=== PATIENT | male | born 1950 | race Caucasian/White ===

== ENCOUNTER 2020-05-02 13:17 | Outpatient (CLI) | payer OTHER, MEDICARE, SELFPAY ==
--- NOTE | 2020-05-02 13:30 | USCV_ITS ---
Jacob Raymundo Age: 70 Gender: M : 1950 Exam Date: 05/02/2020 13:32 Ordering Phys: Dennis Dickson MD ([email or web address]) Technologist: Miesha Bolden [place] [facility] [place]: BRADYCARDIA BP: / HR: 71 Rhythm: Sinus Technical Quality: No Apical windowsl MEASUREMENTS (Male / Female) Normal Values 2D ECHO LV Diastolic Diameter PLAX 3.6 cm 4.2 - 5.9 / 3.9 - 5.3 cm LV Systolic Diameter PLAX 2.1 cm IVS Diastolic Thickness 1.2 cm 0.6 - 1.0 / 0.6 - 0.9 cm IVS Systolic Thickness 2.0 cm LVPW Diastolic Thickness 1.5 cm 0.6 - 1.0 / 0.6 - 0.9 cm LVPW Systolic Thickness 2.1 cm LVOT Diameter 2.0 cm LV Ejection Fraction 2D Teich 74.1 % LA Diameter 3.6 cm Aorta at Sinotubular Diameter 3.2 cm M-MODE LV Diastolic Diameter MM 2.6 cm 4.2 - 5.9 / 3.9 - 5.3 cm LV Systolic Diameter MM 1.5 cm LV Ejection Fraction MM Teich 77.5 % IVS Diastolic Thickness MM 1.3 cm 0.6 - 1.0 / 0.6 - 0.9 cm IVS Systolic Thickness MM 1.6 cm LVPW Diastolic Thickness MM 1.8 cm 0.6 - 1.0 / 0.6 - 0.9 cm LVPW Systolic Thickness MM 1.8 cm RV Diastolic Diameter MM 1.8 cm Aortic Annulus Diameter 3.9 cm LA Ao Ratio MM 1.0 MV E Point Septal Separation 0.8 cm DOPPLER PV Peak Velocity 73.0 cm/s RV Acceleration Time 0.1 s RV Ejection Time 0.3 s RV AcT/ET 0.5 FINDINGS Left Ventricle Normal left ventricular size and systolic function, EF 55%. Mild left ventricular hypertrophy. No regional wall motion abnormalities. Right Ventricle Stability normal size ejection fraction Right Atrium Could not be visualized Left Atrium Possibly of normal size Mitral Valve No gross abnormalities noted Aortic Valve No gross abnormalities noted Tricuspid Valve Tricuspid valve not well visualized. Pulmonic Valve Pulmonic valve not well visualized. Pericardium No pericardial effusion. Aorta Normal aortic annulus size. CONCLUSIONS Normal left ventricular size and systolic function, EF 55%. Mild left ventricular hypertrophy. Segmental wall motion analysis difficult Possibly normal left atrial size Possibly normal RV size and ejection fraction There is no pericardial effusion. Technically difficult study because of the poor ultrasonic window. Dr Dennis Dickson MD [facility] (Electronically Signed) Final Date: 03 May 2020 00:21 S
== END 2020-05-02 13:18 | disposition home or self-care (01) ==
LOC: RAD 13:19
PROVIDERS: PCP Nurse Practitioner Family; Visit Provider Internal Medicine Cardiovascular Disease
DX: R00.1 Bradycardia, unspecified (principal)
CPT/HCPCS: 93308

== ENCOUNTER 2020-07-17 09:07 | Outpatient (CLI) | payer OTHER, SELFPAY ==
--- NOTE | 2020-07-17 09:15 | ECG_ITS ---
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 Interpretive Statements NAME OF STUDY: LEXISCAN SESTAMIBI STRESS TEST INDICATION: Shortness of Breath, PROCEDURE: At the baseline, the EKG revealed sinus bradycardia with a poor R wave progression. Possible old anterior wall myocardial infarction. Nonspecific T wave changes. The baseline blood pressure was 148/73 mm Hg with a heart rate of 54 beats/min. Lexiscan was infused over a period of 20 seconds. A total of 0.4 milligrams of Lexiscan was infused. The stress phase was continued for a total of 5 minutes. Heart rate at the end of the stress phase was 66 with a blood pressure 141/74. The EKG at the peak infusion revealed no significant changes. Sestamibi was injected 20 seconds after the Lexiscan infusion. Blood pressure at the end of the recovery phase was 155/74 with a heart rate of 64 per minute. CONCLUSION: 1. No significant EKG changes with the LexiScan infusion 2. No LexiScan induced chest pain or cardiac arrhythmia 3. Normal blood pressure and heart rate response 4. Sestamibi/sestamibi perfusion scan pending; see separate report. Electronically Signed On 07-25-2020 12:00:23 RELATIONS MGR by Dennis Dickson M.D. [id number]
--- NOTE | 2020-07-17 09:16 | NMCV_ITS ---
NM dasha perf SPECT r/s* [id number] Raymundo James Age: 70 Gender: M : 1950 Exam Date: 07/17/2020 10:22 Ordering Phys: Dennis Dickson MD ([email or web address]) Technologist: RIZWAN Taylor Exam Location: [facility] Indications: SHORTNESS OF BREATH STRESS TEST Please see separate stress test report in [facility] for full findings IMAGE PROTOCOL Rest/Stress 1 Lexiscan Day Radiopharmaceutical Dose (mCi) Administration Site Administered by Rest: Tc-99m 10.8 IV RIZWAN Taylor Sestamibi Stress:Tc-99m 33.0 IV RIZWAN Flower Sestamibi Rest: 17-Jul-2020 60 Discovery 630 Stress: 17-Jul-2020 30 Discovery 630 0.4mg Lexiscan. Supine position only as patient was unable to lay prone. SPECT RESULTS Technical Quality: Excellent Raw Data Analysis: Normal Image Corrections: No attenuation or motion correction applied Summed Stress Score: 1 Summed Rest Score: 1 Summed Difference Score: 0 PERFUSION FINDINGS Patchy areas of decreased tracer uptake in the apical segments with no significant reversibility FUNCTIONAL RESULTS (calculated via Gated SPECT) Stress Image LV EF (%): 61 Stress EDV (mL):116 TID: 1.06 Stress ESV (mL):45 FUNCTIONAL FINDINGS: Segmental wall motion analysis revealing no gross wall motion abnormalities IMPRESSIONS 1. Myocardial perfusion imaging revealing patchy areas of persistent decreased tracer uptake in the apical segments, suggestive of myocardial scarring versus attenuation artifact. 2. Normal LV ejection fraction of 61%. 3. LV wall motion analysis revealing no gross wall motion normalities. 4. Normal LV volume. No significant coronary ischemia, based on the above findings. No similar previous studies for comparison Dr Dennis Dickson MD [facility] (Electronically Signed) Final Date: 17 July 2020 17:21 S
[2020-07-17 09:17] VITALS: BMI 48.2
[2020-07-17] MEDS: regadenoson 0.4 Mg/5 ml Syringe IVP (11:05)
[2020-07-17 11:22] VITALS: BP 158/75; PULSE 65
== END 2020-07-17 09:08 | disposition home or self-care (01) ==
LOC: CDL 09:10
PROVIDERS: PCP Nurse Practitioner Family; Visit Provider Internal Medicine Cardiovascular Disease
DX: R06.02 Shortness of breath (principal); R94.31 Abnormal electrocardiogram [ECG] [EKG]
CPT/HCPCS: 78452; 93017; A9500; J2785

== ENCOUNTER 2020-09-16 23:03 | Emergency (ER) | payer OTHER, SELFPAY ==
[2020-09-16 23:29] VITALS: BP 111/68; PULSE 62; RESP 18; TEMP 36.8; O2SAT 97; BMI 45.4
--- NOTE | 2020-09-16 23:48 | ED_ITS ---
HPI - Neck Pain/Injury General: Chief Complaint: Neck Pain/Injury Stated Complaint: Severe neck pain Time Seen by Provider: 09/16/20 23:46 Source: patient Mode of arrival: ambulatory Limitations: no limitations History of Present Illness: HPI Narrative: 70-year-old male complaining of neck pain, intermittent since 09/01/2020 when he fell from standing position. He is not on blood thinners. The pain has been waxing and waning, got worse after he took a long car ride, has tried taking extra gabapentin which did help some. No weakness or numbness radiating down his arms. The pain is mainly on the left side of his neck just beneath the base of his skull. He does not have any sharp stabbing pains with certain movements. He does have a history of cervical spine disease, had C6-C7 fusion 1 year ago. No chest pain, no shortness of breath, no nausea or vomiting. MD complaint: neck pain and neck injury Onset (ago): week(s) Place: home Radiation: left lateral and occiput Associated symptoms: Reports headache(s); Denies difficulty walking, dizziness or nausea Review of Systems General: Reports: 10 or more systems reviewed and unremarkable except in HPI and below Const: Denies: fever(s), chills, body aches, change in appetite or change in weight Eyes: Denies: change in vision, blurry vision or blind spots ENMT: Denies: throat pain, odynophagia or ear or mastoid pain Card: Denies: chest pain, palpitations or irregular heart rhythm Resp: Denies: dyspnea, non-productive cough, wheezing or pain on inspiration GI: Denies: nausea or vomiting : Denies: flank pain, difficulty urinating or dysuria Musc: Reports: neck pain; Denies: back pain, extremity pain, extremity swelling, joint pain or joint swelling Skin/Breast: Denies: rash, pruritus or erythema Neuro: Reports: headache(s); Denies: numbness in extremities, weakness in extremities, sensory changes, difficulty walking, frequent falls, dizziness or vertigo Freeman/Lymph: Denies: easy bruising or easy bleeding PFS ED PFSH: Medical History (Updated 09/17/20 @ 01:46 by Carmela Barnes MD) Abnormal EKG Benign essential hypertension with target blood pressure below 140/90 Bradycardia Diabetes Dyslipidemia Erectile dysfunction Hypertension Low back pain Obesity PTSD (post-traumatic stress disorder) Sleep apnea Spondylosis Vitamin D deficiency Surgical History H/O neck surgery History of back surgery History of carpal tunnel surgery Family History Other Bleeding disorder Cancer Diabetes Lung disease Denies family history of CAD (coronary artery disease) Dementia Hyperlipidemia Chronic kidney disease (CKD) Anesthesia complication Family history of premature coronary artery disease Hypertension Stroke Social History Smoking and tobacco status: never smoked Alcohol intake: current Alcohol intake frequency: holidays/special occasions only Physical Exam Const: COMMON NORMALS: no acute distress, patient oriented x3, no limitations and alert GENERAL APPEARANCE: cooperative; not in distress, not anxious, not ill appearing and not frail appearing NUTRITIONAL APPEARANCE: obese morbidly obese ORIENTATION/CONSCIOUSNESS: Yes awake HENMT: COMMON NORMALS: normocephalic and atraumatic HEAD & SCALP: normal to inspection, normocephalic, atraumatic and occipital foramen tenderness; no abrasion, no Arroyo's sign, no contusion, no hematoma, no laceration, no palpable skull fracture, no raccoon eyes, no scalp lesion and no scalp tenderness FACE & SINUS: normal facial exam and face symmetric Eye: COMMON NORMALS: Equal, round and reactive pupils present, EOMs intact bilaterally, conjunctivae normal and no scleral icterus CONJUNCTIVA: Yes conjunctivae normal PUPIL: Yes Equal, round and reactive pupils present Neck/C-Spine: COMMON NORMALS: full ROM GENERAL: Yes trachea midline and No anterior neck swelling CERVICAL SPINE: Yes pain with cervical ROM, Yes Cervical spine tenderness C3 and C4, Yes Paracervical muscle tenderness left and Yes Paracervical spasm left NECK IMAGES: 1. Muscle spasm, tenderness Resp: COMMON NORMALS: normal respiratory effort, No retractions and No use of accessory muscles EFFORT & INSPECTION: No labored Extremity: COMMON NORMALS: no clubbing, cyanosis or edema Neuro: COMMON NORMALS: patient oriented x3 SENSORIUM/ORIENTATION: Yes alert CRANIAL NERVES: Yes CN normal except as noted GAIT: Yes Normal gait present, No Antalgic gait present and No Ataxic gait present MOTOR EXAM: no tremor noted, Motor fasciculations not present and Normal motor muscle tone present throughout Skin: COMMON NORMALS: no rashes or lesions noted and turgor normal GENERAL SKIN EXAM: no rashes or lesions noted, turgor normal and no ecchymo Course Vital Signs: Vital signs: Vital Signs Temperature 98.2 F 09/16/20 23:29 Pulse Rate 62 09/16/20 23:29 Respiratory Rate 18 09/16/20 23:29 Blood Pressure 111/68 09/16/20 23:29 Pulse Oximetry 97 09/16/20 23:29 MDM - Neck Pain/Injury MDM Narrative: Medical decision making narrative: 70-year-old male with left- sided neck pain after fall [address] head and C-spine negative for any acute injuries. Bupivacaine 0.5% injected at 2 points of maximal tenderness: 5 cc at the insertion of the semispinalis and splenius capitis muscle at the left occiput, 5 cc injected in the body of the trapezius at C4-C5 level. On reexamination 50 minutes later, patient was sleeping, so the his neck pain had improved considerably, range of motion was less painful. Differential Diagnosis: Neck Differential Diagnosis: Likely disc disorder of cervical region, whiplash injury to neck, closed subluxation of cervical spine, fracture of cervical spine without lesion of spinal cord, cervical radiculopathy and strain of neck muscle Discharge Plan Discharge Patient Disposition: Home Clinical Impression: Neck pain on left side Strain of neck muscle Qualifiers: Encounter type: initial encounter Qualified Code(s): S16.1XXA - Strain of muscle, fascia and tendon at neck level, initial encounter Condition: Stable Prescriptions: No Action hydrocodone-acetaminophen 5-325 mg tablet 1 tab PO Q8H PRNRF: 0 tramadol 50 mg tablet 50 mg PO DAILY RF: 0 cetirizine 10 mg tablet 10 mg PO DAILY RF: 0 diclofenac sodium 100 mg tablet extended release 24 hr 100 mg PO DAILY RF: 0 buspirone 10 mg tablet 10 mg PO BID RF: 0 acetaminophen 650 mg tablet extended release 650 mg PO Q8H RF: 0 fluticasone propionate [Allergy Relief (fluticasone)] 50 mcg/actuation spray,suspension 1 spray INTRANASAL BID RF: 0 gemfibrozil 600 mg tablet 600 mg PO BID RF: 0 pioglitazone 15 mg tablet 15 mg PO DAILY RF: 0 gabapentin 300 mg capsule 300 mg PO TID RF: 0 mecobalamin (vitamin B12) 10,000 mcg recon soln IM .monthly RF: 0 fluoxetine 20 mg capsule 20 mg PO BID RF: 0 methocarbamol 750 mg tablet 750 mg PO QID RF: 0 cyclobenzaprine 10 mg tablet 10 mg PO TID RF: 0 Discharge Orders: Discharge ED (Routine); Ordered 09/17/20 Ordered By: Carmela Barnes Referrals: Boone Neil APRN [Primary Care Provider] - Discharge Diet: Advance as tolerated Discharge Activity: Resume usual activity Patient Instructions: Cervical Sprain (ED) Activity Restrictions/Additional Instructions: Call to schedule follow-up appoint with your primary care doctor in the next 2 to 3 days to recheck. Apply warm compress, gently massage the tender area, stretch her neck frequently by leaning your head forward, tucking your chin to your chest. Return immediately to the ER if you develop worsening pain, numbness or weakness in your arms, difficulty walking, severe headache nausea or vomiting. 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
--- NOTE | 2020-09-17 | CTR_ITS ---
PROCEDURE INFORMATION: Exam: CT Head Without Contrast Exam date and time: 09/17/2020 12:04 AM Age: 70 years old Clinical indication: Injury or trauma; Blunt trauma (contusions or hematomas); Patient HX: Fall about two weeks ago. C/O persistent head and neck pain. ; Additional info: Headache, neck pain, fell 2 weeks ago TECHNIQUE: Imaging protocol: Computed tomography of the head without contrast. Radiation optimization: All CT scans at this facility use at least one of these dose optimization techniques: automated exposure control; mA and/or kV adjustment per patient size (includes targeted exams where dose is matched to clinical indication); or iterative reconstruction. COMPARISON: No relevant prior studies available. RADIATION DOSE METRICS: Total DLP (mGy-cm): 869.98 FINDINGS: Brain: No acute infarct or hemorrhage. Cerebral ventricles: No ventriculomegaly. Bones/joints: Unremarkable. No acute fracture. Paranasal sinuses: Paranasal sinuses are clear. No air-fluid level. Mastoid air cells: Visualized mastoid air cells are clear. Soft tissues: Unremarkable. CT/CT head wo con* [id number] IMPRESSION: 1. No acute infarct or hemorrhage. 2. No fracture. Radiation Dose CTDIVOL = (mGy): DLP = 869.98 (mGy-cm)
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
--- NOTE | 2020-09-17 00:32 | PC.NURSE ---
EKG taken and given to Dr. Barnes
[2020-09-17 02:00] VITALS: BP 115/71; PULSE 60; RESP 19; O2SAT 98
== END 2020-09-17 02:00 | disposition home or self-care (01) ==
PROVIDERS: Emergency Provider Family Medicine; PCP Nurse Practitioner Family
DX: S16.1XXA Strain of muscle, fascia and tendon at neck level, initial encounter (principal); I10 Essential (primary) hypertension; E11.9 Type 2 diabetes mellitus without complications; E78.5 Hyperlipidemia, unspecified; W19.XXXA Unspecified fall, initial encounter
CPT/HCPCS: 70450; 72125; 99284; J3490

== ENCOUNTER 2020-10-16 22:57 | Emergency (ER) | payer OTHER, MEDICARE, SELFPAY ==
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
[2020-10-16 23:12] VITALS: BP 150/70; PULSE 54; RESP 16; TEMP 36.8; O2SAT 96; BMI 43.8
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
[2020-10-17] MEDS: HYDROcodone-acetaminophen 5-325 mg Tablet 1 TAB PO (00:29)
[2020-10-17 00:36] VITALS: BP 136/93; PULSE 59; RESP 17; TEMP 36.8; O2SAT 96
== END 2020-10-17 00:37 | disposition home or self-care (01) ==
PROVIDERS: Emergency Provider Emergency Medicine; PCP Nurse Practitioner Family
DX: S16.1XXA Strain of muscle, fascia and tendon at neck level, initial encounter (principal); V87.8XXA Person injured in other specified noncollision transport accidents involving motor vehicle (traffic), initial encounter; I10 Essential (primary) hypertension; E11.9 Type 2 diabetes mellitus without complications; E78.5 Hyperlipidemia, unspecified
CPT/HCPCS: 70450; 72125; 99283; L0172

== ENCOUNTER → 2021-11-04 13:50 | Outpatient (BNVA) | payer OTHER, SELFPAY | PROVIDERS: PCP Nurse Practitioner Family; Visit Provider Internal Medicine Cardiovascular Disease | DX: I10 Essential (primary) hypertension (principal); R42 Dizziness and giddiness; E78.5 Hyperlipidemia, unspecified; R20.0 Anesthesia of skin; R20.2 Paresthesia of skin | CPT/HCPCS: 99213; 99214 ==

== ENCOUNTER 2021-12-21 11:30 | Outpatient (CLI) | payer OTHER, SELFPAY ==
--- NOTE | 2021-12-21 12:45 | USCV_ITS ---
Raymundo James Age: 71 Gender: M : 1950 Exam Date: 12/21/2021 11:45 Ordering Phys: Dennis Dickson MD ([email or web address]) Technologist: CHACE Exam Location: [facility] [place] Indication: Bilateral carotid artery stenosis Risk Factors: Previous Vascular Surgery: Right Brachial BP: / Left Brachial BP: / Right Left Velocity (cm/s) Spectral Plaque Velocity (cm/s) Spectral Plaque Syst/Diast Broadening Syst/Diast Broadening 67.50/ 6.60 Prox CCA 99.10 / 13.20 70.30/ 10.30 Mid CCA 57.80 / 13.50 69.50/ 12.10 Distal CCA 61.30 / 9.30 42.50/ 7.80 Prox ICA 60.60 / 14.00 47.60/ 10.00 Mid ICA 52.80 / 14.60 44.50/ 14.10 Distal ICA 49.90 / 12.70 111.40 ECA 97.30 0.68 ICA/CCA 1.05 Antegrade Vertebral Antegrade 30.40/ 5.90 cm/s 22.90/ 4.45 cm/s Tri Subclavian Tri 72.80 156.4 0 FINDINGS Minimal intimal thickening in the common carotid and the internal carotid arteries bilaterally Antegrade flow in the vertebral arteries bilaterally Normal /near normal Doppler flow velocities in the external carotid, vertebral and subclavian arteries bilaterally CONCLUSIONS Minimal intimal thickening in the common carotid and the internal carotid arteries bilaterally. No significant stenosis in the above-mentioned arteries, based on the above findings Dr Dennis Dickson MD [facility] (Electronically Signed) Final Date: 22 December 2021 08:07 S
== END 2021-12-21 11:31 | disposition home or self-care (01) ==
LOC: RAD 11:31
PROVIDERS: PCP Nurse Practitioner Family; Visit Provider Internal Medicine Cardiovascular Disease
DX: I77.9 Disorder of arteries and arterioles, unspecified (principal); R20.0 Anesthesia of skin; R20.2 Paresthesia of skin
CPT/HCPCS: 93880

== ENCOUNTER → 2022-09-14 09:33 | Outpatient (BNVA) | payer MEDICARE, SELFPAY | PROVIDERS: PCP Nurse Practitioner Family; Visit Provider Nurse Practitioner Family | DX: M25.512 Pain in left shoulder (principal) | CPT/HCPCS: 73030 ==

== ENCOUNTER → 2023-05-03 14:27 | Outpatient (BNVA) | payer OTHER, SELFPAY | PROVIDERS: PCP Family Medicine; Referring Provider Nurse Practitioner Family; Visit Provider Internal Medicine Cardiovascular Disease | DX: I50.9 Heart failure, unspecified (principal); R06.02 Shortness of breath; R07.9 Chest pain, unspecified; I44.0 Atrioventricular block, first degree; M79.89 Other specified soft tissue disorders; E78.5 Hyperlipidemia, unspecified; I10 Essential (primary) hypertension; R00.1 Bradycardia, unspecified; G47.33 Obstructive sleep apnea (adult) (pediatric); I44.4 Left anterior fascicular block | CPT/HCPCS: 36415; 80048; 83880; 93005; 99214 ==

== ENCOUNTER → 2023-05-05 13:15 | Outpatient (BNVA) | payer OTHER, SELFPAY | PROVIDERS: PCP Family Medicine; Visit Provider Student in an Organized Health Care Education/Training Program | DX: R20.0 Anesthesia of skin; R20.2 Paresthesia of skin; M79.641 Pain in right hand; M79.642 Pain in left hand | CPT/HCPCS: 73130 ==

== ENCOUNTER 2023-05-05 14:24 | Outpatient (CLI) | payer OTHER, SELFPAY | END 2023-05-05 14:25 | disposition home or self-care (01) | LOC: SPT 14:44 | PROVIDERS: PCP Family Medicine; Visit Provider Student in an Organized Health Care Education/Training Program | DX: Z46.89 Encounter for fitting and adjustment of other specified devices (principal); G56.03 Carpal tunnel syndrome, bilateral upper limbs | CPT/HCPCS: 97760; 99204; L3908 ==

== ENCOUNTER → 2023-06-03 10:55 | Outpatient (BNVA) | payer OTHER, SELFPAY | PROVIDERS: PCP Family Medicine; Visit Provider Specialist | DX: G56.03 Carpal tunnel syndrome, bilateral upper limbs (principal); G56.22 Lesion of ulnar nerve, left upper limb | CPT/HCPCS: 95911 ==

== ENCOUNTER → 2023-12-01 13:48 | Outpatient (BNVA) | payer OTHER, SELFPAY | PROVIDERS: PCP Family Medicine; Visit Provider Internal Medicine Cardiovascular Disease | DX: R06.02 Shortness of breath (principal); I10 Essential (primary) hypertension; R00.1 Bradycardia, unspecified; E78.5 Hyperlipidemia, unspecified; G47.33 Obstructive sleep apnea (adult) (pediatric) | CPT/HCPCS: 99214 ==

== ENCOUNTER 2024-03-09 17:57 | Emergency (ER) | payer OTHER, MEDICARE, SELFPAY ==
[2024-03-09 18:02] VITALS: BP 168/79; PULSE 63; RESP 18; TEMP 36.5; O2SAT 99
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
[2024-03-09 20:05] VITALS: BP 155/76; PULSE 60; RESP 16; O2SAT 97
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
== END 2024-03-09 20:03 | disposition home or self-care (01) ==
PROVIDERS: Emergency Provider Physician Assistant; PCP Family Medicine
DX: S40.021A Contusion of right upper arm, initial encounter (principal); R42 Dizziness and giddiness; E78.5 Hyperlipidemia, unspecified; I10 Essential (primary) hypertension; E11.9 Type 2 diabetes mellitus without complications; V89.2XXA Person injured in unspecified motor-vehicle accident, traffic, initial encounter
CPT/HCPCS: 70450; 72125; 73060; 99284

== ENCOUNTER 2024-03-09 21:52 | Emergency (ER) | payer OTHER, MEDICARE, SELFPAY ==
[2024-03-09 22:14] VITALS: BP 151/77; PULSE 59; RESP 18; TEMP 36.7; O2SAT 96
--- NOTE | 2024-03-09 22:18 | ECG_ITS ---
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 Measurements Intervals Hobbs Rate: 59 P: 13 NV: 217 QRS: -51 QRSD: 90 T: 21 QT: 404 QTc: 401 Interpretive Statements SINUS BRADYCARDIA WITH FIRST DEGREE AV BLOCK LOW QRS VOLTAGE IN PRECORDIAL LEADS [QRS DEFLECTION < 1.0 mV IN CHEST LEADS] LEFT ANTERIOR FASCICULAR BLOCK [QRS AXIS <= -45, QR IN I, RS IN II] POSSIBLE ANTERIOR MYOCARDIAL INFARCTION , OF INDETERMINATE AGE [30 ms Q WAVE IN V3/V4, OR R < 0.2 mV IN V4] Compared to ECG 02/20/2024 11:13:32 First degree AV block now present Left anterior fascicular block now present Sinus rhythm no longer present Myocardial infarct finding still present Electronically Signed On 03-11-2024 9:16:33 CDT by Adrian Issa M.D. [email or web address]
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
[2024-03-09 23:30] VITALS: BP 142/66; PULSE 58; RESP 18; O2SAT 96
== END 2024-03-09 22:51 | disposition home or self-care (01) ==
PROVIDERS: Emergency Provider Physician Assistant; PCP Family Medicine
DX: Z01.89 Encounter for other specified special examinations (principal); I10 Essential (primary) hypertension; E11.9 Type 2 diabetes mellitus without complications
CPT/HCPCS: 93005; 99283

== ENCOUNTER 2024-03-16 12:43 | Emergency (ER) | payer OTHER, MEDICARE, SELFPAY ==
[2024-03-16 12:49] VITALS: BP 129/58; PULSE 64; RESP 18; TEMP 36.8; O2SAT 98; BMI 43.0
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
--- NOTE | 2024-03-16 14:13 | PC.PHAR ---
[facility] 03/16/24 2:14pm
[2024-03-16 14:16] VITALS: BP 135/67; PULSE 55; RESP 18; O2SAT 96
[2024-03-16 15:24] VITALS: BP 113/64; PULSE 52; O2SAT 97
[2024-03-16 15:48] VITALS: BP 125/91; PULSE 52; RESP 18; O2SAT 97
== END 2024-03-16 15:51 | disposition home or self-care (01) ==
PROVIDERS: Emergency Provider Emergency Medicine; PCP Family Medicine
DX: M48.061 Spinal stenosis, lumbar region without neurogenic claudication (principal); E78.5 Hyperlipidemia, unspecified; I10 Essential (primary) hypertension; E11.9 Type 2 diabetes mellitus without complications
CPT/HCPCS: 72128; 72131; 99284

== ENCOUNTER 2024-04-10 10:08 | Outpatient (CLI) | payer OTHER, SELFPAY ==
--- NOTE | 2024-04-10 10:27 | USCV_ITS ---
Raymundo James Age: 74 Gender: M : 1950 Exam Date: 04/10/2024 10:58 Ordering Phys: Marlene Michaud Technologist: Exam Location: [facility] [place] Indication: ef BP: / HR: Rhythm: Sinus Technical Quality: Adequate MEASUREMENTS (Male / Female) Normal Values 2D ECHO LV Diastolic Diameter PLAX 4.1 cm 4.2 - 5.9 / 3.9 - 5.3 cm IVS Diastolic Thickness 1.2 cm 0.6 - 1.0 / 0.6 - 0.9 cm IVS Systolic Thickness 2.0 cm LVPW Diastolic Thickness 1.3 cm 0.6 - 1.0 / 0.6 - 0.9 cm LVPW Systolic Thickness 1.6 cm LV Ejection Fraction 2D Teich 65.7 % LV Ejection Fraction MOD 4C 65.5 % LV Ejection Fraction MOD 2C 65.0 % LV Ejection Fraction 2C AL 65.4 % RA Systolic Volume 4C AL 61.4 ml RA Systolic Volume 4C MOD 57.4 ml M-MODE LA Ao Ratio MM 1.1 AV Cusp Separation MM 2.6 cm FINDINGS Left Ventricle Normal left ventricular size and systolic function, EF 66%. No regional wall motion abnormalities. Segmental wall motion analysis somewhat difficult because of the poor ultrasonic windows Right Ventricle Normal right ventricular size and systolic function. Right Atrium Possibly of normal size Left Atrium Appears to be of normal size. Mitral Valve No gross abnormalities noted Aortic Valve No gross morphology abnormalities noted Tricuspid Valve No gross abnormalities noted Pulmonic Valve Not visualized well Pericardium No pericardial effusion. Aorta Normal aortic annulus size. IVC Inferior vena cava not visualized. CONCLUSIONS Normal left ventricular size and systolic function, EF 66%. No regional wall motion abnormalities. Segmental wall motion analysis somewhat difficult because of the poor ultrasonic windows. Possibly normal chamber sizes. No gross valvular abnormalities are noted. No pericardial effusion. Technically somewhat difficult study Dr Dennis Dickson MD [facility] (Electronically Signed) Final Date: 17 April 2024 08:35 S
== END 2024-04-10 10:09 | disposition home or self-care (01) ==
LOC: RAD 10:10
PROVIDERS: PCP Family Medicine; Visit Provider Nurse Practitioner Family
DX: R00.1 Bradycardia, unspecified (principal); R94.31 Abnormal electrocardiogram [ECG] [EKG]; I10 Essential (primary) hypertension
CPT/HCPCS: 93308

== ENCOUNTER 2024-07-16 16:13 | Emergency (ER) | payer OTHER, MEDICARE, SELFPAY ==
[2024-07-16 16:36] VITALS: BP 126/60; PULSE 65; TEMP 36.7; O2SAT 98; BMI 42.4
--- NOTE | 2024-07-16 16:40 | ECG_ITS ---
[facility] Test Date: 2024-07-16 Pat Name: Raymundo James Department: Room: Gender: Male Photo Specialist: : 1950 Requested By: Bruce Velarde Order Number: [id number] Reading MD: JANI LEVY Measurements Intervals [place] Rate: 58 P: 0 NH: 0 QRS: -65 QRSD: 109 T: 30 QT: 446 QTc: 441 Interpretive Statements SUPRAVENTRICULAR BRADYCARDIA LEFT AXIS DEVIATION [QRS AXIS < -30] LOW QRS VOLTAGE IN PRECORDIAL LEADS [QRS DEFLECTION < 1.0 mV IN CHEST LEADS] POSSIBLE ANTERIOR MYOCARDIAL INFARCTION , OF INDETERMINATE AGE [30 ms Q WAVE IN V3/V4, OR R < 0.2 mV IN V4] Compared to ECG 03/09/2024 22:18:32 Left-axis deviation now present Sinus bradycardia no longer present First degree AV block no longer present Left anterior fascicular block no longer present Myocardial infarct finding still present Electronically Signed On 07-16-2024 23:10:16 [employer]EL [employer] FLOORPERSON by JANI LEVY [email or web address]
--- NOTE | 2024-07-16 17:26 | CTR_ITS ---
PROCEDURE INFORMATION: Exam: CT Head Without Contrast Exam date and time: 07/16/2024 5:48 PM Age: 74 years old Clinical indication: Dizziness; Additional info: Dizzy TECHNIQUE: Imaging protocol: Computed tomography of the head without contrast. Radiation optimization: All CT scans at this facility use at least one of these dose optimization techniques: automated exposure control; mA and/or kV adjustment per patient size (includes targeted exams where dose is matched to clinical indication); or iterative reconstruction. COMPARISON: CT head wo con* [id number] 03/09/2024 6:41 PM RADIATION DOSE METRICS: Total DLP (mGy-cm): 1213.48 FINDINGS: Brain: No intracranial hemorrhage. No edema or mass effect. No significant deep white matter abnormality. Cerebral ventricles: Normal ventricles. Paranasal sinuses: The paranasal sinuses are clear. Mastoid air cells: The mastoid air cells are clear. Bones: No acute osseous abnormalities are seen. Soft tissues: The soft tissues are within normal limits. CT/CT head wo con* [id number] IMPRESSION: No acute intracranial pathology.
--- NOTE | 2024-07-16 17:26 | XRR_ITS ---
PROCEDURE INFORMATION: Exam: XR Chest Exam date and time: 07/16/2024 5:29 PM Age: 74 years old Clinical indication: Other: Dizzy TECHNIQUE: Imaging protocol: Radiologic exam of the chest. Views: 1 view. COMPARISON: CT thoracic spin wo con* [id number] 03/16/2024 1:47 PM FINDINGS: Limitations: Patient rotation. Lungs: Mild interstitial prominence likely chronic lung changes. No pulmonary consolidation. Pleural spaces: No pleural effusion or pneumothorax. Heart/Mediastinum: Heart size is poorly evaluated. The cardiomediastinal silhouette is within normal limits. Bones/joints: No acute osseous abnormalities are seen. XR/XR chest 1V portable [id number] IMPRESSION: No acute cardiopulmonary disease.
--- NOTE | 2024-07-16 17:30 | ED_ITS ---
HPI - General Adult 2 General: Chief complaint: General Medical Stated complaint: dizzyness and lower back pain Time Seen by Provider: 07/16/24 17:12 Source: patient Mode of arrival: ambulatory Limitations: no limitations History of Present Illness: 74-year-old male states that he has been having lightheadedness he states since April. He states that he has periods where he feels like he may blackout while some dizziness. He states he has a history of A-fib he sees his environmental science technician next month but states he wants for a Krishnan always feeling lightheaded he denies any slurred speech denies any chest pain he states he also has low back pain is chronic in nature. Denies any change in his back pain. Associated symptoms: Deny chest pain, dyspnea, headache(s), nausea, rash or vomiting Related Data Home Medications Medication Instructions Recorded Confirmed acetaminophen 650 mg 650 mg PO Q8H 03/04/20 07/16/24 tablet,extended release buspirone 10 mg tablet 10 mg PO BID 03/04/20 07/16/24 cetirizine 10 mg tablet 10 mg PO DAILY 03/04/20 07/16/24 diclofenac sodium 100 mg 100 mg PO DAILY 03/04/20 07/16/24 tablet,extended release 24 hr fluoxetine 20 mg capsule 20 mg PO BID 03/04/20 07/16/24 gemfibrozil 600 mg tablet 600 mg PO BID 03/04/20 07/16/24 methocarbamol 750 mg tablet 750 mg PO QID 03/04/20 07/16/24 fluticasone propionate 50 1 spray intranasal BID PRN allergy 11/05/20 07/16/24 mcg/actuation nasal symptoms spray,suspension (Allergy Relief (fluticasone)) pioglitazone 15 mg tablet 7.5 mg PO DAILY 05/07/21 07/16/24 finasteride 5 mg tablet (Proscar) 5 mg PO DAILY 11/04/21 07/16/24 gabapentin 800 mg tablet 800 mg PO TID 09/14/22 07/16/24 Previous Rx's Medication Instructions Recorded tramadol 50 mg tablet 50 mg PO TID PRN pain #10 tabs 09/14/22 losartan 100 mg tablet 100 mg PO DAILY 30 days #90 tabs 05/03/23 bilateral wrist splint/brace #1 ea 05/05/23 prednisone 20 mg tablet 20 mg PO DAILY #15 tabs 05/05/23 potassium chloride 20 mEq 10 meq (1/2 x 20 mEq) PO DAILY #45 05/20/23 tablet,extended release tabs methocarbamol 750 mg tablet 750 mg PO TID muscle pain #14 tabs 03/16/24 aspirin 81 mg tablet,delayed 81 mg PO DAILY #90 tabs 03/21/24 release (Adult Aspirin Regimen) Allergies Allergy/AdvReac Type Severity Reaction Status Date / Time metformin Allergy Unknown unknown Verified 07/16/24 16:48 phenobarbital Allergy Unknown unknown Verified 07/16/24 16:48 Sulfa (Sulfonamide Allergy Unknown unknown Verified 07/16/24 16:48 Antibiotics) Review of Systems 2 Const: Denies: fever(s), chills, body aches or change in appetite ENMT: Denies: throat pain or dental pain Card: Denies: chest pain Resp: Denies: dyspnea GI: Denies: abdominal pain, nausea, vomiting or diarrhea Musc: Reports: back pain; Denies: neck pain Skin/Breast: Denies: rash Neuro: Denies: headache(s) PFSH ED 2 PFSH: Medical History (Updated 07/16/24 @ 20:24 by Bruce Velarde MD) Dyslipidemia Abnormal EKG Benign essential hypertension with target blood pressure below 140/90 Bradycardia Hypertension Low back pain Erectile dysfunction Obesity Spondylosis Sleep apnea PTSD (post-traumatic stress disorder) Vitamin D deficiency Diabetes Surgical History H/O neck surgery History of carpal tunnel surgery History of back surgery Family History Father Cancer Mother Cancer Lung disease CAD (coronary artery disease) Diabetes Denies family history of Clotting disorder Dementia Hyperlipidemia Chronic kidney disease (CKD) Suicide Anesthesia complication Bleeding disorder Family history of premature coronary artery disease Hypertension Stroke Social History Smoking and tobacco/nicotine status: never used tobacco/nicotine Alcohol intake: current Alcohol intake frequency: holidays/special occasions only Substance/Drug Use: never Physical Exam 2 Const: COMMON NORMALS: no acute distress, patient oriented x3 and healthy appearing HENMT: COMMON NORMALS: normocephalic and atraumatic HEAD & SCALP: n ormocephalic and atraumatic Eye: COMMON NORMALS: Equal, round and reactive pupils present and EOMs intact bilaterally PUPIL: Yes Equal, round and reactive pupils present Neck/C-Spine: COMMON NORMALS: full ROM and supple Chest: COMMONS NORMALS: normal inspection of the chest and normal palpation of entire chest wall Resp: COMMON NORMALS: normal respiratory effort, No retractions, No use of accessory muscles and clear to auscultation bilaterally AUSCULTATION: clear to auscultation bilaterally Cardio: COMMON NORMALS: regular rate, regular rhythm and No murmurs present (Cardio) RATE: regular rate RHYTHM: regular rhythm GI: COMMON NORMALS: Normal to inspection, nondistended, normoactive bowel sounds present, Soft to palpation, non-tender and no masses PALPATION: Yes Soft to palpation Extremity: COMMON NORMALS: normal to inspection and full ROM Neuro: COMMON NORMALS: patient oriented x3, moves all extremities and no focal motor deficits Psych: COMMON NORMALS: mental status grossly normal, Normal thought process present and cooperative THOUGHT PROCESS: Normal thought process present Skin: COMMON NORMALS: no rashes or lesions noted and no wounds GENERAL SKIN EXAM: no rashes or lesions noted Course 2 Vital Signs: Vital signs: Vital Signs Temperature 98.1 F 07/16/24 16:36 Pulse Rate 63 07/16/24 20:00 Respiratory Rate 15 07/16/24 20:00 Blood Pressure 126/70 07/16/24 20:00 Pulse Oximetry 99 07/16/24 19:35 Oxygen Delivery Me thod Room Air 07/16/24 18:30 [facility] - General Adult Medical Decision Making Patient presents here with back pain along with feeling lightheaded his troponins here are negative head CT is normal he has had no chest pain here no signs of ACS no signs of a stroke he is to follow-up with primary care doctor along with environmental science technician and return if worsening he understands agrees to plan. Medical Records I reviewed the patient's medical records. Lab Data I reviewed the patient's lab results. 07/16/24 18:10 07/16/24 18:10 Radiology Impressions Chest X-Ray 07/16/24 17:26 IMPRESSION: No acute cardiopulmonary disease. Head CT 07/16/24 17:26 IMPRESSION: No acute intracranial pathology. Laboratory Results WBC 7.89 10^3/uL (3.29-11.43) 07/16/24 18:10 RBC 4.72 10^6/uL (3.85-5.65) 07/16/24 18:10 Hgb 15.30 g/dL (11.27-16.99) 07/16/24 18:10 Hct 43.0 % (37-53) 07/16/24 18:10 MCV 91.1 fl (82-101) 07/16/24 18:10 MCH 32.4 pg (27-33) 07/16/24 18:10 MCHC 35.6 g/dL (30-55) 07/16/24 18:10 RDW 13.3 % (12.1-15.1) 07/16/24 18:10 Plt Count 240 10^3/cmm (157-399) 07/16/24 18:10 MPV 8.6 fL (7.4-10.4) 07/16/24 18:10 Neut % (Auto) 68.5 % 07/16/24 18:10 Lymph % (Auto) 19.1 % 07/16/24 18:10 [place] % (Auto) 8.1 % 07/16/24 18:10 Eos % (Auto) 3.4 % 07/16/24 18:10 Baso % (Auto) 0.5 % 07/16/24 18:10 Neut # (Auto) 5.40 10^3/uL (1.8-7.7) 07/16/24 18:10 Lymph # (Auto) 1.5 10^3/uL (0.8-4.8) 07/16/24 18:10 [place]icot # (Auto) 0.6 10^3/uL (0.2-0.9) 07/16/24 18:10 Eos # (Auto) 0.3 10^3/uL (0.0-0.8) 07/16/24 18:10 Baso # (Auto) 0.0 10^3/uL (0.0-0.1) 07/16/24 18:10 Nucleated RBC % (auto) 0 % 07/16/24 18:10 Nucleated RBCs # 0.0 /100WBC 07/16/24 18:10 PT 12.40 SECONDS (12.1-14.9) 07/16/24 18:10 INR 0.86 (0.8-1.2) 07/16/24 18:10 Sodium 139 mmol/L (136-145) 07/16/24 18:10 Potassium 4.0 mmol/L (3.5-5.1) 07/16/24 18:10 Chloride 102 mmol/L (98-107) 07/16/24 18:10 Carbon Dioxide 26 mmol/L (22-29) 07/16/24 18:10 Anion Gap 15.0 (5-19) 07/16/24 18:10 BUN 10 mg/dL (8-23) 07/16/24 18:10 Creatinine 0.7 mg/dL (0.7-1.2) 07/16/24 18:10 GFR Calculation Not Reportable 07/16/24 18:10 Glucose 142 mg/dL (65-115) H 07/16/24 18:10 Calculated Osmolality 289 mOsm/kg (285-295) 07/16/24 18:10 Calcium 9.3 mg/dL (8.5-10.5) 07/16/24 18:10 Total Bilirubin 0.4 mg/dL (0.15-1.2) 07/16/24 18:10 AST 25 U/L (0-40) 07/16/24 18:10 ALT 24 U/L (0-41) 07/16/24 18:10 Alkaline Phosphatase 67 U/L (40-130) 07/16/24 18:10 Troponin T Baseline 23 ng/L (0-15) H 07/16/24 18:10 Troponin T 120 Minute 19.98 ng/L (0-15) H 07/16/24 19:46 Delta Troponin T -3.02 ABS# (0-10) L 07/16/24 19:46 Total Protein 6.8 g/dL (6.6-8.7) 07/16/24 18:10 Albumin 4.1 g/dL (3.5-5.2) 07/16/24 18:10 Globulin 2.7 g/dL (1.3-4.6) 07/16/24 18:10 All radiology interpretation(s) finalized by discharge EKG Data EKG 1: I personally reviewed and interpreted this EKG as follows: EKG interpretation date: 07/16/24 EKG interpretation time: 19:59 Interpretation: nsr hr [address] elevation qrs 100 qtc 414 Computer generated interpretation: Chest X-Ray 07/16/24 17:26 IMPRESSION: No acute cardiopulmonary disease. Head CT 07/16/24 17:26 IMPRESSION: No acute intracranial pathology. Discharge Plan Discharge Patient Disposition: Home Clinical Impression: Light-headedness, Back pain Condition: Stable Prescriptions: No Action cetirizine 10 mg tablet 10 mg PO DAILY diclofenac sodium 100 mg tablet extended release 24 hr 100 mg PO DAILY buspirone 10 mg tablet 10 mg PO BID acetaminophen 650 mg tablet extended release 650 mg PO Q8H gemfibrozil 600 mg tablet 600 mg PO BID fluoxetine 20 mg capsule 20 mg PO BID Rx Instructions: administer in the morning and at noon/midday methocarbamol 750 mg tablet 750 mg PO QID fluticasone propionate [Allergy Relief (fluticasone)] 50 mcg/actuation spray,suspension 1 spray INTRANASAL BID PRN (Reason: allergy symptoms) Rx Instructions: administer into each nostril pioglitazone 15 mg tablet 7.5 mg PO DAILY finasteride [Proscar] 5 mg tablet 5 mg PO DAILY (DME) bilateral wrist splint/brace See Rx Instructions .Route .MEDSUPPLY Qty: 1 0RF Rx Instructions: As directed prednisone 20 mg tablet 20 mg PO DAILY Qty: 15 0RF Rx Instructions: 60 mg X 3 days 40 mg X 2 days 20 mg X 2 days losartan 100 mg tablet 100 mg PO DAILY 30 Days Qty: 90 3RF gabapentin 800 mg tablet 800 mg PO TID tramadol 50 mg tablet 50 mg PO TID PRN (Reason: pain) Qty: 10 0RF potassium chloride 20 mEq tablet extended release 10 meq PO DAILY Qty: 45 3RF aspirin [Adult Aspirin Regimen] 81 mg tablet,delayed release (DR/EC) 81 mg PO DAILY Qty: 90 3RF methocarbamol 750 mg tablet 750 mg PO TID Qty: 14 0RF Discharge Orders: Discharge ED (Routine); Ordered 07/16/24 Ordered By: Bruce Velarde Referrals: Maite Jasso MD [Primary Care Provider] - Discharge Diet: Advance as tolerated Discharge Activity: Resume usual activity Patient Instructions: Lightheadedness (ED), Back Pain (ED) Coding Level of Care Code ED [facility] Examiner for Chg Fwmakenzie
[2024-07-16 18:00] VITALS: BP 131/55; PULSE 58; O2SAT 95
[2024-07-16] MEDS: meclizine 25 mg tablet 50 MG PO (18:01)
[2024-07-16 18:19] LABS: Basophils % 0.5 %; Eosinophils # 0.3 10^3/uL (0.0-0.8); Eosinophils % 3.4 %; Lymphocytes # 1.5 10^3/uL (0.8-4.8); Lymphocytes % 19.1 %; Mean Corpuscular HGB Conc 35.6 g/dL (30-55); Mean Corpuscular Hemoglobin 32.4 pg (27-33); Mean Corpuscular Volume 91.1 fl (82-101); Mean Platelet Volume 8.6 fL (7.4-10.4); Monocytes # 0.6 10^3/uL (0.2-0.9); Monocytes % 8.1 %; Neutrophils % 68.5 %; Nucleated Red Blood Cells % 0 %; Platelet Count 240 10^3/cmm (157-399); Red Blood Count 4.72 10^6/uL (3.85-5.65); Red Cell Distribution Width 13.3 % (12.1-15.1); White Blood Count 7.89 10^3/uL (3.29-11.43)
[2024-07-16 18:30] VITALS: BP 133/66; PULSE 59; O2SAT 97
[2024-07-16 18:34] LABS: INR 0.86 (0.8-1.2)
[2024-07-16 18:40] LABS: Troponin(5th) Baseline 23 ng/L (0-15)
[2024-07-16 18:50] LABS: Alanine Aminotransferase 24 U/L (0-41); Albumin Level 4.1 g/dL (3.5-5.2); Alkaline Phosphatase 67 U/L (40-130); Aspartate Amino Transferase 25 U/L (0-40); Blood Urea Nitrogen 10 mg/dL (8-23); Calcium 9.3 mg/dL (8.5-10.5); Carbon Dioxide 26 mmol/L (22-29); Chloride 102 mmol/L (98-107); Creatinine Clr Calc Pharmacy 104.8683; Globulin 2.7 g/dL (1.3-4.6); Glucose 142 mg/dL (65-115); Osmolality Calculated 289 mOsm/kg (285-295); Sodium 139 mmol/L (136-145); Total Bilirubin 0.4 mg/dL (0.15-1.2); Total Protein 6.8 g/dL (6.6-8.7)
--- NOTE | 2024-07-16 19:26 | ECG_ITS ---
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: : 1950 Requested By: Bruce Velarde Order Number: [id number] Reading MD: JANI LEVY Measurements Intervals [place] Rate: 60 P: 12 AK: 236 QRS: -53 QRSD: 100 T: 21 QT: 413 QTc: 415 Interpretive Statements SINUS RHYTHM WITH FIRST DEGREE AV BLOCK LEFT AXIS DEVIATION [QRS AXIS < -30] LOW QRS VOLTAGE IN PRECORDIAL LEADS [QRS DEFLECTION < 1.0 mV IN CHEST LEADS] POSSIBLE ANTERIOR MYOCARDIAL INFARCTION , OF INDETERMINATE AGE [30 ms Q WAVE IN V3/V4, OR R < 0.2 mV IN V4] Compared to ECG 07/16/2024 16:40:31 First degree AV block now present Myocardial infarct finding still present Electronically Signed On 07-16-2024 23:19:03 MANAGER SHIPPING by JANI LEVY [email or web address]
[2024-07-16 19:35] VITALS: BP 122/65; PULSE 61; O2SAT 99
[2024-07-16 20:00] VITALS: BP 126/70; PULSE 63; RESP 15
[2024-07-16 20:13] LABS: Troponin 5 2HR 19.98 ng/L (0-15)
[2024-07-16 20:14] LABS: Troponin 5 2HR Delta -3.02 ABS# (0-10)
[2024-07-16 20:43] VITALS: BP 143/81; PULSE 93; O2SAT 92
== END 2024-07-16 20:45 | disposition home or self-care (01) ==
PROVIDERS: Emergency Provider Emergency Medicine; PCP Family Medicine
DX: R42 Dizziness and giddiness (principal); M54.9 Dorsalgia, unspecified; Z79.82 Long term (current) use of aspirin; E78.5 Hyperlipidemia, unspecified; I10 Essential (primary) hypertension; E11.9 Type 2 diabetes mellitus without complications
CPT/HCPCS: 36415; 70450; 71045; 80053; 84484; 85025; 85610; 93005; 99213; 99285; J8597

== ENCOUNTER → 2024-09-13 10:11 | Outpatient (BNVA) | payer OTHER, SELFPAY | PROVIDERS: PCP Family Medicine; Visit Provider Nurse Practitioner Family | DX: R00.1 Bradycardia, unspecified (principal); I48.0 Paroxysmal atrial fibrillation; R06.02 Shortness of breath; I10 Essential (primary) hypertension; E78.5 Hyperlipidemia, unspecified; G47.33 Obstructive sleep apnea (adult) (pediatric) | CPT/HCPCS: 36415; 80048; 80053; 99213 ==

== ENCOUNTER 2024-12-04 16:15 | Inpatient (IN) | payer OTHER, MEDICARE, SELFPAY ==
[2024-12-04 16:20] VITALS: BP 138/65; PULSE 72; RESP 16; TEMP 36.9; O2SAT 95; BMI 42.1
[2024-12-04 16:58] LABS: Glucose Point of Care 152 mg/dL (70-110)
--- NOTE | 2024-12-04 17:56 | PM.HP ---
Providers/Chief Complaint Admitting Physician: Ang Lynn DO Primary Care Provider: Maite Jasso, Chief Complaint: 275-1 History of Present Illness Raymundo James Jr is a 74 year old male with morbid obesity hyper tension hypercholesterolemia, diabetes, A-fib and poor performance status requiring home health care services and other services for light housework and helping him bathe presents with about a 1 week history of shortness of breath and cough. He states he was at a office where they prescribed him Zithromax. Over the course of the following 4 to 6 days patient's symptoms grew worse until he presented to an outlying facility today in the ER there they felt he likely had a pneumonia or pneumonitis in the left lower lobe. He was started on IV antibiotics and transferred to [facility] for further care. He was found to be hypoxic requiring 2 to 3 L and he does not usually wear oxygen at home Review of Systems Const: Denies: chills or change in weight Eyes: Denies: change in vision ENMT: Denies: throat pain or nasal congestion Card: Denies: chest pain or palpitations Resp: Reports: dyspnea and productive cough (Minimal amounts of unknown color patient states he does not look at it) GI: Denies: abdominal pain, vomiting or change in stool character : Denies: dysuria Musc: Denies: back pain or extremity pain Skin/Breast: Reports: dry skin (Very dry very scaly skin from feet up entire legs into low back and groin ); Denies: rash or lesions Neuro: Reports: dizziness (Chronic); Denies: headache(s) Psych: Denies: anxiety or depression Freeman/Lymph: Denies: easy bruising or easy bleeding Medications/Allergies Home Medications ?Medication ?Instructions ?Recorded ?Confirmed ?Last Taken ?Type acetaminophen 650 mg 650 mg PO Q8H 03/04/20 09/13/24 Unknown History tablet,extended release buspirone 10 mg tablet 10 mg PO BID 03/04/20 09/13/24 Unknown History cetirizine 10 mg tablet 10 mg PO DAILY 03/04/20 09/13/24 Unknown History diclofenac sodium 100 mg 100 mg PO DAILY 03/04/20 09/13/24 Unknown History tablet,extended release 24 hr fluoxetine 20 mg capsule 20 mg PO BID 03/04/20 09/13/24 Unknown History gemfibrozil 600 mg tablet 600 mg PO BID 03/04/20 09/13/24 Unknown History fluticasone propionate 50 1 spray intranasal BID PRN allergy 11/05/20 09/13/24 Unknown History mcg/actuation nasal symptoms spray,suspension (Allergy Relief (fluticasone)) pioglitazone 15 mg tablet 7.5 mg PO DAILY 05/07/21 09/13/24 Unknown History finasteride 5 mg tablet (Proscar) 5 mg PO DAILY 11/04/21 09/13/24 Unknown History gabapentin 800 mg tablet 800 mg PO TID 09/14/22 09/13/24 Unknown History tramadol 50 mg tablet 50 mg PO TID PRN pain #10 tabs 09/14/22 09/13/24 Unknown Rx bilateral wrist splint/brace #1 ea 05/05/23 07/16/24 Unknown Rx prednisone 20 mg tablet 20 mg PO DAILY #15 tabs 05/05/23 09/13/24 Unknown Rx potassium chloride 20 mEq 10 meq (1/2 x 20 mEq) PO DAILY #45 05/20/23 09/13/24 Unknown Rx tablet,extended release tabs aspirin 81 mg tablet,delayed 81 mg PO DAILY #90 tabs 03/21/24 09/13/24 Unknown Rx release (Adult Aspirin Regimen) apixaban 5 mg tablet (Eliquis) 5 mg PO BID #90 tabs 07/30/24 09/13/24 Unknown Rx Allergies Allergy/AdvReac Type Severity Reaction Status Date / Time metformin Allergy Unknown unknown Verified 09/13/24 10:43 phenobarbital Allergy Unknown unknown Verified 09/13/24 10:43 Sulfa (Sulfonamide Allergy Unknown unknown Verified 09/13/24 10:43 Antibiotics) PFSH Acute PFSH: Medical History (Updated 12/04/24 @ 18:07 by Ang Lynn DO) Dyslipidemia Abnormal EKG Benign essential hypertension with target blood pressure below 140/90 Bradycardia Hypertension Low back pain Erectile dysfunction Obesity Spondylosis Sleep apnea PTSD (post-traumatic stress disorder) Vitamin D deficiency Diabetes Surgical History H/O neck surgery History of carpal tunnel surgery History of back surgery Family History Father Cancer Mother Cancer Lung disease CAD (coronary artery disease) Diabetes Denies family history of Clotting disorder Dementia Hyperlipidemia Chronic kidney disease (CKD) Suicide Anesthesia complication Bleeding disorder Family history of premature coronary artery disease Hypertension Stroke Social History Smoking and tobacco/nicotine status: never used tobacco/nicotine Alcohol intake: current Alcohol intake frequency: holidays/special occasions only Substance/Drug Use: never Vitals/I&O/Wt Last Vital Signs Temp 98.5 F 12/04/24 16:20 Pulse 72 12/04/24 16:20 Resp 16 12/04/24 16:20 BP 138/65 12/04/24 16:20 Pulse Ox 95 12/04/24 16:20 O2 Del Method Nasal Cannula 12/04/24 16:20 O2 Flow Rate 2 12/04/24 16:20 Weight last 48 hrs Weight 122.045 kg Physical Exam Narrative: Morbidly obese obese white male with the apple shaped body. He was in no acute distress at time of exam HEENT head is normocephalic atraumatic pupils equal round and reactive to light and accommodation extraocular muscles are intact there is no scleral icterus neck is supple no JVD carotid bruits or lymphadenopathy mucous membranes are moist and pink without lesions or exudate Heart regular rate and rhythm distant heart sounds no loud murmur auscultated Lungs diminished throughout rhonchi heard in left lower base no wheezes Abdomen protuberant soft nontender nondistended positive bowel sounds no hepatosplenomegaly Extremities no clubbing cyanosis edema Skin extremely dry scaly skin from toes all the way up legs into groin and even the lower back. He states he suffered that with this condition for about 8 years now Back mild thoracic kyphosis no CVA tenderness Neuro alert and oriented to person place time and situation exam is nonfocal Psych mood and affect is appropriate for illness Data CXR: Radiologist's impression[facility] in the left lower lobe EKG 1: My Interpretation: [facility] First-degree AV block Poor R wave progression consistent with likely anterior infarct old. A&P Assessment and plan (1) Pneumonia: (2) Morbid obesity with BMI of 40.0-44.9, adult: (3) Atrial fibrillation: (4) Dizziness on standing: (5) SOB (shortness of breath): (6) Hypoxia: (7) Skin scales: (8) Diabetes: Plan Admit patient to [facility]. Rocephin and Zithromax ordered IV timed off of antibiotic dosage at outlying facility Oxygen to maintain O2 sat greater than 92% Nebs as needed IV methylprednisolone patient reports taking prednisone 20 mg for arthritis at home Continue anticoagulation for A-fib. Hold Actos as this is a very low dose and will provide sliding scale insulin. Patient also takes Voltaren for her hand pain which I think is due to arthritis as well Patient with peripheral neuropathy probably due to diabetes continue gabapentin Home dose tramadol for pain PDMP PDMP Reviewed: Not Reviewed Attestations Medical Necessity Statement*: Patient requires a greater than 2 midnight stay for the treatment of pneumonia. He has failed outpatient therapy requires more intensive care that only a hospital can give Coding Level of Care Code Acute Code for [facility] Fwd Diagnoses Pneumonia of left lower lobe due to infectious organism J18.9 Pneumonia type: due to unspecified organism Laterality: left Lung location: lower lobe of lung Morbid obesity with BMI of 40.0-44.9, adult E66.01; Z68.41 Paroxysmal atrial fibrillation I48.0 Atrial fibrillation type: paroxysmal Dizziness on standing R42 SOB (shortness of breath) R06.02 Hypoxia R09.02 Skin scales R23.4 Diabetes E11.9 Diabetes mellitus type: type 2 Diabetes mellitus senior living insulin use: without ad terminal makeup operator use Diabetes mellitus complication status: with skin complications
[2024-12-04] MEDS: AZITHROMYCIN ADD-Vantage 500 MG in 0.9% NaCl ADD-Vantage 250 ML 250 MG IV (17:58)
[2024-12-04] MEDS: sodium chloride 0.9% 1,000 ML 75 ML IV (17:58)
[2024-12-04] MEDS: cefTRIAXone 1,000 mg SDV 1000 MG IVP (17:59)
[2024-12-04] MEDS: methylPREDNISolone sod succ 40 mg/mL INJ IVP (17:59)
[2024-12-04] MEDS: BuSPIRONE 10 mg Tablet PO (18:00)
[2024-12-04] MEDS: gemfibrozil 600 mg Tablet PO (18:00)
[2024-12-04 19:13] VITALS: O2SAT 95
--- NOTE | 2024-12-04 19:24 | PC.NURSE ---
Verbal order from Dr. Ralph for A&D ointment due to patient being very dry.
[2024-12-04 20:00] VITALS: BP 124/64; PULSE 65; RESP 16; TEMP 36.7; O2SAT 97
[2024-12-04 20:12] LABS: Glucose Point of Care 221 mg/dL (70-110)
[2024-12-04] MEDS: gabapentin 400 mg Capsule 800 MG PO (20:36)
[2024-12-04] MEDS: finasteride 5 mg Tablet PO (20:36)
[2024-12-04] MEDS: zolpidem 5 mg Tablet PO (20:37)
[2024-12-04] MEDS: insulin lispro 100 unit/1 mL SUBCUT (20:37)
[2024-12-04] MEDS: diclofenac 75 mg DR Tablet PO (20:37)
[2024-12-04] MEDS: vitamin A & D oint 1 APPLIC TOPICAL (20:40)
[2024-12-04] MEDS: apixaban 5 mg Tablet PO (20:44)
[2024-12-05] VITALS (8 sets, daily range): BP systolic 100–159; BP diastolic 58–78; PULSE 54–72; RESP 16–18; TEMP 36.4–37; O2SAT 95–98
[2024-12-05] MEDS: methylPREDNISolone sod succ 40 mg/mL INJ IVP ×3 (00:20→17:13)
[2024-12-05 05:39] LABS: Basophils % 0.1 %; Hematocrit 44.8 % (37-53); Lymphocytes # 0.7 10^3/uL (0.8-4.8); Lymphocytes % 7.7 %; Mean Corpuscular HGB Conc 33.5 g/dL (30-55); Mean Corpuscular Hemoglobin 30.6 pg (27-33); Mean Corpuscular Volume 91.4 fl (82-101); Mean Platelet Volume 9.5 fL (7.4-10.4); Monocytes # 0.2 10^3/uL (0.2-0.9); Monocytes % 1.6 %; Neutrophils # 8.61 10^3/uL (1.8-7.7); Neutrophils % 90.2 %; Nucleated Red Blood Cells % 0 %; Platelet Count 170 10^3/cmm (157-399); Red Cell Distribution Width 14.1 % (12.1-15.1); White Blood Count 9.55 10^3/uL (3.29-11.43)
[2024-12-05] MEDS: sodium chloride 0.9% 1,000 ML 75 ML IV ×2 (05:44→17:39)
[2024-12-05 05:50] LABS: Estmated Average Glucose 160; Hemoglobin A1C 7.2 % (4.0-6.0)
[2024-12-05 06:06] LABS: Anion Gap 15.3 (5-19); Blood Urea Nitrogen 18 mg/dL (8-23); Calcium 8.3 mg/dL (8.5-10.5); Carbon Dioxide 22 mmol/L (22-29); Chloride 101 mmol/L (98-107); Creatinine Clr Calc Pharmacy 103.3685; Glucose 201 mg/dL (65-115); Osmolality Calculated 286 mOsm/kg (285-295); Potassium 4.3 mmol/L (3.5-5.1); Sodium 134 mmol/L (136-145); Thyroid Stimulating Hormone 0.61 uIU/mL (0.27-4.20)
[2024-12-05 06:20] LABS: Glucose Point of Care 199 mg/dL (70-110)
--- NOTE | 2024-12-05 08:00 | PC.PHAR ---
Addendum entered by Jazzmine Barney 12/05/24 10:38: Added several supplements and [facility] medical [facility] from [facility]. Added pharmacy notes. Original Note: [facility] 12/05/24 8am. Will stop by pts' room to see if he knows his medications.
[2024-12-05] MEDS: gabapentin 400 mg Capsule 800 MG PO ×3 (08:25→20:32)
[2024-12-05] MEDS: BuSPIRONE 10 mg Tablet PO ×2 (08:25→17:14)
[2024-12-05] MEDS: gemfibrozil 600 mg Tablet PO ×2 (08:25→17:14)
[2024-12-05] MEDS: diclofenac 75 mg DR Tablet PO ×2 (08:25→17:14)
[2024-12-05] MEDS: apixaban 5 mg Tablet PO ×2 (08:25→20:33)
[2024-12-05] MEDS: aspirin 81 mg EC Tablet PO (08:25)
[2024-12-05] MEDS: insulin lispro 100 unit/1 mL SUBCUT ×4 (08:26→20:33)
--- NOTE | 2024-12-05 09:50 | PC.CHAP ---
Pastoral Care Encounter/Spiritual Assessment Type of Contact [] Declined fish boning machine feeder visit [] Patient/Family/Request visit [] Outpatient visit [] Follow-up visit [] Physician referral [] Code/Alert [x] Routine visit [] Staff referral [] Actively dying [] Patient sleeping [] Family support [] [] Out of room [] Palliative care [] [] Receiving care in room [] Pre-surgical visit [] Trauma [] Long length of stay [] ICU visit [] Other: Relational/Emotional Strength [x] Patient feels connected with others/family/visitors/staff [] Distress [] Loneliness/isolation [] Abandonment Spirituality of Patient [x] Person of Leilani [] Attends Jewish of their Leilani [x] Believes in Prayer [] Reads Bible or Lutheran materials [] There are Spiritual issues to be addressed Fac Engineer Interventions [x] Prayer [] Active listening [x] Non-anxious presence [x] Spiritual/emotional support [] Crisis/trauma care [] Spiritual counseling [] Bereavement support [] Provided bereavement packet [] Provided Bible/devotional materials [] Provided toy/stuffed animal, coloring book to patient or family member [] Provided Communion [] Anointing/Marine [] Salvation [x] Completed spiritual assessment [] Other: Impact on Illness or Injury [] Angry [] Fearful [] Anxious [] Often cries [] Exhaustion [] Unable to work [] Unable to attend moravian [] Unable to walk/stand [] Unable to read [] Unable to drive [] Unable to eat/drink [] Unable to sleep [] Unable to be with family [] Patient intubated [] Other: Summary Time spent with patient 5 min
[2024-12-05 10:52] LABS: Glucose Point of Care 228 mg/dL (70-110)
--- NOTE | 2024-12-05 11:39 | P.PN_ITS ---
Subjective 2 Subjective: Feeling a bit better today. Breathing easier Vitals/I&O/Wt Last Vital Signs Temp 97.6 F 12/05/24 11:23 Pulse 55 L 12/05/24 11:23 Resp 16 12/05/24 11:23 BP 100/68 12/05/24 11:23 Pulse Ox 95 12/05/24 11:23 O2 Del Method Nasal Cannula 12/05/24 11:23 O2 Flow Rate 2 12/05/24 11:23 12/04/24 12/05/24 12/05/24 22:59 06:59 14:59 Intake Total 120 / 120 882.5 / 1002.5 240 / 240 Output Total 1600 / 1600 Balance -1480 / -1480 882.5 / -597.5 240 / 240 Weight last 48 hrs Weight 119.748 kg Weight 122.045 kg Physical Exam 2 Narrative: Morbidly obese obese white male with the apple shaped body. He was in no acute distress at time of exam Heart regular rate and rhythm distant heart sounds no loud murmur auscultated Lungs improved aeration today scattered rhonchi and left base Abdomen protuberant soft nontender nondistended positive bowel sounds no hepatosplenomegaly Extremities no clubbing cyanosis edema Data 12/05/24 04:49 12/05/24 04:49 A&P Assessment and plan (1) Pneumonia: (2) Morbid obesity with BMI of 40.0-44.9, adult: (3) Atrial fibrillation: (4) Dizziness on standing: (5) SOB (shortness of breath): (6) Hypoxia: (7) Skin scales: (8) Diabetes: Plan Rocephin and Zithromax - abx day 2 Oxygen to maintain O2 sat greater than 92% Nebs as needed Continue methylprednisolone. NOTE: patient reports taking prednisone 20 mg for arthritis at home Continue anticoagulation for A-fib. Hold Actos as this is a very low dose and will provide sliding scale insulin. Patient also takes Voltaren for hand pain which I think is due to arthritis as well. also uses gel Patient with peripheral neuropathy probably due to diabetes continue gabapentin Home dose tramadol for pain PDMP PDMP Reviewed: Not Reviewed Attestations 2 Medical Necessity Statement*: Patient requires a greater than 2 midnight stay for the treatment of pneumonia. He has failed outpatient therapy requires more intensive care that only a hospital can give Coding Level of Care Code Acute Code for g Fwd Diagnoses Pneumonia of left lower lobe due to infectious organism J18.9 Pneumonia type: due to unspecified organism Laterality: left Lung location: lower lobe of lung Morbid obesity with BMI of 40.0-44.9, adult E66.01; Z68.41 Paroxysmal atrial fibrillation I48.0 Atrial fibrillation type: paroxysmal Dizziness on standing R42 SOB (shortness of breath) R06.02 Hypoxia R09.02 Skin scales R23.4 Diabetes E11.9 Diabetes mellitus type: type 2 Diabetes mellitus termite treater helper insulin use: without termite treater helper use Diabetes mellitus complication status: with skin complications
[2024-12-05 16:51] LABS: Glucose Point of Care 256 mg/dL (70-110)
[2024-12-05] MEDS: cefTRIAXone 1,000 mg SDV 1000 MG IVP (17:14)
--- NOTE | 2024-12-05 18:01 | PC.NURSE ---
Patient states that she has a new phone number [phone] is her new cell phone number.
--- NOTE | 2024-12-05 18:03 | PC.NURSE ---
Patient states says this is an alternate number for her [phone].
[2024-12-05 20:17] LABS: Glucose Point of Care 293 mg/dL (70-110)
[2024-12-05] MEDS: finasteride 5 mg Tablet PO (20:33)
[2024-12-05] MEDS: zolpidem 5 mg Tablet PO (22:13)
[2024-12-06] MEDS: methylPREDNISolone sod succ 40 mg/mL INJ IVP ×2 (00:27→08:24)
[2024-12-06 04:00] VITALS: BP 131/62; PULSE 89; RESP 18; TEMP 36.9; O2SAT 95
[2024-12-06 05:37] LABS: Anion Gap 17.7 (5-19); Blood Urea Nitrogen 22 mg/dL (8-23); Calcium 8.4 mg/dL (8.5-10.5); Carbon Dioxide 19 mmol/L (22-29); Chloride 103 mmol/L (98-107); Creatinine Clr Calc Pharmacy 94.4726; Glucose 274 mg/dL (65-115); Osmolality Calculated 293 mOsm/kg (285-295); Potassium 4.7 mmol/L (3.5-5.1); Sodium 135 mmol/L (136-145)
[2024-12-06] MEDS: sodium chloride 0.9% 1,000 ML 75 ML IV (05:55)
[2024-12-06 06:22] LABS: Glucose Point of Care 253 mg/dL (70-110)
[2024-12-06 07:07] VITALS: BP 149/65; PULSE 55; RESP 18; TEMP 36.9; O2SAT 97
[2024-12-06] MEDS: gemfibrozil 600 mg Tablet PO (08:24)
[2024-12-06] MEDS: insulin lispro 100 unit/1 mL SUBCUT ×2 (08:24→12:24)
[2024-12-06] MEDS: BuSPIRONE 10 mg Tablet PO (08:24)
[2024-12-06] MEDS: apixaban 5 mg Tablet PO (08:24)
[2024-12-06] MEDS: aspirin 81 mg EC Tablet PO (08:24)
[2024-12-06] MEDS: diclofenac 75 mg DR Tablet PO (08:24)
[2024-12-06] MEDS: gabapentin 400 mg Capsule 800 MG PO (08:24)
[2024-12-06 09:01] VITALS: PULSE 67; O2SAT 97
[2024-12-06 11:21] LABS: Glucose Point of Care 251 mg/dL (70-110)
[2024-12-06 11:48] VITALS: BP 118/66; PULSE 60; RESP 16; TEMP 36.4; O2SAT 97
[2024-12-06 12:25] VITALS: O2SAT 93; O2SAT 94
--- NOTE | 2024-12-06 12:53 | PC.NURSE ---
Attempted to call patient's Addie at this time at the new phone number she gave me yesterday. No answer a message was left. Called the alternate phone number and the gentlemen stated that Mrs. James is not with him today and he is unable to orange picker Mr. James.
[2024-12-06 15:02] VITALS: BP 118/66; PULSE 60; RESP 16; TEMP 36.4; O2SAT 94
--- NOTE | 2024-12-10 14:55 | PM.DCS ---
Discharge Providers Date of Admission: 12/04/24 16:40 Date of Discharge: 12/06/2024 Attending Provider at Admission: Ang Lynn DO Attending Provider at Discharge: Ang Lynn DO Primary Care Provider: Maite Jasso, Diagnoses at Discharge Discharge Diagnosis (1) Pneumonia: Status: Resolved Qualifiers: Pneumonia type: due to unspecified organism Laterality: left Lung location: lower lobe of lung Qualified Code(s): J18.9 - Pneumonia, unspecified organism (2) Morbid obesity with BMI of 40.0-44.9, adult: Status: Acute (3) Atrial fibrillation: Status: Inactive Qualifiers: Atrial fibrillation type: paroxysmal Qualified Code(s): I48.0 - Paroxysmal atrial fibrillation (4) Dizziness on standing: Status: Inactive Permanent problem details: Event monitor did not reveal any significant arrhythmias to explain the symptoms (5) SOB (shortness of breath): Status: Resolved (6) Hypoxia: Status: Resolved (7) Skin scales: Status: Inactive (8) Diabetes: Status: Inactive Qualifiers: Diabetes mellitus type: type 2 Diabetes mellitus orthopedic nurse practitioner insulin use: without orthopedic nurse practitioner use Diabetes mellitus complication status: with skin complications Reason for Visit Reason for Visit: [id number] Brief History: Raymundo James Jr is a 74 year old male with morbid obesity hyper tension hypercholesterolemia, diabetes, A-fib and poor performance status requiring home health care services and other services for light housework and helping him bathe presents with about a 1 week history of shortness of breath and cough. He states he was at a office where they prescribed him Zithromax. Over the course of the following 4 to 6 days patient's symptoms grew worse until he presented to an outlying facility today in the ER there they felt he likely had a pneumonia or pneumonitis in the left lower lobe. He was started on IV antibiotics and transferred to [facility] for further care. He was found to be hypoxic requiring 2 to 3 L and he does not usually wear oxygen at home Hospital Course Hospital Course Patient was placed on IV antibiotics and oxygen. He started to improve. 2 days later he no longer required oxygen he was converted to oral antibiotics and discharged home in stable improved condition Physical Exam Narrative: Morbidly obese obese white male with the apple shaped body. He was in no acute distress at time of exam Heart regular rate and rhythm distant heart sounds no loud murmur auscultated Lungs improved aeration today slightly diminished left base no rhonchi or wheezes noted today Abdomen protuberant soft nontender nondistended positive bowel sounds no hepatosplenomegaly Extremities no clubbing cyanosis edema Discharge Data Studies Completed and Pending Laboratory Results WBC 9.55 10^3/uL (3.29-11.43) 12/05/24 04:49 RBC 4.90 10^6/uL (3.85-5.65) 12/05/24 04:49 Hgb 15.00 g/dL (11.27-16.99) 12/05/24 04:49 Hct 44.8 % (37-53) 12/05/24 04:49 MCV 91.4 fl (82-101) 12/05/24 04:49 MCH 30.6 pg (27-33) 12/05/24 04:49 MCHC 33.5 g/dL (30-55) 12/05/24 04:49 RDW 14.1 % (12.1-15.1) 12/05/24 04:49 Plt Count 170 10^3/cmm (157-399) 12/05/24 04:49 MPV 9.5 fL (7.4-10.4) 12/05/24 04:49 Neut % (Auto) 90.2 % 12/05/24 04:49 Lymph % (Auto) 7.7 % 12/05/24 04:49 Ramsey % (Auto) 1.6 % 12/05/24 04:49 Eos % (Auto) 0.0 % 12/05/24 04:49 Baso % (Auto) 0.1 % 12/05/24 04:49 Neut # (Auto) 8.61 10^3/uL (1.8-7.7) H 12/05/24 04:49 Lymph # (Auto) 0.7 10^3/uL (0.8-4.8) L 12/05/24 04:49 Ramsey # (Auto) 0.2 10^3/uL (0.2-0.9) 12/05/24 04:49 Eos # (Auto) 0.0 10^3/uL (0.0-0.8) 12/05/24 04:49 Baso # (Auto) 0.0 10^3/uL (0.0-0.1) 12/05/24 04:49 Nucleated RBC % (auto) 0 % 12/05/24 04:49 Nucleated RBCs # 0.0 /100WBC 12/05/24 04:49 Sodium 135 mmol/L (136-145) L 12/06/24 04:51 Potassium 4.7 mmol/L (3.5-5.1) 12/06/24 04:51 Chloride 103 mmol/L (98-107) 12/06/24 04:51 Carbon Dioxide 19 mmol/L (22-29) L 12/06/24 04:51 Anion Gap 17.7 (5-19) 12/06/24 04:51 BUN 22 mg/dL (8-23) 12/06/24 04:51 Creatinine 0.9 mg/dL (0.7-1.2) 12/06/24 04:51 GFR Calculation Not Reportable 12/06/24 04:51 Glucose 274 mg/dL (65-115) H 12/06/24 04:51 POC Glucose 251 mg/dL (70-110) H 12/06/24 11:18 Estimat Average Glucose 160 12/05/24 04:49 Hemoglobin A1c 7.2 % (4.0-6.0) H 12/05/24 04:49 Calculated Osmolality 293 mOsm/kg (285-295) 12/06/24 04:51 Calcium 8.4 mg/dL (8.5-10.5) L 12/06/24 04:51 TSH 0.61 uIU/mL (0.27-4.20) 12/05/24 04:49 Vitals Last Vital Signs Temp 97.6 F 12/06/24 15:02 Pulse 60 12/06/24 15:02 Resp 16 12/06/24 15:02 BP 118/66 12/06/24 15:02 Pulse Ox 94 12/06/24 15:02 O2 Del Method Nasal Cannula 12/06/24 11:48 O2 Flow Rate 2 12/06/24 11:48 Discharge Plan Discharge Patient Disposition: Home Condition: Stable Prescriptions: New cefdinir 300 mg capsule 300 mg PO BID Qty: 10 0RF Continued cetirizine 10 mg tablet 10 mg PO DAILY diclofenac sodium 100 mg tablet extended release 24 hr 100 mg PO DAILY buspirone 10 mg tablet 10 mg PO BID acetaminophen 650 mg tablet extended release 650 mg PO Q8H PRN (Reason: Pain) gemfibrozil 600 mg tablet 600 mg PO BID fluoxetine 20 mg capsule 20 mg PO BID Rx Instructions: administer in the morning and at noon/midday fluticasone propionate [Allergy Relief (fluticasone)] 50 mcg/actuation spray,suspension 1 spray INTRANASAL BID PRN (Reason: allergy symptoms) Rx Instructions: administer into each nostril finasteride [Proscar] 5 mg tablet 5 mg PO DAILY (DME) bilateral wrist splint/brace See Rx Instructions .Route .MEDSUPPLY Qty: 1 0RF Rx Instructions: As directed Eliquis 5 mg tablet 5 mg PO BID Qty: 90 3RF tramadol 50 mg tablet 50 mg PO TID PRN (Reason: pain) Qty: 10 0RF potassium chloride 20 mEq tablet extended release 10 meq PO DAILY Qty: 45 3RF aspirin [Adult Aspirin Regimen] 81 mg tablet,delayed release (DR/EC) 81 mg PO DAILY Qty: 90 3RF gabapentin 600 mg Tablet 600 mg PO TID Jardiance 10 mg Tablet 10 mg PO QAM cyanocobalamin (vitamin B-12) 100 mcg Tablet 100 mcg PO DAILY tamsulosin 0.4 mg Capsule 0.4 mg PO DAILY nystatin 100,000 unit/gram Cream 1 applic TOPICAL BID PRN (Reason: Skin Irritation) cholecalciferol (vitamin D3) [Vitamin D3] 125 mcg (5,000 unit) Tablet 125 mcg PO DAILY omega [id number] oil [Fish Oil] 1,000 (120-180) mg Capsule 2 cap PO BID Discharge Orders: Discharge Order (Routine); Ordered 12/06/24 Ordered By: Ang Lynn Referrals: Maite Jasso MD [Primary Care Provider, Family Practice] - 4-7 days Referral Note: We have notified your physician's clinic of the need for a follow-up appointment to be scheduled. If you have not heard from them within the next 2 business days, please call them directly. Discharge Diet: Advance as tolerated Discharge Activity: Increase activity as tolerated Patient Instructions: Cefdinir (By mouth), Pneumonitis (DC) Plan of Treatment: Recommend weight loss of 10% of body weight to assist with breathing. Consult with magnetic prospecting operator or your physician/PCP Discharge Attestations Time Spent in Discharge Care*: less than 30 min Quality Metrics Clinical Quality Measures [ No reported AMI, CVA or VTE this stay] Coding Level of Care Code Acute Code for Chg Fwd Diagnoses Pneumonia of left lower lobe due to infectious organism J18.9 Pneumonia type: due to unspecified organism Laterality: left Lung location: lower lobe of lung Morbid obesity with BMI of 40.0-44.9, adult E66.01; Z68.41 Paroxysmal atrial fibrillation I48.0 Atrial fibrillation type: paroxysmal Dizziness on standing R42 SOB (shortness of breath) R06.02 Hypoxia R09.02 Skin scales R23.4 Diabetes E11.9 Diabetes mellitus type: type 2 Diabetes mellitus custodial insulin use: without orthopedic nurse practitioner use Diabetes mellitus complication status: with skin complications
== END 2024-12-06 15:13 | disposition home or self-care (01) | DRG 194 ==
PROVIDERS: Admitting Provider Internal Medicine; PCP Family Medicine; Visit Provider Internal Medicine
DX: J18.9 Pneumonia, unspecified organism (principal); Z68.41 Body mass index [BMI] 40.0-44.9, adult; E66.01 Morbid (severe) obesity due to excess calories; I10 Essential (primary) hypertension; E78.00 Pure hypercholesterolemia, unspecified; E11.9 Type 2 diabetes mellitus without complications; I48.91 Unspecified atrial fibrillation; Z79.899 Other long term (current) drug therapy; Z79.82 Long term (current) use of aspirin; E78.5 Hyperlipidemia, unspecified; R23.4 Changes in skin texture
CPT/HCPCS: 36415; 36416; 80048; 82962; 83036; 84443; 85025; 94664; 94760; 96372; G0378; G0379; J0456; J0696; J1815; J2919; J7030; J7050; J9999

== ENCOUNTER → 2025-01-03 14:09 | Outpatient (BNVA) | payer OTHER, SELFPAY | PROVIDERS: PCP Family Medicine; Visit Provider Internal Medicine Cardiovascular Disease | DX: R42 Dizziness and giddiness (principal); I48.0 Paroxysmal atrial fibrillation; Z79.01 Long term (current) use of anticoagulants; Z79.82 Long term (current) use of aspirin; R06.02 Shortness of breath; I10 Essential (primary) hypertension; R00.1 Bradycardia, unspecified; E78.5 Hyperlipidemia, unspecified; G47.33 Obstructive sleep apnea (adult) (pediatric) | CPT/HCPCS: 36415; 80048; 83880; 99214 ==

== ENCOUNTER → 2025-01-10 11:56 | Outpatient (BNVA) | payer OTHER, SELFPAY | PROVIDERS: PCP Family Medicine; Visit Provider Podiatrist Foot & Ankle Surgery | DX: L60.3 Nail dystrophy (principal); E11.42 Type 2 diabetes mellitus with diabetic polyneuropathy; E11.621 Type 2 diabetes mellitus with foot ulcer; L97.522 Non-pressure chronic ulcer of other part of left foot with fat layer exposed | CPT/HCPCS: 11721; 99203 ==

== ENCOUNTER 2025-02-12 14:27 | Emergency (ER) | payer OTHER, SELFPAY ==
--- OUTSIDE RECORDS SUMMARY | 2025-01-30 07:00 | XMS_ITS ---
Author Organization [facility] Address [address] [place] [id number] Care Team Providers Care Electric Power Superintendent Name Role Phone Marlene Parrasanty Primary Care Provider [phone] Allergies Allergen (clinical drug ingredient) Drug/Non Drug Allergy documented on EMR Reaction Allergy Type Onset Date Status metformin Metformin HCl diarrhea Drug Allergy Act earline promethazine Phenergan Unknown Drug Allergy 01/17/2020 Act earline phenobarbital Phenobarbital Unknown Drug Allergy Active Sulfa-Allergy Only Unknown Drug Allergy 01/17/20 20 Active REASON FOR VISIT hsp f/u-not sleeping [...] % as directed Externally PRN Not-Taking Nystatin 748476 UNIT/GM 1 application Externally Twice a day; [...] twice a day; Duration: 90 days Active Michael 3 1000 MG 1 capsule Orally twice [...] 01/30/2025 Encounters Encounter Location Date Provider Diagnosis [address] [place] [phone] 01/30/2025 Denny Parra Overweight E66.3 ; Dietary [...] ght/assessing/b mi/adult_bmi/en glish_bmi_calcu lator/bmi_calcu lator.html DIETARY GUIDELINES: https://www.[facility]. gov/sites/defau lt/files/ 3/Dietary_Guide lines_for_Ameri cans-... PHYSICAL [...] upcoming jag t for cc, Reason: Provider Name:Denny Wyatt Williamson emil, 02/12/2025 11:40:00 AM, [address] [place] [address], [phone], Provider Name:Marlenesanty Williamson , 03/04/2025 10:00:00 AM, [address] [place] [address], [phone], Progress Notes * Raymundo JAMES JrDOB:[birth year] (75 yo M)Acc No.[id number]:01/30/2025 FaceToFace Patient: Raymundo NIÑO Jr Provider: Santy Parra DO Case Label: Date Of Injury: :1950 A ge:75 Y S ex:Male Date:01/30/2025 Address:[address], [facility], [id number] Patient's Default Facility:[address] [place] [address] HIGH Check In:10:56 AM CSTCheck O ut:12:10 PM HAND ROLLER Subjective: * Chief Complaints: * 1 . Hsp f/u-not sleeping well. 2. - Adelso De La Cruz LPN. 3. BMI Counseling Adult Above Normal BMI UDS. * HPI: C onstitutional: GTS for deconditioning Neurosurgery for Cervical spine in [place] Diabetic Shoes. * Medical History: T ype [...] Hebert, atopic dermatitis, actinic keratoses. Follows with [facility], chronic low back pain, DDD, sees NS (surgery not recommended) and in pain management clinic. Uses rollating walker. S/P steroid injections and radiofrequency ablations. Last injections in 2021, OA, generalized, follows with pain management and chiropractors. Difficulty walking. , essential tremor, RUE most affected, BPV, improved previously with PET with Dr Messer, ENT, [facility], Obesity, Seeing [place] clinic for hearing evaluation 2022, -B CTS, ulnar neuropathy, saw Dr Hebert May 2023. * Surgical History: c [place]pal [place] [facility] [place], right ear tube Dr. Messer 02/2019, C6-C7 anterior Discectomy with cage [facility] 09/2018, PE tube right ear, Dr Messer, [facility] 12/20/19, cataract removal, B, [facility], [place]. Also sees Dr Moses 2020, lumbar nerve ablations, Dr Storm pain management clinic, [facility] 2021, Excision of scalp lesion and skin graft, Dr Gifford Jun 2022. * Hospitalization/Major Diagno stic Procedure: e mergency room visit for chest pain 08-21-15, neck surgery , [facility], for SOB May 2021, [facility], gastritis September 2022, [facility], pain --, pneumonia 12/04/24-12/06/24, Shortness of breath 2024. * [...] within the last 5 years Y es 7-11-24, record in webiz. Z alayna Vaccine age 52> C ompleted Y es not in webiz, D ate Completed 0 03/14/2024. - ?Completed 0 03/14/2024. - D ental Visit Yearly Y es 10 teeth pulled on 03/05/2024, [facility], Pranay Levi. C ommunication Needs: C ommunication Needs D ifficulty [...] L evel of Education:?Not finished College, [facility] Y es. * Medications: T aking Acetaminophen [...] affected joint up to qid , Taking Michael 3 1000 MG Capsule 1 capsule Orally [...] Orally Once a day , Not-Taking Nystatin 667900 UNIT/GM Cream 1 application Externally Twice a [...] a day. * Procedure Codes: G 0467 [facility] ESTABLISHED PATIENT, [address] TRANS CARE MGMT 14 DAY DISCH * Preventive Medicine: Counseling: C are goal follow up plan B ND management provided Y es, D ietary Counseling Provided Y es, Santy shuklae Normal BMI Follow-up G iving encouragement to exercise, Lifestyle education regarding diet, Weight loss from baseline weight. * Follow Up: k eep upcoming appt for cc * Transition Care Management * Hospitalization Info Event Type Discharge Admit Date 01/23/2025 Primary Dx R42 Secondary Dx Z79.899 Discharge Date 01/24/2025 Hospital Facility [facility] Discharge Disposition Home Reason Dizziness * [...] * Visit Code: * Procedure Codes: G0467 [facility] V[facility] ESTABLISHED PATIENT. [address] TRANS CARE MGMT 14 DAY DISCH. * Electronic signature of Elizabeth Parra DO on 02/12/2025 at 11:11 AM CDT Sign off status: Pending * Provider: Santy Parra DO Date: 01/30/2025 Generated for Laura ji/Carmen/eTransmitting on: 0 02/12/2025 11:11 AM CDT History and Physical Notes * HPI (History of Present Illness) Category Sub-Category Detail Notes Category Not es Constitutional GTS for deconditioning Neurosurgery for Cervical spine in [place] Diabetic Shoes
--- OUTSIDE RECORDS SUMMARY | 2025-02-07 06:58 | XMS_ITS | Encounter Summary ---
Author Name [facility] [place] Organization [place] Address [address] [place] [address] Care Team Providers Care Insurance Collector Name Role Phone JENNIFER AREVALO Primary Care Provider UnavailEDIL Taveras Primary Care Provider Unavailabl e Insurance Providers: All historical and current Section Date Range: From patient's date of to the date document was created. This section includes the names of all active insurance providers for the patient. Insurance Provider Type of Coverage Plan Name Start of Policy Coverage End of Policy Coverage Group Number Member ID Insurance Provider's Telephone Number Policy Hernandes's Name Patient's Relationship to Policy Hernandes HUMANA [facility] (R) MEDICARE ADVANTAGE [facility] ([facility]) Jun 27, 2023 [id number] VANESSA DUDLEY JR PATIENT [employer]NA MCR (WNR) MEDICARE ADVANTAGE [facility] (WN) Jun 27, 2023 [id number] VANESSA DUDLEY JR PATIENT MEDICARE (WNR) MEDICARE (M) PART A Apr 27, 2005 PART A [id number] VANESSA DUDLEY JR PATIENT MEDICARE (WNR) MEDICARE (M) PART B Apr 27, 2005 PART B [id number] VANESSA DUDLEY JR PATIENT MEDICARE PART D MEDICARE (M) PART D Jun 27, 2012 PART D [id number] [place] VANESSA HERNANDEZ PATIENT [facility] (WNR) MEDICARE ADVANTAGE MCR (WNR) Jun 27, 2021 [id number] KORIN DUDLEY PATIENT Selected Encounter This section includes the information on record at [place] for the Encounter. Date/Time Encounter Type Encounter Description Reason Pro vider Source Feb 07, 2025 11:58 AM Outpatient Encounter COMMUNITY CARE CONSULT IHE Encounter Template Text not used by [place] Plan of Treatment: Future Appointments (+ 6 months) and Future Tests (+/- 45 days) The Plan of Treatment section includes future care activities for the patient from all [place] treatmentfacilities. This section includes future appointments and future orders which are active, pending or scheduled. Future Appointments This section includes appointments that were scheduled to occur 6 months from the date of the Encounter, up to a maximum of 20 appointments. The data comes from all [place] treatment facilities. Appointment Date/Time Appointment Type Appointme nt Facility Name Mar 04, 2025 03:00 PM AMBULATORY - MEDICINE [facility] Mar 17, 2025 02:40 PM AMBULATORY - MEDICINE [facility] Active, Pending, and Scheduled Orders This section includes a listing of several types of active, pending, and scheduled orders, including clinic medications orders, diagnostic test orders, procedure orders and consult orders; where the start date of the order is 45 days before the date of the Encounter or 45 days after the date of theEncounter. The data comes from all [place] treatment [facility]. Test Date/Time Test Type Test Details Facility Name Jan 03, 2025 03:54 PM Consult Order COMMUNITY CARE-PODIATRY 657A4 Cons Messenger Office's Choice [facility] Jan 09, 2025 07:00 AM Consult Order COMMUNITY CARE-ENT 657A4 Cons [facility] Choice [facility] Jan 21, 2025 09:02 AM Consult Order COMMUNITY CARE-GEC HOMEMAKER/HOME HEALTH AIDE 657A4 Cons [facility] Choice [facility] Feb 11, 2025 07:53 AM Consult Order COMMUNITY CARE-DENTAL GEN 657A4 Cons [facility] Office's Choice [facility] Feb 12, 2025 07:58 AM Consult Order COMMUNITY CARE-DENTAL GEN 657A4 Cons Messenger Office's Choice DIYA GRANGER [facility] Feb 12, 2025 07:58 AM Consult Order COMMUNITY CARE-DENTAL GEN 657A4 Cons Messenger Office's Choice DIYA RINCON [facility] Advance Directives: All historical and current Section Date Range: From patient's date of to the date document was created. This section includes ALL of a patient's completed or amended [place] Advance and Rescinded Directives. The entries below indicate that a directive exists for the patient, but an actual copy is not included with this document. The data comes from all [facility]. Date Advance Directives Provider Source Jul 12, 2018 ADVANCE DIRECTIVE RADHAJENNIFER SEBASTIAN POE Apr 13, 2018 ADVANCE DIRECTIVE DISCUSSION ANANT DODGE [facility] Feb 09, 2017 ADVANCE DIRECTIVE DISCUSSION GEOFFREY VIDAL [facility] Dec 22, 2016 ADVANCE DIRECTIVE DISCUSSION IDANIA FONG [facility] May 28, 2014 ADVANCE DIRECTIVE DISCUSSION TRACI VIDAL [facility] October 27, 2012 ADVANCE DIRECTIVE DISCUSSION AVEL JENNINGS JOSE ANTONIO [facility] October 26, 2011 ADVANCE DIRECTIVE DISCUSSION TIMI ELMORE [facility] Sep 01, 2011 [facility] Dec 03, 2008 ADVANCE DIRECTIVE LAURIEYANI DANIEL SEBASTIAN POE Encounter Notes: All associated encounter notes This section contains the clinical notes associated to the Encounter. Date/Time Encounter Note(s) Provider Source Feb 07, 2025 11:58 AM NONVA NOTE: LOCAL TITLE: COMMUNITY CARE-REQUEST FOR SERVICE NOTE PB STANDARD TITLE: NONVA NOTE DATE OF NOTE: FEB 07, 2025@11:58 ENTRY DATE: FEB 07, 2025@11:58:29 AUTHOR: WENDY XAVIER EXP COSIGNER: URGENCY: STATUS: COMPLETED Request for Services (RFS) documentation has been sent for scanning to [facility] Consult: COMMUNITY CARE-DENTAL 657A4 Consult No: [id number] DATED 10/19/24 Date sent to scanning: Jan A Request for Service (RFS) form [id number] has been received which includes the following: Care Requested: D3320 - END THXPY BICUSPID TOOTH [28] D2740 - CROWN PORCELAIN/CERAMIC SUBS [28] D2950 - CORE BUILD-UP INCL ANY PINS [28] ENTERED IN CTB ICD-10 Dx code: K02.53 Date [facility] received request: Jan Date service required: TBD Requesting Community Provider Information: [facility] Gurmeet Pranay Fredrick [address] [place] [address] P: [phone] F: [phone] /ro/ WENDY XAVIER RN CiT LOVE GIBBS [facility] Signed: 02/07/2025 11:59 Receipt Acknowledged By: 02/08/2025 10:30 /es/ Gaston Snider DDS Dental Service Chief Diya Rincon [facility] WENDY XAVIER [facility]
--- OUTSIDE RECORDS SUMMARY | 2025-02-12 03:01 | XMS_ITS | Encounter Summary ---
Author Name [facility] [place] [facility] Address [address] [place] [address] Care Team Providers Care Hospice Team Lead Name Role Phone JENNIFER AREVALO Primary Care [...] Hernandes's Name Patient's Relationship to Policy Hernandes [facility] (R) MEDICARE ADVANTAGE [facility] ([facility]) Jun 27, 2023 [id number] VANESSA DUDLEY JR PATIENT [employer]MANA [facility] (WNR) MEDICARE ADVANTAGE [facility] (WN) Jun 27, 2023 [id number] 92 VANESSA DUDLEY JR PATIENT MEDICARE (WNR) MEDICARE (M) PART A Apr 27, 2005 PART A [id number] VANESSA DUDLEY JR PATIENT MEDICARE (WNR) MEDICARE (M) PART B Apr 27, 2005 PART B [id number] VANESSA DUDLEY JR PATIENT MEDICARE PART D MEDICARE (M) PART D Jun 27, 2012 PART D [id number] VANESSA DUDLEY JR PATIENT [facility] (WNR) MEDICARE ADVANTAGE [facility] (WNR) Jun 27, 2021 [id number] KORIN DUDLEY PATIENT Selected Encounter This section includes the information on record at [place] for the Encounter. Date/Time Encounter Type Encounter Description Reason Provider Source Feb 12, 2025 08:01 AM CASE MGMT-CARE COORDINATION DENTAL ICD-10-CM K02.52 Dental caries on pit and fissure surfc penetrat into dentin BUERSCHEN,BYRON ORY H IHE Encounter Template Text not used by [place] Assessments - Encounter Diagnoses This section includes the primary and secondary diagnoses documented for the Encounter. Date/Time Primary/Secondary Diagnosis Diagnosis Name Provider Source Feb 12, 2025 08:02 AM PRIMARY Dental caries on pit and fissure surfc penetrat into dentin [facility]CHEN[facility] Plan of Treatment: Future Appointments (+ 6 months) and Future Tests (+/- 45 days) The Plan of Treatment section includes future care activities for the [facility] [place] [facility] This section includes future appointments and future orders which are active, pending or scheduled. Future Appointments This section includes appointments that were scheduled to occur 6 months from the date of the Encounter, up to a maximum of 20 appointments. The data comes from all [place] treatment facilities. Appointment Date/Time Appointment Type Appointme nt Facility Name Mar 04, 2025 03:00 PM AMBULATORY - MEDICINE [facility] Mar 17, 2025 02:40 PM AMBULATORY - MEDICINE [facility] Active, Pending, and Scheduled Orders This section includes a listing of several types of active, pending, and scheduled orders, including clinic medications orders, diagnostic test orders, procedure orders and consult orders; where the start date of the order is 45 days before the date of the Encounter or 45 days after the date of theEncounter. The data comes from all [place] treatment facilities. Test Date/Time Test Type Test Details Facility Name Jan 03, 2025 03:54 PM Consult Order COMMUNITY CARE-PODIATRY 657A4 Cons Driller And Broacher's Choice [facility] Jan 09, 2025 07:00 AM Consult Order COMMUNITY CARE-ENT 657A4 Cons Driller And Broacher's Choice [facility] Jan 21, 2025 09:02 AM Consult Order COMMUNITY CARE-GEC HOMEMAKER/HOME HEALTH AIDE 657A4 Cons Driller And Broacher's Choice [facility] Feb 11, 2025 07:53 AM Consult Order COMMUNITY CARE-DENTAL GEN 657A4 Cons Driller And Broacher's Choice [facility] Feb 12, 2025 07:58 AM Consult Order COMMUNITY CARE-DENTAL GEN 657A4 Cons Driller And Broacher's Choice [facility] Feb 12, 2025 07:58 AM Consult Order COMMUNITY CARE-DENTAL GEN 657A4 Cons Driller And Broacher's Choice [facility] Advance Directives: All historical and current Section Date Range: From patient's date of to the date document was created. This section includes ALL of a patient's completed or amended [place] Advance and Rescinded Directives. The entries below indicate that a directive exists for the patient, but an actual copy is not included with this document. The data comes from all [place] facilities. Date Advance Directives Provider Source Jul 12, 2018 ADVANCE DIRECTIVE JENNIFER GARCIA AR VANPH Apr 13, 2018 ADVANCE DIRECTIVE DISCUSSION ANANT DODGE [facility] Feb 09, 2017 ADVANCE DIRECTIVE DISCUSSION GEOFFREY VIDAL [facility] Dec 22, 2016 ADVANCE DIRECTIVE DISCUSSION IDANIA FONG [facility] May 28, 2014 ADVANCE DIRECTIVE DISCUSSION TRACI VIDAL [facility] October 27, 2012 ADVANCE DIRECTIVE DISCUSSION AVEL JENNINGS JOSE ANTONIO [facility] October 26, 2011 ADVANCE DIRECTIVE DISCUSSION TIMI ELMORE [facility] Sep 01, 2011 ADVANCE DIRECTIVE DISCUSSION AVEL JENNINGS JOSE ANTONIO [facility] Dec 03, 2008 ADVANCE DIRECTIVE YANI SULLIVAN AR VANPH Encounter Notes: All associated encounter notes This section contains the clinical notes associated to the Encounter. Date/Time Encounter Note(s) Provider Source Feb 12, 2025 08:01 AM DENTISTRY NOTE: LOCAL TITLE: DENTAL/GENERAL NOTE PB STANDARD TITLE: DENTISTRY NOTE DATE OF NOTE: FEB 12, 2025@08:01 ENTRY DATE: FEB 12, 2025@08:02:36 AUTHOR: GASTON SNIDER COSIGNER: URGENCY: STATUS: COMPLETED Patient Name: TERESA DUDLEY JR, : 1950, Age: 75 Visit: 02/12/2025 08:01. Primary PCE Diagnosis: K02.52 (DENTAL CARIES ON PIT AND FISSURE SURFACE PENETRATING INTO DENTIN). Dental Category: 15-OPC, Class IV. Treatment Status: Active. Completed Care: (D9992) CASE MGMT-CARE COORDINATION. DX: K02.52 Dental Caries on Pit and Fissure Surface Penetrating into Dentin - - - - - - - - - - - - - - - - - - - - - - - - - - - - - - Community care request entered and approved at dental chief level. /ro/ Gaston Snider DDS Dental Service Chief [facility] Signed: 02/12/2025 08:02 GASTON SNIDER [facility]
--- OUTSIDE RECORDS SUMMARY | 2025-02-12 04:42 | XMS_ITS | Continuity of Care Document ---
Author Name [facility] Organization [facility] Care Team Providers Care Natural History Collections Curator Name Role Phone [facility] Unavailable Unavailable Problems Combined list of problems from Department of Defense and Veterans Affairs facilities. It does not include entries that were removed or entered in error. Problem Status Onset Date Problem Type Date of Resolution Comments Source Pain of right shoulder joint Active 06/27/19 25 Condition [place] [facility] Sleep apnea (SNOMED CT 29351097) Active 06/27/19 00 Condition [facility] Arthropathy (SNOMED CT 038229459) Active Condition [facility] Bilateral cataracts Active Condition [place] [facility] Bilateral hearing loss Active Condition [place] [facility] Bradycardia Active Condition [place] [facility] Bradycardia (SNOMED CT 95311989) Active Condition [facility] Cervical spondylosis with myelopathy Active Condition [facility] Chronic Post-Traumatic Stress Disorder Following Combat (SCT 942732915) Active Condition [place] [facility] Chronic post-traumatic stress disorder following combat (SNOMED CT 830471349) Active Condition [place] Cough Active Condition [facility] Degeneration of lumbar intervertebral disc Active Condition [facility] Depression Active Condition [place] [facility] Depressive disorder (SNOMED CT 20931895) Active Condition [facility] DEPRESSIVE DISORDER NEC Active Condition [facility] DIABETES MELLI W/O COMP TYP II Active Condition [facility] Diabetes mellitus Active Condition [facility] Diabetic peripheral neuropathy Active Condition [place] [facility] Dizziness Active Condition [facility] Dysfunction of vestibular system Active Condition [place] [facility] Essential hypertension (SNOMED CT 71145922) Active Condition [facility] Glaucoma Active Condition [place] [facility] History of male erectile disorder (SNOMED CT 120135460) Active Condition [facility] History of surgery Active Condition J 2024 Entered By: PRESTON HERNANDEZ Comment: 2000 - Carpal tunnel bilateral at [facility] in [facility] 2024 Entered By: PRESTON HERNANDEZ Comment: 02/[facility] Entered By: PRESTON HERNANDEZ Comment: 09/2018 - C6-C7 anterior discectomy with cage - [facility] 2024 Entered By: PRESTON HERNANDEZ Comment: 12/20/2019 - PE tube right ear - Dr. Messer in [facility] 2024 Entered By: PRESTON HERNANDEZ Comment: 2020 - Bilateral cataract removal - [facility] 2024 Entered By: PRESTON HERNANDEZ Comment: 2021 - Lumbar nerve ablation - Dr. Storm - Pain [facility] 2024 Entered By: PRESTON HERNANDEZ Comment: 06/2022 - Excision of scalp lesion and skin graft - Dr. Gifford [place] [facility] Homeless family Active Condition [place] [facility] HTN - Hypertension Active Condition [place] [facility] Hyperlipidemia (SCT 04665790) Active Condition [place] [facility] Low back pain (SNOMED CT 385083633) Active Condition [facility] Lower obstructive uropathy Active Condition [place] [facility] Lumbar radiculopathy Active [place] [facility] Lumbar spondylosis Active Condition [facility] Macular drusen Active Condition [place] [facility] Mor[facility] obesity ([facility] 816988324) Active Condition [place] [facility] Muscle weakness Active Condition [facility] OA - Osteoarthritis ([facility] 721940301) Active Condition [place] [facility] Obesity (SNOMED CT 968481521) Active Condition [facility] Obstructive sleep apnea syndrome Active Condition Jul 29, 2023 Entered By: PRESTON HERNANDEZ Comment: BiPAP at Night [place] [facility] OSTEOARTHROS NOS-UNSPEC Active Condition [facility] Pain in lower limb (SNOMED CT 18911516) Active Condition [facility] Peripheral neuropathy Active Condition [facility] PURE HYPERCHOLESTEROLEM Active Condition [facility] Suicidal thoughts Active Condition [facility] [place] Type 2 diabetes mellitus Active Condition [place] [facility] Vitamin B12 Deficiency (SCT 659050966) Active Condition [place] [facility] Vitamin D deficiency (SNOMED CT 39955272) Active Condition [facility] Weakness Active Condition Jul 28 Entered By: PRESTON HERNANDEZ Comment: 06/28/23 - Presented to [facility] ER - weakness and dizziness [place] [facility] Clostridium difficile diarrhea Inactive Condition 07/09/2023 [facility] Diagnosis: ICD-10-CM K02.52 Dental caries on pit and fissure surfc penetrat into dentin Active Diagnosis [place] [facility] Diagnosis: ICD-10-CM Z71.81 Spiritual or protestant counseling Active Diagnosis [facility] Diagnosis: ICD-10-CM E78.5 Hyperlipidemia, unspecified Active Diagnosis [place] [facility] Diagnosis: ICD-10-CM Z51.81 Encounter for therapeutic drug level monitoring Active Diagnosis [place] 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 Medication Details Route Status Patient Instructions Prescription Expires Prescription Number Last Dispense Date Ordering Provider Order Date Order Qty Source APIXABAN 5MG TAB TAKE ONE TABLET BY MOUTH TWICE A DAY ORAL ACTIVE 07/31/2025 [id number] BOBBY AYALA 2024 90 [place] [facility] APIXABAN 5MG TAB TAKE ONE TABLET BY MOUTH TWICE A DAY ORAL DISCONT INUED 07/21/2025 [id number] 5 BOBBY AYALA LY 2024 90 [place] [facility] BUSPIRONE HCL 10MG TAB TAKE ONE TABLET BY MOUTH TWICE A DAY DO NOT TAKE WITH GRAPEFRU IT JUICE. ORAL ACTIVE 07/10/2025 [id number] 5 GEOFF HEARD 2024 180 [place] [facility] CHOLECALCIF SCOTT 125MCG (5,000UNIT) CAP,ORAL TAKE ONE CAPSULE BY MOUTH ONCE A DAY ORAL ACTIVE 11/30/2025 [id number] 5 CHACE BARRAGAN 2024 100 [place] [facility] CHOLECALCIF SCOTT 50MCG (2,000UNIT) TAB TAKE ONE TABLET BY MOUTH ONCE A DAY FOR 90 DAYS ORAL HOLD 08/04/2025 [id number] 5 CHACE BARRAGAN 2024 100 [place] [facility] CYANOCOBALA MIN 1000MCG TAB TAKE ONE TABLET BY MOUTH ONCE A DAY FOR 90 DAYS ORAL HOLD 08/04/2025 [id number] 5 CHACE BARRAGAN 2024 100 [place] [facility] CYANOCOBALA MIN 100MCG TAB TAKE ONE TABLET BY MOUTH TWICE A DAY ORAL ACTIVE 11/30/2025 [id number] 5 CHACE BARRAGAN 2024 200 [place] [facility] EMPAGLIFLOZ IN 10MG TAB TAKE 1 TABLET BY MOUTH ONCE A DAY ORAL ACTIVE 07/10/2025 [id number] 5 GEOFF HEARD 2024 90 [place] [facility] FLUOXETINE HCL 20MG CAP TAKE ONE CAPSULE BY MOUTH TWICE A DAY ORAL ACTIVE 07/10/2025 [id number] 5 GEOFF HEARD 2024 180 [place] [facility] GABAPENTIN 100MG CAP TAKE ONE CAPSULE BY MOUTH THREE TIMES A DAY FOR NERVE PAIN ORAL ACTIVE 01/31/2026 [id number] 5 CHACE BARRAGAN 2024 270 [place] [facility] GABAPENTIN 600MG TAB TAKE ONE TABLET BY MOUTH THREE TIMES A DAY ORAL HOLD 07/10/2025 [id number] 5 GEOFF HEARD P 2024 270 [place] [facility] GEMFIBROZIL 600MG TAB TAKE ONE TABLET BY MOUTH TWO TIMES A DAY BEFORE MEALS (30 MINUTES BEFORE A MEAL) ORAL ACTIVE 07/10/2025 [id number] 5 GEOFF HEARD P 2024 180 [place] [facility] LISINOPRIL 5MG TAB TAKE ONE TABLET BY MOUTH ONCE A DAY FOR 90 DAYS ORAL ACTIVE 07/10/2025 [id number] 5 GEOFF HEARD 2024 90 [place] [facility] [place] POTASSIUM 100MG TAB TAKE ONE TABLET BY MOUTH ONCE A DAY FOR HIGH BLOOD PRESSURE ORAL DISCONT INUED 05/03/2024 [id number] 4 MAHI KOCH MD 2022 30 [place] [facility] NYSTATIN 203450ZDO/G M CREAM,TOP APPLY TO AFFECTED AREA(S) TWICE A DAY FOR 14 DAYS TO GROIN RASH - TOPICAL USE ONLY. TOPICA L ACTIVE 11/15/2025 [id number] 5 CHACE BARRAGAN 2024 30 [place] [facility] OMEGA-3-ACI D ETHYL ESTERS 1000MG CAP,ORAL TAKE TWO CAPSULES BY MOUTH TWICE A DAY WITH MEALS FOR 30 DAYS ORAL ACTIVE 08/07/2025 [id number] 5 CHACE BARRAGAN 2024 120 [place] [facility] POTASSIUM CHLORIDE 20MEQ TAB,SA (DISPERSIBL E) TAKE ONE-HALF TABLET BY MOUTH ONCE A DAY TAKE WITH FOOD ORAL 05/20/2024 [id number] 4 MAHI KOCH MD 2022 45 [place] [facility] RIBOFLAVIN 100MG TAB TAKE FOUR TABLETS BY MOUTH EVERY DAY TAKE WITH FOOD ACTIVE 02/27/2025 [id number] 5 CHACE BARRAGAN 2024 400 [place] [facility] RIBOFLAVIN 100MG TAB TAKE ONE TABLET BY MOUTH ONCE A DAY TAKE WITH FOOD ORAL DISCONT INUED 08/07/2025 [id number] 5 CHACE BARRAGAN 2024 100 [place] [facility] TAMSULOSIN HCL 0.4MG CAP TAKE ONE CAPSULE BY MOUTH ONCE A DAY FOR 90 DAYS APPROXIM ATELY 30 MINUTES AFTER THE SAME MEAL EACH DAY ORAL ACTIVE 08/04/2025 [id number] 5 CHACE BARRAGAN 2024 90 [place] [facility] TAMSULOSIN HCL 0.4MG CAP TAKE ONE CAPSULE BY MOUTH ONCE A DAY APPROXIM ATELY 30 MINUTES AFTER THE SAME MEAL EACH DAY ORAL DISCONT INUED 07/10/2025 [id number] 5 GEOFF HEARD 2024 90 [facility] Allergies, Adverse Reactions, Alerts Combined list of allergies from Department of [facility] and Veterans Affairs facilities. It does not include entries that were removed or entered in error. Substance Category Reaction Severity Reaction type Status Date Reported Comments Source METFORMIN Propensity to adverse reactions to drug (finding) active 1 [facility] PHENOBARBITAL Propensity to adverse reactions to drug (finding) active 3 [facility] PHENOBARBITAL Propensity to adverse reactions to drug (finding) Delirium active [address] [facility] SERTRALINE Propensity to adverse reactions to drug (finding) Eruption active 1 [facility] SERTRALINE Propensity to adverse reactions to drug (finding) active [address] [facility] SULFA DRUGS Propensity to adverse reactions to drug (finding) Eruption active [address] [facility] SULFITES Propensity to adverse reactions to substance (finding) active 3 [facility] Immunizations Combined list of available immunizations from the [facility] and [facility] Affairs facilities. Immunization Series Date Given Administered By Site Reaction Lot Number CVX Code Drug Package Sealer Status Comments Source COVID-19 (MODERNA), MRNA, LNP-S, PF, 50 MCG/0.5 ML (AGES 12+ YEARS) 6 2023 312 complet ed HISTORICA L INFORMATI ON - FROM OTHER REGISTRY, [facility] INFLUENZA, MDCK, TRIVALENT, PRESERVATIVE 7 2023 320 complet ed HISTORICA L INFORMATI ON - FROM OTHER REGISTRY, [facility] TDAP 3 2023 115 complet ed HISTORICA L INFORMATI ON - FROM OTHER REGISTRY, [facility] COVID-19 (MODERNA), MRNA, LNP-S, PF, 50 MCG/0.5 ML (AGES 12+ YEARS) 5 2022 312 complet ed HISTORICA L INFORMATI ON - FROM OTHER REGISTRY, [facility] INFLUENZA VACCINE, QUADRIVALENT, ADJUVANTED 6 2022 205 complet ed HISTORICA L INFORMATI ON - FROM OTHER REGISTRY, [facility] COVID-19 (MODERNA), MRNA, LNP-S, BIVALENT, PF, 50 MCG/0.5 ML OR 25MCG/0.25 ML DOSE 4 2021 229 complet ed HISTORICA L INFORMATI ON - FROM OTHER REGISTRY, [facility] INFLUENZA, HIGH-DOSE, QUADRIVALENT 5 2021 197 complet ed HISTORICA L INFORMATI ON - FROM OTHER REGISTRY, [facility] COVID-19 (MODERNA), MRNA, LNP-S, PF, 100 MCG/0.5ML DOSE OR 50 MCG/0.25ML DOSE 3 2021 207 complet ed HISTORICA L INFORMATI ON - FROM OTHER REGISTRY, [facility] INFLUENZA, INJECTABLE, QUADRIVALENT 4 2020 158 complet ed HISTORICA L INFORMATI ON - FROM OTHER REGISTRY, [facility] COVID-19 (MODERNA), MRNA, LNP-S, PF, 100 MCG/0.5ML DOSE OR 50 MCG/0.25ML DOSE 2 2020 207 complet ed HISTORICA L INFORMATI ON - FROM OTHER REGISTRY, [facility] ZOSTER RECOMBINANT 2 2020 187 complet ed [facility] COVID-19 (MODERNA), MRNA, LNP-S, PF, 100 MCG/0.5ML DOSE OR 50 MCG/0.25ML DOSE 1 2020 207 complet ed HISTORICA L INFORMATI ON - FROM OTHER REGISTRY, [facility] ZOSTER RECOMBINANT 1 2020 187 complet ed [facility] PNEUMOCOCCAL POLYSACCHARID E PPV23 1 2020 33 complet ed HISTORICA L INFORMATI ON - FROM OTHER REGISTRY, [facility] INFLUENZA, INJECTABLE, QUADRIVALENT 3 2019 158 complet ed HISTORICA L INFORMATI ON - FROM OTHER REGISTRY, [facility] INFLUENZA, INJECTABLE, QUADRIVALENT, PRESERVATIVE FREE 2018 150 complet ed [facility] PNEUMOCOCCAL POLYSACCHARID E PPV23 2018 33 complet ed [facility] PNEUMOCOCCAL POLYSACCHARID E PPV23 2018 33 complet ed [facility] INFLUENZA, INJECTABLE, QUADRIVALENT 2017 158 complet ed Pt tolerated well. [facility] PNEUMOCOCCAL CONJUGATE PCV 13 2015 133 complet ed [facility] PNEUMOCOCCAL CONJUGATE PCV 13 2015 133 complet ed [facility] TDAP 1 2015 115 complet ed HISTORICA L INFORMATI ON - FROM OTHER REGISTRY, [facility] INFLUENZA, UNSPECIFIED FORMULATION 2014 88 complet ed no side effects noted [facility] ZOSTER LIVE 2014 NONE 121 complet ed no side effects noted [facility] INFLUENZA, SEASONAL, INJECTABLE 2 2014 141 complet ed HISTORICA L INFORMATI ON - FROM OTHER REGISTRY, [facility] TDAP 2013 EDIL DOWD 115 complet ed [facility] TDAP 2013 115 complet ed [facility] INFLUENZA, UNSPECIFIED FORMULATION 2013 88 complet ed [facility] INFLUENZA, UNSPECIFIED FORMULATION 2012 88 complet ed [facility] INFLUENZA, SPLIT (INCL. PURIFIED SURFACE ANTIGEN) 1 2011 15 complet ed HISTORICA L INFORMATI ON - FROM OTHER REGISTRY, [facility] INFLUENZA, UNSPECIFIED FORMULATION 2011 88 complet ed [facility] INFLUENZA, UNSPECIFIED FORMULATION 2011 88 complet ed [facility] INFLUENZA, UNSPECIFIED FORMULATION 2009 88 complet ed [id number] [facility] INFLUENZA, UNSPECIFIED FORMULATION 2008 88 complet ed [facility] INFLUENZA, UNSPECIFIED FORMULATION 2006 88 complet ed [facility] FLU,3 YRS (HISTORICAL) 2004 88 complet ed [facility] PNEUMOCOCCAL POLYSACCHARID E PPV23 2004 33 complet ed [facility] FLU,3 YRS (HISTORICAL) 2003 88 complet ed YES [facility] INFLUENZA (HISTORICAL) 2002 NONE 88 complet ed IM Left Deltoid [facility] [place] [facility] FLU,3 YRS (HISTORICAL) 2002 88 complet ed [facility] FLU,3 YRS (HISTORICAL) 2001 88 complet ed [facility] FLU,3 YRS (HISTORICAL) 2000 88 complet ed [facility] TDAP 2000 115 complet ed [facility] TD(ADULT) UNSPECIFIED FORMULATION 1999 139 complet ed [facility] Results Combined list of recent chemistry, hematology and other laboratory results from Department of Defense and Veterans Affairs, ranging from 15 months to all on record, depending upon the facility. Order Name Results Value Reference Range Date Interpretation Specimen Comments Source ACETYLCHOL INE RECEPTOR AB, PROFILE ACETYLCHOLI NE RECEPTOR BINDING AB [MOLES/VOLU ME] IN SERUM <0.03n mol/L 0.00 - 0.24 09/13 Specimen Type: SERUM Comment: Test(s) [id number] Blocking Abs, Serum This test was developed and its performance characterist ics determined by [facility]. It has not been cleared or approved by the Food and Drug Administrati on. Test(s) [id number]- modulating Ab was developed and its performance characterist ics determined by [facility]. It has not been cleared or approved by the Food and Drug Administrati on. Negative: 0.00 - 0.24 Borderline: 0.25 - 0.40 Positive: >0.40 Negative: 0 - 25 Borderline: 26 - 30 Positive: >30 Interpretive Information: Negative: 0 - 45% Positive: > 45% No single value for AChR-modulat ing antibody should be used as a sole basis for diagnosis or response to therapy. Ordering Provider: MONICA FAY Report Released Date/Time: Sep 14, 2023 12:55 PM Reporting Lab: [facility] [address] [address] Performing Lab: [facility] [address] [facility] [address] [place] ACETYLCHOL INE RECEPTOR AB, PROFILE ACETYLCHOLI NE RECEPTOR MODULATION AB [PRESENCE] IN SERUM BY FLOW CYTOMETRY (FC) 0 0 - 45 09/13 Specimen Type: SERUM Comment: Test(s) [id number] Blocking Abs, Serum This test was developed and its performance characterist ics determined by [facility]. It has not been cleared or approved by the Food and Drug Administrati on. Test(s) [id number]- modulating Ab was developed and its performance characterist ics determined by [facility]. It has not been cleared or approved by the Food and Drug Administrati on. Negative: 0.00 - 0.24 Borderline: 0.25 - 0.40 Positive: >0.40 Negative: 0 - 25 Borderline: 26 - 30 Positive: >30 Interpretive Information: Negative: 0 - 45% Positive: > 45% No single value for AChR-modulat ing antibody should be used as a sole basis for diagnosis or response to therapy. Ordering Provider: MONICA FAY Report Released Date/Time: Sep 14, 2023 12:55 PM Reporting Lab: [facility] [address] [address] Performing Lab: [facility] [address] [facility] [address] [place] ACETYLCHOL INE RECEPTOR AB, PROFILE ACETYLCHOLI NE RECEPTOR BLOCKING AB [UNITS/VOLU ME] IN SERUM 19 0 - 25 09/13 Specimen Type: SERUM Comment: Test(s) [id number] Blocking Abs, Serum This test was developed and its performance characterist ics determined by [facility]. It has not been cleared or approved by the Food and Drug Administrati on. Test(s) [id number]-OOmW- modulating Ab was developed and its performance characterist ics determined by [facility]. It has not been cleared or approved by the Food and Drug Administrati on. Negative: 0.00 - 0.24 Borderline: 0.25 - 0.40 Positive: >0.40 Negative: 0 - 25 Borderline: 26 - 30 Positive: >30 Interpretive Information: Negative: 0 - 45% Positive: > 45% No single value for AChR-modulat ing antibody should be used as a sole basis for diagnosis or response to therapy. Ordering Provider: MONICA FAY Report Released Date/Time: Sep 14, 2023 12:55 PM Reporting Lab: [facility] [address] [address] Performing Lab: [facility] [address] [place] [address] [place] FREE T3 TRIIODOTHYR ONINE (T3) FREE [MASS/VOLUM E] IN SERUM OR PLASMA 2.91 pg/mL 2.5 - 3.9 09/13 Specimen Type: SERUM Comment: Biotin concentratio ns > 10 ng/mL can lead to significant (> 10%) positive bias in Free T3 results. Ordering Provider: MONICA FAY Report Released Date/Time: Sep 14, 2023 12:55 PM Reporting Lab: [facility] [address] [address] Performing Lab: [facility] [address] [facility] [address] [place] FREE T4 THYROXINE (T4) FREE [MASS/VOLUM E] IN SERUM OR PLASMA 0.73 ng/dL 0.47 - 1.41 09/13 Specimen Type: PLASMA No comment entered. Ordering Provider: MONICA FAY Report Released Date/Time: Sep 14, 2023 12:55 PM Reporting Lab: [facility] [address] [address] Performing Lab: [facility] [address] [place] [address] [place] TSH THYROTROPIN [UNITS/VOLU ME] IN SERUM OR PLASMA 1.82 u[IU]/ mL 0.34 - 5.6 09/13 Specimen Type: PLASMA No comment entered. Ordering Provider: MONICA FAY Report Released Date/Time: Sep 14, 2023 12:55 PM Reporting Lab: [facility] [address] [address] Performing Lab: [id number] [place] [address] [place] GLUCOSE-AT GLUCOSE [MASS/VOLUM E] IN BLOOD BY AUTOMATED TEST STRIP 124 mg/dL 70 - 110 07/29 H Specimen Type: BLOOD Comment: Asymptomatic Not Fasting Test performed by: Peg Reece RN on meter [id number] LOT:[id number] Ordering Provider: RENNY,SARAY A Report Released Date/Time: Jul 29, 2023 06:40 AM Reporting Lab: [place] [address] [facility] [place] [address] Performing Lab: [place] [address] [facility] [place] [address] [place] GLUCOSE-AT GLUCOSE [MASS/VOLUM E] IN BLOOD BY AUTOMATED TEST STRIP 212 mg/dL 70 - 110 07/28 H Specimen Type: BLOOD Comment: Asymptomatic Notify RN Test performed by: Anshu Reece LPN on meter [id number] Ordering Provider: SARAY LAWSON A Report Released Date/Time: Jul 28, 2023 08:26 PM Reporting Lab: [place], [place] [address] [facility] [place] [address] Performing Lab: [place], [place] V[place] [address] [facility] [place] [address] [place] GLUCOSE-AT GLUCOSE [MASS/VOLUM E] IN BLOOD BY AUTOMATED TEST STRIP 125 mg/dL 70 - 110 07/28 H Specimen Type: BLOOD Comment: Notify RN Test performed by: Stephen CURTIS on meter [id number] Ordering Provider: SARAY LAWSON A Report Released Date/Time: Jul 28, 2023 03:58 PM Reporting Lab: [place] [address] [facility] [place] [address] Performing Lab: [place], [place] [address] [facility] [place] [address] [place] GLUCOSE-AT GLUCOSE [MASS/VOLUM E] IN BLOOD BY AUTOMATED TEST STRIP 118 mg/dL 70 - 110 07/28 H Specimen Type: BLOOD Comment: Notify RN Test performed by: Everett CURTIS on meter [id number] Ordering Provider: SARAY LAWSON A Report Released Date/Time: Jul 28, 2023 12:15 PM Reporting Lab: [place] [address] [facility] [place] [address] Performing Lab: [place] [address] [facility] [place] [address] [place] GLUCOSE-AT GLUCOSE [MASS/VOLUM E] IN BLOOD BY AUTOMATED TEST STRIP 127 mg/dL 70 - 110 07/28 H Specimen Type: BLOOD Comment: Notify RN Test performed by: Fabian Reece RN on meter [id number] LOT:[id number] Ordering Provider: SARAY LAWSON A Report Released Date/Time: Jul 28, 2023 06:41 AM Reporting Lab: [place], [place] [address] [facility] [place] [address] Performing Lab: [place], [place] [address] [facility] [address] [place] GLUCOSE-AT GLUCOSE [MASS/VOLUM E] IN BLOOD BY AUTOMATED TEST STRIP 147 mg/dL 70 - 110 07/27 H Specimen Type: BLOOD Comment: Asymptomatic Test performed by: Jose CURTIS on meter [id number] LOT:[id number] Ordering Provider: SARAY LAWSON A Report Released Date/Time: Jul 27, 2023 09:24 PM Reporting Lab: [place] [address] [facility] [place] [address] Performing Lab: [place], [place] [address] [place] [place] [address] [place], [place] Vital Signs Combined list of inpatient and outpatient Vital Signs from Department of Defense and Veterans Affairs, ranging from 12 months to all on record, depending upon the facility. Vital Sign Value Date Comments Source SYSTOLIC BLOOD PRESSURE 110 12/13/2024 12:52:01 [place] [facility] DIASTOLIC BLOOD PRESSURE 50 12/13/2024 12:52:01 [place] [facility] PULSE OXIMETRY 98 % 12/13/2024 12:52:01 [place] [facility] WEIGHT 277 12/13/2024 12:52:01 [place] [facility] BMI 43 kg/m2 12/13/2024 12:52:01 [place] [facility] PAIN 6 12/13/2024 12:52:01 [place] [facility] HEIGHT 67 12/13/2024 12:52:01 [place] [facility] TEMPERATURE 98 12/13/2024 12:52:01 [place] [facility] PULSE 62 12/13/2024 12:52:01 [place] [facility] RESPIRATION 18 12/13/2024 12:52:01 [place] [facility] Encounters Combined list of: 1) Encounters from Department of Veterans Affairs facilities going backup to the last 18 months, not all [place] inpatient encounters are included; 2) Encounters from the Department of Defense facilities going backup to 280 months. Location Location Details Encounter Type Encounter Number Reason For Visit Attending Provider ADM Date DC Date Status Disposition Source [facility] Outpatient Encounter [id number] 08/29 [facility] Outpatient Encounter [id number] 09/05 [facility] Outpatient Encounter [id number] 09/05 [facility] [place] 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 WILLOW [place] U 09/13 [place] [place] [facility] En[facility] [id number] 09/15 [facility] Outpatient Encounter [id number] 09/19 [facility] Outpatient Encounter [id number] 09/19 [facility] Outpatient Encounter [id number] 09/26 [facility] Outpatient Encounter [id number] 09/26 [facility] Outpatient Encounter [id number] 09/27 [facility] Outpatient Encounter [id number] 10/04 [facility] N [facility] Outpatient Encounter [id number] 10/05 [facility] N [facility] Outpatient Encounter [id number] 10/12 [facility] Outpatient Encounter [id number] 10/17 [facility] N [facility] Outpatient Encounter [id number] Abelardo ADAIR A 10/24 [facility] N [facility] Outpatient Encounter [id number] 10/24 [facility] Outpatient Encounter [id number] 10/26 [facility] Outpatient Encounter [id number] 10/26 [facility] N [facility] [facility] Outpatient Encounter [id number] 11/23 [facility] Outpatient Encounter [id number] [id number] 11/30 [facility] Outpatient Encounter [id number] 11/30 [facility] Outpatient Encounter [id number] [id number] 12/07 [facility] Outpatient Encounter [id number] 01/04 [facility] Outpatient Encounter [id number] [id number] 01/17 [facility] Outpatient Encounter [id number] [id number] 01/30 [facility] Outpatient Encounter [id number] 02/06 [facility] Outpatient Encounter [id number] [id number] HELEN LR 02/13 [facility] Outpatient Encounter [id number] [id number] 02/21 [facility] Outpatient Encounter [id number] [id number] 02/23 [facility] Outpatient Encounter [id number] [id number] HELEN LR 03/10 [facility] Encounter [id number] [id number] NEDA MALDONADO 03/12 [facility] Outpatient Encounter [id number] [id number] NEDA MALDONADO RIL L 03/19 [facility] Outpatient Encounter [id number] 03/21 [facility] Encounter [id number] [id number] 03/22 [facility] Out[facility] Encounter [id number] [id number] 03/22 [facility] Encounter [id number] [id number] 2 Stu VIDAL L 03/30 [facility] Encounter [id number] [id number] 03/30 [facility] Out[facility] Encounter [id number] [id number] 04/12 [facility] Outpatient Encounter [id number] [id number] 04/20 [facility] En[facility] [id number] [id number] 04/23 [facility] Out[facility] Encounter [id number] [id number] 05/02 [facility] Outpatient Encounter [id number] [id number] 06/01 [facility] Outpatient Encounter [id number] 06/04 [facility] Outpatient Encounter [id number] [id number] 06/09 [facility] Outpatient Encounter [id number] [id number] 07/11 [facility] Outpatient Encounter [id number] [id number] 07/16 [facility] Outpatient Encounter [id number] [id number] HELEN LR 07/17 [facility] Outpatient Encounter [id number] [id number] 07/20 [facility] Outpatient Encounter [id number] [id number] 07/20 [facility] NQHP OL DIG ASSMT&MGMT 5-10 [id number] [id number] Diagnos is: ICD-10- CM Z51.81 Encount er 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 drug 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 monitor BOB Ramos 07/20 [facility] Outpatient Encounter [id number] [id number] 07/30 [facility] Outpatient Encounter [id number] [id number] 07/31 [facility] Outpatient Encounter [id number] [id number] Stu VIDAL 07/31 [facility] Outpatient Encounter [id number] [id number] 07/31 [facility] N [facility] Outpatient Encounter [id number] [id number] 07/31 [facility] Outpatient Encounter [id number] [id number] 07/31 [facility] MTMS BY PHARM FISH TRAPPER 15 MIN [id number] Diagnos is: ICD-10- CM E78.5 Hyperli pidemia , unspeci fied BRANNON,TROY V 08/03 [facility] En[facility] [id number] 08/06 [facility] MTMS BY PHARM FISH TRAPPER 15 MIN [id number] [id number] Diagnos is: ICD-10- CM E78.5 Hyperli pidemia , unspeci fied BRANNON,TROY V 08/07 [facility] Outpatient Encounter [id number] [id number] Stu VIDAL 08/14 [facility] Outpatient Encounter [id number] [id number] TANO SANDOVAL E 09/10 [facility] Out[facility] Encounter [id number] [id number] 09/10 [facility] Outpatient Encounter [id number] [id number] 09/13 [facility] Outpatient Encounter [id number] [id number] 09/25 [facility] Out[facility] Encounter [id number] [id number] Stu VIDAL L 11/22 [facility] Outpatient Encounter [id number] [id number] 11/29 [facility] Outpatient Encounter [id number] [id number] 11/30 [facility] Outpatient Encounter [id number] [id number] AYSHA ARMSTRONG A 12/05 [facility] Outpatient Encounter [id number] [id number] AYSHA ARMSTRONG 12/06 [facility] Outpatient Encounter [id number] [id number] 12/13 [facility] Outpatient Encounter [id number] [id number] 12/17 [facility] Outpatient Encounter [id number] [id number] 12/20 [facility] Outpatient Encounter [id number] 12/24 [facility] Outpatient Encounter [id number] [id number] 12/26 [facility] Outpatient Encounter [id number] [id number] 01/03 [facility] Outpatient Encounter [id number] 01/04 [facility] N [facility] Outpatient Encounter [id number] PATYIVAN MONROY L 01/04 [facility] N [facility] Outpatient Encounter [id number] Stu VIDAL L 01/09 [facility] N [facility] Outpatient Encounter [id number] KIMBERLYHELEN MELENDEZ 01/11 [facility] 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 INDIVIDU [id number] Diagnos is: ICD-10- CM Z71.81 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 [place] [id number] Diagnos is: ICD-10- CM K02.52 Dental caries on pit and fissure surfc penetra t into dentin MARISA BIRMINGHAM [place] 02/12 CHERIE GRANGER [facility] Social History Combined list of available smoking, tobacco, and other social history from Department of Defense and Veterans Affairs facilities. 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 06/11/2015 [facility] 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 of tobacco use 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 2014 [facility] History of tobacco use QUIT TOBACCO >7 Y EARS AGO 10/27/2012 [facility] History of tobacco use QUIT TOBACCO >7 Y EARS AGO 09/01/2011 [facility] 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 tobacco use 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 12/24/[place] of [place] use 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 11/05/2008 [facility] History of tobacco use 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 09/12/2007 [facility] History of tobacco use NON-TOBACCO USER 04/06/2006 [facility] History of tobacco use NON-TOBACCO USER 12/18/2004 [facility] History of tobacco use NON-TOBACCO USER 10/02/2003 [facility] 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 Additional future care activities may be listed in the Assessment and Plan section. Date/Time Care Activity Care Activity Detail Facili ty 03/04/2025 AMBULATORY - MEDICINE AMBULATORY - MEDICI NE CHERIE GRANGER [facility] Advance Directives List of completed, amended, or rescinded Advance Directives on record at [facility] facilities. An actual copy of the Directive is not included. Date Advance Directive Provider Source 07/12/2018 ADVANCE DIRECTIVE GARCIAJENNIFER GONZALEZ [facility] 04/13/2018 ADVANCE DIRECTIVE DISCUSSION ANANT DODGE [facility] 02/09/2017 ADVANCE DIRECTIVE DISCUSSION GEOFFREY VIDAL [facility] 12/22/2016 ADVANCE DIRECTIVE DISCUSSION IDANIA FONG [facility] 05/28/2014 ADVANCE DIRECTIVE DISCUSSION TRACI VIDAL [facility] 10/27/2012 ADVANCE DIRECTIVE DISCUSSION AVEL JENNINGS [facility] 10/26/2011 ADVANCE DIRECTIVE DISCUSSION CATARINA,AMY Olga [facility] 09/01/2011 ADVANCE DIRECTIVE DISCUSSION CORGERBER SULTANAHANIE JOSE ANTONIO [facility] 12/03/2008 ADVANCE DIRECTIVE YANI SULLIVAN [facility] Functional Status Combined list of recent functional and cognitive assessments recorded at Department of [facility] and [facility] ([place]).[place] Functional [place] Measurement (FIM) Scale: 1 = Total Assistance (Subject = 0% +), 2 = Maximal Assistance (Subject = 25% +), 3 = Moderate Assistance (Subject = 50% +), 4 = Minimal Assistance (Subject = 75% +), 5 = Supervision, 6 = Modified Pipestone (Device), 7 = Complete Pipestone (Timely, Safely). Assessment Date/Time Source Assessment Type Assessment Skill Assessment Score Assessment Details This secti on contains a list of the Functional Pipestone Measurement (FIM) assessments on record at [place] for the patient. It shows the FIM scores that were recorded within the requested date range. If no date range was provided, it shows the 3 most recent assessment scores that were completed within the last 3 years. Data comes from all [place] treatment facilities.
--- OUTSIDE RECORDS SUMMARY | 2025-02-12 06:11 | XMS_ITS | Encounter Summary ---
Author Name [facility] [place] [facility] [place] Address [address] [place] [id number] Care Team Providers Care Pantograph Engraver Name Role Phone JENNIFER AREVALO Primary Care [...] Name Patient's Relationship to Policy Hernandes HUMANA [facility] (R) MEDICARE ADVANTAGE [facility] ([facility]) Jun 27, 2023 [id number] VANESSA DUDLEY JR PATIENT [employer] MCR (WNR) MEDICARE ADVANTAGE [facility] (WN) Jun 27, 2023 [id number] VANESSA DUDLEY JR PATIENT MEDICARE (WNR) MEDICARE (M) PART A Apr 27, 2005 PART A [id number] VANESSA DUDLEY JR PATIENT MEDICARE (WNR) MEDICARE (M) PART B Apr 27, 2005 PART B [id number] VANESSA DUDLEY JR PATIENT MEDICARE PART D MEDICARE (M) PART D Jun 27, 2012 PART D [id number] OCTAV[place] VANESSA HERNANDEZ PATIENT [facility] MCR (WNR) MEDICARE ADVANTAGE MCR (WNR) Jun 27, 2021 [id number] KORIN DUDLEY PATIENT Selected Encounter This section includes the information on [place] at [place] for the Encounter. Date/Time Encounter Type Encounter Description Reason Provider Source Feb 12, 2025 11:11 AM Outpatient Encounter COMMUNITY CARE CONSULT JOELUMAIR Olga IHE Encounter Template Text not used by [place] Plan of Treatment: Future Appointments (+ 6 months) and Future Tests (+/- 45 days) The Plan of Treatment section includes future care activities for the patient from all [place] [facility] This section includes future appointments and future orders which are active, pending or scheduled. Future Appointments This section includes appointments that were scheduled to occur 6 months from the date of the Encounter, up to a maximum of 20 appointments. The data comes from all [place] treatment facilities. Appointment Date/Time Appointment Type Appointme nt Facility Name Mar 04, 2025 03:00 PM AMBULATORY - MEDICINE [facility] Mar 17, 2025 02:40 PM [facility] Active, Pending, and Scheduled Orders This section includes a listing of several types of active, pending, and scheduled orders, including clinic medications orders, diagnostic test orders, procedure orders and consult orders; where the start date of the order is 45 days before the date of the Encounter or 45 days after the date of theEncounter. The data comes from all [place] treatment [facility]. Test Date/Time Test Type Test Details Facility Name Jan 03, 2025 03:54 PM Consult Order COMMUNITY CARE-PODIATRY 657A4 Cons Lpn [facility] Jan 09, 2025 07:00 AM Consult Order COMMUNITY CARE-ENT 657A4 Cons Lpn [facility] Jan 21, 2025 09:02 AM Consult Order COMMUNITY CARE-GEC HOMEMAKER/HOME HEALTH AIDE 657A4 Cons Lpn [facility]ma[facility] Choice [facility] Feb 11, 2025 07:53 AM Consult Order COMMUNITY CARE-DENTAL GEN 657A4 Cons Lpn [facility]ma[facility] Choice [facility] Feb 12, 2025 07:58 AM Consult Order COMMUNITY CARE-DENTAL GEN 657A4 Cons Lpn Cma's Choice CHERIE GRANGER [facility] Feb 12, 2025 07:58 AM Consult Order COMMUNITY CARE-DENTAL GEN 657A4 Cons Lpn Cma's Choice [facility] Advance Directives: All historical and current Section Date Range: From patient's date of to the date document was created. This section includes ALL of a patient's completed or amended [place] Advance and Rescinded Directives. The entries below indicate that a directive exists for the patient, but an actual copy is not included with this document. The data comes from all [facility]. Date Advance Directives Provider Source Jul 12, 2018 ADVANCE DIRECTIVE JENNIFER GARCIA AR VANPH Apr 13, 2018 ADVANCE DIRECTIVE DISCUSSION ANANT DODGE [facility] Feb 09, 2017 ADVANCE DIRECTIVE DISCUSSION GEOFFREY VIDAL [facility] Dec 22, 2016 ADVANCE DIRECTIVE DISCUSSION IDANIA FONG [facility] May 28, 2014 ADVANCE DIRECTIVE DISCUSSION TRACI VIDAL [facility] October 27, 2012 ADVANCE DIRECTIVE DISCUSSION AVEL JENNINGS JOSE ANTONIO [facility] October 26, 2011 ADVANCE DIRECTIVE DISCUSSION TIMI ELMORE [facility] Sep 01, 2011 ADVANCE DIRECTIVE DISCUSSION DICKAVEL [facility] Dec 03, 2008 ADVANCE DIRECTIVE YANI [...] UMAIR MALDONADO EXP COSIGNER: URGENCY: STATUS: COMPLETED Emergency Notification Intake Date Presenting to the Facility: 02/10/2025 12:45 noon CDT Method of Contact: Provider Notification ID: [id number] Referral #: [id number] Clinical Review Hospital: [facility] City: [place] State: [place] Chief complaint: ABDOMINAL PAIN, CONSTIPATION Jan 1st MRR faxed to [facility] // UMAIR MALDONADO BSN,RN Signed: 02/12/2025 11:13 UMAIR MALDONADO [facility]
[2025-02-12 14:29] VITALS: BP 151/78; PULSE 50; RESP 18; TEMP 36.8; O2SAT 98
--- NOTE | 2025-02-12 14:37 | XR_ITS ---
WS: [id number] Portable AP upright chest, 02/12/2025 Clinical Data: htn Comparison: Portable chest, 07/24/2024 Findings: No nodules, masses or effusions are seen. The heart is enlarged. The pulmonary vascularity is not increased. No pneumonia or pneumothorax is seen. The aortic arch and descending thoracic aorta are minimally tortuous. There is an anterior cervical disc fusion. Monitor leads are on the chest wall. XR/XR chest 1V portable [id number] Impression: Atherosclerosis and cardiomegaly.
--- NOTE | 2025-02-12 14:38 | W.ED.SYNCOPE ---
HPI - Syncope General: Chief Complaint: General Medical Stated Complaint: Near Syncope Time Seen by Provider: 02/12/25 14:29 Source: patient and EMS Mode of arrival: EMS Limitations: no limitations History of Present Illness: 75-year-old male states that this morning he is feeling slightly lightheaded near syncopal event but did not pass out states he went to his doctor his heart rate was in the 40s so he called EMS. He states his heart rate always runs low but is typically in the 50s he denies any chest pain blood pressure here is normal denies any vomiting denies headache. Associated symptoms: Deny abdominal pain, chest pain, fever(s), headache(s) or nausea Related Data Home Medications ?Medication ?Instructions ?Recorded ?Confirmed acetaminophen 650 mg 650 mg PO Q8H PRN Pain 03/04/20 01/10/25 tablet,extended release buspirone 10 mg tablet 10 mg PO BID 03/04/20 01/10/25 cetirizine 10 mg tablet 10 mg PO DAILY 03/04/20 01/10/25 diclofenac sodium 100 mg 100 mg PO DAILY 03/04/20 01/10/25 tablet,extended release 24 hr fluoxetine 20 mg capsule 20 mg PO BID 03/04/20 01/10/25 gemfibrozil 600 mg tablet 600 mg PO BID 03/04/20 01/10/25 fluticasone propionate 50 1 spray intranasal BID PRN allergy 11/05/20 01/10/25 mcg/actuation nasal symptoms spray,suspension (Allergy Relief (fluticasone)) finasteride 5 mg tablet (Proscar) 5 mg PO DAILY 11/04/21 01/10/25 cholecalciferol (vitamin D3) 125 125 mcg PO DAILY 12/05/24 01/10/25 mcg (5,000 unit) tablet (Vitamin D3) cyanocobalamin (vitamin B-12) 100 100 mcg PO DAILY 12/05/24 01/10/25 mcg tablet empagliflozin 10 mg tablet 10 mg PO QAM 12/05/24 01/10/25 (Jardiance) gabapentin 600 mg tablet 600 mg PO TID 12/05/24 01/10/25 nystatin 100,000 unit/gram topical 1 applic topical BID PRN Skin 12/05/24 01/10/25 cream Irritation omega 3-flh-gdz-fish oil 1,000 mg 2 cap PO BID 12/05/24 01/10/25 (120 mg-180 mg) capsule (Fish Oil) tamsulosin 0.4 mg capsule 0.4 mg PO DAILY 12/05/24 01/10/25 Previous Rx's ?Medication ?Instructions ?Recorded tramadol 50 mg tablet 50 mg PO TID PRN pain #10 tabs 09/14/22 bilateral wrist splint/brace #1 ea 05/05/23 potassium chloride 20 mEq 10 meq (1/2 x 20 mEq) PO DAILY #45 05/20/23 tablet,extended release tabs apixaban 5 mg tablet (Eliquis) 5 mg PO BID #90 tabs 07/30/24 cefdinir 300 mg capsule 300 mg PO BID #10 caps 12/06/24 Allergies Allergy/AdvReac Type Severity Reaction Status Date / Time metformin Allergy Unknown unknown Verified 01/10/25 13:13 phenobarbital Allergy Unknown unknown Verified 01/10/25 13:13 Sulfa (Sulfonamide Allergy Unknown unknown Verified 01/10/25 13:13 Antibiotics) Review of Systems Const: Denies: fever(s), chills, body aches or change in appetite ENMT: Denies: throat pain or dental pain Card: Reports: pre-syncope; Denies: chest pain Resp: Denies: dyspnea GI: Denies: abdominal pain, nausea, vomiting or diarrhea Musc: Denies: neck pain or back pain Skin/Breast: Denies: rash Neuro: Denies: headache(s) PFSH ED PFSH: Medical History Morbid obesity with BMI of 40.0-44.9, adult Atrial fibrillation Skin scales Dizziness on standing Event monitor did not reveal any significant arrhythmias to explain the symptoms Dyslipidemia Abnormal EKG Benign essential hypertension with target blood pressure below 140/90 Bradycardia Hypertension Low back pain Erectile dysfunction Obesity Spondylosis Sleep apnea PTSD (post-traumatic stress disorder) Vitamin D deficiency Diabetes Surgical History H/O neck surgery History of carpal tunnel surgery History of back surgery Family History Father Cancer Mother Cancer Lung disease CAD (coronary artery disease) Diabetes Denies family history of Clotting disorder Dementia Hyperlipidemia Chronic kidney disease (CKD) Suicide Anesthesia complication Bleeding disorder Family history of premature coronary artery disease Hypertension Stroke Social History Smoking and tobacco/nicotine status: unknown if used tobacco/nicotine Alcohol intake: current Alcohol intake frequency: holidays/special occasions only Substance/Drug Use: never Physical Exam Const: COMMON NORMALS: no acute distress, patient oriented x3 and healthy appearing HENMT: COMMON NORMALS: normocephalic and atraumatic HEAD & SCALP: normocephalic and atraumatic Eye: COMMON NORMALS: conjunctivae normal CONJUNCTIVA: Yes conjunctivae normal Neck/C-Spine: COMMON NORMALS: full ROM and supple Chest: COMMONS NORMALS: normal inspection of the chest Resp: COMMON NORMALS: normal respiratory effort, No retractions, No use of accessory muscles and clear to auscultation bilaterally AUSCULTATION: clear to auscultation bilaterally Cardio: COMMON NORMALS: regular rhythm and No murmurs present (Cardio) RATE: bradycardic RHYTHM: regular rhythm GI: COMMON NORMALS: Normal to inspection, nondistended, normoactive bowel sounds present, Soft to palpation, non-tender and no masses PALPATION: Yes Soft to palpation Extremity: COMMON NORMALS: normal to inspection and full ROM Neuro: COMMON NORMALS: patient oriented x3, moves all extremities and no focal motor deficits Psych: COMMON NORMALS: mental status grossly normal, Normal thought process present and cooperative THOUGHT PROCESS: Normal thought process present Skin: COMMON NORMALS: no rashes or lesions noted and no wounds GENERAL SKIN EXAM: no rashes or lesions noted Course Vital Signs: Vital signs: Vital Signs Temperature 98.2 F 02/12/25 14:29 Pulse Rate 48 L 02/12/25 18:43 Respiratory Rate 14 02/12/25 18:43 Blood Pressure 149/67 02/12/25 18:43 Pulse Oximetry 95 02/12/25 18:43 Oxygen Delivery Me thod Room Air 02/12/25 14:29 MDM - Syncope Medical Decision Making Patient presents here with some lightheadedness along with bradycardia his heart rates been in the 50s here sinus of bradycardia no block. He has been well-appearing here no chest pain blood works normal he stable for discharge he is to follow-up with his hide washer return if worsening he understands agrees to plan. Medical Records I reviewed the patient's medical records. Lab Data I reviewed the patient's lab results. 02/12/25 15:00 02/12/25 15:00 Radiology Impressions Chest X-Ray 02/12/25 14:37 Impression: Atherosclerosis and cardiomegaly. Laboratory Results WBC 7.71 10^3/uL (3.29-11.43) 02/12/25 15:00 RBC 4.49 10^6/uL (3.85-5.65) 02/12/25 15:00 Hgb 14.60 g/dL (11.27-16.99) 02/12/25 15:00 Hct 41.7 % (37-53) 02/12/25 15:00 MCV 92.9 fl (82-101) 02/12/25 15:00 MCH 32.5 pg (27-33) 02/12/25 15:00 MCHC 35.0 g/dL (30-55) 02/12/25 15:00 RDW 13.7 % (12.1-15.1) 02/12/25 15:00 Plt Count 236 10^3/cmm (157-399) 02/12/25 15:00 MPV 8.6 fL (7.4-10.4) 02/12/25 15:00 Neut % (Auto) 69.8 % 02/12/25 15:00 Lymph % (Auto) 19.5 % 02/12/25 15:00 Hyde % (Auto) 7.4 % 02/12/25 15:00 Eos % (Auto) 2.6 % 02/12/25 15:00 Baso % (Auto) 0.4 % 02/12/25 15:00 Neut # (Auto) 5.39 10^3/uL (1.8-7.7) 02/12/25 15:00 Lymph # (Auto) 1.5 10^3/uL (0.8-4.8) 02/12/25 15:00 Hyde # (Auto) 0.6 10^3/uL (0.2-0.9) 02/12/25 15:00 Eos # (Auto) 0.2 10^3/uL (0.0-0.8) 02/12/25 15:00 Baso # (Auto) 0.0 10^3/uL (0.0-0.1) 02/12/25 15:00 Nucleated RBC % (auto) 0 % 02/12/25 15:00 Nucleated RBCs # 0.0 /100WBC 02/12/25 15:00 Sodium 135 mmol/L (136-145) L 02/12/25 15:00 Potassium 3.7 mmol/L (3.5-5.1) 02/12/25 15:00 Chloride 99 mmol/L (98-107) 02/12/25 15:00 Carbon Dioxide 21 mmol/L (22-29) L 02/12/25 15:00 Anion Gap 18.7 (5-19) 02/12/25 15:00 BUN 9 mg/dL (8-23) 02/12/25 15:00 Creatinine 0.8 mg/dL (0.7-1.2) 02/12/25 15:00 GFR Calculation Not Reportable 02/12/25 15:00 Glucose 93 mg/dL (65-115) 02/12/25 15:00 Calculated Osmolality 278 mOsm/kg (285-295) L 02/12/25 15:00 Calcium 9.0 mg/dL (8.5-10.5) 02/12/25 15:00 Total Bilirubin 1.0 mg/dL (0.15-1.2) 02/12/25 15:00 AST 20 U/L (0-40) 02/12/25 15:00 ALT 20 U/L (0-41) 02/12/25 15:00 Alkaline Phosphatase 69 U/L (40-130) 02/12/25 15:00 Troponin T Baseline 22 ng/L (0-15) H 02/12/25 15:00 Troponin T 120 Minute 20.65 ng/L (0-15) H 02/12/25 17:29 Delta Troponin T -1.35 ABS# (0-10) L 02/12/25 17:29 Total Protein 6.8 g/dL (6.6-8.7) 02/12/25 15:00 Albumin 4.0 g/dL (3.5-5.2) 02/12/25 15:00 Globulin 2.8 g/dL (1.3-4.6) 02/12/25 15:00 All radiology interpretation(s) finalized by discharge EKG Data EKG 1: I personally reviewed and interpreted this EKG as follows: EKG interpretation date: 02/12/25 EKG interpretation time: 15:06 Interpretation: sinus nitesh hr [address] elevation qrs 92 qtc 419 Discharge Plan Discharge Patient Disposition: Home Clinical Impression: Near syncope, Bradycardia Condition: Stable Prescriptions: No Action cetirizine 10 mg tablet 10 mg PO DAILY diclofenac sodium 100 mg tablet extended release 24 hr 100 mg PO DAILY buspirone 10 mg tablet 10 mg PO BID acetaminophen 650 mg tablet extended release 650 mg PO Q8H PRN (Reason: Pain) gemfibrozil 600 mg tablet 600 mg PO BID fluoxetine 20 mg capsule 20 mg PO BID Rx Instructions: administer in the morning and at noon/midday fluticasone propionate [Allergy Relief (fluticasone)] 50 mcg/actuation spray,suspension 1 spray INTRANASAL BID PRN (Reason: allergy symptoms) Rx Instructions: administer into each nostril finasteride [Proscar] 5 mg tablet 5 mg PO DAILY (DME) bilateral wrist splint/brace See Rx Instructions .Route .MEDSUPPLY Qty: 1 0RF Rx Instructions: As directed Eliquis 5 mg tablet 5 mg PO BID Qty: 90 3RF tramadol 50 mg tablet 50 mg PO TID PRN (Reason: pain) Qty: 10 0RF potassium chloride 20 mEq tablet extended release 10 meq PO DAILY Qty: 45 3RF gabapentin 600 mg Tablet 600 mg PO TID Jardiance 10 mg Tablet 10 mg PO QAM cyanocobalamin (vitamin B-12) 100 mcg Tablet 100 mcg PO DAILY tamsulosin 0.4 mg Capsule 0.4 mg PO DAILY nystatin 100,000 unit/gram Cream 1 applic TOPICAL BID PRN (Reason: Skin Irritation) cholecalciferol (vitamin D3) [Vitamin D3] 125 mcg (5,000 unit) Tablet 125 mcg PO DAILY omega 2-wfx-rye-fish oil [Fish Oil] 1,000 (120-180) mg Capsule 2 cap PO BID cefdinir 300 mg capsule 300 mg PO BID Qty: 10 0RF Discharge Orders: Discharge ED (Routine); Ordered 02/12/25 Ordered By: Bruce Velarde Referrals: Maite Jasso MD [Primary Care Provider, Family Practice] Discharge Diet: Advance as tolerated Discharge Activity: Resume usual activity Patient Instructions: Bradycardia (ED), Near Syncope (ED) Print Language: Kyrgyz Coding Level of Care Code ED Order Dispatcher for Tamiko Tristan
--- OUTSIDE RECORDS SUMMARY | 2025-02-12 14:43 | XMS_ITS | Patient Health Record ---
Author Organization [facility] Address [address] [place] [id number] Care Team Providers Care Motor Vehicle Clerk Name Role Phone Denny Parra Primary Care Provider [phone] Maite Jasso Unavailable [phone] Timothy Vance Unavailable [phone] Allergies Allergen (clinical drug ingredient) Drug/Non Drug Allergy documented on EMR Reaction Allergy Type Onset Date Status metformin Metformin HCl diarrhea Drug Allergy Act earline promethazine Phenergan Unknown Drug Allergy 01/17/2020 Act earline phenobarbital Phenobarbital Unknown Drug Allergy Active Sulfa-Allergy Only Unknown Drug Allergy 01/17/20 Active Results Component Value Reference Range Notes Vitamin B12 and Folate Reviewed date:08/06/2024 10:51:38 AM Interpretation:Normal Performing Lab: Notes/Report: Testing performed by reference lab. [facility] Reported Date/Time: [id number] [facility] Results Received Date/Time: [id number] [facility] Collection Date/Time: [id number] Testing performed at: [place], [facility], [address] [place], [address], Senior Java Ui Developer: Josh Ferreira MD [facility] VITAMIN B12 [phone] pg/mL of patients with values above 400 pg/mL will have symptoms. 5 and 10% of patients with values between 200 and 400 pg/mL may experience neuropsychiatric and hematologic Please Note: Although the reference range for vitamin abnormalities due to occult B12 deficiency; less than 1% B12 is 200-1100 pg/mL, it has been reported that between FOLATE, SERUM 9.7 Reference Range Normal: >5.4 Low: <3.4 Borderline: 3.4-5.4 Lipid Panel Reviewed date:08/06/2024 10:52:27 AM Interpretation:Abnormal Performing Lab: Notes/Report: Testing performed by reference lab. [facility] Reported Date/Time: [id number] [facility] Results Received Date/Time: [id number] [facility] Collection Date/Time: [id number] Testing performed at: [facility], [address] [place], [address], Senior Java Ui Developer: Josh Ferreira MD [facility] CHOLESTEROL, TOTAL 165 <200 mg/dL HDL CHOLESTEROL 36 > OR = 40 mg/dL TRIGLYCERIDES 269 <150 mg/dL if clinically indicated. If a non-fasting specimen was collected, consider Jane et al. J. of Clin. Lipidol. 2015;9:129-169. repeat triglyceride testing on a fasting specimen LDL-CHOLESTEROL 94 with > or = 2 CHD risk factors. better accuracy than the Friedewald equation in the Desirable range <100 mg/dL for primary prevention; estimation of LDL-C. <70 mg/dL for patients with CHD or diabetic patients Law SS et al. RILEY. 2013;310(19): 3474-6416 Reference range: <100 (http://education.[employer].com/faq/KQY201) calculation, which is a validated novel method providing LDL-C is now calculated using the [facility] CHOL/HDLC RATIO 4.6 <5.0 (calc) NON HDL CHOLESTEROL 129 <130 mg/dL (calc) option. (LDL-C of <70 mg/dL) is considered a therapeutic factor, treating to a non-HDL-C goal of <100 mg/dL For patients with diabetes plus 1 major ASCVD risk Thyroid Panel with TSH Reviewed date:08/06/2024 10:52:01 AM Interpretation:Normal Performing Lab: Notes/Report: [facility] Testing performed at: [facility], [address] [place], [address], Senior Java Ui Developer: Josh Ferreira MD [facility] Collection Date/Time: [id number] [facility] Results Received Date/Time: [id number] [facility] Reported Date/Time: [id number] Testing performed by reference lab. T3 UPTAKE 30 22-35 % T4 (THYROXINE), TOTAL 6.2 4.9-10.5 mcg/dL FREE T4 INDEX (T7) 1.9 1.4-3.8 TSH 1.39 0.40-4.50 mIU/L Vitamin B6 Reviewed date:08/06/2024 01:55:07 PM Interpretation:Abnormal Performing Lab: Notes/Report: Testing performed by reference lab. [facility] Reported Date/Time: [id number] [facility] Results Received Date/Time: [id number] [facility] Collection Date/Time: [id number] Testing performed at: [place] [employer], [address] [place] [address], [address], [place], [address], Senior Java Ui Developer: Viet Baird MD,PhD [facility] VITAMIN B6, PLASMA 57.6 2.1-21.7 ng/mL characteristics have been determined by [facility] draw may affect the accuracy of results. [place] [address] regulations and is used for clinical purposes. [facility] [address] [place] [address],[address] Viet Baird MD, PhD Diagnostics. It has not been cleared or approved by the (Note) This test was developed and its analytical performance FDA. This assay has been validated pursuant to the CLIA MDF Vitamin supplementation within 24 hours prior to blood Vitamin D-25 Hydroxy Reviewed date:08/06/2024 01:55:07 PM Interpretation:Abnormal Performing Lab: Notes/Report: Testing performed by reference lab. [facility] Reported Date/Time: [id number] [facility] Results Received Date/Time: [id number] [facility] Collection Date/Time: [id number] Testing performed at: [employer] [employer], [address] [place] [address], [address], [place], [address], Senior Java Ui Developer: Viet Baird MD,PhD [facility] VITAMIN D, 25-OH, TOTAL 15 30-100 ng/mL Vitamin D, 25-Hydroxy reports concentrations of two purposes only.) For additional information, please refer to http://education.[employer]/faq/DOT274 (Note) suggest insufficiency. Optimal levels are > or = 30 ng/mL. D deficiency, while levels between 20 ng/mL and 30 ng/mL (This link is being provided for information/educational Total 25-OHD, with levels <20 ng/mL indicative of Vitamin indicator of exogenous sources such as diet or supplementation. Therapy is based on measurement of common forms, 25-OHD2 and 25-OHD3. 25-OHD3 indicates both endogenous production and supplementation. 25-OHD2 is an VITAMIN D, 25-OH, D3 15 Referen ce range: Not established VITAMIN D, 25-OH, D2 <4.0 [place] [id number] educational purposes only.) the CLIA regulation and is used for Clinical purposes. Administration. This assay has been validated pursuant to [employer] (This link is being provided for informational/ [address] [place] [address],[address] not been cleared or approved by the US Food and Drug For additional information, please refer to This test was developed and its analytical performance Note 1 Reference range: Not established (Note) Viet Baird MD, PhD http://education.[employer]/faq/VGP436 characteristics have been determined by [employer]. It has See Note 1 MDF Vitamin B2 Reviewed date:08/06/2024 01:55:07 PM Interpretation:Abnormal Performing Lab: Notes/Report: [facility] Testing performed at: [facility], [employer], [address], [place], [place], , Senior Java Ui Developer: Giles Boggs M.D.,PhD [facility] Collection Date/Time: [id number] [facility] Results Received Date/Time: [id number] [facility] Reported Date/Time: [id number] Testing performed by reference lab. VITAMIN B2 (RIBOFLAVIN) <5.0 6.2-39.0 nmol/L This test was developed and its analytical It has not been cleared or approved by the FDA. This Vitamin supplementation within 24 hours prior to blood draw may affect the accuracy of results. by [employer] [place], [place]. performance characteristics have been determined regulations and is used for clinical purposes. assay has been validated pursuant to the CLIA Vitamin B12 and Folate Reviewed date:11/29/2024 09:40:13 AM Interpretation:Abnormal Performing Lab: Notes/Report: Testing performed by reference lab. [facility] Reported Date/Time: [id number] [facility] Results Received Date/Time: [id number] [facility] Collection Date/Time: [id number] Testing performed at: [facility], [address] [place] [address], [address], Senior Java Ui Developer: Josh Ferreira MD [facility] Items were attached to this order: IRON, TIBC AND FERRITIN PANEL VITAMIN B12 392 840-1886 pg/mL of patients with values above 400 pg/mL will have symptoms. pg/mL may experience neuropsychiatric and hematologic 5 and 10% of patients with values between 200 and 400 Please Note: Although the reference range for vitamin abnormalities due to occult B12 deficiency; less than 1% B12 is 200-1100 pg/mL, it has been reported that between FOLATE, SERUM 13.3 Normal: >5.4 Low: <3.4 Reference Range Borderline: 3.4-5.4 Hemoglobin A1c Reviewed date:11/14/2024 03:32:35 PM Interpretation:OK for Patient Performing Lab: Notes/Report: Testing performed at the [address] [place] [address] Lipid Panel Reviewed date:11/15/2024 09:30:04 AM Interpretation:Abnormal Performing Lab: Notes/Report: Testing performed by reference lab. [facility] Reported Date/Time: [id number] [facility] Results Received Date/Time: [id number] [facility] Collection Date/Time: [id number] Testing performed at: [facility], [address] [place], [address], Senior Java Ui Developer: Josh Ferreira MD [facility] CHOLESTEROL, TOTAL 164 <200 mg/dL HDL CHOLESTEROL 40 > OR = 40 mg/dL TRIGLYCERIDES 234 <150 mg/dL if clinically indicated. If a non-fasting specimen was collected, consider repeat triglyceride testing on a fasting specimen Jane et al. J. of Clin. Lipidol. 2015;9:129-169. LDL-CHOLESTEROL 92 estimation of LDL-C. Law ESPINAL et al. RILEY. 2013;310(19): 7720-1997 with > or = 2 CHD risk factors. Reference range: <100 (http://education.[employer].com/faq/GOT273) Desirable range <100 mg/dL for primary prevention; LDL-C is now calculated using the Law-Simpson better accuracy than the Friedewald equation in the calculation, which is a validated novel method providing <70 mg/dL for patients with CHD or diabetic patients CHOL/HDLC RATIO 4.1 <5.0 (calc) NON HDL CHOLESTEROL 124 <130 mg/dL (calc) option. For patients with diabetes plus 1 major ASCVD risk (LDL-C of <70 mg/dL) is considered a therapeutic factor, treating to a non-HDL-C goal of <100 mg/dL Iron, TIBC, and Ferritin Marshall Reviewed date:11/15/2024 09:30:04 AM Interpretation:Normal Performing Lab: Notes/Report: [facility] Testing performed at: [facility], [address] [place], [address], Senior Java Ui Developer: Josh Ferreira MD [facility] Collection Date/Time: [id number] [facility] Results Received Date/Time: [facility] Reported Date/Time: [id number] Testing performed by reference lab. IRON, TOTAL 141 50-180 mcg/dL IRON BINDING CAPACITY 349 250-425 mcg/dL (vidal c) % SATURATION 40 20-48 % (calc) FERRITIN 308 24-380 ng/mL Vitamin B6 Reviewed date:11/29/2024 09:39:33 AM Interpretation:Normal Performing Lab: Notes/Report: Testing performed by reference lab. [facility] Reported Date/Time: [id number] [facility] Results Received Date/Time: [id number] [facility] Collection Date/Time: [id number] Testing performed at: [facility] [employer], [address] [place] [address], [address], [place], [address], Senior Java Ui Developer: Viet Baird MD,PhD [facility] VITAMIN B6, PLASMA 6.7 2.1-21.7 ng/mL [phone] draw may affect the accuracy of results. Viet Baird MD, PhD characteristics have been determined by [facility] regulations and is used for clinical purposes. This test was developed and its analytical performance [facility] MDF [address] [place] [address],[address] (Note) FDA. This assay has been validated pursuant to the CLIA Diagnostics. It has not been cleared or approved by the [facility] [address] Vitamin supplementation within 24 hours prior to blood CMP- [facility] ONLY Reviewed date:11/15/2024 09:30:05 AM Interpretation:Normal Performing Lab: Notes/Report: Vitamin D-25 Hydroxy Reviewed date:11/29/2024 09:39:15 AM Interpretation:Abnormal Performing Lab: Notes/Report: Testing performed by reference lab. [facility] Reported Date/Time: [id number] [facility] Results Received Date/Time: [id number] [facility] Collection Date/Time: [id number] Testing performed at: [facility], [employer], [address] [place] [address], [address], [place], [address], Senior Java Ui Developer: iVet Baird MD,PhD [facility] VITAMIN D, 25-OH, TOTAL 19 30-100 ng/mL Vitamin D, 25-Hydroxy reports concentrations of two (This link is being provided for information/educational (Note) purposes only.) Total 25-OHD, with levels <20 ng/mL indicative of Vitamin indicator of exogenous sources such as diet or supplementation. Therapy is based on measurement of D deficiency, while levels between 20 ng/mL and 30 ng/mL For additional information, please refer to endogenous production and supplementation. 25-OHD2 is an http://education.[employer]/faq/IKS289 suggest insufficiency. Optimal levels are > or = 30 ng/mL. common forms, 25-OHD2 and 25-OHD3. 25-OHD3 indicates both VITAMIN D, 25-OH, D3 19 Referen ce range: Not established VITAMIN D, 25-OH, D2 <4.0 (This link is being provided for informational/ http://education.[employer]/faq/AKQ649 not been cleared or approved by the US Food and Drug See Note 1 Viet Baird MD, PhD [address] [place] [address],[address] educational purposes only.) This test was developed and its analytical performance Administration. This assay has been validated pursuant to MD med fusion Note 1 the CLIA regulation and is used for Clinical purposes. characteristics have been determined by [facility]. It has (Note) [phone] Reference range: Not established For additional information, please refer to [facility] [address] Vitamin B2 Reviewed date:11/29/2024 09:42:32 AM Interpretation:Abnormal Performing Lab: Notes/Report: [facility] Testing performed at: [facility], [employer], [address], [place], [place], , Senior Java Ui Developer: Giles Boggs M.D.,PhD [facility] Collection Date/Time: [id number] [facility] Results Received Date/Time: [id number] [facility] Reported Date/Time: [id number] Testing performed by reference lab. VITAMIN B2 (RIBOFLAVIN) 5.4 6.2-39.0 nmol/L This test was developed and its analytical regulations and is used for clinical purposes. performance characteristics have been determined by [employer] [place], [place]. draw may affect the accuracy of results. assay has been validated pursuant to the CLIA Vitamin supplementation within 24 hours prior to blood It has not been cleared or approved by the FDA. This X ray : Shoulder, right 2 vi ew Reviewed date:11/14/2024 04:33:14 PM Interpretation:Abnormal Performing Lab: Notes/Report: Abnormal X ray : CHEST PA LATERAL Reviewed date:11/29/2024 12:04:24 PM Interpretation:Normal Performing Lab: Notes/Report: Normal Hemoglobin A1c Reviewed date:07/09/2024 01:11:27 PM Interpretation:OK for Patient Performing Lab: Notes/Report: Testing performed at the [address] [place] [address] location. CMP-[place] ONLY Reviewed date:07/10/2024 04:20:10 PM Interpretation:OK for Patient Performing Lab: Notes/Report: Reason For Referral Reason 12-18 requested note s, R shoulder pain Diagnosis 1 Pain in right should er (M25.511) Referral Organization [address] [place] [address] are [facility] Referring Provider First Name Denny Referring Provider Last Name Fidel Referring Provider Speciality Family Med icine Referred Provider [facility] Referred Provider Specialty Physical The rapist General Notes Anuradha Grider 025 04:01:15 PM >RFS faxed to [facility] and will monitor for approval and appt status.Cheo Teri 11/22/2024 09:45:30 AM >received notice from ID a new consult has been created and sent for approval and authorization will be faxed when approved.Cheo Teri 11/29/2024 08:36:27 AM >appt has been made for 12-03-2024@2pm for evaluation and patient notified here at clinic and voiced understanding, Anuradha Grider 12/18/2024 04:01:33 PM >called to check status, no answer at [facility] 12/19/2024 03:49:32 PM >Spoke with [facility], patient was seen on 12-17, notes are ready and they will fax them, Karina Pizarro 12/20/2024 03:14:10 PM >received PT notes Clinical Notes Patient requests [facility] in [place] please Referral Priority Routine Referral Appointment Date 12/17/2024 Reason weakness, cough, con gestion, SOB Diagnosis 1 Weakness generalized (R53.1) Referral Organization [address] [place] [address] are [facility] Referring Provider First Name Denny Referring Provider Last Name Fidel Referring Provider Speciality Family Med icine Referred Provider [facility] Emergency, Emergency Referred Provider Specialty Emergency Me libby General Notes Malina Juarez 08:42:45 AM > Nearest ED, Anuradha Grider 12/04/2024 08:55:32 AM >report has been called to [facility] ER by Cheo Cervantes RN, Teri 12/05/2024 09:33:00 AM >called for recordChantal will send Referral Priority Routine Referral Appointment Date 12/04/2024 Reason 8-[address] faxed, diabetic foot and nail care Diagnosis 1 Type 2 diabetes veronica itus with other circulatory complication, 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) Diagnosis 2 Diabetic peripheral neuropathy (E11.42) Referral Organization [address] [place] [address] are HIGH Referring Provider First Name Almmarc Referring Provider Last Name Fidel Referring Provider Speciality Family [facility] icine Referred Provider [facility], P odiatry Referred Provider Specialty Podiatry General Notes Anuradha Grider 09:13:46 AM >RFS faxed and will monitor for approval, appt date and time.Cheo Teri 01/07/2025 09:28:33 AM >appt has been made for 01-10-22@1pm and patient is aware of appt date and time., Anuradha Grider 02/06/2025 09:37:28 AM >record request faxed Clinical Notes Dr. Padilla please Referral Priority Routine Referral Appointment Date 01/10/2025 Reason 7-3 RFS faxed, B/ L hearing loss, L>R shlomo Diagnosis 1 Bilateral hearing lo ss (H91.93) Referral Organization [address] [place] [address] are HIGH Referring Provider First Name Denny Referring Provider Last Name Fidel Referring Provider Speciality [facility] icine Referred Provider [place] [place] [facility] Referred Provider Specialty Otolaryngolo gy General Notes Anuradha Grider 09:37:29 AM >RFS faxed and will monitor for approval and appt date and time.Cheo Teri 01/09/2025 09:30:11 AM >[facility] from [facility], a new consult has been sent for approval for this referral and authorization will be sent to ENT provider when completed., Anuradha Grider 01/15/2025 04:42:12 PM >authorization received, office has not scheduled patient at yet., Anuradha Grider 01/21/2025 10:38:04 AM >office has tried to reach patient to schedule, unable to reach, spoke with patient and he will call to schedule, Anuradha Grider 02/05/2025 02:12:43 PM >appt has been made for 03-04-25@3pm in [place] and patient is aware of appt date and time. Clinical Notes [place] please Referral Priority Routine Referral Appointment Date 03/04/2025 Medications Medication SIG (Take, Route, Frequency, Duration) Notes Start Date End Date Status Tylenol 8 Hour Arthritis Liza n 650 MG 2 tablets as needed Orally every 8 hrs PRN Active Tamsulosin HCl 0.4 MG 1 capsule Orally Once a day; Duration: 90 days Active Riboflavin 400 MG 1 tablet Orally Once a day; Duration: 90 days 08/06/2024 Active PreserVision AREDS 2 - as directed Orally Active Mckenzie 3 1000 MG 1 capsule Orally twice a day 01/30/2025 Active Lovaza 1 GM 2 capsules Orally Twice a day with meals; Duration: 30 days 08/06/2024 Active Leg Cramps - as directed Orally OTC PRN Active Jardiance 10 MG 1 tablet for diabetes Orally Once a day; Duration: 90 days 08/10/2023 Active Salonpas 3.1-6-10 % as directed Externally PRN Not-Taking Vitamin B12 1000 MCG 1 tablet Orally twice a day; Duration: 90 days Active Vitamin D3 125 MCG (5000 UT) 1 tablet Or ally Once a day; Duration: 90 days OTC Active Vitamin B2 daily Active Eliquis 5 MG as directed Orally twice a day Active Icosapent Ethyl 1 GM 2 capsules with meals Orally Twice a day; Duration: 90 days 08/03/2024 Not-Taking Diabetic Shoes Diabetic Shoes 1 pair Med ically necessary due to peripheral neuropathy with evidence of callus formation to both feet. [facility]. 07/21/2020 Active Fluticasone Propionate 50 MCG/ACT 1 spray in each nostril Nasally Twice a day Not-Taking busPIRone HCl 10 MG 1 tablet Orally twice a day; Duration: 90 days Active Diclofenac Sodium ER 100 MG 1 tablet as needed Orally Once a day; Duration: 90 days Not-Taking Acetaminophen 325 MG 2 tablet as needed Orally every 8 hrs PRN Active Cetirizine HCl 10 MG 1 tablet Orally Once a day Not-Taking Carboxymethylcellulose Sodiu m 0.5 % as directed Ophthalmic [facility] Not-Taking Benzonatate 100 MG 1 capsule Orally Three times a day; Duration: 10 days As needed for cough 11/29/2024 Not-Taking Benzonatate 100 MG TAKE 1 CAPSULE BY MOUTH THREE TIMES DAILY NEEDED FOR cough FOR 10 DAYS Oral; Duration: 10 Days Not-Taking Voltaren 1 % 2-4 grams Externally to affected joint up to qid; Duration: 90 days 02/22/2023 Active Gabapentin 100 MG 1 capsule Orally 3 times a day; Duration: 90 days 01/30/2025 Active fluoxetine hcl 20 mg 1 capsule Orally twice a day; Duration: 90 days Active Gemfibrozil 600 MG 1 tablet 30 minutes before morning and evening meals Orally Twice a day; Duration: 90 days Active Petrolatum - as directed Externally Not-Taking Nystatin [id number] UNIT/GM 1 application Externally Twice a day; Duration: 14 days to groin rash 11/14/2024 Not-Taking Lisinopril 5 MG 1 tablet Orally Once a day; Duration: 90 days 07/09/2024 Not-Taking Immunizations Vaccine Route Administration Date Status Comme nts Coronavirus Moderna #1 IM Intramuscular 12/26/2020 Administered Coronavirus Moderna #1 IM Intramuscular 01/23/2021 Administered Coronavirus Moderna #3 IM Intramuscular 07/22/2021 Administered Coronavirus Moderna Bivalent Booster 18 & older IM Intramuscular 04/14/2022 Administered pt tolerated without adverse reaction COVID-19 (updated >12) - Moderna IM Intramuscular 05/11/2023 Administered Covid-19, Moderna, Spikevax (age >12 years) - Private Unknown 06/09/2024 Administered Flu Vac Adjuvant >65 IM Intramuscular 04/14/2022 Administered pt tolerated without adverse reaction Flu Vac Quad 0.5 PRIVATE IM Intramuscular 04/05/2017 Administered Flu Vac Quad 0.5 PRIVATE IM Intramuscular 04/22/2020 Administered Flu Vac Quad 0.5 PRIVATE IM Intramuscular 04/10/2021 Administered Flu Vac Quad No Preservative >65 IM Intramuscular 05/11/2023 Administered Flu Vac Tri 0.5 PRIVATE Unknown 05/08/2015 Administered Flu Vaccine, Tri. Preservative - Private IM Intramuscular 06/01/2024 Administered Pneumococcal (Pneumovax 23) IM Intramuscular 07/15/2020 Administered Tdap 11-100 Yrs old-Private Stock Unknown 08/13/2015 Administered Tdap 11-100 Yrs old-Private Stock SC Subcutaneous 01/05/2024 Administered pt tolerated without adverse reaction zInfluenza (split) Unknown 05/03/2012 Administered Social History Tobacco Use: Social History Observation Description Date Details (start date - stop date) Never Smoker NA - NA Sex Assigned At : Social History Observation Description Sex Assigned At Male Smokeless Tobacco Question Answer Notes Tobacco use other than smoking No Have you ever had an STD [...] less (1 point) Points 1 Interpretation Negative Problems Problem Type SNOMED Code ICD Code Onset Dates Problem Status W/U Status Risk Notes Problem Hypertension (91654167) Hypertension (I10) Active confirmed Problem Vitamin D deficiency (32715405) Vitamin D deficiency (E55.9) Active confirmed Problem Shortness of breath (487765690) Shortness of breath (R06.02) Active confirmed Problem Overweight (509365171) Overweight (E66.3) Active confirmed Problem Hypertriglyceridemia (390344392) Hypertriglyceridemia (E78.1) Active confirmed Problem Anxiety (44062069) Anxiety (F41.9) Active confi rmed Problem Seasonal allergy (256484761) Seasonal allergies (J30.2) Active confirmed Problem Degeneration of lumbar intervertebral disc (13695468) Degenerative disc disease, lumbar (M51.36) Active confirmed Problem Lower urinary tract symptoms due to benign prostatic hypertrophy (47979886079028) Benign prostatic hyperplasia with lower urinary tract symptoms (N40.1) Active confirmed Problem Essential tremor (347828519) Benign essential tremor (G25.0) Active confirmed Problem Walking disability (691688555) Difficulty in walking (R26.2) Active confirmed Problem Atopic dermatitis (12295698) Atopic dermatitis, unspecified type (L20.9) Active confirmed Problem Bilateral hearing loss (81174328) Bilateral hearing loss (H91.93) Active confirmed Problem Diabetic peripheral neuropathy (942260077) Diabetic peripheral neuropathy (E11.42) Active confirmed Problem Abnormal gait (60725429) Imbalance (R26.89) Active confirmed Problem Peripheral circulatory disorder associated with diabetes mellitus (998348852) Type 2 diabetes mellitus with other circulatory complication, 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) Active confirmed Problem Obesity (119678959) Obesity, uns pecified classification, unspecified obesity type, unspecified whether serious comorbidity present (E66.9) Active confirmed Problem Morbid obesity (645234308) Class 3 severe obesity with serious comorbidity in adult, unspecified BMI, unspecified obesity type (E66.01) Active confirmed Problem First degree heart block (559710971) First degree heart block (I44.0) Active confirmed Problem Body mass index 40+ - severely obese (887413423) Body mass index [BMI] 45.0-49.9, adult (Z68.42) Active confirmed Problem Primary osteoarthritis (837322497) Primary osteoarthritis involving multiple joints (M15.9) Active confirmed Problem Osteoarthritis of right glenohumeral joint (6039597512266365) Osteoarthritis of right glenohumeral joint (M19.011) Active confirmed Vital Signs Heart Rate 65 /min 01/30/2025 Temperature 97.8 degrees Fahrenheit 01/30/2025 Respiratory Rate 18 /min 01/30/2025 Oximetry 97 01/30/2025 Blood pressure diastolic 60 mm Hg 01/30/2025 Weight-kg 121.56 Kg 01/30/2025 Height 67 in 01/30/2025 Blood pressure systolic 118 mm Hg 01/30/2025 Weight 268 lbs 01/30/2025 BMI 41.97 kg/m2 01/30/2025 Encounters Encounter Location Date Provider Diagnosis [address] [place] [id number] 01/30/2025 Denny Parra Overweight E66.3 ; D ietary counseling Z71.3 and Degenerative disc disease, lumbar M51.[address] [place] [address] [address] [place], [place] [id number] 03/06/2024 Maite Jasso Type 2 diabetes mellitus with other circulatory complication, 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 ; Difficulty in walking R26.2 ; Primary osteoarthritis involving multiple joints M15.9 ; Degenerative disc disease, lumbar M51.36 ; Overweight E66.3 and Dietary counseling Z71.[address] [place] [address] SHAN [address] [place] [id number] 03/14/2024 Denny Parra Acute non-recurrent maxillary sinusitis J01.[address] [place] [address] [address] [place], [place] [id number] 03/21/2024 Maite Jasos Primary osteoarthritis involving multiple joints M15.9 ; Hypertension I10 ; Overweight E66.3 ; Dietary counseling Z71.3 ; Imbalance R26.89 and Physical deconditioning R53.[address] [place] [address] [place], [place] [id number] 06/01/2024 Maite Jasso Encounter for immunization Z23 [address] [place] [address] [place], [place] [id number] 07/09/2024 Maite Jasso Encounter for annual wellness exam in Medicare patient Z00.00 ; Type 2 diabetes mellitus with other circulatory complication, 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 ; Hypertension I10 ; Benign prostatic hyperplasia with lower urinary tract symptoms N40.1 ; Overweight E66.3 ; Dietary counseling Z71.3 ; Advanced directives, counseling/discussion Z71.89 ; Diabetic peripheral neuropathy E11.42 and PTSD (post-traumatic stress disorder) F43.[address] [place] [phone] 07/31/2024 Denny Parra Dietary counseling Z 71.3 ; Benign prostatic hyperplasia with lower urinary tract symptoms N40.1 ; Vitamin D deficiency E55.9 ; Deficiency of vitamin B12 E53.8 ; Vitamin B6 deficiency E53.1 ; Hypertriglyceridemia E78.1 ; Obesity, unspecified classification, unspecified obesity type, unspecified whether serious comorbidity present E66.9 ; Vitamin B deficiency E53.9 ; Class 3 severe obesity with serious comorbidity in adult, unspecified BMI, unspecified obesity type E66.01 ; Type 2 diabetes mellitus with other circulatory complication, 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 and Degenerative disc disease, lumbar M51.[address] [place] [phone] 11/14/2024 Denny Parra Pain in right should er M25.511 ; Deficiency of vitamin B12 E53.8 ; Type 2 diabetes mellitus with other circulatory complication, 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 ; Hypertriglyceridemia E78.1 ; Vitamin B6 deficiency E53.1 ; Vitamin D deficiency E55.9 ; Vitamin B deficiency E53.9 ; Dizziness R42 and Candidal intertrigo B37.[address] [place] [phone] 11/29/2024 Denny Parra Viral URI with cough J06.9 ; Vitamin D deficiency E55.9 ; B12 deficiency E53.8 ; Osteoarthritis of right glenohumeral joint M19.011 ; Dizziness R42 ; Vitamin B deficiency E53.9 and Type 2 diabetes mellitus with other circulatory complication, 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 [place] [address], [place] [address] 12/13/2024 Denny Parra Overweight E66.3 ; Hospital discharge follow-up Z09 ; Dietary counseling Z71.3 ; Primary osteoarthritis involving multiple joints M15.9 ; Type 2 diabetes mellitus with other circulatory complication, 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 ; Diabetic peripheral neuropathy E11.42 and Bilateral hearing loss H91.[address] [place] [address], [place] [address] 01/07/2025 Denny Parra Laceration of left g reat toe without foreign body present or damage to nail, initial encounter S91.112A [address] [place] [address] [facility] [address] [place], [place] [id number] 02/21/2024 Maite Jasso [facility] SHAN [address] [place], [place] [id number] 02/29/2024 Maite Jasso [facility] SHAN [address] [place], [place] [id number] 06/07/2024 Maite Jasso [facility] SHAN [address] [place], [place] [id number] 07/18/2024 Maite Jasso [facility] SHAN [address] [place], [place] [id number] 07/23/2024 Maite Jasso [facility] SH[place] [address] [place], [place] [id number] 07/23/[address] [facility] SHAN [address] [place], [place] [id number] 08/03/[address] [facility] SHAN [address] [place], [place] [id number] 08/06/20[facility] [address] [place] [address] 08/07/[address] [facility] SHAN [address] [place], [place] [id number] 09/04/2024 [facility] [address] [place] [address], [place] [address] 10/15/[address] [place] [address] 10/17/[address] [place] [address] 10/17/2024 Almalea Parra [address] [place] [address], [place] [address] 11/15/2024 Almalea Parra [address] [place] [address], [place] [address] 12/04/2024 Almalea Parra [address] [place] [address], [place] [address] 12/04/[address] [place] [address] 12/05/[address] [place] [address] 12/10/[address] [place] [address] 12/25/[address] [place] [address] 12/25/[address] [place] [address] 01/24/2025 Marlenea Parra Assessments Encounter Date Diagnosis (ICD Code) Assessment Notes Treatment Notes Treatment Clinical Notes Section Notes 03/06/2024 Type 2 diabetes mellitus with other circulatory complication, without long-term current use of insulin (ICD-10 - E11.59) Keep your blood sugar below 130 when fasting in the morning and below 180 after meals. -Eat a good diet that spreads carbohydrate throughout the day. Carbohydrate-the body's main source of fuel-affects blood sugar more than any other nutrient. Carbohydrate is in fruits, vegetables, milk, and yogurt. It also is in breads, cereals, vegetables such as potatoes and corn, and sugary foods such as candy and cakes. -Aim for 30 minutes of exercise on most, preferably all, days of the week. Walking is a good choice. You also may want to do other activities, such as running, swimming, cycling, or playing tennis or team sports. If your doctor says it's okay, do muscle-strengthen ing exercises at least 2 times a week. -Take your medicines exactly as prescribed. Call your doctor if you think you are having a problem with your medicine. You will get more details on the specific medicines your doctor prescribes. -Check your blood sugar as often as your doctor recommends. It is important to keep track of any symptoms you have, such as low blood sugar. Also tell your doctor if you have any changes in your activities, diet, or insulin use. -Talk to your doctor before you start taking aspirin every day. Aspirin can help certain people lower their risk of a heart attack or stroke. But taking aspirin isn't right for everyone, because it can cause serious bleeding. -Do not smoke. If you need help quitting, talk to your doctor about stop-smoking programs and medicines. These can increase your chances of quitting for good. -Keep your cholesterol and blood pressure at normal levels. You may need to take one or more medicines 03/14/2024 Acute non-recurrent maxillary sinusitis (ICD-10 - J01.00) As symtpoms have persisted for 1 week +, and patient continues to experience chills despite completion of Azithromycin, will send new Rx for Augmentin. Patient advised to call/RTC with worsening or failure to improve after completion of Augmentin and treatment course may be extended. 03/21/2024 Hypertension (ICD-10 - I10) 03/21/2024 Primary osteoarthrit is involving multiple joints (ICD-10 - M15.9) 06/01/2024 Encounter for immunization (ICD-10 - Z23) 07/09/2024 Type 2 diabetes mellitus with other circulatory complication, without long-term current use of insulin (ICD-10 - E11.59) Keep your blood sugar below 130 when fasting in the morning and below 180 after meals. -Eat a good diet that spreads carbohydrate throughout the day. Carbohydrate-the body's main source of fuel-affects blood sugar more than any other nutrient. Carbohydrate is in fruits, vegetables, milk, and yogurt. It also is in breads, cereals, vegetables such as potatoes and corn, and sugary foods such as candy and cakes. -Aim for 30 minutes of exercise on most, preferably all, days of the week. Walking is a good choice. You also may want to do other activities, such as running, swimming, cycling, or playing tennis or team sports. If your doctor says it's okay, do muscle-strengthen ing exercises at least 2 times a week. -Take your medicines exactly as prescribed. Call your doctor if you think you are having a problem with your medicine. You will get more details on the specific medicines your doctor prescribes. -Check your blood sugar as often as your doctor recommends. It is important to keep track of any symptoms you have, such as low blood sugar. Also tell your doctor if you have any changes in your activities, diet, or insulin use. -Talk to your doctor before you start taking aspirin every day. Aspirin can help certain people lower their risk of a heart attack or stroke. But taking aspirin isn't right for everyone, because it can cause serious bleeding. -Do not smoke. If you need help quitting, talk to your doctor about stop-smoking programs and medicines. These can increase your chances of quitting for good. -Keep your cholesterol and blood pressure at normal levels. You may need to take one or more medicines 07/09/2024 Encounter for annual wellness exam in Medicare patient (ICD-10 - Z00.00) 07/31/2024 Benign prostatic hyperplasia with lower urinary tract symptoms (ICD-10 - N40.1) Refills of Tamsulosin sent to patient's pharmacy. Will reassess sx at next scheduled visit for diabetic follow-up in 4 mos. 07/31/2024 Dietary counseling (ICD-10 - Z71.3) The following information is provided to help patients understand the role BMI, nutrition, and physical activity play in a patient's overall health. Please review the information available in these links. ADULT BMI: https://www.cdc.g ov/healthyweight/ assessing/bmi/keyonna lt_bmi/english_bm i_calculator/bmi_ calculator.html DIETARY GUIDELINES: https://www.dieta ryguidelines.gov/ sites/default/jeaneth es/2020-08/Dietar y_Guidelines_for_ Americans-2020-.. . PHYSICAL ACTIVITIES GUIDELINES: https://www.cdc.g ov/healthyweight/ physical_activity /index.html 11/14/2024 Pain in right should er (ICD-10 - M25.511) Xrays obtained today show severely arthritic glenohumeral joint. Discussed with patient that therapy may or may not improve his pain but is worth a trial. Will refer to Physical Therapy and reassess in 6 weeks. Will consider ortho referral at that time if pain and limited ROM persist. 11/14/2024 Deficiency of vitami n B12 (ICD-10 - E53.8) 11/29/2024 Vitamin D deficiency (ICD-10 - E55.9) Recent labs show persistently low vitamin D. A new prescription has been sent to the [facility] pharmacy for increased dose. Please stop taking current prescription and take one capsule of new prescription daily. 12/13/2024 Overweight (ICD-10 - E66.3) 12/13/2024 Hospital discharge follow-up (ICD-10 - Z09) ER notes reviewed but no hospital records received at time of encounter; records requested. May take Tessalon Perles as needed for cough if you experience any recurrence. Please complete full antibiotic course as prescribed by OM. Return to clinic with any recurrence of productive cough, fever, or difficulty breathing. 11/29/2024 Viral URI with cough (ICD-10 - J06.9) CXR obtained today without focal consolidation, by my read. A1C collected last week reviewed: 7.2. Steroid injection given this visit. Will send Azithromycin for its anti-inflammatory properties. New prescriptions for Azithromycin and Benzonatate have been sent to [facility] for patient pickup today. 01/07/2025 Laceration of left great toe without foreign body present or damage to nail, initial encounter (ICD-10 - S91.112A) 01/30/2025 Overweight (ICD-10 - E66.3) 01/30/2025 Dietary counseling (ICD-10 - Z71.3) The following information is provided to help patients understand the role BMI, nutrition, and physical activity play in a patient's overall health. Please review the information available in these links. ADULT BMI: https://www.cdc.g ov/healthyweight/ assessing/bmi/keyonna lt_bmi/english_bm i_calculator/bmi_ calculator.html DIETARY GUIDELINES: https://www.dieta ryguidelines.gov/ sites/default/jeaneth es/2020-08/Dietar y_Guidelines_for_ Americans-2019-.. . PHYSICAL ACTIVITIES GUIDELINES: https://www.cdc. ov/healthyweight/ physical_activity /index.html 12/13/2024 Dietary counseling (ICD-10 - Z71.3) The following information is provided to help patients understand the role BMI, nutrition, and physical activity play in a patient's overall health. Please review the information available in these links. ADULT BMI: https://www.[facility]. ov/healthyweight/ assessing/bmi/keyonna lt_bmi/english_bm i_calculator/bmi_ calculator.html DIETARY GUIDELINES: https://www.dieta Channel IQguHeTexted.gov/ sites/default/jeaneth es/2020-08/Dietar y_Guidelines_for_ Americans-2019-.. . PHYSICAL ACTIVITIES GUIDELINES: https://www.cdc. ov/healthyweight/ physical_activity /index.html 11/29/2024 B12 deficiency (ICD- 10 - E53.8) Recent labs show deficiency of vitamin B12; an increased dose of your oral supplement has been sent to the [facility] pharmacy. Increase dose from once daily to twice a day. 11/14/2024 Type 2 diabetes mellitus with other circulatory complication, without long-term current use of insulin (ICD-10 - E11.59) HbA1C within goal for patient age; continue on current medication regimen. Advised patient to schedule with podiatry for foot and nail care. Will send order to [facility] for diabetic shoes. 07/31/2024 Vitamin D deficiency (ICD-10 - E55.9) Serum Vitamin D collected today and oral supplement refilled. Will call patient with results and any indicated changes to treatment plan. 07/09/2024 Hypertension (ICD-10 - I10) It's normal for blood pressure to go up and down throughout the day. But if it stays up, you have high blood pressure. Another name for high blood pressure is hypertension. For diagnosis, the top number may be 130 to 140 or higher. The bottom number may be 80 to 90 or higher. Despite what a lot of people think, high blood pressure usually doesn't cause headaches or make you feel dizzy or lightheaded. It usually has no symptoms. But it does increase your risk of stroke, heart attack, and other problems. You and your doctor will talk about your risks of these problems based on your blood pressure. Your doctor will give you a goal for your blood pressure. Your goal will be based on your health and your age. Lifestyle changes, such as eating healthy and being active, are always important to help lower blood pressure. You might also take medicine to reach your blood pressure goal. Follow-up care is a easley part of your treatment and safety. Be sure to make and go to all appointments, and call your doctor if you are having problems. It's also a good idea to know your test results and keep a list of the medicines you take. How can you care for yourself at home? Medical treatment If you stop taking your medicine, your blood pressure will go back up. You may take one or more types of medicine to lower your blood pressure. Be safe with medicines. Take your medicine exactly as prescribed. Call your doctor if you think you are having a problem with your medicine. Talk to your doctor before you start taking aspirin every day. Aspirin can help certain people lower their risk of a heart attack or stroke. But taking aspirin isn't right for everyone, because it can cause serious bleeding. See your doctor regularly. You may need to see the doctor more often at first or until your blood pressure comes down. If you are taking blood pressure medicine, talk to your doctor before you take decongestants or anti-inflammatory medicine, such as ibuprofen. Some of these medicines can raise blood pressure. Learn how to check your blood pressure at home. Lifestyle changes Stay at a healthy weight. This is especially important if you put on weight around the waist. Losing even 10 pounds can help you lower your blood pressure. If your doctor recommends it, get more exercise. Walking is a good choice. Bit by bit, increase the amount you walk every day. Try for at least 30 minutes on most days of the week. You also may want to swim, bike, or do other activities. Avoid or limit alcohol. Talk to your doctor about whether you can drink any alcohol. Try to limit how much sodium you eat to less than 2,300 milligrams (mg) a day. Your doctor may ask you to try to eat less than 1,500 mg a day. Eat plenty of fruits (such as bananas and oranges), vegetables, legumes, whole grains, and low-fat dairy products. Lower the amount of saturated fat in your diet. Saturated fat is found in animal products such as milk, cheese, and meat. Limiting these foods may help you lose weight and also lower your risk for heart disease. Do not smoke. Smoking increases your risk for heart attack and stroke. If you need help quitting, talk to your doctor about stop-smoking programs and medicines. These can increase your chances of quitting for good. When should you call for help? Call 911 anytime you think you may need emergency care. This may mean having symptoms that suggest that your blood pressure is causing a serious heart or blood vessel problem. Your blood pressure may be over 180/120. For example, call 911 if: You have symptoms of a heart attack. These may include: Chest pain or pressure, or a strange feeling in the chest. Sweating. Shortness of breath. Nausea or vomiting. Pain, pressure, or a strange feeling in the back, neck, jaw, or upper belly or in one or both shoulders or arms. Lightheadedness or sudden weakness. A fast or irregular heartbeat. You have symptoms of a stroke. These may include: Sudden numbness, tingling, weakness, or loss of movement in your face, arm, or leg, especially on only one side of your body. Sudden vision changes. Sudden trouble speaking. Sudden confusion or trouble understanding simple statements. Sudden problems with walking or balance. A sudden, severe headache that is different from past headaches. You have severe back or belly pain. Do not wait until your blood pressure comes down on its own. Get help right away. Call your doctor now or seek immediate care if: Your blood pressure is much higher than normal (such as 180/120 or higher), but you don't have symptoms. You think high blood pressure is causing symptoms, such as: Severe headache. Blurry vision. Watch closely for changes in your health, and be sure to contact your doctor if: Your blood pressure measures higher than your doctor recommends at least 2 times. That means the top number is higher or the bottom number is higher, or both. You think you may be having side effects from your blood pressure medicine. 03/21/2024 Overweight (ICD-10 - E66.3) 03/06/2024 Difficulty in walkin g (ICD-10 - R26.2) Continue use of rollating walker. We are also referring you to physical therapy 03/06/2024 Primary osteoarthrit is involving multiple joints (ICD-10 - M15.9) Take a warm shower or bath in the morning to relieve stiffness. Avoid sitting still afterwards. -If the joint is not swollen, use moist heat, like a warm, damp towel, for 20 to 30 minutes, 2 or 3 times a day. Do not use heat on a swollen joint. -If the joint is swollen, use ice or cold packs for 10 to 20 minutes, once an hour. Cold will help relieve pain and reduce inflammation. Put a thin cloth between the ice and your skin. -To prevent stiffness, gently move the joint through its full range of motion several times a day. -If the joint hurts, avoid activities that put a strain on it for a few days. Take rest breaks throughout the day. -Get regular exercise. Walking, swimming, yoga, biking, teri chi, and water aerobics are good exercises that are gentle on the joints. -Reach and stay at a healthy weight. If you need to lose or maintain weight, regular exercise and a healthy diet will help. Extra weight can strain the joints, especially the knees and hips, and make the pain worse. Losing even a few pounds may help. 03/21/2024 Dietary counseling (ICD-10 - Z71.3) The following information is provided to help patients understand the role BMI, nutrition, and physical activity play in a patient's overall health. Please review the information available in these links. ADULT BMI: https://www.cdc.g ov/healthyweight/ assessing/bmi/keyonna lt_bmi/english_bm i_calculator/bmi_ calculator.html DIETARY GUIDELINES: https://www.dieta ryguidelines.gov/ sites/default/jeaneth es/2020-08/Dietar y_Guidelines_for_ Americans-2019-.. . PHYSICAL ACTIVITIES GUIDELINES: https://www.cdc.g ov/healthyweight/ physical_activity /index.html 07/09/2024 Benign prostatic hyperplasia with lower urinary tract symptoms (ICD-10 - N40.1) Urinate as much as you can, relax for a few moments, and then try to urinate again. -Sit on the toilet to urinate. -Avoid caffeine and alcohol. These drinks will increase how often you need to urinate. -Many lknq-fll-[id number] cold and allergy medicines can make the symptoms of BPH worse. Avoid antihistamines, decongestants, and allergy pills, if you can. Read the warnings on the package. -If you take any prescription medicines such as muscle relaxants, pain medicines, or medicines for depression or anxiety, ask your doctor or pharmacist if they can cause urination problems. When should you call for help? Call your doctor now or seek immediate medical care if: -You cannot urinate at all. -You have symptoms of a urinary infection. For example: -You have blood or pus in your urine. -You have pain in your back just below your rib cage. This is called flank pain. -You have a fever, chills, or body aches. -It hurts to urinate. 11/14/2024 Hypertriglyceridemia (ICD-10 - E78.1) 07/31/2024 Deficiency of vitami n B12 (ICD-10 - E53.8) Serum B12 collected today and oral supplement refilled. Will call patient with results and any indicated changes to treatment plan. 11/29/2024 Osteoarthritis of ri ght glenohumeral joint (ICD-10 - M19.011) You have an appointment with [facility] in [place] on December 03, 2:00 p.m. 12/13/2024 Primary osteoarthrit is involving multiple joints (ICD-10 - M15.9) 01/30/2025 Degenerative disc disease, lumbar (ICD-10 - M51.36) 12/13/2024 Type 2 diabetes mellitus with other circulatory complication, without long-term current use of insulin (ICD-10 - E11.59) Limit dietary sugar intake. Keep a log of fasting blood sugars and 2 hours after at least one meal per day. Increase physical activity as tolerated. Return to clinic in 4 mos for follow-up of diabetes with labs. 07/31/2024 Vitamin B6 deficienc y (ICD-10 - E53.1) Serum B6 collected, but I see no prior Rx for oral supplement; will await results. 11/14/2024 Vitamin B6 deficienc y (ICD-10 - E53.1) 11/29/2024 Dizziness (ICD-10 - R42) Please keep your upcoming appointment with your [facility]. If dizziness persists or worsens, is accompanied by chest pain or difficulty breathing, please go to the ER for urgent evaluation and treatment. 03/21/2024 Imbalance (ICD-10 - R26.89) Please proceed with the physical therapy consult that was recommended in January. PT consult created in January, pt declined to proceed due to busy schedule and dental appts. He now agrees to proceed. He requests going to the PT clinic to have access to exercise equipment 07/09/2024 Overweight (ICD-10 - E66.3) 03/06/2024 Degenerative disc disease, lumbar (ICD-10 - M51.36) Please follow up with Dr Mondragon in [place]. They had started the evaluation of your back and neck pain late last year. You had the nerve conduction velocities with Dr Hebert and some images. It looks like you missed the recommended followup appointment with Dr Mondragon while you were in the hospital early this year. Low back pain is pain that can occur anywhere below the ribs and above the legs. It is very common. Almost everyone has it at one time or another.Low back pain can be: Acute. This is new pain that can last a few days to a few weeks, at the most a few months. Chronic. This pain can last for more than a few months. Sometimes it can last for years. What are some myths about low back pain? Here are some common myths about low back pain and the facts:Myth: I need to rest my back when I have back pain. Fact: Staying active won't hurt you. It may help you get better faster.Myth: I need prescription pain medicine. Fact: It's best to try to let time and being active heal your back. Opioid pain medicines, such as hydrocodone or oxycodone, usually don't work any better than over the counter medicines like ibuprofen or naproxen. And opioids can cause serious problems like opioid use disorder or overdose. Moderate to severe opioid use disorder is sometimes called addiction.Myth: I need a test like an X-ray or an MRI to diagnose my low back pain. Fact: Getting a test right away won't help you get better faster. And it could lead you down a treatment path you may not need, since most people get better on their own. What causes low back pain? In most cases, there isn't a clear cause. This can be frustrating, because your back hurts and there's no obvious reason. Your back pain can be caused by:Overuse or muscle strain.This can happen from playing sports, lifting heavy things, or not being physically fit.A herniated disc.This is a problem with the cushion between the bones in your back.Arthritis.Wi th age, you may have changes in your bones that can narrow the space around your nerves.Other causes.In rare cases, the cause is a serious illness like an infection or cancer. But there are usually other symptoms too. What are the symptoms? Back pain can come on quickly or over time. You may feel: Pain in your hips or buttock. Leg pain, numbness, tingling, or weakness. When a nerve gets squeezed, such as from a disc problem or arthritis, you may have symptoms in your leg or foot. You can even have leg symptoms from a back problem without having any pain in your back. Pain that's sharp or dull, sometimes with stiffness or muscle spasms. It may be in one small area or over a broad area. But even bad pain doesn't mean that it's caused by something serious. How is low back pain diagnosed? A physical exam is the main way to diagnose low back pain. Your doctor may examine your back, check your nerves by testing your reflexes, and make sure that your muscles are strong. Your doctor also will ask questions about your back and overall health.Most people don't need any tests right away. Tests often don't show the reason for your pain.If your pain lasts more than 6 weeks or you have symptoms that your doctor is more concerned about, then your doctor may order tests. These may include an X-ray, a CT scan, or an MRI. Sometimes other tests such as a bone scan or nerve conduction test may be done. How is low back pain treated? Most acute low back pain gets better on its own within several weeks, no matter what the cause. Time and doing usual activities are all that most people need to feel better.Using heat or ice and taking rcyt-eqv-gsivwxg pain medicine also can help while your body heals.If you aren't getting better on your own or your pain is very bad, your doctor may recommend: Physical therapy. Spinal manipulation, such as by a chiropractor. Acupuncture. Massage. Injections of steroid medicine in your back (especially for pain that involves your legs). If you have chronic low back pain, treatment will help you understand and manage your pain. Treatment may include: Staying active. This may include walking or doing back exercises. Physical therapy. Medicines. Some of these medicines are also used for other problems, like depression. Pain management. Your doctor may have you see a pain specialist. Counseling. Having chronic pain can be hard. It may help to talk to someone who can help you cope with your pain. Surgery isn't needed for most people. But it may help some types of low back pain. Follow-up care is a easley part of your treatment and safety. Be sure to make and go to all appointments, and call your doctor if you are having problems. It's also a good idea to know your test results and keep a list of the medicines you take. When should you call for help? Call 911 anytime you think you may need emergency care. For example, call if: You can't move a leg at all. Call your doctor now or seek immediate medical care if: You have new or worse symptoms in your legs, belly, or buttocks. Symptoms may include: Numbness or tingling. Weakness. Pain. You lose bladder or bowel control. Watch closely for changes in your health, and be sure to contact your doctor if: Along with the back pain, you have a fever, lose weight, or don't feel well. You do not get better as expected. 03/06/2024 Overweight (ICD-10 - E66.3) 03/21/2024 Physical decondition ing (ICD-10 - R53.81) 07/09/2024 Dietary counseling (ICD-10 - Z71.3) The following information is provided to help patients understand the role BMI, nutrition, and physical activity play in a patient's overall health. Please review the information available in these links. ADULT BMI: https://www.cdc.g ov/healthyweight/ assessing/bmi/keyonna lt_bmi/english_bm i_calculator/bmi_ calculator.html DIETARY GUIDELINES: https://www.dieta ryguidelines.gov/ sites/default/jeaneth es/2020-08/Dietar y_Guidelines_for_ Americans-2019-.. . PHYSICAL ACTIVITIES GUIDELINES: https://www.cdc.g ov/healthyweight/ physical_activity /index.html 07/31/2024 Hypertriglyceridemia (ICD-10 - E78.1) FLP collected today. Will call patient with results and any indicated changes to treatment plan. 11/29/2024 Vitamin B deficiency (ICD-10 - E53.9) 11/14/2024 Vitamin D deficiency (ICD-10 - E55.9) 12/13/2024 Diabetic peripheral neuropathy (ICD-10 - E11.42) A referral has been sent to Dr. Padilla in [place]. 12/13/2024 Bilateral hearing lo ss (ICD-10 - H91.93) A new referral to ENT in [place] has been sent today. 07/31/2024 Obesity, unspecified classification, unspecified obesity type, unspecified whether serious comorbidity present (ICD-10 - E66.9) Thyroid panel collected; will call patient with results and any indicated changes to treatment plan. 11/29/2024 Type 2 diabetes mellitus with other circulatory complication, without long-term current use of insulin (ICD-10 - E11.59) Continue on current medication regimen. Limit dietary intake of sugar. Monitor your blood glucose at home closely for the next 3 days following steroid injection. Call/return to clinic with persistently elevated reading greater than 250. Return to clinic in 3 mos for diabetic follow-up with repeat A1C. 11/14/2024 Vitamin B deficiency (ICD-10 - E53.9) 07/09/2024 Advanced directives, counseling/discussion (ICD-10 - Z71.89) Patient voluntarily requested ACP information during this AWV. It is advised that all individuals consider completing advance care planning. This planning ensures the patient's individual preferences regarding end of life care are known. The patient was provided with an explanation of advance care planning. In [place], advanced care planning can be legally documented by utilizing an [place] DECLARATION AND DURABLE POWER OF POLISHING MACHINE OPERATOR HELPER FOR HEALTH CARE form and an [place] ORGAN DONATION FORM. The patient was provided with written instructions on completing the forms and what to do with the forms after completion. The time spent in discussion of ACP was less than 30 minutes. 03/06/2024 Dietary counseling (ICD-10 - Z71.3) The following information is provided to help patients understand the role BMI, nutrition, and physical activity play in a patient's overall health. Please review the information available in these links. ADULT BMI: https://www.cdc.g ov/healthyweight/ assessing/bmi/keyonna lt_bmi/english_bm i_calculator/bmi_ calculator.html DIETARY GUIDELINES: https://www.dieta Replenish.gov/ sites/default/jeaneth es/2020-08/Dietar y_Guidelines_for_ Americans-2019-.. . PHYSICAL ACTIVITIES GUIDELINES: https://www.cdc.g ov/healthyweight/ physical_activity /index.html 07/31/2024 Vitamin B deficiency (ICD-10 - E53.9) Patient reports B2 deficiency. Lab collected today; will await results. 07/09/2024 Diabetic peripheral neuropathy (ICD-10 - E11.42) 11/14/2024 Dizziness (ICD-10 - R42) Please call your [facility] to schedule an appointment for evaluation earlier than February. 07/31/2024 Class 3 severe obesi ty with serious comorbidity in adult, unspecified BMI, unspecified obesity type (ICD-10 - E66.01) 11/14/2024 Candidal intertrigo (ICD-10 - B37.2) A new prescription for Nystatin Cream has been [facility] to [facility]. Apply this cream to your groin rash twice daily until symptoms resolve. Be sure to dry the area thoroughly after bathing. 07/09/2024 PTSD (post-traumatic stress disorder) (ICD-10 - F43.10) 07/31/2024 Type 2 diabetes mellitus with other circulatory complication, without long-term current use of insulin (ICD-10 - E11.59) 07/31/2024 Degenerative disc disease, lumbar (ICD-10 - M51.36) Will send order to [facility] for wide rolling walker with seat. 07/09/2024 Other Please move with your normal chores and activities or exercise vigorously for at least 150 minutes a week. This can be walking, biking, swimming or other sports activities that you enjoy. Also add at least 2 exercise sessions a week for strength and balance training such as weight lifting, resistance bands, martial arts, yoga, teri chi or other exercise to improve your overall health and reduce your future risk of injury. Recognize and accept your anxiety. Then, when you are in a situation that makes you anxious, say to yourself, This is not an emergency. I feel uncomfortable, but I am not in danger. I can keep going even if I feel anxious. *Be kind to your body: *Relieve tension with exercise or a massage. *Get enough rest. *Avoid alcohol, caffeine, nicotine, and illegal drugs. They can increase your anxiety level and cause sleep problems. *Learn and do relaxation techniques. See below for more about these techniques. *Engage your mind. Get out and do something you enjoy. Go to a [employer], or take a walk or hike. Plan your day. Having too much or too little to do can make you anxious. *Keep a record of your symptoms. Discuss your fears with a good friend or family member, or join a support group for people with similar problems. Talking to others sometimes relieves stress. *Get involved in social groups, or volunteer to help others. Being alone sometimes makes things seem worse than they are. *Get at least 30 minutes of exercise on most days of the week to relieve stress. Walking is a good choice. You also may want to do other activities, such as running, swimming, cycling, or playing tennis or team sports. Call 911 anytime you think you may need emergency care. For example, call if: --You feel you cannot stop from hurting yourself or someone else. Keep the numbers for these national suicide hotlines: 6-701-633-TALK ( ) and 3-545-HBQMJVE ( ). If you or someone you know talks about suicide or feeling hopeless, get help right away. Watch closely for changes in your health, and be sure to contact your doctor if: --You have anxiety or fear that affects your life. --You have symptoms of anxiety that are new or different from those you had before. Plan Of Treatment Next Appt Details Provider Name:Denny Schneider Clay stein, 02/12/2025 11:40:00 AM, [address] [place] [address], [phone], Provider Name:Denny stein, 03/04/2025 10:00:00 AM, [address] [place] [address], [phone], Insurance Providers Payer Name Payer Address Payer Phone Subscriber Number Group Number Insured Name Patient Relationship to Insured Coverage Start Date Coverage End Date V[employer] [address] [place] [address] [id number] Raymundo James Self - patient is the insured 2023 Medications Administered Medication Instructions Date of Administration Dosage Notes Cyanocobalamin 06/04/2016 1000 ug Patient brought thier own medication in LOT # [id number] EXP Date 11/10 Cyanocobalamin 06/10/2016 1000 ug dose 2 ord er per [facility] [employer]NER[employer]ER Cyanocobalamin 06/16/2016 1000 pt brought in own medication lot [id number] exp 12/2016 Cyanocobalamin 06/23/2016 1000 mg Cyanocobalamin 12/23/2016 1000 ug Cyanocobalamin 02/11/2017 1000 mg b 12 given right arm im Lot #[id number] exp Cyanocobalamin 04/19/2017 1000 ug Cyanocobalamin 08/17/2017 1000 ug Cyanocobalamin 11/14/2017 1000 ug Cyanocobalamin 04/04/2018 1000 ug Cyanocobalamin 06/22/2018 1000 ug Cyanocobalamin 07/21/2018 1000 mL Lot # [id number] Exp 05/15 Cyanocobalamin 07/21/2018 1000 mL LOT [id number] Exp 05/15 Cyanocobalamin 08/28/2018 1 mL Cyanocobalamin 10/05/2018 1000 ug Lot: [id number] Exp Date: 05/16 Cyanocobalamin 06/26/2019 1000 ug Cyanocobalamin 10/30/2019 1000 ug lot#: [id number] Exp Date: 05/16 Cyanocobalamin 12/13/2019 1000 ug Cyanocobalamin 01/08/2020 1000 mg Cyanocobalamin 04/22/2020 1000 ug Cyanocobalamin 07/15/2020 1000 ug Cyanocobalamin 08/19/2020 1000 ug Cyanocobalamin 10/02/2020 1000 ug cyanocobalamin 09/03/2022 1000 ug Decadron LA 8mg 09/04/2018 8 mg Decadron SA 4mg/ml (dexamethasone) 09/04/2018 4 mg Decadron SA 4mg/ml (dexamethasone) 01/15/2019 4 mg dexAMETHasone Sodium Phosphate 11/29/2024 4 mg DEPO-Medrol 11/29/2024 40 mg Depo Medrol 80mg 01/15/2019 80 mg Toradol 04/12/2017 30 mg Toradol 10/24/2017 60 mg Toradol 01/15/2019 60 mg Toradol 05/22/2019 60 mg Ketorolac Tromethamine 09/03/2022 60 mg Vit B12 (CYANOCOBALAMIN) 07/25/2017 1000 ug Vit B12 (CYANOCOBALAMIN) 12/19/2018 1 mL Medical (General) History Medical History History ICD Code Type 2 diabetes mellitus wit h other circulatory complication, 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 Hypertension 401.9 Hyperlipidemia First degree heart block, follows with c ardiology, Dr Dickson, q 6 mo 08/2022 echocardiogram with E F 50-55%, LV diastology not fully evaluated, normal global left ventricular systolic function, technically poor study. PTSD, changed from fluoxetine to duloxet ine Jun 2022 for pain Seasonal allergies Diabetic neuropathy and B carpal tunnel syndrome, follows with Dr Hebert atopic dermatitis, actinic keratoses. Fo llows with [facility] chronic low back pain, DDD, sees NS (surgery not recommended) and in pain management clinic. Uses rollating walker. S/P steroid injections and radiofrequency ablations. Last injections in 2021 OA, generalized, follows wit h pain management and chiropractors. Difficulty walking. essential tremor, RUE most affected BPV, improved previously with PET with Denis Messer, ENT, Yaneli obesity Seeing [facility] for hearing evaluation 2022 - CTS, ulnar neuropathy, saw Dr Rich te May 2023 Surgical History Surgery Date(Month/Year) car[place] [facility] [place] [facility] [place] [address] Messer 02/2019 C6-C7 anterior Discectomy with cage [facility] 09/2018 PE tube right ear, Yaneli Don cataract removal, B, Salazar [facility]. Also sees Dr Moses 2020 lumbar nerve ablations, Dr Storm pain man agement clinic, [facility] 2021 Excision of scalp lesion and skin graft, Dr Gifford Jun 2022 Hospitalization History Reason Date(Month/Year) Shortness of breath 2024 pneumonia 12/04/24-12/06/24 [facility], pain 1-2-24 [facility], gastritis September 2022 [facility], for SOB May 2021 neck surgery emergency room visit for chest pain 02-2 5-16
--- OUTSIDE RECORDS SUMMARY | 2025-02-12 14:44 | XMS_ITS | Patient Health Record ---
Author Organization [facility] Address [address] [place] [address] Care Team Providers Care Post Exchange Manager Name Role Phone Shirley Chan Primary Care Provider Unavail able Reddy Nunez Unavailable [phone] [place], [place] Unavailable Unavailable Reason For Referral No Information Medications Medication SIG (Take, Route, Frequency, Duration) Notes Start Date End Date Status FLUoxetine HCl 20 MG Capsule 1 capsule Orally Once a day Active Valium 10 MG Tablet 1 tablet as needed Orally daily; Duration: 1 days Take 1-2 hours before MRI scans 05/26/2020 Active Gabapentin 300 MG Capsule 1 capsule Orally TID Active Pioglitazone HCl 15 MG Tablet 1 tablet Orally Once a day Active Cyanocobalamin Activ e Methocarbamol 750 MG Tablet 1 tablet Orally every 4 hrs Active busPIRone HCl 10 MG Tablet 1 tablet Orally Twice a day Active Social History Tobacco Use: Social History Observation Description Date Details (start date - stop date) Never Smoker NA - NA Social History Depression Screening Social Info Question Answer Notes PHQ-9 Little interest or p reagan in doing things More than half the days Feeling down, depressed, or hopeless More than h correction the days Trouble falling or staying asleep, or sleeping t oo much Not at all Feeling tired or having little energy More than half the days Poor appetite or overeating Not at all Feeling bad about yourself, or that you are a failure, or have let yourself or your family down Not at all Trouble concentrating on thi ngs, such as reading the newspaper or watching television Not at all Moving or speaking so slowly that other people could have noticed. Or the opposite ? being so fidgety or restless that you have been moving around a lot more than usual Not at all Thoughts that you would be b sony off , or of hurting yourself in some way Not at all Total Score 6 Interpretation Mild Depression Drugs/Alcohol: Social Info Question Answer Notes Alcohol Screen (Audit-C) Did you have a drink containing alcohol in the past year? No Points 0 Interpretation Negative Drugs Have you used drugs other than those for medical reasons in the past 12 months? 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) Active confirmed Problem Dizziness and giddiness (932032776) Dizziness and giddiness (R42) Active confirmed [id number]- Snomed Description: Dizziness and giddiness Problem Bradycardia (91449079) Bradycardia, unspecified (R00.1) Active confirmed [id number]- Snomed Description: Bradycardia Plan Of Treatment No Information Insurance Providers Payer Name Payer Address Payer Phone Subscriber Number Group Number Insured Name Patient Relationship to Insured Coverage Start Date Coverage End Date V[employer]CN [employer] [address] [place] [phone] [id number] Raymundo James Self - patient is the insured Medical (General) History Medical History History ICD Code chicken pox diabetes low blood pressure Surgical History Surgery Date(Month/Year) C5-6 cervical surgery 09/2018 lumbar surgery 01/2017 Hospitalization History Reason Date(Month/Year) surgery list
[2025-02-12 15:03] VITALS: BP 114/57; PULSE 47; RESP 16; O2SAT 98
--- NOTE | 2025-02-12 15:06 | ECG_ITS ---
[facility] 2025-02[facility]12 Pat Name: Raymundo James Department: Room: Gender: Male Clean Up Person: : 1950 Requested By: Bruce Velarde Order Number: [id number] Olga Lidia MD: Adrian Issa M.D. Measurements Intervals Bruce Rate: 46 P: -56 IN: 212 QRS: -43 QRSD: 92 T: -8 QT: 459 QTc: 405 Interpretive Statements SINUS BRADYCARDIA WITH FIRST DEGREE AV BLOCK LEFT AXIS DEVIATION [QRS AXIS < -30] POSSIBLE ANTERIOR MYOCARDIAL INFARCTION , PROBABLY OLD [30 ms Q WAVE IN V3/V4, OR R < 0.2 mV IN V4] Compared to ECG 07/16/2024 19:59:08 Sinus rhythm no longer present Myocardial infarct finding still present Electronically Signed On 02-16-2025 08:55:08 CDT by Adrian Issa M.D. [email or web address]
[2025-02-12 15:10] LABS: Hematocrit 41.7 % (37-53); Hemoglobin 14.60 g/dL (11.27-16.99); Mean Corpuscular HGB Conc 35.0 g/dL (30-55); Mean Corpuscular Hemoglobin 32.5 pg (27-33); Mean Corpuscular Volume 92.9 fl (82-101); Nucleated Red Blood Cells % 0 %; Platelet Count 236 10^3/cmm (157-399); Red Blood Count 4.49 10^6/uL (3.85-5.65); White Blood Count 7.71 10^3/uL (3.29-11.43)
[2025-02-12 15:32] LABS: Troponin(5th) Baseline 22 ng/L (0-15)
[2025-02-12 15:33] LABS: Alanine Aminotransferase 20 U/L (0-41); Albumin Level 4.0 g/dL (3.5-5.2); Alkaline Phosphatase 69 U/L (40-130); Anion Gap 18.7 (5-19); Aspartate Amino Transferase 20 U/L (0-40); Blood Urea Nitrogen 9 mg/dL (8-23); Calcium 9.0 mg/dL (8.5-10.5); Carbon Dioxide 21 mmol/L (22-29); Chloride 99 mmol/L (98-107); Globulin 2.8 g/dL (1.3-4.6); Glucose 93 mg/dL (65-115); Osmolality Calculated 278 mOsm/kg (285-295); Potassium 3.7 mmol/L (3.5-5.1); Sodium 135 mmol/L (136-145); Total Protein 6.8 g/dL (6.6-8.7)
--- NOTE | 2025-02-12 16:30 | PC.PHAR ---
[facility] 02/12/25 4:30pm
[2025-02-12 18:12] LABS: Troponin 5 2HR 20.65 ng/L (0-15); Troponin 5 2HR Delta -1.35 ABS# (0-10)
[2025-02-12 18:43] VITALS: BP 149/67; PULSE 48; RESP 14; O2SAT 95
== END 2025-02-12 18:45 | disposition home or self-care (01) ==
PROVIDERS: Emergency Provider Emergency Medicine; PCP Family Medicine
DX: R55 Syncope and collapse (principal); R00.1 Bradycardia, unspecified; Z79.01 Long term (current) use of anticoagulants; E78.5 Hyperlipidemia, unspecified; I10 Essential (primary) hypertension; E11.9 Type 2 diabetes mellitus without complications
CPT/HCPCS: 36415; 71045; 80053; 84484; 85025; 93005; 99285

== ENCOUNTER 2025-02-13 13:21 | Observation (INO) | payer OTHER, MEDICARE, SELFPAY ==
--- OUTSIDE RECORDS SUMMARY | 2025-01-30 07:00 | XMS_ITS ---
Author Organization [facility] Address [address] [place] [id number] Care Team Providers Care Ibm Bpm Developer Name Role Phone Marlene Parrasanty Primary Care Provider [phone] Allergies Allergen (clinical drug ingredient) Drug/Non Drug Allergy documented on EMR Reaction Allergy Type Onset Date Status metformin Metformin HCl diarrhea Drug Allergy Act earline promethazine Phenergan Unknown Drug Allergy 01/17/2020 Act earline phenobarbital Phenobarbital Unknown Drug Allergy Active Sulfa-Allergy Only Unknown Drug Allergy 01/17/20 Active REASON FOR VISIT hsp f/u-not sleeping well, - Adelso De La Cruz LPN, BMI Counseling Adult Above Normal BMI UDS Medications Medication SIG (Take, Route, Frequency, Duration) Notes Start Date End Date Status PreserVision AREDS 2 - as directed Orally Active Riboflavin 400 MG 1 tablet Orally Once a day; Duration: 90 days 08/06/2024 Active Tamsulosin HCl 0.4 MG 1 capsule Orally Once a day; Duration: 90 days Active Tylenol 8 Hour Arthritis Liza n 650 MG 2 tablets as needed Orally every 8 hrs PRN Active Salonpas 3.1-6-10 % as directed Externally PRN Not-Taking Nystatin 861773 UNIT/GM 1 application Externally Twice a day; Duration: 14 days to groin rash 11/14/2024 Not-Taking Petrolatum - as directed Externally Not-Taking Leg Cramps - as directed Orally OTC PRN Active Lisinopril 5 MG 1 tablet Orally Once a day; Duration: 90 days 07/09/2024 Not-Taking Lovaza 1 GM 2 capsules Orally Twice a day with meals; Duration: 30 days 08/06/2024 Active fluoxetine hcl 20 mg 1 capsule Orally twice a day; Duration: 90 days Active Fluticasone Propionate 50 MCG/ACT 1 spray in each nostril Nasally Twice a day Not-Taking Jardiance 10 MG 1 tablet for diabetes Orally Once a day; Duration: 90 days 08/10/2023 Active Icosapent Ethyl 1 GM 2 capsules with meals Orally Twice a day; Duration: 90 days 08/03/2024 Not-Taking Gemfibrozil 600 MG 1 tablet 30 minutes before morning and evening meals Orally Twice a day; Duration: 90 days Active Diclofenac Sodium ER 100 MG 1 tablet as needed Orally Once a day; Duration: 90 days Not-Taking Eliquis 5 MG as directed Orally twice a day Active Carboxymethylcellulose Sodiu m 0.5 % as directed Ophthalmic [facility] Not-Taking Cetirizine HCl 10 MG 1 tablet Orally Once a day Not-Taking Diabetic Shoes Diabetic Shoes 1 pair Med ically necessary due to peripheral neuropathy with evidence of callus formation to both feet. [facility] is a [facility]. 07/21/2020 Active busPIRone HCl 10 MG 1 tablet Orally twice a day; Duration: 90 days Active [place] 3 1000 MG 1 capsule Orally twice a day 01/30/2025 Active Acetaminophen 325 MG 2 tablet as needed Orally every 8 hrs PRN Active Benzonatate 100 MG 1 capsule Orally Three times a day; Duration: 10 days As needed for cough 11/29/2024 Not-Taking Benzonatate 100 MG TAKE 1 CAPSULE BY MOUTH THREE TIMES DAILY NEEDED FOR cough FOR 10 DAYS Oral; Duration: 10 Days Not-Taking Gabapentin 100 MG 1 capsule Orally 3 times a day; Duration: 90 days 01/30/2025 Active Vitamin B2 daily Active Vitamin D3 125 MCG (5000 UT) 1 tablet Or ally Once a day; Duration: 90 days OTC Active Voltaren 1 % 2-4 grams Externally to affected joint up to qid; Duration: 90 days 02/22/2023 Active Vitamin B12 1000 MCG 1 tablet Orally twice a day; Duration: 90 days Active Social History Tobacco Use: Social History Observation Description Date Details (start date - stop date) Never Smoker NA - NA Sex Assigned At : Social History Observation Description Sex Assigned At Male ISHMAEL Drug Questionnaire Question Answer Notes Have you used drugs other th an those for medical reasons in the past 12 months? No Have you ever had an STD Question Answer Notes Have you ever had an STD No Prevention Strategies Discussed Other Monogomy Diabetic Retinal Eye Exam Question Answer Notes Date of exam 07/20/2023 Tobacco Control (Standard) Question Answer Notes Tobacco use: Nonsmoker AUDIT-C (Standard) Question Answer Notes Did you have a drink contain ing alcohol in the past year? Yes How often did you have six o r more drinks on one occasion in the past year? Never (0 point) How many drinks did you have on a typical day when you were drinking in the past year? 1 or 2 drinks (0 point) How often did you have a dri nk containing alcohol in the past year? Monthly or less (1 point) Points 1 Interpretation Negative Vital Signs Weight 268 lbs 01/30/2025 Weight-kg 121.56 Kg 01/30/2025 Height 67 in 01/30/2025 BMI 41.97 kg/m2 01/30/2025 Blood pressure systolic 118 mm Hg 01/31/20 25 Blood pressure diastolic 60 mm Hg 025 Heart Rate 65 /min 01/30/2025 Temperature 97.8 degrees Fahrenheit 01/31/20 25 Respiratory Rate 18 /min 01/30/2025 Oximetry 97 01/30/2025 Encounters Encounter Location Date Provider Diagnosis [address] [place] [id number] 01/30/2025 Denny Parra Overweight E66.3 ; Dietary counseling Z71.3 and Degenerative disc disease, lumbar M51.36 Assessments Encounter Date Diagnosis (ICD Code) Assessment Notes Treatment Notes Treatment Clinical Notes Section Notes 01/30/2025 Overweight (ICD-10 - E66.3) 01/30/2025 Dietary counseling (ICD-10 - Z71.3) The following information is provided to help patients understand the role BMI, nutrition, and physical activity play in a patient's overall health. Please review the information available in these links. ADULT BMI: https://www.cdc .gov/healthywei ght/assessing/b mi/adult_bmi/en glish_bmi_calcu lator/bmi_calcu lator.html DIETARY GUIDELINES: https://www.[facility]. gov/sites/defau lt/files/ 3/Dietary_Guide lines_for_Ameri cans-... PHYSICAL ACTIVITIES GUIDELINES: https://www.cdc .gov/healthywei ght/physical_ac tivity/index.ht ml 01/30/2025 Degenerative disc disease, lumbar (ICD-10 - M51.36) Plan Of Treatment Medication Medication Name Sig Start Date Stop Date Notes Gabapentin 600 MG 1 capsule Orally three times a day 07/09 Gabapentin 100 MG 1 capsule Orally 3 t imes a day; Duration: 90 days 01/30/2025 Treatment Notes Assessment Notes Dietary counseling The following information is provided to help patients understand the role BMI, nutrition, and physical activity play in a patient's overall health. Please review the information available in these links. ADULT BMI: https://www.cdc.gov/healthyweight/assessing/bmi/adult_bmi/english_ bmi_calculator/bmi_calculator.html DIETARY GUIDELINES: https://www.dietaryguidelines.gov/sites/default/files/2020-08/Diet ary_Guidelines_for_Americans-2019-... PHYSICAL ACTIVITIES GUIDELINES: https://www.cdc.gov/healthyweight/physical_activity/index.html Next Appt Details Follow Up: keep upcoming jag t for cc, Reason: Provider Name:Denyn stein, 03/04/2025 10:00:00 AM, [address] [place] [address], [phone], Progress Notes * Raymundo JAMES JrDOB:[birth year] (75 yo M)Acc No.[id number]:01/30/2025 FaceToFace Patient: Raymundo NIÑO Jr Provider: Santy Parra DO Case Label: Date Of Injury: :1950 A ge:75 Y S ex:Male Date:01/30/2025 Address:[id number] Patient's Default Facility:[address] [place] [address] HIGH Check In:10:56 AM CSTCheck O ut:12:10 PM GRADES 1 6 TUTOR Subjective: * Chief Complaints: * 1 . Hsp f/u-not sleeping well. 2. - Adelso De La Cruz LPN. 3. BMI Counseling Adult Above Normal BMI UDS. * HPI: C onstitutional: GTS for deconditioning Neurosurgery for Cervical spine in [place] Diabetic Shoes. 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 Follows with [facility], chronic low back pain, DDD, sees NS (surgery not recommended) and in pain management clinic. Uses rollating walker. S/P steroid injections and radiofrequency ablations. Last injections in 2021, OA, generalized, follows with pain management and chiropractors. Difficulty walking. , essential tremor, RUE most affected, BPV, improved previously with PET with Dr Messer, ENT, [employer], Obesity, Seeing [place] clinic for hearing evaluation 2022, -B CTS, ulnar neuropathy, saw Dr Hebert May 2023. * Surgical History: c arpal tunnel bilateral at [facility] in [place] 2000, right ear tube Dr. Messer 02/2019, C6-C7 anterior Discectomy with cage [facility] 09/2018, PE tube right ear, Yaneli Don 12/20/19, cataract removal, B, [facility], [place]. Also sees Dr Moses 2020, lumbar nerve ablations, Dr Storm pain management clinic, [facility] 2021, Excision of scalp lesion and skin graft, Dr Gifford Jun 2022. * Hospitalization/Major Diagno stic Procedure: e mergency room visit for chest pain 08-21-15, neck surgery , [facility], for SOB May 2021, [facility], gastritis September 2022, [facility], pain 1-2-24, pneumonia 12/04/24-12/06/24, Shortness of breath 2024. * Family History: F ather: , diagnosed with Other malignant neoplasm of unspecified site. M other: , diagnosed with Diabetes mellitus without mention of complication, type II or unspecified type, not stated as uncontrolled, Hypertension, unspecified essential, CHF - congestive heart failure, unspecified. father brain cancer 1980. * Social History: T obacco Use: T obacco Control (Standard) T obacco use: N onsmoker. H ealth Literacy Screening: H ow confident are you at filling out medical forms by yourself? 1 . Extremely N o,?2. Quite a bit Y es, 3 . Somewhat N o, 4 . A Little N o, 5 . Not at all?No, D ate of Literacy Screening 0 01/30/2025, P t. Score 2 . S exual History: H ave you ever had an STD H ave you ever had an STD N o, P revention Strategies Discussed O ther Monogomy. A dult Health Maintenance-: D iabetic Retinal Eye Exam Y early Y es, D ate of exam 0 07/20/2023. M onthly Testicular Self-Exam Counseling for 15-35 years of age C ounseled Y es, D ate Counseled 0 01/30/2025. C olorectal Cancer Screening C olonoscopy N o, C olonoscopy Counseled Y es last colonoscopy 3.8.2009, C olonoscopy Counseled Date 0 01/30/2025, H emosure N o, H emosure Counseled Y es, H emosure Counseled Date 0 01/30/2025, C ologuard N o, C ologuard Counseled Y es, C ologuard Counseled Date 0 01/30/2025.?PSA a t [facility]. P neumovax > 65 or high risk Y es Pneumovax 23, - Date Done?07/15/2020 record in webiz. F ziggy Shot Y early Y es, - Date Done 1 08/02/2023. T etanus t etanus within the last 5 years Y es 7--24, record in webiz. Z alayna Vaccine age 52> C ompleted Y es not in webiz, D ate Completed 0 03/14/2024. - ?Completed 0 03/14/2024. - D ental Visit Yearly Y es 10 teeth pulled on 03/05/2024, [facility] Leeroy[facility]. [place] ommunication Needs: C ommunication Needs D ifficulty Hearing N o, D ifficulty with Vision Y es Glasses, D ifficulty with Reading or Writing N o. D rug/Alcohol: N BRITTNEY Drug Questionnaire H ave you used drugs other than those for medical reasons in the past 12 months? N o, I CE 0 03/14/2024. A EMMA-C (Standard) D id you have a drink containing alcohol in the past year? Y es, H ow often did you have six or more drinks on one occasion in the past year? N ever (0 point), H ow many drinks did you have on a typical day when you were drinking in the past year? 1 or 2 drinks (0 point), H ow often did you have a drink containing alcohol in the past year? M onthly or less (1 point), P oints 1 ,?Interpretation N egative. R eligion/Education: R eligion/Education M arital Status: M arried, N umber of Adults in Household:?2, N umber of Children in Household: 0 , R eligion: N o, L evel of Education:?Not finished College, P [facility] healthcare liaison Y es. * Medications: T aking Acetaminophen 325 MG Tablet 2 tablet as needed Orally every 8 hrs , Notes to Pharmacist: PRN, Taking busPIRone HCl 10 MG Tablet 1 tablet Orally twice a day , Taking Diabetic Shoes Diabetic Shoes 1 pair Medically necessary due to peripheral neuropathy with evidence of callus formation to both feet. [facility]. , Taking Eliquis 5 MG Tablet as directed Orally twice a day , Taking fluoxetine hcl 20 mg capsule 1 capsule Orally twice a day , Taking Gabapentin 600 MG Tablet 1 capsule Orally three times a day , Taking Gemfibrozil 600 MG Tablet 1 tablet 30 minutes before morning and evening meals Orally Twice a day , Taking Jardiance 10 MG Tablet 1 tablet for diabetes Orally Once a day , Taking Leg Cramps - Tablet as directed Orally , Notes to Pharmacist: OTC PRN, Taking Lovaza 1 GM Capsule 2 capsules Orally Twice a day with meals , Taking PreserVision AREDS 2 - Capsule as directed Orally , Taking Riboflavin 400 MG Capsule 1 tablet Orally Once a day , Taking Tamsulosin HCl 0.4 MG Capsule 1 capsule Orally Once a day , Taking Tylenol 8 Hour Arthritis Pain 650 MG Tablet Extended Release 2 tablets as needed Orally every 8 hrs , Notes to Pharmacist: PRN, Taking Vitamin B12 1000 MCG Tablet Extended Release 1 tablet Orally twice a day , Taking Vitamin B2 , Notes to Pharmacist: daily, Taking Vitamin D3 125 MCG (5000 UT) Capsule 1 tablet Orally Once a day , Notes to Pharmacist: OTC, Taking Voltaren 1 % Gel 2-4 grams Externally to affected joint up to qid , Taking [place] 3 1000 MG Capsule 1 capsule Orally twice a day , Not-Taking Benzonatate 100 MG Capsule 1 capsule Orally Three times a day As needed for cough, Not-Taking Carboxymethylcellulose Sodium 0.5 % Solution as directed Ophthalmic , Notes to Pharmacist: [facility], Not-Taking Cetirizine HCl 10 MG Tablet 1 tablet Orally Once a day , Not-Taking Diclofenac Sodium ER 100 MG Tablet Extended Release 24 Hour 1 tablet as needed Orally Once a day , Not- Taking Fluticasone Propionate 50 MCG/ACT Suspension 1 spray in each nostril Nasally Twice a day , Not-Taking Icosapent Ethyl 1 GM Capsule 2 capsules with meals Orally Twice a day , Not-Taking Lisinopril 5 MG Tablet 1 tablet Orally Once a day , Not-Taking Nystatin 676160 UNIT/GM Cream 1 application Externally Twice a day to groin rash, Not-Taking Petrolatum - Ointment as directed Externally , Not-Taking Salonpas 3.1-6-10 % Patch as directed Externally , Notes to Pharmacist: PRN, Not-Taking Benzonatate 100 MG Capsule TAKE 1 CAPSULE BY MOUTH THREE TIMES DAILY NEEDED FOR cough FOR 10 DAYS Oral , Medication List reviewed and reconciled with the patient * Allergies: S ulfa-Allergy Only: Side Effects - Onset Date 01/17/2020, Phenobarbital: Side Effects, Phenergan: Side Effects - Onset Date 01/17/2020, Metformin HCl: diarrhea - Side Effects. Objective: * Vitals: W t: 268 lbs, Wt Kgs: 121.56 Kg, Ht: 67 in, BMI:41.97Index, BP:118/60mm Hg, HR: 65 /min, Temp: 97.8 F, RR: 18 /min, Pain scale: 6, Oxygen sat %: 97. Assessment: * Assessment: 1. O verweight - E66.3 2 . D ietary counseling - Z71.3 3 .?Degenerative disc disease, lumbar - M51.36 Plan: * Treatment: 2. D egenerative disc disease, lumbar Start Gabapentin Capsule, 100 MG, 1 capsule, Orally, 3 times a day, 90 days, 270 Capsule, Refills 3; S top Gabapentin Tablet, 600 MG, 1 capsule, Orally, three times a day. * Procedure Codes: G 0467 [facility] VISIT ESTABLISHED PATIENT, [address] TRANS CARE MGMT 14 DAY DISCH * Preventive Medicine: Counseling: C are goal follow up plan B GA management provided Y es, D ietary Counseling Provided Y es, Santy shuklae Normal BMI Follow-up G iving encouragement to exercise, Lifestyle education regarding diet, Weight loss from baseline weight. * Follow Up: k eep upcoming appt for cc * Transition Care Management * Hospitalization Info Event Type Discharge Admit Date 01/23/2025 Primary Dx R42 Secondary Dx Z79.899 Discharge Date 01/24/[address] [facility] Discharge Disposition Home Reason Dizziness * Practice follow up Initial Contact No 01/25/2025 No of Attempts 1 Medical Decision Making Moderate Complex Medication Reconciliation Pending * Practice defined data Manual Enrollment Communication management Co ordination of Care TCM Notes:Pt is to follow-up with neurosurgery Referral management Labs, Di, Reviews Patient Education Patient Care Care Plan: * Problems: * Billing Information: * Visit Code: * Procedure Codes: G0467 [facility] VISIT ESTABLISHED PATIENT. [address] TRANS CARE [facility] 14 DAY DISCH. * Electronic signature of Elizabeth Parra DO on 02/13/2025 at 01:18 PM CDT Sign off status: Pending * Provider: Santy Parra DO Date: 0 01/30/2025 Generated for Laura ji/Carmen/eTmilagrossmitting on: 02/13/2025 01:18 PM CDT History and Physical Notes * HPI (History of Present Illness) Category Sub-Category Detail Notes Category Not es Constitutional GTS for deconditioning Neurosurgery for Cervical spine in [place] Diabetic Shoes
--- OUTSIDE RECORDS SUMMARY | 2025-02-12 06:11 | XMS_ITS | Encounter Summary ---
Author Name [facility] [place] [facility] [place] Address [address] [place] [address] Care Team Providers Care Hourly Team Members Name Role Phone JENNIFER AREVALO Primary Care [...] Name Patient's Relationship to Policy Hernandes [employer] [facility] (R) MEDICARE ADVANTAGE [facility] ([facility]) Jun 27, 2023 [id number] VANESSA DUDLEY JR PATIENT [employer] MCR (WNR) MEDICARE ADVANTAGE [facility] (WN) Jun 27, 2023 [id number] VANESSA DUDLEY JR PATIENT MEDICARE (WNR) MEDICARE (M) PART A Apr 27, 2005 PART A [id number] [id number] VANESSA DUDLEY JR PATIENT MEDICARE (WNR) MEDICARE (M) PART B Apr 27, 2005 PART B [id number] VANESSA DUDLEY JR PATIENT MEDICARE PART D MEDICARE (M) PART D Jun 27, 2012 PART D [id number] OCTAV[place] VANESSA HERNANDEZ PATIENT [facility] MCR (WNR) MEDICARE ADVANTAGE MCR (WNR) Jun 27, 2021 [id number] KORIN DUDLEY PATIENT Selected Encounter This section includes the information on record at [place] for the Encounter. Date/Time Encounter Type Encounter Description Reason Provider Source Feb 12, 2025 11:11 AM Outpatient Encounter COMMUNITY CARE CONSULT JOELUMAIR Olga IHE Encounter Template Text not used by [place] Plan of Treatment: Future Appointments (+ 6 months) and Future Tests (+/- 45 days) The Plan of Treatment section includes future care activities for the patient from all [place] [facility] This section includes future appointments and future orders which are active, pending or scheduled. Future Appointments This section includes appointments that were scheduled to occur 6 months from the date of the Encounter, up to a maximum of 20 appointments. The data comes from all [place] treatment facilities. Appointment Date/Time Appointment Type Appointme nt Facility Name Mar 04, 2025 03:00 PM AMBULATORY - MEDICINE [facility] Mar 17, 2025 02:40 PM [facility] Active, Pending, and Scheduled Orders This section includes a listing of several types of active, pending, and scheduled orders, including clinic medications orders, diagnostic test orders, procedure orders and consult orders; where the start date of the order is 45 days before the date of the Encounter or 45 days after the date of theEncounter. The data comes from all [place] treatment [facility]. Test Date/Time Test Type Test Details Facility Name Jan 03, 2025 03:54 PM Consult Order COMMUNITY CARE-PODIATRY 657A4 Cons Retail Chain Store Area Supervisor's Choice [facility] Jan 09, 2025 07:00 AM Consult Order COMMUNITY CARE-ENT 657A4 Cons Retail Chain Store Area Supervisor's Choice [facility] Jan 21, 2025 09:02 AM Consult Order COMMUNITY CARE-GEC HOMEMAKER/HOME HEALTH AIDE 657A4 Cons Retail Chain Store Area Supervisor's Choice [facility] Feb 11, 2025 07:53 AM Consult Order COMMUNITY CARE-DENTAL GEN 657A4 Cons Retail Chain Store Area Supervisor's Choice [facility] Feb 12, 2025 07:58 AM Consult Order COMMUNITY CARE-DENTAL GEN 657A4 Cons Retail Chain Store Area Supervisor's Choice CHERIE GRANGER [facility] Feb 12, 2025 07:58 AM Consult Order COMMUNITY CARE-DENTAL GEN 657A4 Cons Retail Chain Store Area Supervisor's Choice [facility] Advance Directives: All historical and current Section Date Range: From patient's date of to the date document was created. This section includes ALL of a patient's completed or amended [place] Advance and Rescinded Directives. The entries below indicate that a directive exists for the patient, but an actual copy is not included with this document. The data comes from all [facility]. Date Advance Directives Provider Source Jul 12, 2018 ADVANCE DIRECTIVE JENNIFER GARCIA AR VANPH Apr 13, 2018 ADVANCE DIRECTIVE DISCUSSION ANANT DODGE [facility] Feb 09, 2017 ADVANCE DIRECTIVE DISCUSSION GEOFFREY VIDAL [facility] Dec 22, 2016 ADVANCE DIRECTIVE DISCUSSION IDANIA FONG [facility] May 28, 2014 ADVANCE DIRECTIVE DISCUSSION TRACI VIDAL [facility] October 27, 2012 ADVANCE DIRECTIVE DISCUSSION AVEL JENNINGS [facility] October 26, 2011 ADVANCE DIRECTIVE DISCUSSION TIMI ELMORE [facility] Sep 01, 2011 ADVANCE DIRECTIVE DISCUSSION DICKAVEL [facility] Dec 03, 2008 ADVANCE DIRECTIVE YANI SULLIVAN [facility] Encounter Notes: All associated encounter notes This section contains the clinical notes associated to the Encounter. Date/Time Encounter Note(s) Provider Source Feb 10, 2025 03:05 PM NONVA NOTE: LOCAL TITLE: COMMUNITY CARE-MAIK SELF PRESENTING CARE COORD PLAN STANDARD TITLE: NONVA NOTE DATE OF NOTE: FEB 10, 2025@15:05 ENTRY DATE: FEB 12, 2025@11:11:33 AUTHOR: UMAIR MALDONADO EXP COSIGNER: URGENCY: STATUS: COMPLETED COMMUNITY CARE-MAIK SELF PRESENTING CARE COORD PLAN 657A4 PB Has ADDENDA Emergency Notification Intake Date Presenting to the Facility: 02/10/2025 12:45 noon CDT Method of Contact: Provider Notification ID: [id number] [facility] Referral #: [id number] Clinical Review Hospital: [facility] City: [place] State: [place] Chief complaint: ABDOMINAL PAIN, CONSTIPATION Jan 1st MRR faxed to [facility] /september Olga WHITTINGTON,RN Signed: 02/12/2025 11:13 02/12/2025 ADDENDUM STATUS: COMPLETED Date of discharge: Jan Discharge to home Clinical Impression: ABD pain Constipation Plan: Increase the stool softener to 2 capsules twice a day. Start Miralax as directed on the bottle. Drink plenty of fluids. See your PCP if pain continues after improved bowel movements or worsening. (ED Provider: Tc Bullock MD) /september Olga WHITTINGTONRN Signed: 02/12/2025 17:15 02/12/2025 ADDENDUM STATUS: COMPLETED Per JLV: No PACT assigned at any [place] location /september Olga WHITTINGTONRN Signed: 02/12/2025 17:24 02/10/2025 ADDENDUM STATUS: COMPLETED VistA Imaging Scanned Document - Addendum. [facility] SCANNED DOCUMENT SIGNATURE NOT REQUIRED Electronically Filed: 02/13/2025 by: MAX Rincon [facility] UMAIR MALDONADO [facility]
--- OUTSIDE RECORDS SUMMARY | 2025-02-12 06:40 | XMS_ITS ---
Author Organization [address] [place] [address] [facility] Address [place] [place] [id number] Care Team Providers Care Retail Merchandising Coordinator Name Role Phone Marlene Parrasanty Primary Care Provider Allergies Allergen (clinical drug ingredient) Drug/Non Drug Allergy documented on EMR Reaction Allergy Type Onset Date Status metformin Metformin HCl diarrhea Drug Allergy Act earline promethazine Phenergan Unknown Drug Allergy 01/17/2020 Act earline phenobarbital Phenobarbital Unknown Drug Allergy Active Sulfa-Allergy Only Unknown Drug Allergy 01/17/20 Active Results Component Value Reference Range Notes Procedure: EKG Reviewed date:02/13/2025 11:34:15 AM Interpretation: Performing Lab: Notes/Report: Glucose, Fasting/Random-Fing erstick Reviewed date:02/12/2025 10:47:49 AM Interpretation:OK for Patient Performing Lab: Notes/Report: Testing performed at the [address] [place] [address] location CBC, Diff, Automated Reviewed date:02/12/2025 12:14:11 PM Interpretation:OK for Patient Performing Lab: Notes/Report: Items were attached to this order: CMP W/EGFR, THYROID PANEL WITH TSH, 3RD GENERATION Items were attached to this order: CBC -HIGH Thyroid Panel with TSH (Not yet reviewed by provider) Interpretation: Performing Lab: Notes/Report: Testing performed by reference lab. [facility] Reported Date/Time: [id number] [facility] Results Received Date/Time: [facility] Collection Date/Time: [id number] Testing performed at: [facility], [facility] [place], [address], Tiller Worker: Josh Ferreira MD [facility] T3 UPTAKE 31 22-35 % T4 (THYROXINE), TOTAL 6.9 4.9-10.5 mcg/dL FREE T4 INDEX (T7) 2.1 1.4-3.8 TSH 1.10 0.40-4.50 mIU/L CMP (Not yet reviewed by pro vider) Interpretation: Performing Lab: Notes/Report: [facility] Testing performed at: [place], [facility] [address] [place], [address], Tiller Worker: Josh Ferreira MD [facility] Collection Date/Time: [id number] [facility] Results Received Date/Time: [facility] Reported Date/Time: [id number] Testing performed by reference lab. GLUCOSE 103 65-99 mg/dL Fasting reference interval For someone without known diabetes, a glucose value between 100 and 125 mg/dL is consistent with prediabetes and should be confirmed with a follow-up test. UREA NITROGEN (BUN) 10 7-25 mg/dL CREATININE 0.85 0.70-1.28 mg/dL EGFR 92 > OR = 60 mL/min/1.73m2 BUN/CREATININE RATIO SEE NOTE: 12-16 (calc) Not Reported: BUN and Creatinine are within reference range. SODIUM 136 135-146 mmol/L POTASSIUM 4.3 3.5-5.3 mmol/L CHLORIDE 103 98-110 mmol/L CARBON DIOXIDE 22 20-32 mmol/L CALCIUM 9.2 8.6-10.3 mg/dL PROTEIN, TOTAL 6.7 6.1-8.1 g/dL ALBUMIN 4.2 3.6-5.1 g/dL GLOBULIN 2.5 1.9-3.7 g/dL (calc) ALBUMIN/GLOBULIN RATIO 1.7 1.0-2.5 (calc) BILIRUBIN, TOTAL 0.9 0.2-1.2 mg/dL ALKALINE PHOSPHATASE 56 35-144 U/L AST 23 10-35 U/L ALT 20 9-46 U/L Reason For Referral Reason 8-20 records requ ested, near syncope, sinus bradycardia and concern for 1st degree AV block per today's EKG Diagnosis 1 Near syncope (R55) Referral Organization [facility] are HIGH Referring Provider First Name Denny Referring Provider Last Name Fidel Referring Provider Speciality Family [facility] roxi Referred Provider [facility], mergenmy Room Referred Provider Specialty Emergency Ro om General Notes Anuradha Grider 025 01:39:47 PM >sent via ambulance, Anuradha Grider 02/13/2025 08:14:53 AM >called [facility] for records, left message, Anuradha Grider 02/13/2025 08:45:37 AM >ER records received Clinical Notes [place] Referral Priority Routine Referral Appointment Date 02/12/2025 REASON FOR VISIT dizzy, possible BP or BS, - Adelso De La Cruz LPN, BMI Counseling Adult Above Normal BMI UDS Medications Medication SIG (Take, Route, Frequency, Duration) Notes Start Date End Date Status Icosapent Ethyl 1 GM 2 capsules with meals Orally Twice a day; Duration: 90 days 08/03/2024 Not-Taking Lisinopril 5 MG 1 tablet Orally Once a day; Duration: 90 days 07/09/2024 Not-Taking Nystatin 688847 UNIT/GM 1 application Externally Twice a day; Duration: 14 days to groin rash 11/14/2024 Not-Taking Petrolatum - as directed Externally Not-Taking Salonpas 3.1-6-10 % as directed Externally PRN Not-Taking Benzonatate 100 MG 1 capsule Orally Three times a day; Duration: 10 days As needed for cough 11/29/2024 Not-Taking Carboxymethylcellulose Sodiu m 0.5 % as directed Ophthalmic [facility] Not-Taking Cetirizine HCl 10 MG 1 tablet Orally Once a day Not-Taking Diclofenac Sodium ER 100 MG 1 tablet as needed Orally Once a day; Duration: 90 days Not-Taking Fluticasone Propionate 50 MCG/ACT 1 spray in each nostril Nasally Twice a day Not-Taking Vitamin B12 1000 MCG 1 tablet Orally twice a day; Duration: 90 days Active Vitamin B2 daily Active Vitamin D3 125 MCG (5000 UT) 1 tablet Or ally Once a day; Duration: 90 days OTC Active Voltaren 1 % 2-4 grams Externally to affected joint up to qid; Duration: 90 days 02/22/2023 Active Benzonatate 100 MG TAKE 1 CAPSULE BY MOUTH THREE TIMES DAILY NEEDED FOR cough FOR 10 DAYS Oral; Duration: 10 Days Not-Taking [place] 3 1000 MG 1 capsule Orally twice a day 01/30/2025 Active PreserVision AREDS 2 - as directed Orally Active Riboflavin 400 MG 1 tablet Orally Once a day; Duration: 90 days 08/06/2024 Active Tamsulosin HCl 0.4 MG 1 capsule Orally Once a day; Duration: 90 days Active Tylenol 8 Hour Arthritis Liza n 650 MG 2 tablets as needed Orally every 8 hrs PRN Active Gabapentin 100 MG 1 capsule Orally 3 times a day; Duration: 90 days 01/30/2025 Active Gemfibrozil 600 MG 1 tablet 30 minutes before morning and evening meals Orally Twice a day; Duration: 90 days Active Jardiance 10 MG 1 tablet for diabetes Orally Once a day; Duration: 90 days 08/10/2023 Active Leg Cramps - as directed Orally OTC PRN Active Lovaza 1 GM 2 capsules Orally Twice a day with meals; Duration: 30 days 08/06/2024 Active Acetaminophen 325 MG 2 tablet as needed Orally every 8 hrs PRN Active busPIRone HCl 10 MG 1 tablet Orally twice a day; Duration: 90 days Active Diabetic Shoes Diabetic Shoes 1 pair Med ically necessary due to peripheral neuropathy with evidence of callus formation to both feet. [facility]. 07/21/2020 Active Eliquis 5 MG as directed Orally twice a day Active fluoxetine hcl 20 mg 1 capsule Orally twice a day; Duration: 90 days Active Social History Tobacco Use: Social History Observation Description Date Details (start date - stop date) Never Smoker NA - NA Sex Assigned At : Social History Observation Description Sex Assigned At Male Have you ever had an STD Question Answer Notes Have you ever had an STD No Prevention Strategies Discussed Other Monogomy Tobacco Control (Standard) Question Answer Notes Tobacco [...] Points 1 Interpretation Negative Vital Signs Weight 257.8 lbs 02/12/2025 Weight-kg 116.94 Kg 02/12/2025 Height 67 in 02/12/2025 BMI 40.37 kg/m2 02/12/2025 Blood pressure systolic 120 mm Hg 02/13/20 25 Blood pressure diastolic 60 mm Hg 025 Heart Rate 60 /min 02/12/2025 Temperature 97.2 degrees Fahrenheit 02/13/20 25 Respiratory Rate 18 /min 02/12/2025 Oximetry 97 02/12/2025 Encounters Encounter Location Date Provider Diagnosis [address] [place] [address] [address] 02/12/2025 Denny Parra Dizziness R42 ; Near syncope R55 ; Overweight E66.3 ; Dietary counseling Z71.3 and Sinus bradycardia R00.1 Assessments Encounter Date Diagnosis (ICD Code) Assessment Notes Treatment Notes Treatment Clinical Notes Section Notes 02/12/2025 Dizziness (ICD-10 - R42) 02/12/2025 Near syncope (ICD-10 - R55) 02/12/2025 Overweight (ICD-10 - E66.3) 02/12/2025 Dietary counseling (ICD-10 - Z71.3) The following information is provided to help patients understand the role BMI, nutrition, and physical activity play in a patient's overall health. Please review the information available in these links. ADULT BMI: https://www.cdc. gov/healthyweigh t/assessing/bmi/ adult_bmi/englis h_bmi_calculator /bmi_calculator. html DIETARY GUIDELINES: https://www.diet aryguidelines.go v/sites/default/ files/2020-08/Di etary_Guidelines _for_Americans-2 020-... PHYSICAL ACTIVITIES GUIDELINES: https://www.cdc. gov/healthyweigh t/physical_activ ity/index.html 02/12/2025 Sinus bradycardia (ICD-10 - R00.1) Patient advised to go to ER for further evaluation of bradycardia and near syncope. 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 EMS activated for transport to [place] ER. Plan Of Treatment Treatment Notes Assessment Notes Dietary counseling The following information is provided to help patients understand the role BMI, nutrition, and physical activity play in a patient's overall health. Please review the information available in these links. ADULT BMI: https://www.cdc.gov/healthyweight/assessing/bmi/adult_bmi/english_ bmi_calculator/bmi_calculator.html DIETARY GUIDELINES: https://www.dietaryguidelines.gov/sites/default/files/2020-08/Diet ary_Guidelines_for_Americans-2019-... PHYSICAL ACTIVITIES GUIDELINES: https://www.cdc.gov/healthyweight/physical_activity/index.html Sinus bradycardia Patient advised to go to ER for further evaluation of bradycardia and near syncope. 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 EMS activated for transport to [facility]. Pending Test Test Name Order Date CMP 02/12/2025 Thyroid Panel with TSH 02/12/2025 Referrals Referral Date Details 02/12/2025 02/12/2025, 8-20 records requested, near syncope, sinus bradycardia and concern for 1st degree AV block per today's EKG, Emergency Room [facility] Next Appt Details Follow Up: after discharge f rom ER or hospital, Reason: Provider Name:Denny Williamson , 03/04/2025 10:00:00 AM, [address] [place] [address], [phone], Progress Notes * Raymundo JAMES JrDOB:[birth year] (75 yo M)Acc No.[id number]:02/12/2025 FaceToFace Patient: Wyatt Raymundo LUNA Jr Provider: Santy Parra DO Case Label: Date Of Injury: :1950 A ge:75 Y S ex:Male Date:02/12/2025 Address:[address] Patient's Default Facility:[address] [place] [address] HIGH Check In:09:42 AM CSTCheck O ut:01:20 PM 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 dizzy, possible BP or BS. 2. - Adelso De La Cruz LPN. 3. BMI Counseling Adult Above Normal BMI UDS. * HPI: C onstitutional: Raymundo James, a 75-year-old male, presented for an acute visit focused on dizziness and near syncope. This episode occurred this morning as he was preparing to help Mrs. James get dressed for an appointment, interrupting his usual routine. He described feeling extremely dizzy, almost to the point of passing out, which prompted him to lie down and use his CPAP for a few minutes to recover. He denied experiencing heart racing, skipping beats, or room spinning during the episode. Vital signs negative for orthostatic hypotension. Fingerstick glucose this visit is 110. EKG obtained this visit shows sinus bradycardia, rate 46, with concern for first degree AV block. * Medical History: T ype 2 diabetes [...] Hebert, atopic dermatitis, actinic keratoses. Follows with [facility], chronic low back pain, DDD, sees NS (surgery not recommended) and in pain management clinic. Uses rollating walker. S/P steroid injections and radiofrequency ablations. Last injections in 2021, OA, generalized, follows with pain management and chiropractors. Difficulty walking. , essential tremor, RUE most affected, BPV, improved previously with PET with Dr Messer, ENT, Yan[facility], Obesity, [facility] 2022, -B CTS, ulnar neuropathy, saw Dr Hebert May 2023. * Surgical History: c arpal tunnel bilateral at [facility] in [place] 2000, right ear tube Dr. Messer 02/2019, C6-C7 anterior Discectomy with cage [facility] 09/2018, PE tube right ear, Yaneli Don 12/20/19, cataract removal, B, [facility], [place]. Also sees Dr Moses 2020, lumbar nerve ablations, Dr Storm pain management clinic, [facility] 2021, Excision of scalp lesion and skin graft, Dr Gifford Jun 2022. * Hospitalization/Major Diagno stic Procedure: e mergency room visit for chest pain 08-21-15, neck surgery , [facility], for SOB May 2021, [facility], gastritis September 2022, [facility], pain 1-2-24, pneumonia 12/04/24-12/06/24, Shortness of breath [...] D iabetic Retinal Eye Exam Y early N o, C ounseled Y es, D ate counseled?02/12/2025. M onthly Testicular Self-Exam Counseling for 15-35 years of age C ounseled Yes, D ate Counseled 0 01/30/2025. C olorectal Cancer Screening C olonoscopy N o, C olonoscopy Counseled Y es last colonoscopy 3.8.2009, C olonoscopy Counseled Date?01/30/2025, H emosure N o, H emosure Counseled Y es, H emosure Counseled Date 0 01/30/2025, C ologuard N o, C ologuard Counseled Y es, C ologuard Counseled Date 0 01/30/2025. P SA a t [facility]. P neumovax > 65 or high risk Y es Pneumovax 23, - Date Done 0 07/15/2020 record in webiz. F ziggy Shot Y early Y es, - Date Done 1 08/02/2023. T etanus t etanus within the last 5 years Y es 01-05-24, record in webiz. Z alayna Vaccine age 50> C ompleted Y es not in webiz, D ate Completed 0 03/14/2024. C ommunication Needs: C ommunication Needs D ifficulty Hearing N o, D ifficulty with Vision Y es Glasses, D ifficulty with Reading or Writing N o. D rug/Alcohol: N BRITTNEY Drug Questionnaire H ow many times in the past year have you used an illegal drug or prescription medication for nonmedical reasons? N one, P ositive Screening N o. A EMMA-C (Standard) D id you have [...] or less (1 point), P oints 1 , I nterpretation N egative. 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 * Medications: T aking Acetaminophen [...] Orally twice a day , Taking Gabapentin 100 MG Capsule 1 capsule Orally 3 times a day , Taking Gemfibrozil 600 [...] Twice a day with meals , Taking [place] 3 1000 MG Capsule 1 capsule Orally twice a day , Taking PreserVision AREDS 2 - Capsule [...] to affected joint up to qid , Not-Taking Benzonatate 100 MG Capsule TAKE 1 CAPSULE BY MOUTH THREE TIMES DAILY NEEDED FOR cough FOR 10 DAYS Oral , Not- Taking Benzonatate 100 MG Capsule 1 capsule Orally Three times a day As needed for cough, Not-Taking Carboxymethylcellulose Sodium 0.5 % Solution as directed Ophthalmic , Notes to Pharmacist: [facility], Not-Taking Cetirizine HCl 10 MG Tablet 1 tablet Orally Once a day , Not-Taking Diclofenac Sodium ER 100 MG Tablet Extended Release 24 Hour 1 tablet as needed Orally Once a day , Not-Taking Fluticasone Propionate 50 MCG/ACT Suspension 1 spray in each nostril Nasally Twice a day , Not-Taking Icosapent Ethyl 1 GM Capsule 2 capsules with meals Orally Twice a day , Not-Taking Lisinopril 5 MG Tablet 1 tablet Orally Once a day , Not-Taking Nystatin 632516 UNIT/GM Cream 1 application Externally Twice a day to groin rash, Not-Taking Petrolatum - Ointment as directed Externally , Not-Taking Salonpas 3.1-6-10 % Patch as directed Externally , Notes to Pharmacist: PRN, Medication List reviewed and reconciled with the patient * Allergies: S ulfa-Allergy Only: Side Effects - Onset Date 01/17/2020, Phenobarbital: Side Effects, Phenergan: Side Effects - Onset Date 01/17/2020, Metformin HCl: diarrhea - Side Effects. Objective: * Vitals: W t: 257.8 lbs, Wt Kgs: 116.94 Kg, Ht: 67 in, BMI:40.37Index, BP: 110/58 mm Hg,sittin/48 mm Hg,standin/52 mm Hg,supine:120/60mm Hg, HR: 60 /min, Temp: 97.2 F, RR: 18 /min, Pain scale: 6, Oxygen sat %: 97. * Examination: G eneral Examination: GENERAL APPEARANCE: V SS with bradycardia, alert and oriented, NAD, mildly ill appearing. ORAL CAVITY: m oist mucous membranes. NECK/THYROID: n o lymphadenopathy, no thyromegaly, non-tender, normal range of motion, trachea midline. CARDIOVASCULAR: b radycardia, regular rate and rhythm, no murmurs, click or rubs. RESPIRATORY c lear to auscultation bilaterally, no wheezes, rhonchi, rales. GASTROINTESTINAL s oft, non-tender/non-distended, bowel sounds present. NEUROLOGIC EXAM: g rossly intact. Skin w arm and dry, dry flaking skin to BLLE. EXTREMITIES n o cyanosis, no edema. Assessment: * Assessment: 1. N ear syncope - R55 (Primary) 2 . D izziness - R42 3 .?Overweight - E66.3 4 . D ietary counseling - Z71.3 5 . S inus bradycardia - R00.1 S pecify :per EKG: rate 46, concern for 1st degree AV block Plan: * Treatment: Value Reference Range M ID-2 0.3 0.2-1.1 - K/ uL * G RAN 6.2 2.0-7.0 - K/uL * G RAN% 79.7 H 45.0-75.0 - % * H CT 43.5 38.5-50.0 - % * H GB 15.3 13.2-17.1 - g/dl * L YM-1 1.2 0.6-4.1 - 10^3 / uL * L YMPH% 15.5 10.0-58.8 - % * M CH 31.7 26.0-32.0 - pg * M CHC 35.1 31.0-36.0 - g/dl * M CV 90.3 80.0-97.0 - fl * M IDS% 4.8 1.0-10.0 - % * M PV 7.5 7.0-11.0 - fl * P LT 262 140-440 - K/dl * R BC 4.82 4.20-6.30 - M/uL * R DW 13.2 11.5-14.5 - % * W BC 7.7 4.0-10.9 - K/uL * Fariha Winn 02/12/2025 1 1:28:03 AM CDT >collectedDenny Parra 02/12/2025 12:14:00 PM CDT >Results reviewed with patient during OV. ?LAB: CMP (Collection Date & Time - 02/12/2025 10:19 AM)* Value Reference Range A LBUMIN 4.2 3.6-5.1 - g/dL * A LBUMIN/GLOBULIN RATIO 1.7 1.0-2.5 - (calc) * A LKALINE PHOSPHATASE 56 35-144 - U/L * A LT 20 9-46 - U/L * A ST 23 10-35 - U/L * B ILIRUBIN, TOTAL 0.9 0.2-1.2 - mg/dL * B UN/CREATININE RATIO SEE NOTE: 6-22 - (calc) * C ALCIUM 9.2 8.6-10.3 - mg/dL * C ARBON DIOXIDE 22 20-32 - mmol/L * C HLORIDE 103 98-110 - mmol/L * C REATININE 0.85 0.70-1.28 - mg/dL * G LOBULIN 2.5 1.9-3.7 - g/dL (calc ) * G LUCOSE 103 H 65-99 - mg/dL * P OTASSIUM 4.3 3.5-5.3 - mmol/L * P ROTEIN, TOTAL 6.7 6.1-8.1 - g/dL * S ODIUM 136 135-146 - mmol/L * U RANGEL NITROGEN (BUN) 10 7-25 - mg/dL * E GFR 92 > OR = 60 - mL/min/1 .73m2 * Fariha Winn 02/12/2025 1 1:28:03 AM CDT >collected ?LAB: Thyroid Panel with TSH (Collection Date & Time - 02/12/2025 10:19 AM) * Value Reference Range F REE T4 INDEX (T7) 2.1 1.4-3.8 - * T 3 UPTAKE 31 22-35 - % * T 4 (THYROXINE), TOTAL 6.9 4.9-10.5 - mcg/dL * T SH, 3RD GENERATION 1.10 0.40-4.50 - mIU/L * Fariha Winn 02/12/2025 1 1:28:03 AM CDT >collected ?Imaging: Procedure: EKG (Performed Date - 02/13/2025)* ? Referral To:Emergency Room [facility]??Emergency Room ?Reason:8-20 records requested, near syncope, sinus bradycardia and concern for 1st degree AV block per today's EKG 2.?Dizziness?LAB: Glucose, Fasting/Random-Fingerstick (Collection Date & Time - 02/12/2025 10:19 AM)?OK for Patient* Value Reference Range F GLU 110 H 70-100 - mg/dl * Karey Calderon RT 02/12/2025 10 :19:25 AM CDT >Denny Parra 02/12/2025 10:47:23 AM CDT > Results reviewed with patient during OV. 3.?Dietary counseling? Notes: The following information is provided to help patients understand the role BMI, nutrition, and physical activity play in a patient's overall health. Please review the information available in these links. ADULT BMI: https://www.cdc.gov/healthyweight/assessing/bmi/adult_bmi/english_bmi_calculator /bmi_calculator.html DIETARY GUIDELINES: https://www.dietaryguidelines.gov/sites/default/files/2020-08/Dietary_Guidelines _for_Americans-2019-... PHYSICAL ACTIVITIES GUIDELINES: https://www.cdc.gov/healthyweight/physical_activity/index.html ??4.?Sinus bradycardia? Notes: Patient advised to go to ER for further evaluation of bradycardia and near syncope. 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 EMS activated for transport to [place] ER.?? * Procedure Codes: 8 2947 ASSAY, GLUCOSE, BLOOD QUANT, 05661 ELECTROCARDIOGRAM, COMPLETE, 89048 COMPLETE CBC W/AUTO DIFF WBC, 98976 VENIPUNCT, ROUTINE*, 95950 COMPREHEN METABOLIC PANEL, 63454 ASSAY THYROID STIM HORMONE, 87194 ASSAY OF TOTAL THYROXINE, 98317 ASSAY OF THYROID (T3 OR T4), 0521 UB Posting Code, G0467 [facility] VISIT ESTABLISHED PATIENT * Preventive Medicine: Counseling: C are goal follow up plan B IN management provided Y ro, Denis ietary Counseling Provided Y ro, Santy hagen Normal BMI Follow-up G iving encouragement to exercise, Lifestyle education regarding diet, Weight loss from baseline weight. * Follow Up: a fter discharge from ER or hospital Care Plan: * Problems: * Billing Information: * Visit Code: 57140 Office Visit, Est Pt., Level 5. * Procedure Codes: 80703 ASSAY, GLUCOSE, BLOOD QUANT. 64155 ELECTROCARDIOGRAM, COMPLETE. 04083 COMPLETE CBC W/AUTO DIFF WBC. 31280 VENIPUNCT, ROUTINE*. 51523 COMPREHEN METABOLIC PANEL. 36358 ASSAY THYROID STIM HORMONE. 77141 ASSAY OF TOTAL THYROXINE. 84867 ASSAY OF THYROID (T3 OR T4). 0521 UB Posting Code. G0467 [facility] VISIT ESTABLISHED PATIENT. * Electronic signature of Elizabeth Parra DO on 02/13/2025 at 01:18 PM CDT Sign off status: Pending * Provider: Santy Parra DO Date: 02/12/2025 Generated for Laura ji/Carmen/Dilshaditting on: 0 02/13/2025 01:18 PM CDT History and Physical Notes * HPI (History of Present Illness) Category Sub-Category Detail Notes Category Not es Constitutional Raymundo James, a 75-year-old male, presented for an acute visit focused on dizziness and near syncope. This episode occurred this morning as he was preparing to help Mrs. James get dressed for an appointment, interrupting his usual routine. He described feeling extremely dizzy, almost to the point of passing out, which prompted him to lie down and use his CPAP for a few minutes to recover. He denied experiencing heart racing, skipping beats, or room spinning during the episode. Vital signs negative for orthostatic hypotension. Fingerstick glucose this visit is 110. EKG obtained this visit shows sinus bradycardia, rate 46, with concern for first degree AV block. Examination Category Sub-Category Detail Notes Category Not es General Examination NECK/THYROID: no lymphaden opathy, no thyromegaly, non-tender, normal range of motion, trachea midline CARDIOVASCULAR: bradycardia, regular rate and rhythm, no murmurs, click or rubs RESPIRATORY clear to auscultatio n bilaterally, no wheezes, rhonchi, rales GASTROINTESTINAL soft, non-tender/non -distended, bowel sounds present EXTREMITIES no cyanosis, no tramaine a GENERAL APPEARANCE: VSS with bradycardia , alert and oriented, NAD, mildly ill appearing Skin warm and dry, dry fl aking skin to BLLE NEUROLOGIC EXAM: grossly intact ORAL CAVITY: moist mucous membran es Consultation Request Notes Referral Date Referring Provider Referred Provider Not es 02/12/2025 Denny Parra [facility] e, Emergency Room 8-20 records requested, near syncope, sinus bradycardia and concern for 1st degree AV block per today's EKG
--- OUTSIDE RECORDS SUMMARY | 2025-02-12 07:34 | XMS_ITS ---
Author Organization [address] [place] [address] e Cor Address [address] [place] [phone] Care Team Providers Care [employer] Developer Name Role Phone Denny Parra Primary Care Provider Reason For Referral Reason syncope DUPLICATE RE FERRAL Diagnosis 1 Syncope, unspecified syncope type (R55) Referral Organization [address] [place] [address] Referring Provider First Name Denny Referring Provider Last Name Fidel Referring Provider Speciality Family Med icine Referred Provider Specialty Emergency Ro om General Notes Mya Toscano 01:21:55 PM > [facility] 01:44:25 PM >duplicate referral Referral Priority Routine REASON FOR VISIT Ambulance Social History Sex Assigned At : Social History Observation Description Sex Assigned At Male Encounters Encounter Location Date Provider Diagnosis [address] [place] [phone] 02/12/2025 Denny Parra Plan Of Treatment Referrals Referral Date Details 02/12/2025 02/12/2025, syncope DUPLICATE REFERRAL Next Appt Details Provider Name:Denny Williamson , 03/04/2025 10:00:00 AM, [address] [place] [address], [phone], Progress Notes * Raymundo JAMES JrDOB:[birth year] (75 yo M)Acc No.[id number]:02/12/2025 Patient: Raymundo NIÑO Jr :1950 A ge:75 Y S ex:Male Address:[address] [address], [place], [id number] Subjective: * Chief Complaints: * A mbulance * Medical History: * Surgical History: * Hospitalization/Major Diagno stic Procedure: * Medications: Objective: * Vitals: * Physical Examination: Assessment: Plan: * Treatment: * Procedure Codes: * true * Date: Generated for Laura ji/Carmen/eTransmitting on: 0 02/13/2025 01:18 PM CDT Consultation Request Notes Referral Date Referring Provider Referred Provider Not es 02/12/2025 Denny Parra , janelle DUP LICATE REFERRAL
[2025-02-13] VITALS (7 sets, daily range): BP systolic 132–146; BP diastolic 60–95; PULSE 45–67; RESP 14–17; TEMP 36.5–36.7; O2SAT 96–98
--- OUTSIDE RECORDS SUMMARY | 2025-02-13 07:52 | XMS_ITS | Continuity of Care Document ---
Author Name [facility] Organization [facility] Care Team Providers Care Senior Technical Architect Name Role Phone [facility] Unavailable Unavailable Problems Combined list of problems from Department of Defense and Veterans Affairs facilities. It does not include entries that were removed or entered in error. Problem Status Onset Date Problem Type Date of Resolution Comments Source Pain of right shoulder joint Active 06/27/19 25 Condition [facility] [facility] Sleep apnea (SNOMED CT 48561754) Active 06/27/19 00 Condition [facility] Arthropathy (SNOMED CT 216099938) Active Condition [facility] Bilateral cataracts Active Condition [place] [facility] Bilateral hearing loss Active Condition [facility] Bradycardia Active Condition [facility] Bradycardia (SNOMED CT 03954866) Active Condition [facility] Cervical spondylosis with myelopathy Active Condition [facility] Chronic Post-Traumatic Stress Disorder Following Combat (SCT 428682618) Active Condition [facility] [facility] Chronic post-traumatic stress disorder following combat (SNOMED CT 419003816) Active Condition [place] Cough Active Condition [facility] Degeneration of lumbar intervertebral disc Active Condition [facility] Depression Active Condition [facility] Depressive disorder (SNOMED CT 32815019) Active Condition [facility] DEPRESSIVE DISORDER NEC Active Condition [facility] DIABETES MELLI W/O COMP TYP II Active Condition [facility] Diabetes mellitus Active Condition [facility] Diabetic peripheral neuropathy Active Condition [facility] Dizziness Active Condition [facility] Dysfunction of vestibular system Active Condition [facility] Essential hypertension (SNOMED CT 64351388) Active Condition [facility] Glaucoma Active Condition [facility] History of male erectile disorder (SNOMED CT 276834284) Active Condition [facility] History of surgery Active Condition J 2024 Entered By: PRESTON HERNANDEZ Comment: 2000 - Carpal tunnel bilateral at [facility] [place] [facility] 2024 Entered By: PRESTON HERNANDEZ Comment: 02/2019 [facility] Entered By: PRESTON HERNANDEZ Comment: 09/2018 - C6-C7 anterior discectomy with cage - [facility] 2024 Entered By: PRESTON HERNANDEZ Comment: 12/20/2019 - PE tube right ear - Dr. Messer in [facility] 2024 Entered By: PRESTON HERNANDEZ Comment: 2020 - Bilateral cataract removal - [facility] 2024 Entered By: PRESTON HERNANDEZ Comment: 2021 - Lumbar nerve ablation - Dr. Storm - Pain [facility] 2024 Entered By: PRESTON HERNANDEZ Comment: 06/2022 - Excision of scalp lesion and skin graft - Dr. Gifford [facility] [facility] Homeless family Active Condition [facility] HTN - Hypertension Active Condition [place] [facility] Hyperlipidemia (SCT 40626803) Active Condition [facility] Low back pain (SNOMED CT 332937321) Active Condition [facility] Lower obstructive uropathy Active Condition [facility] Lumbar radiculopathy Active Condition [place] [facility] Lumbar spondylosis Active Condition [facility] Macular drusen Active Condition [facility] Morbid obesity ([facility] 351140356) Active Condition [facility] [facility] Muscle weakness Active Condition [facility] OA - Osteoarthritis ([facility] 374456695) Active Condition [facility] Obesity (SNOMED CT 809922127) Active Condition [facility] Obstructive sleep apnea syndrome Active Condition Jul 29, 2023 Entered By: PRESTON HERNANDEZ Comment: BiPAP at Night [facility] [facility] OSTEOARTHROS NOS-UNSPEC Active Condition [facility] Pain in lower limb (SNOMED CT 75401413) Active Condition [facility] Peripheral neuropathy Active Condition [facility] PURE HYPERCHOLESTEROLEM Active Condition [facility] Suicidal thoughts Active Condition [facility] Type 2 diabetes mellitus Active Condition [place] [facility] Vitamin B12 Deficiency (SCT 835888070) Active Condition [place] [facility] Vitamin D deficiency (SNOMED CT 01929782) Active Condition [facility] Weakness Active Condition Jul 28 Entered By: PRESTON HERNANDEZ Comment: 06/28/23 - Presented to [facility] ER - weakness and dizziness [facility] Clostridium difficile diarrhea Inactive Condition 07/09/2023 [facility] Diagnosis: ICD-10-CM K02.52 Dental caries on pit and fissure surfc penetrat into dentin Active Diagnosis [place] [facility] Diagnosis: ICD-10-CM Z71.81 Spiritual or restoration counseling Active Diagnosis [facility] Diagnosis: ICD-10-CM E78.5 Hyperlipidemia, unspecified Active Diagnosis [place] [facility] Diagnosis: ICD-10-CM Z51.81 Encounter for therapeutic drug level monitoring Active Diagnosis [place] [facility] Diagnosis: ICD-10-CM 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 Medication Details Route Status Patient Instructions Prescription Expires Prescription Number Last Dispense Date Ordering Provider Order Date Order Qty Source APIXABAN 5MG TAB TAKE ONE TABLET BY MOUTH TWICE A DAY ORAL ACTIVE 07/31/2025 [id number] BOBBY AYALA 2024 90 [place] [facility] APIXABAN 5MG TAB TAKE ONE TABLET BY MOUTH TWICE A DAY ORAL DISCONT INUED 07/21/2025 [id number] 5 BOBBY AYALA LY 2024 90 [place] [facility] BUSPIRONE HCL 10MG TAB TAKE ONE TABLET BY MOUTH TWICE A DAY DO NOT TAKE WITH GRAPEFRU IT JUICE. ORAL ACTIVE 07/10/2025 [id number] 5 GEOFF HEARD 2024 180 [place] [facility] CHOLECALCIF SCOTT 125MCG (5,000UNIT) CAP,ORAL TAKE ONE CAPSULE BY MOUTH ONCE A DAY ORAL ACTIVE 11/30/2025 [id number] CHACE BARRAGAN 2024 100 [facility] CHOLECALCIF SCOTT 50MCG (2,000UNIT) TAB TAKE ONE TABLET BY MOUTH ONCE A DAY FOR 90 DAYS ORAL HOLD 08/04/2025 [id number] 5 CHACE BARRAGAN 2024 100 [facility] CYANOCOBALA MIN 1000MCG TAB TAKE ONE TABLET BY MOUTH ONCE A DAY FOR 90 DAYS ORAL HOLD 08/04/2025 [id number] 5 CHACE BARRAGAN 2024 100 [facility] CYANOCOBALA MIN 100MCG TAB TAKE ONE TABLET BY MOUTH TWICE A DAY ORAL ACTIVE 11/30/2025 [id number] 5 CHACE BARRAGAN 2024 200 [facility] EMPAGLIFLOZ IN 10MG TAB TAKE 1 TABLET BY MOUTH ONCE A DAY ORAL ACTIVE 07/10/2025 [id number] GEOFF HEARD 2024 90 [facility] FLUOXETINE HCL 20MG CAP TAKE ONE CAPSULE BY MOUTH TWICE A DAY ORAL ACTIVE 07/10/2025 [id number] 5 GEOFF HEARD 2024 180 [facility] GABAPENTIN 100MG CAP TAKE ONE CAPSULE BY MOUTH THREE TIMES A DAY FOR NERVE PAIN ORAL ACTIVE 01/31/2026 [id number] 5 CHACE BARRAGAN 2024 270 [facility] GABAPENTIN 600MG TAB TAKE ONE TABLET BY MOUTH THREE TIMES A DAY ORAL HOLD 07/10/2025 [id number] 5 GEOFF HEARD P 2024 270 [facility] GEMFIBROZIL 600MG TAB TAKE ONE TABLET BY MOUTH TWO TIMES A DAY BEFORE MEALS (30 MINUTES BEFORE A MEAL) ORAL ACTIVE 07/10/2025 [id number] 5 GEOFF HEARD P 2024 180 [facility] LISINOPRIL 5MG TAB TAKE ONE TABLET BY MOUTH ONCE A DAY FOR 90 DAYS ORAL ACTIVE 07/10/2025 [id number] 5 GEOFF HEARD 2024 90 [facility] [place] POTASSIUM 100MG TAB TAKE ONE TABLET BY MOUTH ONCE A DAY FOR HIGH BLOOD PRESSURE ORAL DISCONT INUED 05/03/2024 [id number] 4 MAHI KOCH MD 2022 30 [facility] NYSTATIN 288013SPA/G M CREAM,TOP APPLY TO AFFECTED AREA(S) TWICE A DAY FOR 14 DAYS TO GROIN RASH - TOPICAL USE ONLY. TOPICA L ACTIVE 11/15/2025 [id number] 5 CHACE BARRAGAN 2024 30 [place] [facility] OMEGA-3-ACI D ETHYL ESTERS 1000MG CAP,ORAL TAKE TWO CAPSULES BY MOUTH TWICE A DAY WITH MEALS FOR 30 DAYS ORAL ACTIVE 08/07/2025 [id number] 5 CHACE BARRAGAN 2024 120 [facility] POTASSIUM CHLORIDE 20MEQ TAB,SA (DISPERSIBL E) TAKE ONE-HALF TABLET BY MOUTH ONCE A DAY TAKE WITH FOOD ORAL 05/20/2024 [id number] 4 MAHI KOCH MD 2022 45 [facility] RIBOFLAVIN 100MG TAB TAKE FOUR TABLETS BY MOUTH EVERY DAY TAKE WITH FOOD ACTIVE 02/27/2025 [id number] 5 CHACE BARRAGAN 2024 400 [facility] RIBOFLAVIN 100MG TAB TAKE ONE TABLET BY MOUTH ONCE A DAY TAKE WITH FOOD ORAL DISCONT INUED 08/07/2025 [id number] 5 CHACE BARRAGAN 2024 100 [facility] TAMSULOSIN HCL 0.4MG CAP TAKE ONE CAPSULE BY MOUTH ONCE A DAY FOR 90 DAYS APPROXIM ATELY 30 MINUTES AFTER THE SAME MEAL EACH DAY ORAL ACTIVE 08/04/2025 [id number] 5 CHACE BARRAGAN 2024 90 [facility] TAMSULOSIN HCL 0.4MG CAP TAKE ONE CAPSULE BY MOUTH ONCE A DAY APPROXIM ATELY 30 MINUTES AFTER THE SAME MEAL EACH DAY ORAL DISCONT INUED 07/10/2025 [id number] 5 GEOFF HEARD [address] [facility] Allergies, Adverse Reactions, Alerts Combined list of allergies from Department of [facility] and Veterans Affairs facilities. It does not include entries that were removed or entered in error. Substance Category Reaction Severity Reaction type Status Date Reported Comments Source METFORMIN Propensity to adverse reactions to drug (finding) active 1 [facility] PHENOBARBITAL Propensity to adverse reactions to drug (finding) active 3 [facility] PHENOBARBITAL Propensity to adverse reactions to drug (finding) Delirium active 1 [facility] SERTRALINE Propensity to adverse reactions to drug (finding) Eruption active 1 [facility] SERTRALINE Propensity to adverse reactions to drug (finding) active 1 [facility] SULFA DRUGS Propensity to adverse reactions to drug (finding) Eruption active 1 [facility] SULFITES Propensity to adverse reactions to substance (finding) active 3 [facility] Immunizations Combined list of available immunizations from the [facility] Affairs facilities. Immunization Series Date Given Administered By Site Reaction Lot Number CVX Code Drug Cap Inspector Status Comments Source COVID-19 (MODERNA), MRNA, LNP-S, PF, 50 MCG/0.5 ML (AGES 12+ YEARS) 6 2023 312 complet ed HISTORICA L INFORMATI ON - FROM OTHER REGISTRY, [facility] INFLUENZA, MDCK, TRIVALENT, PRESERVATIVE 7 2023 320 complet ed HISTORICA L INFORMATI ON - FROM OTHER REGISTRY, [facility] TDAP 3 2023 115 complet ed HISTORICA L INFORMATI ON - FROM OTHER REGISTRY, [facility] COVID-19 (MODERNA), MRNA, LNP-S, PF, 50 MCG/0.5 ML (AGES 12+ YEARS) 5 2022 312 complet ed HISTORICA L INFORMATI ON - FROM OTHER REGISTRY, [facility] INFLUENZA VACCINE, QUADRIVALENT, ADJUVANTED 6 2022 205 complet ed HISTORICA L INFORMATI ON - FROM OTHER REGISTRY, [facility] COVID-19 (MODERNA), MRNA, LNP-S, BIVALENT, PF, 50 MCG/0.5 ML OR 25MCG/0.25 ML DOSE 4 2021 229 complet ed HISTORICA L INFORMATI ON - FROM OTHER REGISTRY, [facility] INFLUENZA, HIGH-DOSE, QUADRIVALENT 5 2021 197 complet ed HISTORICA L INFORMATI ON - FROM OTHER REGISTRY, [facility] COVID-19 (MODERNA), MRNA, LNP-S, PF, 100 MCG/0.5ML DOSE OR 50 MCG/0.25ML DOSE 3 2021 207 complet ed HISTORICA L INFORMATI ON - FROM OTHER REGISTRY, [facility] INFLUENZA, INJECTABLE, QUADRIVALENT 4 2020 158 complet ed HISTORICA L INFORMATI ON - FROM OTHER REGISTRY, [facility] COVID-19 (MODERNA), MRNA, LNP-S, PF, 100 MCG/0.5ML DOSE OR 50 MCG/0.25ML DOSE 2 2020 207 complet ed HISTORICA L INFORMATI ON - FROM OTHER REGISTRY, [facility] ZOSTER RECOMBINANT 2 2020 187 complet ed [facility] COVID-19 (MODERNA), MRNA, LNP-S, PF, 100 MCG/0.5ML DOSE OR 50 MCG/0.25ML DOSE 1 2020 207 complet ed HISTORICA L INFORMATI ON - FROM OTHER REGISTRY, [facility] ZOSTER RECOMBINANT 1 2020 187 complet ed [facility] PNEUMOCOCCAL POLYSACCHARID E PPV23 1 2020 33 complet ed HISTORICA L INFORMATI ON - FROM OTHER REGISTRY, [facility] INFLUENZA, INJECTABLE, QUADRIVALENT 3 2019 158 complet ed HISTORICA L INFORMATI ON - FROM OTHER REGISTRY, [facility] INFLUENZA, INJECTABLE, QUADRIVALENT, PRESERVATIVE FREE 2018 150 complet ed [facility] PNEUMOCOCCAL POLYSACCHARID E PPV23 2018 33 complet ed [facility] PNEUMOCOCCAL POLYSACCHARID E PPV23 2018 33 complet ed [facility] INFLUENZA, INJECTABLE, QUADRIVALENT 2017 158 complet ed Pt tolerated well. [facility] PNEUMOCOCCAL CONJUGATE PCV 13 2015 133 complet ed [facility] PNEUMOCOCCAL CONJUGATE PCV 13 2015 133 complet ed [facility] TDAP 1 2015 115 complet ed HISTORICA L INFORMATI ON - FROM OTHER REGISTRY, [facility] INFLUENZA, UNSPECIFIED FORMULATION 2014 88 complet ed no side effects noted [facility] ZOSTER LIVE 2014 NONE 121 complet ed no side effects noted [facility] INFLUENZA, SEASONAL, INJECTABLE 2 2014 141 complet ed HISTORICA L INFORMATI ON - FROM OTHER REGISTRY, [facility] TDAP 2013 EDIL DOWD 115 complet ed [facility] TDAP 2013 115 complet ed [facility] INFLUENZA, UNSPECIFIED FORMULATION 2013 88 complet ed [facility] INFLUENZA, UNSPECIFIED FORMULATION 2012 88 complet ed [facility] INFLUENZA, SPLIT (INCL. PURIFIED SURFACE ANTIGEN) 1 2011 15 complet ed HISTORICA L INFORMATI ON - FROM OTHER REGISTRY, [facility] INFLUENZA, UNSPECIFIED FORMULATION 2011 88 complet ed [facility] INFLUENZA, UNSPECIFIED FORMULATION 2011 88 complet ed [facility] INFLUENZA, UNSPECIFIED FORMULATION 2009 88 complet ed [id number] [facility] INFLUENZA, UNSPECIFIED FORMULATION 2008 88 complet ed [facility] INFLUENZA, UNSPECIFIED FORMULATION 2006 88 complet ed [facility] FLU,3 YRS (HISTORICAL) 2004 88 complet ed [facility] PNEUMOCOCCAL POLYSACCHARID E PPV23 2004 33 complet ed [facility] FLU,3 YRS (HISTORICAL) 2003 88 complet ed YES [facility] INFLUENZA (HISTORICAL) 2002 NONE 88 complet ed IM Left Deltoid [facility] FLU,3 YRS (HISTORICAL) 2002 88 complet ed [facility] FLU,3 YRS (HISTORICAL) 2001 88 complet ed [facility] FLU,3 YRS (HISTORICAL) 2000 88 complet ed [facility] TDAP 2000 115 complet ed [facility] TD(ADULT) UNSPECIFIED FORMULATION 1999 139 complet ed [facility] Results Combined list of recent chemistry, hematology [...] 0.24 09/13 Specimen Type: SERUM Comment: Test(s) 483300-ELyL Blocking Abs, Serum This test was developed and its performance characterist ics determined by [facility]. It has not been cleared or approved by the Food and Drug Administrati on. Test(s) 625171-SHrK- modulating Ab was developed and its performance [...] Sep 14, 2023 12:55 PM Reporting Lab: [facility] [address] [address] Performing Lab: [facility] [address] [facility] [address] [place] ACETYLCHOL INE RECEPTOR AB, PROFILE ACETYLCHOLI NE RECEPTOR MODULATION AB [PRESENCE] IN SERUM BY FLOW CYTOMETRY (FC) 0 0 - 45 09/13 Specimen Type: SERUM Comment: Test(s) 818642-NMsX Blocking Abs, Serum This test was developed and its performance characterist ics determined by [facility]. It has not been cleared or approved by the Food and Drug Administrati on. Test(s) 664130-JFtS- modulating Ab was developed and its performance [...] Sep 14, 2023 12:55 PM Reporting Lab: [facility] [address] [address] Performing Lab: [facility] [address] [facility] [address] [place] ACETYLCHOL INE RECEPTOR AB, PROFILE ACETYLCHOLI NE RECEPTOR BLOCKING AB [UNITS/VOLU ME] IN SERUM 19 0 - 25 09/13 Specimen Type: SERUM Comment: Test(s) 128388-TVhO Blocking Abs, Serum This test was developed and its performance characterist ics determined by [facility]. It has not been cleared or approved by the Food and Drug Administrati on. Test(s) 427279-KPnZ- modulating Ab was developed and its performance [...] Sep 14, 2023 12:55 PM Reporting Lab: [facility] [address] [address] Performing Lab: [facility] [address] [place] [address] [place] FREE T3 TRIIODOTHYR ONINE (T3) FREE [MASS/VOLUM E] IN SERUM OR PLASMA 2.91 pg/mL 2.5 - 3.9 09/13 Specimen Type: SERUM Comment: Biotin concentratio ns > 10 ng/mL can lead to significant (> 10%) positive bias in Free T3 results. Ordering Provider: MONICA FAY Report Released Date/Time: Sep 14, 2023 12:55 PM Reporting Lab: [facility] [address] [address] Performing Lab: [facility] [address] [facility] [address] [place] FREE T4 THYROXINE (T4) FREE [MASS/VOLUM E] IN SERUM OR PLASMA 0.73 ng/dL 0.47 - 1.41 09/13 Specimen Type: PLASMA No comment entered. Ordering Provider: MONICA FAY Report Released Date/Time: Sep 14, 2023 12:55 PM Reporting Lab: [facility] [address] [address] Performing Lab: [facility] [address] [place] [address] [place] TSH THYROTROPIN [UNITS/VOLU ME] IN SERUM OR PLASMA 1.82 u[IU]/ mL 0.34 - 5.6 09/13 Specimen Type: PLASMA No comment entered. Ordering Provider: MONICA FAY Report Released Date/Time: Sep 14, 2023 12:55 PM Reporting Lab: [facility] [address] [address] Performing Lab: [address] [phone] [place] [address] [place] GLUCOSE-AT GLUCOSE [MASS/VOLUM E] IN BLOOD BY AUTOMATED TEST STRIP 124 mg/dL 70 - 110 07/29 H Specimen Type: BLOOD Comment: Asymptomatic Not Fasting Test performed by: Peg Reece RN on meter [id number] Ordering Provider: RENNY,SARAY A Report Released Date/Time: Jul 29, 2023 06:40 AM Reporting Lab: [place] [address] [place] [address] Performing Lab: [place] [address] [place] [address] [place] GLUCOSE-AT GLUCOSE [MASS/VOLUM E] IN BLOOD BY AUTOMATED TEST STRIP 212 mg/dL 70 - 110 07/28 H Specimen Type: BLOOD Comment: Asymptomatic Notify RN Test performed by: Anshu Reece LPN on meter [id number] Ordering Provider: SARAY LAWSON A Report Released Date/Time: Jul 28, 2023 08:26 PM Reporting Lab: [place], [place] [address] [place] [address] Performing Lab: [place], [place] [address] [place] [address] [place] GLUCOSE-AT GLUCOSE [MASS/VOLUM E] IN BLOOD BY AUTOMATED TEST STRIP 125 mg/dL 70 - 110 07/28 H Specimen Type: BLOOD Comment: Notify RN Test performed by: Stephen CURTIS on meter [id number] Ordering Provider: SARAY LAWSON A Report Released Date/Time: Jul 28, 2023 03:58 PM Reporting Lab: [place] [address] [place] [address] Performing Lab: [place] [address] [place] [address] [place] GLUCOSE-AT GLUCOSE [MASS/VOLUM E] IN BLOOD BY AUTOMATED TEST STRIP 118 mg/dL 70 - 110 07/28 H Specimen Type: BLOOD Comment: Notify RN Test performed by: Everett CURTIS on meter [id number] Ordering Provider: SARAY LAWSON A Report Released Date/Time: Jul 28, 2023 12:15 PM Reporting Lab: [place] [address] [place] [address] Performing Lab: [place] [address] [place] [address] [place] GLUCOSE-AT GLUCOSE [MASS/VOLUM E] IN BLOOD BY AUTOMATED TEST STRIP 127 mg/dL 70 - 110 07/28 H Specimen Type: BLOOD Comment: Notify RN Test performed by: Fabian Reece RN on meter [id number] LOT:[id number] Ordering Provider: SARAY LAWSON A Report Released Date/Time: Jul 28, 2023 06:41 AM Reporting Lab: [place], [place] [address] [place] [address] Performing Lab: [place], [place] [address] [place] [address] [place] GLUCOSE-AT GLUCOSE [MASS/VOLUM E] IN BLOOD BY AUTOMATED TEST STRIP 147 mg/dL 70 - 110 07/27 H Specimen Type: BLOOD Comment: Asymptomatic Test performed by: Jose CURTIS on meter [id number] LOT:[id number] Ordering Provider: SARAY LAWSON A Report Released Date/Time: Jul 27, 2023 09:24 PM Reporting Lab: [place] [address] [place] [address] Performing Lab: [place], [place] [address] [place] [address] [place], [place] Vital Signs Combined list of inpatient and outpatient Vital Signs from Department of Defense and Veterans Affairs, ranging from 12 months to all on record, depending upon the facility. Vital Sign Value Date Comments Source SYSTOLIC BLOOD PRESSURE 110 12/13/2024 12:52:01 [place] [facility] DIASTOLIC BLOOD PRESSURE 50 12/13/2024 12:52:01 [place] [facility] PULSE OXIMETRY 98 % 12/13/2024 12:52:01 [place] [facility] WEIGHT 277 12/13/2024 12:52:01 [place] [facility] BMI 43 kg/m2 12/13/2024 12:52:01 [place] [facility] PAIN 6 12/13/2024 12:52:01 [place] [facility] HEIGHT 67 12/13/2024 12:52:01 [place] [facility] [facility] TEMPERATURE 98 12/13/2024 12:52:01 [place] [facility] PULSE 62 12/13/2024 12:52:01 [place] [facility] RESPIRATION 18 12/13/2024 12:52:01 [place] [facility] [facility] Encounters Combined list of: 1) Encounters from Department of Veterans Affairs facilities going backup to the last 18 months, not all [place] inpatient encounters are included; 2) Encounters from the Department of Defense facilities going backup to 280 months. Location Location Details Encounter Type Encounter Number Reason For Visit Attending Provider ADM Date DC Date Status Disposition Source [facility] Outpatient Encounter [id number] 08/29 [facility] Outpatient Encounter [id number] 09/05 [facility] Outpatient Encounter [id number] 09/05 [facility] [place] 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 WILLOW Hadley U 09/13 [place] [place] [facility] En[facility] [id number] 09/15 [facility] En[facility] [id number] [id number] 1 09/19 [facility] Encounter [id number] 09/19 [facility] Encounter [id number] [id number] 1 09/26 [facility] Encounter [id number] 09/26 [facility] Encounter [id number] 09/27 [facility] Encounter [id number] [id number] 6 10/04 [facility] Out[facility] Encounter [id number] [id number] 6 10/05 [facility] Out[facility] Encounter [id number] [id number] 1 10/12 [facility] Encounter [id number] [id number] 7 10/17 [facility] Out[facility] Encounter [id number] [id number] 4 Abelardo ADAIR A 10/24 [facility] Out[facility] Encounter [id number] [id number] 4 10/24 [facility] Encounter [id number] [id number] 10/26 [facility] Encounter [id number] [id number] 4 10/26 [facility] Outpatient Encounter [id number] [id number] 11/23 [facility] Outpatient Encounter [id number] [id number] 2 11/30 [facility] Outpatient Encounter [id number] [id number] 11/30 [facility] Outpatient Encounter [id number] [id number] 12/07 [facility] Outpatient Encounter [id number] 01/04 [facility] Outpatient Encounter [id number] [id number] 01/17 [facility] Outpatient Encounter [id number] [id number] 4 01/30 [facility] Outpatient Encounter [id number] [id number] 02/06 [facility] Outpatient Encounter [id number] [id number] 1 HELEN LR 02/13 [facility] Outpatient Encounter [id number] [id number] 2 02/21 [facility] Outpatient Encounter [id number] [id number] 8 02/23 [facility] Outpatient Encounter [id number] [id number] HELEN LR 03/10 [facility] En[facility] [id number] [id number] 7 NEDA MALDONADO 03/12 [facility] Encounter [id number] [id number] 6 NEDA MALDONADO RIL L 03/19 [facility] Encounter [id number] [id number] 7 03/21 [facility] Encounter [id number] [id number] 2 03/22 [facility] Encounter [id number] [id number] 8 03/22 [facility] Encounter [id number] [id number] 2 Stu VIDAL L 03/30 [facility] Encounter [id number] [id number] 8 03/30 [facility] Encounter [id number] [id number] 0 04/12 [facility] Outpatient Encounter [id number] [id number] 04/20 [facility] Encounter [id number] [id number] 9 04/23 [facility] Encounter [id number] [id number] 9 05/02 [facility] Outpatient Encounter [id number] 06/01 [facility] Outpatient Encounter [id number] [id number] 06/04 [facility] Outpatient Encounter [id number] [id number] 06/09 [facility] Outpatient Encounter [id number] [id number] 07/11 [facility] Out[facility] Encounter [id number] [id number] 8 07/16 [facility] Outpatient Encounter [id number] [id number] 6 HELEN LR 07/17 [facility] Outpatient Encounter [id number] [id number] 07/20 [facility] Outpatient Encounter [id number] [id number] 07/20 [facility] NQHP OL DIG ASSMT&MGMT 5-10 [id number] [id number] Diagnos is: ICD-10- CM Z51.81 Encount er for therape utic drug level monitor BOB Ramos 07/20 [facility] Outpatient Encounter [id number] [id number] 07/30 [facility] Outpatient Encounter [id number] [id number] 9 07/31 [facility] Outpatient Encounter [id number] [id number] Stu VIDAL 07/31 [facility] Outpatient Encounter [id number] [id number] 07/31 [facility] Outpatient Encounter [id number] [id number] 07/31 [facility] Outpatient Encounter [id number] [id number] 07/31 [facility] 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 15 MIN [id number] [id number] Diagnos is: ICD-10- CM E78.5 Hyperli pidemia , unspeci fied BRANNON,TROY V 08/03 [facility] Encounter [id number] 1 08/06 [facility] 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 15 MIN [id number] [id number] Diagnos is: ICD-10- CM E78.5 Hyperli pidemia , unspeci fied BRANNON,TROY V 08/07 [facility] Out[facility] Encounter [id number] Stu VIDAL 08/14 [facility] Outpatient Encounter [id number] [id number] TANO SANDOVAL E 09/10 [facility] Encounter [id number] [id number] 4 09/10 [facility] Outpatient Encounter [id number] [id number] 09/13 [facility] Outpatient Encounter [id number] [id number] 2 09/25 [facility] Out[facility] Encounter [id number] [id number] 1 Stu VIDAL L 11/22 [facility] Encounter [id number] [id number] 11/29 [facility]counter [id number] [id number] 1 11/30 [facility] Encounter [id number] [id number] AYSHA ARMSTRONG A 12/05 [facility] Encounter [id number] [id number] AYSHA ARMSTRONG 12/06 [facility]counter [id number] [id number] 3 12/13 [facility] Encounter [id number] [id number] 4 12/17 [facility] Encounter [id number] [id number] 12/20 [facility] Outpatient Encounter [id number] [id number] 12/24 [facility] Outpatient Encounter [id number] [id number] 2 12/26 [facility] Encounter [id number] [id number] 01/03 [facility] Encounter [id number] [id number] 01/04 [facility] Out[facility] Encounter [id number] [id number] PATYIVAN MONROY L 01/04 [facility] Outpatient Encounter [id number] [id number] Stu VIDAL L 01/09 [facility] Outpatient Encounter [id number] [id number] KIMBERLYHELEN MELENDEZ 01/11 [facility] 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 INDIVIDU [id number] Diagnos is: ICD-10- CM Z71.81 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 SUZANNE Broderick SR 01/15 [place] [place] [facility] Encounter [id number] [id number] 01/22 [facility] Outpatient Encounter [id number] [id number] TANO SANDOVAL E 01/23 [facility] Outpatient Encounter [id number] [id number] 01/24 [facility] Outpatient Encounter [id number] [id number] 01/30 [facility] Outpatient Encounter [id number] 02/07 [facility] CHERIE [facility]INCON [facility] [place] [id number] Diagnos is: ICD-10- CM K02.52 Dental caries on pit and fissure surfc penetra t into dentin MARISA BIRMINGHAM H 02/12 [facility] Outpatient Encounter [id number] NEDA MALDONADO 02/12 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 06/11/2015 [facility] 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 2014 [facility] History of tobacco use QUIT TOBACCO >7 Y EARS AGO 10/27/2012 [facility] History of tobacco use QUIT TOBACCO >7 Y EARS AGO 09/01/2011 [facility] 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 12/24/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 11/05/2008 [facility] 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 09/12/2007 [facility] History of tobacco use NON-TOBACCO USER 04/06/2006 [facility] History of tobacco use NON-TOBACCO USER 12/18/2004 [facility] History of tobacco use NON-TOBACCO USER 10/02/2003 [facility] History of tobacco use LIFETIME NON-SMOKER 01/07/2003 [facility] History of tobacco use LIFETIME NON-SMOKER 03/20/2002 [facility] History of tobacco use CURRENT NON-SMOKER 11/17/2001 [facility] Plan of Care List of future care activities from Department of Veterans Affairs facilities. Additional future care activities may be listed in the Assessment and Plan section. Date/Time Care Activity Care Activity Detail Facili ty 03/04/2025 AMBULATORY - MEDICINE AMBULATORY - MEDICI [facility] Advance Directives List of completed, amended, or rescinded Advance Directives on record at Department of [facility] facilities. An actual copy of the Directive is not included. Date Advance Directive Provider Source 07/12/2018 ADVANCE DIRECTIVE RADHAJENNIFER SEBASTIAN POE 04/13/2018 ADVANCE DIRECTIVE DISCUSSION ANANT DODGE [facility] 02/09/2017 ADVANCE DIRECTIVE DISCUSSION GEOFFREY VIDAL [facility] 12/22/2016 ADVANCE DIRECTIVE DISCUSSION IDANIA FONG [facility] 05/28/2014 ADVANCE DIRECTIVE DISCUSSION TRACI VIDAL [facility] 10/27/2012 ADVANCE DIRECTIVE DISCUSSION AVEL JENNINGS JOSE ANTONIO [facility] 10/26/2011 ADVANCE DIRECTIVE DISCUSSION TIMI ELMORE [facility] 09/01/2011 ADVANCE DIRECTIVE DIS[facility] 12/03/2008 ADVANCE DIRECTIVE YANI SULLIVAN JENNIFER JUAREZ, SEBASTIAN BROWNING Functional Status Combined list of recent functional and cognitive assessments recorded at Department of [facility] and [facility] ([place] Functional [place] Measurement (FIM) Scale: 1 = Total Assistance (Subject = 0% +), 2 = Maximal Assistance (Subject = 25% +), 3 = Moderate Assistance (Subject = 50% +), 4 = Minimal Assistance (Subject = 75% +), 5 = Supervision, 6 = Modified Yuba (Device), 7 = Complete Yuba (Timely, Safely). Assessment Date/Time Source Assessment Type Assessment Skill Assessment Score Assessment Details This secti on contains a list of the Functional [place] Measurement (FIM) assessments on record at [place] for the patient. It shows the FIM scores that were recorded within the requested date range. If no date range was provided, it shows the 3 most recent assessment scores that were completed within the last 3 years. Data comes from all [place] treatment facilities.
--- OUTSIDE RECORDS SUMMARY | 2025-02-13 08:18 | XMS_ITS | Encounter Summary ---
Author Name [facility] [place] Organization [facility] [place] [place] Address [address] [place] [id number] Care Team Providers Care Pet Training Instructor Name Role Phone JENNIFER AREVALO Primary Care [...] Name Patient's Relationship to Policy Hernandes [employer]MANA [facility] (R) MEDICARE ADVANTAGE [facility] ([facility]) Jun 27, 2023 [id number] VANESSA DUDLEY JR PATIENT [employer] MCR (WNR) MEDICARE ADVANTAGE [facility] (WN) Jun 27, 2023 [id number] VANESSA DUDLEY JR PATIENT MEDICARE (WNR) MEDICARE (M) PART A Apr 27, 2005 PART A [id number] VANESSA DUDLEY JR PATIENT MEDICARE (WNR) MEDICARE (M) PART B Apr 27, 2005 PART B [id number] VANESSA DUDLEY JR PATIENT MEDICARE PART D MEDICARE (M) PART D Jun 27, 2012 PART D [id number] OCTAVIAVANESSA LOU JR PATIENT [facility] MCR (WNR) MEDICARE ADVANTAGE MCR (WNR) Jun 27, 2021 [id number] KORIN DUDLEY PATIENT Selected Encounter This section includes the information on record at [place] for the Encounter. Date/Time Encounter Type Encounter Description Reason Provider Source Feb 13, 2025 01:18 PM Outpatient Encounter COMMUNITY CARE CONSULT JOELUMAIR Olga IHE Encounter Template Text not used by [place] Plan of Treatment: Future Appointments (+ 6 months) and Future Tests (+/- 45 days) The Plan of Treatment section includes future care activities for the patient from all [facility]. This section includes future appointments and future orders which are active, pending or scheduled. Future Appointments This section includes appointments that were scheduled to occur 6 months from the date of the Encounter, up to a maximum of 20 appointments. The data comes from all [place] treatment facilities. Appointment Date/Time Appointment Type Appointme nt Facility Name Mar 04, 2025 03:00 PM AMBULATORY - MEDICINE [facility] Mar 17, 2025 02:40 PM [facility]ULATORY - [facility]IC[facility] Active, Pending, and Scheduled Orders This section includes a listing of several types of active, pending, and scheduled orders, including clinic medications orders, diagnostic test orders, procedure orders and consult orders; where the start date of the order is 45 days before the date of the Encounter or 45 days after the date of theEncounter. The data comes from all [place] treatment [facility]. Test Date/Time Test Type Test Details Facility Name Jan 03, 2025 03:54 PM Consult Order COMMUNITY CARE-PODIATRY 657A4 Cons Clinical Pharmacist's Choice [facility] Jan 09, 2025 07:00 AM Consult Order COMMUNITY CARE-ENT 657A4 Cons Clinical Pharmacist's Choice [facility] Jan 21, 2025 09:02 AM Consult Order COMMUNITY CARE-GEC HOMEMAKER/HOME HEALTH AIDE 657A4 Cons Clinical Pharmacist's Choice [facility] Feb 11, 2025 07:53 AM Consult Order COMMUNITY CARE-DENTAL GEN 657A4 Cons Clinical Pharmacist's Choice [facility] Feb 12, 2025 07:58 AM Consult Order COMMUNITY CARE-DENTAL GEN 657A4 Cons Clinical Pharmacist's Choice CHERIE [facility] Feb 12, 2025 07:58 AM Consult Order COMMUNITY CARE-DENTAL GEN 657A4 Cons Clinical Pharmacist's Choice [facility] Advance Directives: All historical and current Section Date Range: From patient's date of to the date document was created. This section includes ALL of a patient's completed or amended [place] Advance and Rescinded Directives. The entries below indicate that a directive exists for the patient, but an actual copy is not included with this document. The data comes from all [facility]. Date Advance Directives Provider Source Jul 12, 2018 ADVANCE DIRECTIVE JENNIFER GARCIA AR VANPH Apr 13, 2018 ADVANCE DIRECTIVE DISCUSSION ANANT DODGE [facility] Feb 09, 2017 ADVANCE DIRECTIVE DISCUSSION GEOFFREY VIDAL [facility] Dec 22, 2016 ADVANCE DIRECTIVE DISCUSSION IDANIA FONG [facility] May 28, 2014 ADVANCE DIRECTIVE DISCUSSION TRACI VIDAL [facility] October 27, 2012 ADVANCE DIRECTIVE DISCUSSION AVEL JENNINGS JOSE ANTONIO [facility] October 26, 2011 ADVANCE DIRECTIVE DISCUSSION TIMI ELMORE [facility] Sep 01, 2011 ADVANCE DIRECTIVE DISCUSSION [facility] Dec 03, 2008 ADVANCE DIRECTIVE YANI SULLIVAN AR VANPH Encounter Notes: All associated encounter notes This section contains the clinical notes associated to the Encounter. Date/Time Encounter Note(s) Provider Source Feb 11, 2025 06:55 PM NONVA NOTE: LOCAL TITLE: COMMUNITY CARE-MAIK SELF PRESENTING CARE COORD PLAN STANDARD TITLE: NONVA NOTE DATE OF NOTE: FEB 11, 2025@18:55 ENTRY DATE: FEB 13, 2025@13:19:10 AUTHOR: UMAIR MALDONADO EXP COSIGNER: URGENCY: STATUS: COMPLETED COMMUNITY CARE-MAIK SELF PRESENTING CARE COORD PLAN 657A4 PB Has ADDENDA Emergency Notification Intake Date Presenting to the Facility: 02/11/2025 02:00 AM Method of Contact: Provider Notification ID: [id number] Referral #: Portal Generated [facility] City: [place] State: [place] Chief complaint: Near syncope Date of discharge: Jan Medical Decision Making: Patient presents here with some lightheadedness along with bradycardia his heart rates been in the 50s here sinus of bradycardia no block. He has been well-appearing here no chest pain blood works normal he stable for discharge he is to follow-up with his billet examiner return if worsening he understands agrees to plan. Near Syncope Bradycardia (ED Provider: Bruce Velrade MD) Current Cardiology consult in place #[id number] [facility] AUTH DATES: 09/13/24 TO 03/12/25 /ro/ UMAIR WHITTINGTON,RN Signed: 02/13/2025 13:23 02/13/2025 ADDENDUM STATUS: COMPLETED Current CC PCP consult in place # [id number] /ro/ UMAIR Olga WHITTINGTON,RN Signed: 02/13/2025 13:24 UMAIR MALDONADO [facility]
--- NOTE | 2025-02-13 13:24 | ECG_ITS ---
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 Measurements Intervals [place] Rate: 58 P: 7 OR: 240 QRS: -44 QRSD: 94 T: 34 QT: 423 QTc: 418 Interpretive Statements SINUS BRADYCARDIA WITH FIRST DEGREE AV BLOCK LEFT AXIS DEVIATION [QRS AXIS < -30] LOW QRS VOLTAGE IN PRECORDIAL LEADS [QRS DEFLECTION < 1.0 mV IN CHEST LEADS] POSSIBLE ANTERIOR MYOCARDIAL INFARCTION , OF INDETERMINATE AGE [30 ms Q WAVE IN V3/V4, OR R < 0.2 mV IN V4] Compared to ECG 02/12/2025 15:06:25 Low QRS voltage now present Myocardial infarct finding still present Electronically Signed On 02-16-2025 08:52:16 CDT by Adrian Issa M.D. [email or web address]
--- NOTE | 2025-02-13 13:24 | XR_ITS ---
WS: [id number] Portable AP upright chest, 02/13/2025 Clinical Data: cp Comparison: Portable chest, 02/12/2025 Findings: No nodules, masses or effusions are seen. The heart is normal. The pulmonary vascularity is not increased. No pneumonia or pneumothorax is seen. The aortic arch and descending thoracic aorta show mild tortuosity. There is an anterior cervical disc fusion. XR/XR chest 1V portable [id number] Impression: Atherosclerosis.
--- OUTSIDE RECORDS SUMMARY | 2025-02-13 13:31 | XMS_ITS | Patient Health Record ---
Author Organization [facility] Address [address] [place] [id number] Care Team Providers Care Creative Services Producer Name Role Phone Denny Parra Primary Care Provider Maite Jasso Unavailable [phone] Timothy Vance Unavailable [phone] Allergies Allergen (clinical drug ingredient) Drug/Non Drug Allergy documented on EMR Reaction Allergy Type Onset Date Status metformin Metformin HCl diarrhea Drug Allergy Act earline promethazine Phenergan Unknown Drug Allergy 01/17/2020 Act earline phenobarbital Phenobarbital Unknown Drug Allergy Active Sulfa-Allergy Only Unknown Drug Allergy 01/17/20 Active Results Component Value Reference Range Notes CMP (Not yet reviewed by pro vider) Interpretation: Performing Lab: Notes/Report: [facility] performed at: [place], [address] [place] [address], [address], [employer] Lecturer: Josh Ferreira MD [facility] Collection Date/Time: [id number] [facility] Results Received Date/Time: [id number] [facility] Reported Date/Time: [id number] Testing performed by reference lab. GLUCOSE 103 65-99 mg/dL Fasting reference interval For someone without known diabetes, a glucose value between 100 and 125 mg/dL is consistent with prediabetes and should be confirmed with a follow-up test. UREA NITROGEN (BUN) 10 7-25 mg/dL CREATININE 0.85 0.70-1.28 mg/dL EGFR 92 > OR = 60 mL/min/1.73m2 BUN/CREATININE RATIO SEE NOTE: 6-22 (calc) Not Reported: BUN and Creatinine are [...] 23 10-35 U/L ALT 20 9-46 U/L Thyroid Panel with TSH (Not yet reviewed by provider) Interpretation: Performing Lab: Notes/Report: [facility] Testing performed at: [facility], [address] [place], [address], [employer] Lecturer: Josh Ferreira MD [facility] Collection Date/Time: [id number] [facility] Results Received Date/Time: [facility] Reported Date/Time: [id number] Testing performed by reference lab. T3 UPTAKE 31 22-35 % T4 (THYROXINE), TOTAL 6.9 4.9-10.5 mcg/dL FREE T4 INDEX (T7) 2.1 1.4-3.8 TSH 1.10 0.40-4.50 mIU/L CBC, Diff, Automated Reviewed date:02/12/2025 12:14:11 PM Interpretation:OK for Patient Performing Lab: Notes/Report: Items were attached to this order: CMP W/EGFR, THYROID PANEL WITH TSH, 3RD GENERATION Items were attached to this order: CBC -HIGH Glucose, Fasting/Random-Fing erstick Reviewed date:02/12/2025 10:47:49 AM Interpretation:OK for Patient Performing Lab: Notes/Report: Testing performed at the [address] [place] [address] location Procedure: EKG Reviewed date:02/13/2025 11:34:15 AM Interpretation: Performing Lab: Notes/Report: Vitamin B6 Reviewed date:08/06/2024 01:55:07 PM Interpretation:Abnormal Performing Lab: Notes/Report: Testing performed by reference lab. [facility] Reported Date/Time: [id number] [facility] Results Received Date/Time: [id number] [facility] Collection Date/Time: Testing performed at: [facility], [facility], [address] [place] [address] [address], [address], [place], [address], [employer] Lecturer: Viet Baird MD,PhD [facility] VITAMIN B6, PLASMA 57.6 2.1-21.7 ng/mL (Note) Vitamin supplementation within 24 hours prior to blood draw may affect the accuracy of results. This test was developed and its analytical performance characteristics have been determined by [facility]. It has not been cleared or approved by the FDA. This assay has been validated pursuant to the CLIA regulations and is used for clinical purposes. [facility] med fusion [address] [place] [address],[address] [facility] [address] Viet Baird MD, PhD Thyroid Panel with TSH Reviewed date:08/06/2024 10:52:01 AM Interpretation:Normal Performing Lab: Notes/Report: Testing performed by reference lab. [facility] Reported Date/Time: [id number] [facility] Results Received Date/Time: [id number] [facility] Collection Date/Time: Testing performed at: [facility], [address] [place] [address], [address], [employer] Lecturer: Josh Ferreira MD [facility] T3 UPTAKE 30 22-35 % T4 (THYROXINE), TOTAL 6.2 4.9-10.5 mcg/dL FREE T4 INDEX (T7) 1.9 1.4-3.8 TSH 1.39 0.40-4.50 mIU/L Lipid Panel Reviewed date:08/06/2024 10:52:27 AM Interpretation:Abnormal Performing Lab: Notes/Report: Testing performed by reference lab. [facility] Reported Date/Time: [id number] [facility] Results Received Date/Time: [id number] [facility] Collection Date/Time: [id number] Testing performed at: [facility], [address] [place], [address], [employer] Lecturer: Josh Ferreira MD [facility] CHOLESTEROL, TOTAL 165 <200 mg/dL HDL CHOLESTEROL 36 > OR = 40 mg/dL TRIGLYCERIDES 269 <150 mg/dL If a non-fasting specimen was collected, consider repeat triglyceride testing on a fasting specimen if clinically indicated. Lara et al. J. of Clin. Lipidol. 2015;9:129-169. LDL-CHOLESTEROL 94 Reference range: <100 Desirable range <100 mg/dL for primary prevention; <70 mg/dL for patients with CHD or diabetic patients with > or = 2 CHD risk factors. LDL-C is now calculated using the Law-Simpson calculation, which is a validated novel method providing better accuracy than the Friedewald equation in the estimation of LDL-C. Law SS et al. RILEY. 2013;310(19): 5705-1018 (http://education.Crystalsol.EZDOCTOR/faq/UEH597) CHOL/HDLC RATIO 4.6 <5.0 (calc) NON HDL CHOLESTEROL 129 <130 mg/dL (calc) For patients with diabetes plus 1 major ASCVD risk factor, treating to a non-HDL-C goal of <100 mg/dL (LDL-C of <70 mg/dL) is considered a therapeutic option. Vitamin B12 and Folate Reviewed date:08/06/2024 10:51:38 AM Interpretation:Normal Performing Lab: Notes/Report: Testing performed by reference lab. [facility] Reported Date/Time: [id number] [facility] Results Received Date/Time: [id number] [facility] Collection Date/Time: [id number] Testing performed at: [facility], [address] [place], [address], [employer] Lecturer: Josh Ferreira MD [facility] VITAMIN B12 442 228-1552 pg/mL Please Note: Although the reference range for vitamin B12 is 200-1100 pg/mL, it has been reported that between 5 and 10% of patients with values between 200 and 400 pg/mL may experience neuropsychiatric and hematologic abnormalities due to occult B12 deficiency; less than 1% of patients with values above 400 pg/mL will have symptoms. FOLATE, SERUM 9.7 Reference Range Low: <3.4 Borderline: 3.4-5.4 Normal: >5.4 CMP-[place]/WRidg e/[place] ONLY Reviewed date:07/10/2024 04:20:10 PM Interpretation:OK for Patient Performing Lab: Notes/Report: Hemoglobin A1c Reviewed date:07/09/2024 01:11:27 PM Interpretation:OK for Patient Performing Lab: Notes/Report: Testing performed at the [address] [place] [address] location. Vitamin D-25 Hydroxy Reviewed date:08/06/2024 01:55:07 PM Interpretation:Abnormal Performing Lab: Notes/Report: Testing performed by reference lab. [facility] Reported Date/Time: [id number] [facility] Results Received Date/Time: [id number] [facility] Collection Date/Time: [id number] Testing performed at: [facility], [facility], [address] [place] [address], [address], [place], [address], [employer] Lecturer: Viet Baird MD,PhD [facility] VITAMIN D, 25-OH, TOTAL 15 30-100 ng/mL (Note) Vitamin D, 25-Hydroxy reports concentrations of two common forms, 25-OHD2 and 25-OHD3. 25-OHD3 indicates both endogenous production and supplementation. 25-OHD2 is an indicator of exogenous sources such as diet or supplementation. Therapy is based on measurement of Total 25-OHD, with levels <20 ng/mL indicative of Vitamin D deficiency, while levels between 20 ng/mL and 30 ng/mL suggest insufficiency. Optimal levels are > or = 30 ng/mL. For additional information, please refer to http://education.QuestDiagno [employer].com/faq/NOF734 (This link is being provided for information/educational purposes only.) VITAMIN D, 25-OH, D3 15 Referen ce range: Not established VITAMIN D, 25-OH, D2 <4.0 (Note) Reference range: Not established This test was developed and its analytical performance characteristics have been determined by [employer]. It has not been cleared or approved by the US Food and Drug Administration. This assay has been validated pursuant to the CLIA regulation and is used for Clinical purposes. [facility] med fusion [address] [address],[address] [facility] [address] Viet Baird MD, PhD See Note 1 Note 1 For additional information, please refer to http://education.Recurious.com/faq/AQE726 (This link is being provided for informational/ educational purposes only.) Vitamin B2 Reviewed date:08/06/2024 01:55:07 PM Interpretation:Abnormal Performing Lab: Notes/Report: [facility] Testing performed at: [facility], [address], [place], [place], , [employer] Lecturer: Giles Boggs M.D.,PhD [facility] Collection Date/Time: [id number] [facility] Results Received Date/Time: [id number] [facility] Reported Date/Time: [id number] Testing performed by reference lab. VITAMIN B2 (RIBOFLAVIN) <5.0 6.2-39.0 nmol/L Vitamin supplementation within 24 hours prior to blood draw may affect the accuracy of results. This test was developed and its analytical performance characteristics have been determined by [facility] [place], [place]. It has not been cleared or approved by the FDA. This assay has been validated pursuant to the CLIA regulations and is used for clinical purposes. Vitamin B12 and Folate Reviewed date:11/29/2024 09:40:13 AM Interpretation:Abnormal Performing Lab: Notes/Report: Items were attached to this order: IRON, TIBC AND FERRITIN PANEL [facility] Testing performed at: [facility], [address] [place] [address], [address], [employer] Lecturer: Josh Ferreira MD [facility] Collection Date/Time: [id number] [facility] Results Received Date/Time: [id number] [facility] Reported Date/Time: [id number] Testing performed by reference lab. VITAMIN B12 722 977-5393 pg/mL Please Note: Although the reference range for vitamin B12 is 200-1100 pg/mL, it has been reported that between 5 and 10% of patients with values between 200 and 400 pg/mL may experience neuropsychiatric and hematologic abnormalities due to occult B12 deficiency; less than 1% of patients with values above 400 pg/mL will have symptoms. FOLATE, SERUM 13.3 Reference Range Low: <3.4 Borderline: 3.4-5.4 Normal: >5.4 Hemoglobin A1c Reviewed date:11/14/2024 03:32:35 PM Interpretation:OK for Patient Performing Lab: Notes/Report: Testing performed at the [address] [place] [address] Lipid Panel Reviewed date:11/15/2024 09:30:04 AM Interpretation:Abnormal Performing Lab: Notes/Report: [facility] Testing performed at: [facility], [address] [place], [address], [employer] Lecturer: Josh Ferreira MD [facility] Collection Date/Time: [id number] [facility] Results Received Date/Time: [id number] [facility] Reported Date/Time: [id number] Testing performed by reference lab. CHOLESTEROL, TOTAL 164 <200 mg/dL HDL CHOLESTEROL 40 > OR = 40 mg/dL TRIGLYCERIDES 234 <150 mg/dL If a non-fasting specimen was collected, consider repeat triglyceride testing on a fasting specimen if clinically indicated. Jane et al. J. of Clin. Lipidol. 2015;9:129-169. LDL-CHOLESTEROL 92 Reference range: <100 Desirable range <100 mg/dL for primary prevention; <70 mg/dL for patients with CHD or diabetic patients with > or = 2 CHD risk factors. LDL-C is now calculated using the Law-Simpson calculation, which is a validated novel method providing better accuracy than the Friedewald equation in the estimation of LDL-C. Law SS et al. RILEY. 2013;310(19): 9844-8796 (http://education.BeDo/faq/JFM466) CHOL/HDLC RATIO 4.1 <5.0 (calc) NON HDL CHOLESTEROL 124 <130 mg/dL (calc) For patients with diabetes plus 1 major ASCVD risk factor, treating to a non-HDL-C goal of <100 mg/dL (LDL-C of <70 mg/dL) is considered a therapeutic option. Iron, TIBC, and Ferritin Rolando lind Reviewed date:11/15/2024 09:30:04 AM Interpretation:Normal Performing Lab: Notes/Report: [facility] Testing performed at: [place], [address] [place], [address], [employer] Lecturer: Josh Ferreira MD [facility] Collection Date/Time: [id number] [facility] Results Received Date/Time: [id number] [facility] Reported Date/Time: [id number] Testing performed by reference lab. IRON, TOTAL 141 50-180 mcg/dL IRON BINDING CAPACITY 349 250-425 mcg/dL (vidal c) % SATURATION 40 20-48 % (calc) FERRITIN 308 24-380 ng/mL Vitamin B6 Reviewed date:11/29/2024 09:39:33 AM Interpretation:Normal Performing Lab: Notes/Report: [facility] Testing performed at: [facility], [facility], [address] [place] [address], [address], [place], [address], [employer] Lecturer: Viet Baird MD,PhD [facility] Collection Date/Time: [id number] [facility] Results Received Date/Time: [facility] Reported Date/Time: [id number] Testing performed by reference lab. VITAMIN B6, PLASMA 6.7 2.1-21.7 ng/mL (Note) Vitamin supplementation within 24 hours prior to blood draw may affect the accuracy of results. This test was developed and its analytical performance characteristics have been determined by [facility]. It has not been cleared or approved by the FDA. This assay has been validated pursuant to the CLIA regulations and is used for clinical purposes. [facility] med fusion [address] [place] [address],[address] [place] [id number] Viet Baird MD, PhD [facility] Reviewed date:11/15/2024 09:30:05 AM Interpretation:Normal Performing Lab: Notes/Report: Vitamin D-25 Hydroxy Reviewed date:11/29/2024 09:39:15 AM Interpretation:Abnormal Performing Lab: Notes/Report: [facility] Testing performed at: [facility], [address] [place] [address], [address], [place], [address], [employer] Lecturer: Viet Baird MD,PhD [facility] Collection Date/Time: [id number] [facility] Results Received Date/Time: [id number] [facility] Reported Date/Time: [id number] Testing performed by reference lab. VITAMIN D, 25-OH, TOTAL 19 30-100 ng/mL (Note) Vitamin D, 25-Hydroxy reports concentrations of two common forms, 25-OHD2 and 25-OHD3. 25-OHD3 indicates both endogenous production and supplementation. 25-OHD2 is an indicator of exogenous sources such as diet or supplementation. Therapy is based on measurement of Total 25-OHD, with levels <20 ng/mL indicative of Vitamin D deficiency, while levels between 20 ng/mL and 30 ng/mL suggest insufficiency. Optimal levels are > or = 30 ng/mL. For additional information, please refer to http://education.Dynis/faq/EOD666 (This link is being provided for information/educational purposes only.) VITAMIN D, 25-OH, D3 19 Referen ce range: Not established VITAMIN D, 25-OH, D2 <4.0 (Note) Reference range: Not established This test was developed and its analytical performance characteristics have been determined by [employer]. It has not been cleared or approved by the US Food and Drug Administration. This assay has been validated pursuant to the CLIA regulation and is used for Clinical purposes. [facility] med fusion [address] [address],[address] [place] [address] Viet Baird MD, PhD See Note 1 Note 1 For additional information, please refer to http://Thefuture.fm.Dynis/faq/WJY009 (This link is being provided for informational/ educational purposes only.) Vitamin B2 Reviewed date:11/29/2024 09:42:32 AM Interpretation:Abnormal Performing Lab: Notes/Report: [facility] Testing performed at: [facility], [facility], [address], [place], [place], , [employer] Lecturer: Giles Boggs M.D.,PhD [facility] Collection Date/Time: [id number] [facility] Results Received Date/Time: [id number] [facility] Reported Date/Time: [id number] Testing performed by reference lab. VITAMIN B2 (RIBOFLAVIN) 5.4 6.2-39.0 nmol/L Vitamin supplementation within 24 hours prior to blood draw may affect the accuracy of results. This test was developed and its analytical performance characteristics have been determined by [employer], [place], [place]. It has not been cleared or approved by the FDA. This assay has been validated pursuant to the CLIA regulations and is used for clinical purposes. X ray : Shoulder, right 2 vi ew Reviewed date:11/14/2024 04:33:14 PM Interpretation:Abnormal Performing Lab: Notes/Report: Abnormal X ray : CHEST PA LATERAL Reviewed date:11/29/2024 12:04:24 PM Interpretation:Normal Performing Lab: Notes/Report: Normal Reason For Referral Reason 12-18 requested note s, R shoulder pain Diagnosis 1 Pain in right should er (M25.511) Referral Organization [address] [place] [address] are [facility] Referring Provider First Name Denny Referring Provider Last Name Fidel Referring Provider Speciality [facility] roxi Referred Provider [facility], [facility] Referred Provider Specialty Physical The rapist General Notes Anuradha Grider 025 04:01:15 PM >RFS faxed to [facility] and will monitor for approval and appt status.Cheo Teri 11/22/2024 09:45:30 AM >received notice from [place] a new consult has been created and sent for approval and authorization will be faxed when approved.Cheo Teri 11/29/2024 08:36:27 AM >appt has been made for 12-03-2024@2pm for evaluation and patient notified here at clinic and voiced understandingCheo Teri 12/18/2024 04:01:33 PM >called to check status, no answer at [facility] Wendy 12/19/2024 03:49:32 PM >Spoke with [facility], patient was seen on 12-17, notes are ready and they will fax them, Karina Pizarro 12/20/2024 03:14:10 PM >received PT notes Clinical Notes Patient requests [facility]TS in [place] please Referral Priority Routine Referral Appointment Date 12/17/2024 Reason weakness, cough, con gestion, SOB Diagnosis 1 Weakness generalized (R53.1) Referral Organization [address] [place] [address] are [facility] Referring Provider First Name Almalea Referring Provider Last Name Fidel Referring Provider Speciality [facility] Med icine Referred Provider [facility] Emergency, Emergency Referred Provider Specialty Emergency Me dicine General Notes Malina Juarez 08:42:45 AM > Nearest ED, Anuradha Grider 12/04/2024 08:55:32 AM >report has been called to [facility] ER by Malina Juarez RN, Anuradha Grider 12/05/2024 09:33:00 AM >called for record, Chantal will send Referral Priority Routine Referral Appointment Date 12/04/2024 Reason 8-[address] faxed, diabetic foot and nail care Diagnosis 1 Type 2 diabetes veronica itus with other circulatory complication, 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) Diagnosis 2 Diabetic peripheral neuropathy (E11.42) Referral Organization [address] [place] [address] are [facility] Referring Provider First Name Denny Referring Provider Last Name Fidel Referring Provider Speciality [facility] Med icine Referred Provider [facility], odiatry Referred Provider Specialty Podiatry General Notes Anuradha Grider 09:13:46 AM >RFS faxed and will monitor for approval, appt date and time.Cheo Teri 01/07/2025 09:28:33 AM >appt has been made for 01-10-22@1pm and patient is aware of appt date and time.Cheo Teri 02/06/2025 09:37:28 AM >record request faxed Clinical Notes Dr. Padilla please Referral Priority Routine Referral Appointment Date 01/10/2025 Reason 7-3 RFS faxed, B/ L hearing loss, L>R shlomo Diagnosis 1 Bilateral hearing lo ss (H91.93) Referral Organization [address] [place] [address] are [facility] Referring Provider First Name Denny Referring Provider Last Name Parra Referring Provider Speciality [facility] Med icine Referred Provider [place], [place] E NT And [facility] Referred Provider Specialty Otolaryngolo gy General Notes Anuradha Grider 025 09:37:29 AM >RFS faxed and will monitor for approval and appt date and time.Cheo Teri 01/09/2025 09:30:11 AM >received notice from [place], a new consult has been sent for [...] >appt has been made for 03-04-25@3pm in [place] and patient is aware of appt date and time. Clinical Notes [place] please Referral Priority Routine Referral Appointment Date 03/04/2025 Reason 8-20 records requ ested, near syncope, sinus bradycardia and concern for 1st degree AV block per today's EKG Diagnosis 1 Near syncope (R55) Referral Organization [address] [place] [address] are [facility] Referring Provider First Name Denny Referring Provider Last Name Fidel Referring Provider Speciality [facility] roxi Referred Provider [facility], E mergency Room Referred Provider Specialty Emergency Ro om General Notes Anuradha Grider 025 01:39:47 PM >sent via ambulance, Anuradha Grider 02/13/2025 08:14:53 AM >called [facility] for records, left messageCheo Teri 02/13/2025 08:45:37 AM >ER records received Clinical Notes [place] Referral Priority Routine Referral Appointment Date 02/12/2025 Reason syncope DUPLICATE RE FERRAL Diagnosis 1 Syncope, unspecified syncope type (R55) Referral Organization [address] [place] [address] are [facility] Referring Provider First Name Denny Referring Provider Last Name Fidel Referring Provider Speciality [facility] roxi Referred Provider Specialty Emergency Ro om General Notes Mya Toscano 01:21:55 PM > [facility] transferred [facility] to [facility]o Teri 02/12/2025 01:44:25 PM >duplicate referral Referral Priority Routine Medications Medication SIG (Take, Route, Frequency, Duration) Notes Start Date End Date Status Carboxymethylcellulose Sodiu m 0.5 % as directed Ophthalmic [facility] Not-Taking Acetaminophen 325 MG 2 tablet as needed Orally every 8 hrs PRN Active Cetirizine HCl 10 MG 1 tablet Orally Once a day Not-Taking busPIRone HCl 10 MG 1 tablet Orally twice a day; Duration: 90 days Active Diclofenac Sodium ER 100 MG 1 tablet as needed Orally Once a day; Duration: 90 days Not-Taking Diabetic Shoes Diabetic Shoes 1 pair Med ically necessary due to peripheral neuropathy with evidence of callus formation to both feet. [facility]. 07/21/2020 Active Fluticasone Propionate 50 MCG/ACT 1 spray in each nostril Nasally Twice a day Not-Taking Eliquis 5 MG as directed Orally twice a day Active fluoxetine hcl 20 mg 1 capsule Orally twice a day; Duration: 90 days Active Icosapent Ethyl 1 GM 2 capsules with meals Orally Twice a day; Duration: 90 days 08/03/2024 Not-Taking Lisinopril 5 MG 1 tablet Orally Once a day; Duration: 90 days 07/09/2024 Not-Taking Gabapentin 100 MG 1 capsule Orally 3 times a day; Duration: 90 days 01/30/2025 Active Nystatin 048078 UNIT/GM 1 application Externally Twice a day; Duration: 14 days to groin rash 11/14/2024 Not-Taking Gemfibrozil 600 MG 1 tablet 30 minutes before morning and evening meals Orally Twice a day; Duration: 90 days Active Petrolatum - as directed Externally Not-Taking Jardiance 10 MG 1 tablet for diabetes Orally Once a day; Duration: 90 days 08/10/2023 Active Salonpas 3.1-6-10 % as directed Externally PRN Not-Taking Leg Cramps - as directed Orally OTC PRN Active Lovaza 1 GM 2 capsules Orally Twice a day with meals; Duration: 30 days 08/06/2024 Active [place] 3 1000 MG 1 capsule Orally twice [...] needed Orally every 8 hrs PRN Active Vitamin B12 1000 MCG 1 tablet [...] 10 DAYS Oral; Duration: 10 Days Not-Taking Benzonatate 100 MG 1 capsule Orally Three times a day; Duration: 10 days As needed for cough 11/29/2024 Not-Taking Immunizations Vaccine Route Administration Date Status [...] Status W/U Status Risk Notes Problem Hypertension (16235184) Hypertension (I10) Active confirmed Problem Vitamin D deficiency (79682977) Vitamin D deficiency (E55.9) Active confirmed Problem Shortness of breath (074797443) Shortness of breath (R06.02) Active confirmed Problem Overweight (451098812) Overweight (E66.3) Active confirmed Problem Hypertriglyceridemia (331439855) Hypertriglyceridemia (E78.1) Active confirmed Problem Anxiety (90315497) Anxiety (F41.9) Active confi rmed Problem Seasonal allergy (095515810) Seasonal allergies (J30.2) Active confirmed Problem Degeneration of lumbar intervertebral disc (12411393) Degenerative disc disease, lumbar (M51.36) Active confirmed Problem Lower urinary tract symptoms due to benign prostatic hypertrophy (21167920358703) Benign prostatic hyperplasia with lower urinary tract symptoms (N40.1) Active confirmed Problem Essential tremor (183739442) Benign essential tremor (G25.0) Active confirmed Problem Walking disability (219688477) Difficulty in walking (R26.2) Active confirmed Problem Atopic dermatitis (24426008) Atopic dermatitis, unspecified type (L20.9) Active confirmed Problem Bilateral hearing loss (07893335) Bilateral hearing loss (H91.93) Active confirmed Problem Diabetic peripheral neuropathy (577969828) Diabetic peripheral neuropathy (E11.42) Active confirmed Problem Abnormal gait (06746619) Imbalance (R26.89) Active confirmed Problem Peripheral circulatory disorder associated with diabetes mellitus (671403398) Type 2 diabetes mellitus with other circulatory complication, 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) Active confirmed Problem Obesity (489292701) Obesity, uns pecified classification, unspecified obesity type, unspecified whether serious comorbidity present (E66.9) Active confirmed Problem Morbid obesity (077854079) Class 3 severe obesity with serious comorbidity in adult, unspecified BMI, unspecified obesity type (E66.01) Active confirmed Problem First degree heart block (727578835) First degree heart block (I44.0) Active confirmed Problem Body mass index 40+ - severely obese (414571435) Body mass index [BMI] 45.0-49.9, adult (Z68.42) Active confirmed Problem Primary osteoarthritis (239429111) Primary osteoarthritis involving multiple joints (M15.9) Active confirmed Problem Osteoarthritis of right glenohumeral joint (3069479104177798) Osteoarthritis of right glenohumeral joint (M19.011) Active confirmed Vital Signs Heart Rate 60 /min 02/12/2025 Temperature 97.2 degrees Fahrenheit 02/12/2025 Respiratory Rate 18 /min 02/12/2025 Oximetry 97 02/12/2025 Blood pressure diastolic 60 mm Hg 02/12/2025 Weight-kg 116.94 Kg 02/12/2025 Height 67 in 02/12/2025 Blood pressure systolic 120 mm Hg 02/12/2025 Weight 257.8 lbs 02/12/2025 BMI 40.37 kg/m2 02/12/2025 Encounters Encounter Location Date Provider Diagnosis [address] [place] [phone] 01/30/2025 Denny Parra Overweight E66.3 ; D ietary counseling Z71.3 and Degenerative disc disease, lumbar M51.[address] [place] [phone] 02/12/2025 Denny Parra Dizziness R42 ; Near syncope R55 ; Overweight E66.3 ; Dietary counseling Z71.3 and Sinus bradycardia R00.[address] [place] [address] [address] [place], [place] [phone] 03/06/2024 Maite Jasso Type 2 diabetes mellitus with other circulatory complication, 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 ; Difficulty in walking R26.2 ; Primary osteoarthritis involving multiple joints M15.9 ; Degenerative disc disease, lumbar M51.36 ; Overweight E66.3 and Dietary counseling Z71.[address] [place] [address] [place], [place] [id number] 03/14/2024 Denny Parra Acute non-recurrent maxillary sinusitis J01.[address] [place] [address] [address] [place], [place] [id number] 03/21/2024 Maite Jasso Primary osteoarthritis involving multiple joints M15.9 ; Hypertension I10 ; Overweight E66.3 ; Dietary counseling Z71.3 ; Imbalance R26.89 and Physical deconditioning R53.[address] [place] [address] [place], [place] [id number] 06/01/2024 Maite Jasso Encounter for immunization Z23 [address] [place] [address] [place], [place] [phone] 07/09/2024 Maite Jasso Encounter for annual wellness [...] E11.42 and PTSD (post-traumatic stress disorder) F43.[address] [place] [phone] 07/31/2024 Denny Parra Dietary counseling Z 71.3 [...] E11.59 and Degenerative disc disease, lumbar M51.[address] [place] [phone] 11/14/2024 Denny Parra Pain in right should er M25.511 ; Deficiency of vitamin B12 E53.8 ; Type 2 diabetes mellitus with other circulatory complication, 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 ; Hypertriglyceridemia E78.1 ; Vitamin B6 deficiency E53.1 ; Vitamin D deficiency E55.9 ; Vitamin B deficiency E53.9 ; Dizziness R42 and Candidal intertrigo B37.[address] [place] [phone] 11/29/2024 Denny Parra Viral URI with cough J06.9 ; Vitamin D deficiency E55.9 ; B12 deficiency E53.8 ; Osteoarthritis of right glenohumeral joint M19.011 ; Dizziness R42 ; Vitamin B deficiency E53.9 and Type 2 diabetes mellitus with other circulatory complication, 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 [place] [address], [place] [address] 12/13/2024 Denny Parra Overweight E66.3 ; Hospital discharge follow-up Z09 ; Dietary counseling Z71.3 ; Primary osteoarthritis involving multiple joints M15.9 ; Type 2 diabetes mellitus with other circulatory complication, 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 ; Diabetic peripheral neuropathy E11.42 and Bilateral hearing loss H91.[address] [place] [address], [place] [address] 01/07/2025 Tetomarc Parra Laceration of left g reat toe without foreign body present or damage to nail, initial encounter S91.112A [address] [place] [address] [facility] [address] [place], [place] [phone] 02/21/2024 Maite Jasso [facility] [address] [place], [place] [id number] 02/29/2024 Maite Jasso [facility] [address] [place], [place] [phone] 06/07/2024 Maite Jasso [facility] [address] [place], [place] [phone] 07/18/2024 Maite Jasso [facility] [address] [place], [place] [phone] 07/23/2024 Maite Jasso [facility] [address] [place], [place] [id number] 07/23/[address] [facility] [address] [place], [place] [phone] 08/03/[address] [facility] [address] [place], [place] [id number] 08/06/2024 Tetomarc Parra [address] [place] [address], [place] [address] 08/07/[address] [facility] [address] [place], [place] [phone] 09/04/2024 Almalea Parra [facility] [place] [address], [place] [address] 10/15/2024 Almalea Parra [facility] [address] [place] [address], [place] [address] 10/17/2024 Almalea Parra [facility] [place] [address], [place] [address] 10/17/2024 Almalea Parra [facility] [address] [place] [address], [place] [address] 11/15/2024 Almalea Parra [facility] [address] [place] [address], [place] [address] 12/04/2024 Almalea Parra [facility] [place] [address], [place] [address] 12/04/2024 Almalea Parra [address] [place] [address] HIGH [facility] [place] [address], [place] [address] 12/05/2024 Almalea Parra [facility] [place] [address], [place] [address] 12/10/2024 Almalea Parra [facility] [place] [address], [place] [address] 12/25/2024 Almalea Parra [facility] [address] [place] [address], [place] [address] 12/25/2024 Almalea Parra [address] [place] [address] HIGH [facility] [place] [address], [place] [address] 01/24/2025 Almalea Parra [facility] [place] [address] [place] [address], [place] [address] 02/12/2025 Almalea Parra Assessments Encounter Date Diagnosis (ICD Code) [...] new prescription has been sent to the [facility] for increased dose. Please stop taking [...] Azithromycin and Benzonatate have been sent to [facility] for patient pickup today. 01/07/2025 Laceration of left great toe without foreign body present or damage to nail, initial encounter (ICD-10 - S91.112A) 01/30/2025 Overweight (ICD-10 - E66.3) 02/12/2025 Dizziness (ICD-10 - R42) 02/12/2025 Near syncope (ICD-10 - R55) 02/12/2025 Overweight (ICD-10 - E66.3) 01/30/2025 Dietary counseling (ICD-10 - Z71.3) The following information is provided to help patients understand the role BMI, nutrition, and physical activity play in a patient's overall health. Please review the information available in these links. ADULT BMI: https://www.[facility]. ov/healthyweight/ assessing/bmi/keyonna lt_bmi/english_bm i_calculator/bmi_ calculator.html DIETARY GUIDELINES: https://www.[employer].gov/ sites/default/jeaneth es/2020-08/Dietar y_Guidelines_for_ Americans-2020-.. . PHYSICAL ACTIVITIES GUIDELINES: https://www.[employer]. ov/healthyweight/ physical_activity /index.html 12/13/2024 Dietary counseling (ICD-10 - Z71.3) The following information is provided to help patients understand the role BMI, nutrition, and physical activity play in a patient's overall health. Please review the information available in these links. ADULT BMI: https://www.[facility]. ov/healthyweight/ assessing/bmi/keyonna lt_bmi/english_bm i_calculator/bmi_ calculator.html DIETARY GUIDELINES: https://www.[employer].gov/ sites/default/jeaneth es/2020-08/Dietar y_Guidelines_for_ Americans-2020-.. . PHYSICAL ACTIVITIES GUIDELINES: https://www.[facility]. ov/healthyweight/ physical_activity /index.html 11/29/2024 B12 deficiency (ICD- 10 - E53.8) Recent labs show deficiency of vitamin B12; an increased dose of your oral supplement has been sent to the [facility]. Increase dose from once daily to twice a day. 11/14/2024 Type 2 diabetes mellitus with other circulatory complication, without long-term current use of insulin (ICD-10 - E11.59) HbA1C within goal for patient age; continue on current medication regimen. Advised patient to schedule with podiatry for foot and nail care. [facility]. 07/31/2024 Vitamin D deficiency [...] how often you need to urinate. -Many rpms-tgf-iymtcuq cold and allergy medicines can make the [...] have an appointment with [facility] in [place] on December 03, 2:00 p.m. 12/13/2024 Primary osteoarthrit is involving multiple joints (ICD-10 - M15.9) 01/30/2025 Degenerative disc disease, lumbar (ICD-10 - M51.36) 02/12/2025 Dietary counseling (ICD-10 - Z71.3) The following information is provided to help patients understand the role BMI, nutrition, and physical activity play in a patient's overall health. Please review the information available in these links. ADULT BMI: https://www.cdc.g ov/healthyweight/ assessing/bmi/keyonna lt_bmi/english_bm i_calculator/bmi_ calculator.html DIETARY GUIDELINES: https://www.dieta ryguidelines.gov/ sites/default/jeaneth es/2020-08/Dietar y_Guidelines_for_ Americans-2019-.. . PHYSICAL ACTIVITIES GUIDELINES: https://www.cdc.g ov/healthyweight/ physical_activity /index.html 02/12/2025 Sinus bradycardia (ICD-10 - R00.1) Patient advised to go to ER for further evaluation of bradycardia and near syncope. Patient's Administrative Asst, Dr. Dickson, is in [place], [place]; he is requesting to be seen there. EMS activated for transport to [facility]. 12/13/2024 Type 2 diabetes mellitus with other [...] Please keep your upcoming appointment with your Administrative Asst. If dizziness persists or worsens, is accompanied [...] Please follow up with Dr Mondragon in [place]. They had started the evaluation of your [...] feel better.Using heat or ice and taking vglm-hyx-skwknug pain medicine also can help while your [...] has been sent to Dr. Padilla in [place]. 12/13/2024 Bilateral hearing lo ss (ICD-10 - H91.93) A new referral to ENT in [place] has been sent today. 07/31/2024 Obesity, unspecified [...] an explanation of advance care planning. In [place], advanced care planning can be legally documented by utilizing an [place] DECLARATION AND DURABLE POWER OF PUBLIC INFORMATION SPECIALIST FOR HEALTH CARE form and an [place] OR[place] DONATION FORM. The patient was provided [...] Dizziness (ICD-10 - R42) Please call your Administrative Asst to schedule an appointment for evaluation earlier than February. 07/31/2024 Class 3 severe obesi ty with serious comorbidity in adult, unspecified BMI, unspecified obesity type (ICD-10 - E66.01) 11/14/2024 Candidal intertrigo (ICD-10 - B37.2) A new prescription for Nystatin Cream has been sent to the [facility]. Apply this cream to your groin rash twice daily until symptoms resolve. Be sure to dry the area thoroughly after bathing. 07/09/2024 PTSD (post-traumatic stress disorder) (ICD-10 - F43.10) 07/31/2024 Type 2 diabetes mellitus with other circulatory complication, without long-term current use of insulin (ICD-10 - E11.59) 07/31/2024 Degenerative disc disease, lumbar (ICD-10 - M51.36) Will send order to [place] for wide rolling walker with seat. 07/09/2024 [...] do something you enjoy. Go to a funny movie, or take a walk or hike. Plan [...] the numbers for these national suicide hotlines: 5-303-501-TALK ( ) and 1-942-AJOOWML ( ). If you or someone you know talks about suicide or feeling hopeless, get help right away. Watch closely for changes in your health, and be sure to contact your doctor if: --You have anxiety or fear that affects your life. --You have symptoms of anxiety that are new or different from those you had before. Plan Of Treatment Pending Test Test Name Order Date CMP 02/12/2025 Thyroid Panel with TSH 02/12/2025 Next Appt Details Provider Name:Denny Williamson , 03/04/2025 10:00:00 AM, [address] [place] [address], [phone], Insurance Providers Payer Name Payer Address Payer Phone Subscriber Number Group Number Insured Name Patient Relationship to Insured Coverage Start Date Coverage End Date [employer] [address] [place] [address] [id number] Raymundo James Self - patient is the insured 2023 Medications Administered Medication Instructions Date of Administration Dosage Notes Cyanocobalamin 06/04/2016 1000 ug Patient brought thier own medication in LOT # [id number] EXP Date 11/10 Cyanocobalamin 06/10/2016 1000 ug dose 2 ord er per Christ Born BI REPORT DEVELOPER Cyanocobalamin 06/16/2016 1000 pt brought in own medication lot [id number] exp 12/2016 Cyanocobalamin 06/23/2016 1000 mg Cyanocobalamin 12/23/2016 1000 ug Cyanocobalamin 02/11/2017 1000 mg b 12 given right arm im Lot #[id number] exp Cyanocobalamin 04/19/2017 1000 ug Cyanocobalamin 08/17/2017 1000 ug Cyanocobalamin 11/14/2017 1000 ug Cyanocobalamin 04/04/2018 1000 ug Cyanocobalamin 06/22/2018 1000 ug Cyanocobalamin 07/21/2018 1000 mL Lot # [id number] Exp 05/15 Cyanocobalamin 07/21/2018 1000 mL LOT [id number] Exp 05/15 Cyanocobalamin 08/28/2018 1 mL Cyanocobalamin 10/05/2018 1000 ug Lot: [id number] Exp Date: 05/16 Cyanocobalamin 06/26/2019 1000 ug Cyanocobalamin 10/30/2019 1000 ug lot#: [id number] Exp Date: 05/16 Cyanocobalamin 12/13/2019 1000 ug [...] Hyperlipidemia First degree heart block, follows with eldon ardiDr Randolph leggett, griselda 6 mo 08/2022 echocardiogram with E F 50-55%, LV diastology not fully evaluated, normal global left ventricular systolic function, technically poor study. PTSD, changed from fluoxetine to duloxet ine Jun 2022 for pain Seasonal allergies Diabetic neuropathy and B carpal tunnel syndrome, follows with Dr Hebert atopic dermatitis, actinic keratoses. Fo llows with [facility] chronic low back pain, DDD, sees NS (surgery not recommended) and in pain management clinic. Uses rollating walker. S/P steroid injections and radiofrequency ablations. Last injections in 2021 OA, generalized, follows wit pain management and chiropractors. Difficulty walking. essential tremor, RUE most affected BPV, improved previously with PET with Denis Mseser, ENT, Yaneli obesity Seeing [place] [facility] for [facility] 2022 - CTS, ulnar neuropathy, saw Dr Layla navarro May 2023 Surgical History Surgery Date(Month/Year) carpal tunnel bilateral at [facility] in [facility] patricia2000 right ear tube Dr. Messer 02/2019 C6-C7 anterior Discectomy with cage [facility] imani [place] 09/2018 PE tube right ear, Yaneli Don cataract removal, B, Salazar [facility]. Also sees Dr Moses 2020 lumbar nerve ablations, Dr Storm pain man agement clinic, [facility] 2021 Excision of scalp lesion and skin graft, Dr Gifford Jun 2022 Hospitalization History Reason Date(Month/Year) Shortness of breath 2024 pneumonia 12/04/24-12/06/24 [facility], pain 1-2-24 [facility], gastritis September 2022 [facility], for SOB May 2021 neck surgery emergency room visit for chest pain 02-2 5-16
--- OUTSIDE RECORDS SUMMARY | 2025-02-13 13:31 | XMS_ITS | Patient Health Record ---
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 Name Role Phone Shirley Chan Primary Care Provider Unavail able Reddy Nunez Unavailable [phone] [facility] [place] Unavailable Unavailable Reason For Referral No Information [...] down, depressed, or hopeless More than h [facility]cc the days Trouble falling or staying asleep, [...] Status Risk Notes Problem Spondylosis without myelopathy (73560959) Multilevel spondylosis (M47.819) Active confirmed Problem Dizziness and giddiness (544314286) Dizziness and giddiness (R42) Active confirmed [id number] [place] Description: Dizziness and giddiness Problem Bradycardia (20720698) Bradycardia, unspecified (R00.1) Active confirmed [id number] [place] Description: Bradycardia Plan Of Treatment No Information Insurance Providers Payer Name Payer Address Payer Phone Subscriber Number Group Number Insured Name Patient Relationship to Insured Coverage Start Date Coverage End Date [employer] [address] [place] [phone] [id number] Raymundo James Self - patient is the insured Medical (General) History Medical History History ICD Code chicken pox diabetes low blood pressure Surgical History Surgery Date(Month/Year) C5-6 cervical surgery 09/2018 lumbar surgery 01/2017 Hospitalization History Reason Date(Month/Year) surgery list
[2025-02-13 14:02] LABS: Hematocrit 43.2 % (37-53); Hemoglobin 15.00 g/dL (11.27-16.99); Mean Corpuscular HGB Conc 34.7 g/dL (30-55); Mean Corpuscular Hemoglobin 31.8 pg (27-33); Mean Corpuscular Volume 91.7 fl (82-101); Nucleated Red Blood Cells % 0 %; Platelet Count 245 10^3/cmm (157-399); Red Blood Count 4.71 10^6/uL (3.85-5.65); White Blood Count 8.41 10^3/uL (3.29-11.43)
[2025-02-13 14:15] LABS: INR 0.96 (0.8-1.2); Prothrombin Time 13.40 SECONDS (12.1-14.9)
[2025-02-13 14:17] LABS: Troponin(5th) Baseline 21 ng/L (0-15)
[2025-02-13 14:34] LABS: Alanine Aminotransferase 19 U/L (0-41); Albumin Level 4.3 g/dL (3.5-5.2); Alkaline Phosphatase 73 U/L (40-130); Anion Gap 21.2 (5-19); Aspartate Amino Transferase 20 U/L (0-40); Blood Urea Nitrogen 11 mg/dL (8-23); Calcium 9.2 mg/dL (8.5-10.5); Carbon Dioxide 19 mmol/L (22-29); Chloride 100 mmol/L (98-107); Creatinine Clr Calc Pharmacy 98.8939; Globulin 2.4 g/dL (1.3-4.6); Glucose 94 mg/dL (65-115); NT Pro B Type Natriuretic Pept 98 pg/mL (0-125); Osmolality Calculated 281 mOsm/kg (285-295); Potassium 4.2 mmol/L (3.5-5.1); Sodium 136 mmol/L (136-145); Total Protein 6.7 g/dL (6.6-8.7)
--- NOTE | 2025-02-13 15:24 | ECG_ITS ---
[employer] [employer] Test Date: 2025-02-13 Pat Name: Raymundo James Department: Room: Gender: Male Manager Combination: : 1950 Requested By: Bruce Velarde Order Number: [id number] Olga Lidia MD: Adrian Issa M.D. Measurements Intervals [place] Rate: 56 P: -3 DC: 240 QRS: -47 QRSD: 95 T: 43 QT: 418 QTc: 405 Interpretive Statements SINUS BRADYCARDIA WITH FIRST DEGREE AV BLOCK LOW QRS VOLTAGE IN PRECORDIAL LEADS [QRS DEFLECTION < 1.0 mV IN CHEST LEADS] LEFT ANTERIOR FASCICULAR BLOCK [QRS AXIS <= -45, QR IN I, RS IN II] POSSIBLE ANTERIOR MYOCARDIAL INFARCTION , OF INDETERMINATE AGE [30 ms Q WAVE IN V3/V4, OR R < 0.2 mV IN V4] Compared to ECG 02/13/2025 13:32:33 Left anterior fascicular block now present Left-axis deviation no longer present Myocardial infarct finding still present Electronically Signed On 02-16-2025 09:44:13 CDT by Adrian Issa M.D. [email or web address]
[2025-02-13 16:53] LABS: Troponin 5 2HR 19.89 ng/L (0-15)
[2025-02-13 16:56] LABS: Troponin 5 2HR Delta -1.11 ABS# (0-10)
--- NOTE | 2025-02-13 18:31 | CTR_ITS ---
PROCEDURE INFORMATION: Exam: CT Head Without Contrast Exam date and time: 02/13/2025 7:53 PM Age: 75 years old Clinical indication: Syncope and collapse; Additional info: Syncope, fall TECHNIQUE: Imaging protocol: Computed tomography of the head without contrast. Radiation optimization: All CT scans at this facility use at least one of these dose optimization techniques: automated exposure control; mA and/or kV adjustment per patient size (includes targeted exams where dose is matched to clinical indication); or iterative reconstruction. COMPARISON: CT head wo con* [id number] 07/16/2024 5:48 PM RADIATION DOSE METRICS: Total DLP (mGy-cm): 1104.88 FINDINGS: Brain: Mild atrophic changes. Hicks-white matter differentiation. No evidence of acute intracranial hemorrhage or mass. Note made of falx ossification . Mild calcification cavernous portions of the internal arteries . Cerebral ventricles: No ventriculomegaly. Paranasal sinuses: Visualized sinuses are unremarkable. No fluid levels. Appearance hypertrophy of the nasal turbinates particularly of the left inferior nasal turbinate. Spur posterior nasal septum on the right. Mastoid air cells: Visualized mastoid air cells are well aerated. Bones: Unremarkable. No acute fracture. Soft tissues: Unremarkable. CT/CT head wo con* [id number] IMPRESSION: Mild atrophic changes without acute appearing intracranial abnormality. Mild calcification cavernous portions of the internal carotid arteries. Some hypertrophy of the nasal turbinates.
--- NOTE | 2025-02-13 18:31 | W.ED.GENADLT ---
HPI - General Adult General: Chief complaint: General Medical Stated complaint: Dr lee ann SULLIVAN Time Seen by Provider: 02/13/25 18:26 Source: patient Mode of arrival: ambulatory Limitations: no limitations History of Present Illness: 75-year-old male who states he has been having syncopal near syncopal events for the last 2 days he was seen here yesterday after he had 1 syncopal event and had some sinus bradycardia his troponins were normal was discharged states today he still felt lightheaded he said he felt like he is going to pass out multiple times. He denies any chest pain denies any headache denies any shortness of breath. Heart rate has improved today Associated symptoms: Reports syncope; Deny chest pain, dyspnea, headache(s), nausea, rash or vomiting Related Data Home Medications ?Medication ?Instructions ?Recorded ?Confirmed acetaminophen 650 mg 650 mg PO Q8H PRN Pain 03/04/20 01/10/25 tablet,extended release buspirone 10 mg tablet 10 mg PO BID 03/04/20 01/10/25 cetirizine 10 mg tablet 10 mg PO DAILY 03/04/20 01/10/25 diclofenac sodium 100 mg 100 mg PO DAILY 03/04/20 01/10/25 tablet,extended release 24 hr fluoxetine 20 mg capsule 20 mg PO BID 03/04/20 01/10/25 gemfibrozil 600 mg tablet 600 mg PO BID 03/04/20 01/10/25 fluticasone propionate 50 1 spray intranasal BID PRN allergy 11/05/20 01/10/25 mcg/actuation nasal symptoms spray,suspension (Allergy Relief (fluticasone)) finasteride 5 mg tablet (Proscar) 5 mg PO DAILY 11/04/21 01/10/25 cholecalciferol (vitamin D3) 125 125 mcg PO DAILY 12/05/24 01/10/25 mcg (5,000 unit) tablet (Vitamin D3) cyanocobalamin (vitamin B-12) 100 100 mcg PO DAILY 12/05/24 01/10/25 mcg tablet empagliflozin 10 mg tablet 10 mg PO QAM 12/05/24 01/10/25 (Jardiance) gabapentin 600 mg tablet 600 mg PO TID 12/05/24 01/10/25 nystatin 100,000 unit/gram topical 1 applic topical BID PRN Skin 12/05/24 01/10/25 cream Irritation omega 4-hpq-yjm-fish oil 1,000 mg 2 cap PO BID 12/05/24 01/10/25 (120 mg-180 mg) capsule (Fish Oil) tamsulosin 0.4 mg capsule 0.4 mg PO DAILY 12/05/24 01/10/25 Previous Rx's ?Medication ?Instructions ?Recorded tramadol 50 mg tablet 50 mg PO TID PRN pain #10 tabs 09/14/22 bilateral wrist splint/brace #1 ea 05/05/23 potassium chloride 20 mEq 10 meq (1/2 x 20 mEq) PO DAILY #45 05/20/23 tablet,extended release tabs apixaban 5 mg tablet (Eliquis) 5 mg PO BID #90 tabs 07/30/24 cefdinir 300 mg capsule 300 mg PO BID #10 caps 12/06/24 Allergies Allergy/AdvReac Type Severity Reaction Status Date / Time metformin Allergy Unknown unknown Verified 01/10/25 13:13 phenobarbital Allergy Unknown unknown Verified 01/10/25 13:13 Sulfa (Sulfonamide Allergy Unknown unknown Verified 01/10/25 13:13 Antibiotics) Review of Systems Const: Denies: fever(s), chills, body aches or change in appetite ENMT: Denies: throat pain or dental pain Card: Reports: syncope; Denies: chest pain Resp: Denies: dyspnea GI: Denies: abdominal pain, nausea, vomiting or diarrhea Musc: Denies: neck pain or back pain Skin/Breast: Denies: rash Neuro: Denies: headache(s) PFSH ED PFSH: Medical History Morbid obesity with BMI of 40.0-44.9, adult Atrial fibrillation Skin scales Dizziness on standing Event monitor did not reveal any significant arrhythmias to explain the symptoms Dyslipidemia Abnormal EKG Benign essential hypertension with target blood pressure below 140/90 Bradycardia Hypertension Low back pain Erectile dysfunction Obesity Spondylosis Sleep apnea PTSD (post-traumatic stress disorder) Vitamin D deficiency Diabetes Surgical History H/O neck surgery History of carpal tunnel surgery History of back surgery Family History Father Cancer Mother Cancer Lung disease CAD (coronary artery disease) Diabetes Denies family history of Clotting disorder Dementia Hyperlipidemia Chronic kidney disease (CKD) Suicide Anesthesia complication Bleeding disorder Family history of premature coronary artery disease Hypertension Stroke Social History Smoking and tobacco/nicotine status: unknown if used tobacco/nicotine Alcohol intake: current Alcohol intake frequency: holidays/special occasions only Substance/Drug Use: never Physical Exam Const: COMMON NORMALS: no acute distress, patient oriented x3 and healthy appearing HENMT: COMMON NORMALS: normocephalic and atraumatic HEAD & SCALP: normocephalic and atraumatic Eye: COMMON NORMALS: conjunctivae normal CONJUNCTIVA: Yes conjunctivae normal Neck/C-Spine: COMMON NORMALS: full ROM and supple Chest: COMMONS NORMALS: normal inspection of the chest Resp: COMMON NORMALS: normal respiratory effort, No retractions, No use of accessory muscles and clear to auscultation bilaterally AUSCULTATION: clear to auscultation bilaterally Cardio: COMMON NORMALS: regular rate and regular rhythm RATE: regular rate RHYTHM: regular rhythm Extremity: COMMON NORMALS: normal to inspection and full ROM Neuro: COMMON NORMALS: patient oriented x3, moves all extremities and no focal motor deficits Psych: COMMON NORMALS: mental status grossly normal, Normal thought process present and cooperative THOUGHT PROCESS: Normal thought process present Skin: COMMON NORMALS: no rashes or lesions noted and no wounds GENERAL SKIN EXAM: no rashes or lesions noted Course Vital Signs: Vital signs: Vital Signs Pulse Rate 67 02/13/25 18:27 Respiratory Rate 14 02/13/25 18:27 Blood Pressure 141/71 02/13/25 18:27 Pulse Oximetry 96 02/13/25 18:27 Oxygen Delivery Me thod Room Air 02/13/25 18:27 MDM - General Adult Medical Decision Making Patient presents here with syncope along with near syncopal events throughout the day. Patient has bradycardia history of heart rates improved and states that he has not felt any improvement will admit for the syncopal event at this time. Medical Records I reviewed the patient's medical records. Lab Data I reviewed the patient's lab results. 02/13/25 13:45 02/13/25 13:45 Radiology Impressions Chest X-Ray 02/13/25 13:24 Impression: Atherosclerosis. Laboratory Results WBC 8.41 10^3/uL (3.29-11.43) 02/13/25 13:45 RBC 4.71 10^6/uL (3.85-5.65) 02/13/25 13:45 Hgb 15.00 g/dL (11.27-16.99) 02/13/25 13:45 Hct 43.2 % (37-53) 02/13/25 13:45 MCV 91.7 fl (82-101) 02/13/25 13:45 MCH 31.8 pg (27-33) 02/13/25 13:45 MCHC 34.7 g/dL (30-55) 02/13/25 13:45 RDW 13.5 % (12.1-15.1) 02/13/25 13:45 Plt Count 245 10^3/cmm (157-399) 02/13/25 13:45 MPV 8.6 fL (7.4-10.4) 02/13/25 13:45 Neut % (Auto) 75.3 % 02/13/25 13:45 Lymph % (Auto) 15.2 % 02/13/25 13:45 [place] % (Auto) 6.3 % 02/13/25 13:45 Eos % (Auto) 2.3 % 02/13/25 13:45 Baso % (Auto) 0.4 % 02/13/25 13:45 Neut # (Auto) 6.34 10^3/uL (1.8-7.7) 02/13/25 13:45 Lymph # (Auto) 1.3 10^3/uL (0.8-4.8) 02/13/25 13:45 [place] # (Auto) 0.5 10^3/uL (0.2-0.9) 02/13/25 13:45 Eos # (Auto) 0.2 10^3/uL (0.0-0.8) 02/13/25 13:45 Baso # (Auto) 0.0 10^3/uL (0.0-0.1) 02/13/25 13:45 Nucleated RBC % (auto) 0 % 02/13/25 13:45 Nucleated RBCs # 0.0 /100WBC 02/13/25 13:45 PT 13.40 SECONDS (12.1-14.9) 02/13/25 13:45 INR 0.96 (0.8-1.2) 02/13/25 13:45 Sodium 136 mmol/L (136-145) 02/13/25 13:45 Potassium 4.2 mmol/L (3.5-5.1) 02/13/25 13:45 Chloride 100 mmol/L (98-107) 02/13/25 13:45 Carbon Dioxide 19 mmol/L (22-29) L 02/13/25 13:45 Anion Gap 21.2 (5-19) H 02/13/25 13:45 BUN 11 mg/dL (8-23) 02/13/25 13:45 Creatinine 0.8 mg/dL (0.7-1.2) 02/13/25 13:45 GFR Calculation Not Reportable 02/13/25 13:45 Glucose 94 mg/dL (65-115) 02/13/25 13:45 Calculated Osmolality 281 mOsm/kg (285-295) L 02/13/25 13:45 Calcium 9.2 mg/dL (8.5-10.5) 02/13/25 13:45 Total Bilirubin 1.0 mg/dL (0.15-1.2) 02/13/25 13:45 AST 20 U/L (0-40) 02/13/25 13:45 ALT 19 U/L (0-41) 02/13/25 13:45 Alkaline Phosphatase 73 U/L (40-130) 02/13/25 13:45 Troponin T Baseline 21 ng/L (0-15) H 02/13/25 13:45 Troponin T 120 Minute 19.89 ng/L (0-15) H 02/13/25 15:08 Delta Troponin T -1.11 ABS# (0-10) L 02/13/25 15:08 NT-Pro-B Natriuret Pep 98 pg/mL (0-125) 02/13/25 13:45 Total Protein 6.7 g/dL (6.6-8.7) 02/13/25 13:45 Albumin 4.3 g/dL (3.5-5.2) 02/13/25 13:45 Globulin 2.4 g/dL (1.3-4.6) 02/13/25 13:45 All radiology interpretation(s) finalized by discharge Discharge Plan Discharge Patient Disposition: Admitted As Inpatient Admit Provider: Prashant Lewis Clinical Impression: Syncope Condition: Stable Coding Level of Care Code ED Caul Fat Puller for Tamiko Tristan
[2025-02-13 20:32] LABS: Troponin 5 6HR 18.03 ng/L (0-15)
[2025-02-13 20:33] LABS: Troponin 5 6HR Delta -2.97 ng/L (0-12)
--- NOTE | 2025-02-13 20:52 | PM.HP ---
Providers/Chief Complaint Admitting Physician: Prashant Lewis MD Chief Complaint: Dr lee ann SULLIVAN History of Present Illness Raymundo James Jr is a 75 year old male with a past medical history of atrial fibrillation on Eliquis, hypertension, type 2 diabetes mellitus, who presents to [facility] for chest pain and presyncopal symptoms Patient reports episodes for the last few weeks of feeling like he is going to pass out, denies ever passing out fully, no nausea, no vomiting, no headache, blurry vision, no neck pain he does not believe that it is positional related, no recent changes to his medications, no facial droop, no slurring of his words For his chest pain, reports substernal chest pain, does not radiate to the neck, does not radiate to arm, not necessarily associate with his presyncopal symptoms, does have some chest wall tenderness to palpation but he tells me that that is more of a stabbing pain his chest pain is more of a pressure-like pain While patient was in the emergency room, he was on the side of the bed, when he had an episode of chest pain, he stood up and was going to go to the nursing desk to ask for help when he tells me that he felt weak, denies passing out, he felt like he was going to go to the floor so he slowly lowered himself to the ground, denies any significant head trauma, no loss of consciousness, he does not the first thing that touch the ground was his right hip is not particularly bothering him, it was not such a traumatic fall he tells me. We discussed for him to stay in bed, discussed morbidity and mortality associated with falls, especially as he is on Eliquis, if he has any headaches or blurry vision please hit his call light, if he has any chest pain please hit his call light, discussed if he needs to get out of bed to hit his call light Review of Systems Card: Denies: chest pain Resp: Reports: dyspnea Neuro: Denies: headache(s) Medications/Allergies Home Medications ?Medication ?Instructions ?Recorded ?Confirmed ?Last Taken ?Type acetaminophen 650 mg 650 mg PO Q8H PRN Pain 03/04/20 01/10/25 Unknown History tablet,extended release buspirone 10 mg tablet 10 mg PO BID 03/04/20 01/10/25 12/03/24 History cetirizine 10 mg tablet 10 mg PO DAILY 03/04/20 01/10/25 12/03/24 History diclofenac sodium 100 mg 100 mg PO DAILY 03/04/20 01/10/25 12/03/24 History tablet,extended release 24 hr fluoxetine 20 mg capsule 20 mg PO BID 03/04/20 01/10/25 12/03/24 History gemfibrozil 600 mg tablet 600 mg PO BID 03/04/20 01/10/25 12/03/24 History fluticasone propionate 50 1 spray intranasal BID PRN allergy 11/05/20 01/10/25 Unknown History mcg/actuation nasal symptoms spray,suspension (Allergy Relief (fluticasone)) finasteride 5 mg tablet (Proscar) 5 mg PO DAILY 11/04/21 01/10/25 12/03/24 History tramadol 50 mg tablet 50 mg PO TID PRN pain #10 tabs 09/14/22 01/10/25 Unknown Rx bilateral wrist splint/brace #1 ea 05/05/23 01/10/25 Unknown Rx potassium chloride 20 mEq 10 meq (1/2 x 20 mEq) PO DAILY #45 05/20/23 01/10/25 12/03/24 Rx tablet,extended release tabs apixaban 5 mg tablet (Eliquis) 5 mg PO BID #90 tabs 07/30/24 01/10/25 12/03/24 Rx cholecalciferol (vitamin D3) 125 125 mcg PO DAILY 12/05/24 01/10/25 12/03/24 History mcg (5,000 unit) tablet (Vitamin D3) cyanocobalamin (vitamin B-12) 100 100 mcg PO DAILY 12/05/24 01/10/25 12/03/24 History mcg tablet empagliflozin 10 mg tablet 10 mg PO QAM 12/05/24 01/10/25 12/03/24 History (Jardiance) gabapentin 600 mg tablet 600 mg PO TID 12/05/24 01/10/25 12/03/24 History nystatin 100,000 unit/gram topical 1 applic topical BID PRN Skin 12/05/24 01/10/25 Unknown History cream Irritation omega 1-wsu-bwv-fish oil 1,000 mg 2 cap PO BID 12/05/24 01/10/25 12/03/24 History (120 mg-180 mg) capsule (Fish Oil) tamsulosin 0.4 mg capsule 0.4 mg PO DAILY 12/05/24 01/10/25 12/03/24 History cefdinir 300 mg capsule 300 mg PO BID #10 caps 12/06/24 01/10/25 Unknown Rx Allergies Allergy/AdvReac Type Severity Reaction Status Date / Time metformin Allergy Unknown unknown Verified 01/10/25 13:13 phenobarbital Allergy Unknown unknown Verified 01/10/25 13:13 Sulfa (Sulfonamide Allergy Unknown unknown Verified 01/10/25 13:13 Antibiotics) PFSH Acute PFSH: Medical History Morbid obesity with BMI of 40.0-44.9, adult Atrial fibrillation Skin scales Dizziness on standing Event monitor did not reveal any significant arrhythmias to explain the symptoms Dyslipidemia Abnormal EKG Benign essential hypertension with target blood pressure below 140/90 Bradycardia Hypertension Low back pain Erectile dysfunction Obesity Spondylosis Sleep apnea PTSD (post-traumatic stress disorder) Vitamin D deficiency Diabetes Surgical History H/O neck surgery History of carpal tunnel surgery History of back surgery Family History Father Cancer Mother Cancer Lung disease CAD (coronary artery disease) Diabetes Denies family history of Clotting disorder Dementia Hyperlipidemia Chronic kidney disease (CKD) Suicide Anesthesia complication Bleeding disorder Family history of premature coronary artery disease Hypertension Stroke Social History Smoking and tobacco/nicotine status: unknown if used tobacco/nicotine Alcohol intake: current Alcohol intake frequency: holidays/special occasions only Substance/Drug Use: never Vitals/I&O/Wt Last Vital Signs Pulse 51 L 02/13/25 20:49 Resp 14 02/13/25 18:27 BP 137/60 02/13/25 20:49 Pulse Ox 96 02/13/25 20:49 O2 Del Method Room Air 02/13/25 20:49 Weight last 48 hrs Weight 113.398 kg Physical Exam Const: COMMON NORMALS: no acute distress and patient oriented x3 Eye: COMMON NORMALS: Equal, round and reactive pupils present and EOMs intact bilaterally Resp: COMMON NORMALS: normal respiratory effort, No retractions, No use of accessory muscles and clear to auscultation bilaterally AUSCULTATION: clear to auscultation bilaterally Cardio: COMMON NORMALS: regular rate, regular rhythm, S1 normal heart sound present and S2 normal heart sound present RATE: regular rate RHYTHM: regular rhythm HEART SOUNDS: S1 normal heart sound present and S2 normal heart sound present GI: COMMON NORMALS: Normal to inspection, nondistended, normoactive bowel sounds present, Soft to palpation and non-tender Extremity: COMMON NORMALS: no calf tenderness and no pedal edema Neuro: COMMON NORMALS: patient oriented x3, CN's II-XII intact bilaterally and moves all extremities Psych: COMMON NORMALS: mental status grossly normal Data 02/13/25 13:45 02/13/25 13:45 A&P Assessment and plan 1. Benign essential hypertension with target blood pressure below 140/90: 2. Bradycardia: 3. Type 2 diabetes mellitus with peripheral neuropathy: 4. Near syncope: 5. Chest pain: Plan: Chest pain - Serial EKGs, serial troponins, telemetry monitoring - Aspirin, statin - Eliquis -Nitro as needed - Cardiac echo - Will consider stress testing based on clinical progress Near syncope - Etiology unclear - Telemetry monitoring - Carotid artery ultrasound - Cardiac echo - Follow UA - Orthostatic vitals once it is reasonable Type 2 diabetes mellitus, low-dose sliding scale Bradycardia, telemetry monitoring Fall, will order right hip x-ray Full code Eliquis for DVT prophylaxis PDMP PDMP Reviewed: Not Reviewed Attestations Medical Necessity Statement*: Patient requires hospitalization, inpatient, greater than 2 midnights, for chest pain, near syncope, bradycardia Diagnoses Benign essential hypertension with target blood pressure below 140/90 I10 Bradycardia R00.1 Type 2 diabetes mellitus with peripheral neuropathy E11.42 Near syncope R55 Chest pain R07.9
[2025-02-13 21:39] LABS: NT Pro B Type Natriuretic Pept 93 pg/mL (0-125)
--- NOTE | 2025-02-13 21:54 | XRR_ITS ---
PROCEDURE INFORMATION: Exam: XR Right Hip Exam date and time: 02/13/2025 10:06 PM Age: 75 years old Clinical indication: Injury or trauma; Fall; Blunt trauma (contusions or hematomas); Right; Hip; Additional info: Fall, pain TECHNIQUE: Imaging protocol: Radiologic exam of the right hip. Views: 1 view hip with pelvis when performed. COMPARISON: CT lumbar spine wo con* [id number] 03/16/2024 1:47 PM FINDINGS: Bones/joints: Single AP view of the right hip. Mild degenerative changes right acetabulum with spurring superior rim and posterosuperior rim. No acute appearing bony abnormalities. Soft tissues: Nonspecific. XR/XR hip RT 1V wo/w pel [id number] IMPRESSION: No acute findings.
--- NOTE | 2025-02-13 22:44 | ECG_ITS ---
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 Measurements Intervals [place] Rate: 49 P: 48 MI: 254 QRS: -51 QRSD: 96 T: 1 QT: 449 QTc: 406 Interpretive Statements SINUS BRADYCARDIA WITH FIRST DEGREE AV BLOCK LOW QRS VOLTAGE IN PRECORDIAL LEADS [QRS DEFLECTION < 1.0 mV IN CHEST LEADS] LEFT ANTERIOR FASCICULAR BLOCK [QRS AXIS <= -45, QR IN I, RS IN II] POSSIBLE ANTERIOR MYOCARDIAL INFARCTION , PROBABLY OLD [30 ms Q WAVE IN V3/V4, OR R < 0.2 mV IN V4] Compared to ECG 02/13/2025 15:55:11 No significant changes Electronically Signed On 02-16-2025 09:43:28 CDT by Adrian Issa M.D. [email or web address]
[2025-02-13 22:57] LABS: Thyroid Stimulating Hormone 1.41 uIU/mL (0.27-4.20)
[2025-02-14] VITALS (7 sets, daily range): BP systolic 119–153; BP diastolic 62–70; PULSE 51–98; RESP 16–17; TEMP 36.3–36.6; O2SAT 96–98
[2025-02-14 01:36] LABS: Glucose Urine UA 2+ (Normal); Nitrate Urine Negative (Negative); Specific Gravity, Urine 1.011 (1.005-1.030)
[2025-02-14 01:41] LABS: Add Urine Microscopic? YES
[2025-02-14 05:19] LABS: Hematocrit 42.5 % (37-53); Hemoglobin 14.70 g/dL (11.27-16.99); Mean Corpuscular HGB Conc 34.6 g/dL (30-55); Mean Corpuscular Hemoglobin 32.4 pg (27-33); Mean Corpuscular Volume 93.6 fl (82-101); Nucleated Red Blood Cells % 0 %; Platelet Count 224 10^3/cmm (157-399); Red Blood Count 4.54 10^6/uL (3.85-5.65); White Blood Count 7.00 10^3/uL (3.29-11.43)
[2025-02-14] MEDS: perflutren protein-a microsphr 0.22 mg/mL SDV 3 mL IV (05:32)
[2025-02-14 05:37] LABS: Anion Gap 16.8 (5-19); Blood Urea Nitrogen 11 mg/dL (8-23); Calcium 8.9 mg/dL (8.5-10.5); Carbon Dioxide 22 mmol/L (22-29); Chloride 103 mmol/L (98-107); Creatinine Clr Calc Pharmacy 100.8327; Glucose 98 mg/dL (65-115); Osmolality Calculated 285 mOsm/kg (285-295); Potassium 3.8 mmol/L (3.5-5.1); Sodium 138 mmol/L (136-145)
--- NOTE | 2025-02-14 08:50 | USR_ITS ---
PROCEDURE INFORMATION: Exam: US Duplex Bilateral Extracranial Arteries; Complete; Carotid Arteries Exam date and time: 02/14/2025 11:18 AM Age: 75 years old Clinical indication: Dizziness; Additional info: Syncope and falls TECHNIQUE: Imaging protocol: Real-time duplex ultrasound scan of the bilateral extracranial arteries combining hicks scale, color Doppler and spectral waveform analysis with image documentation. Complete exam. Exam focused on the carotid arteries. COMPARISON: CT head wo con* [id number] 02/13/2025 7:53 PM FINDINGS: Right common carotid artery: Normal waveform. Peak velocity 69/11 cm/s. Right internal carotid artery: Normal waveform. Moderate plaque at the origin. No visible luminal narrowing. Peak velocity 75/16 cm/second. Right ICA/CCA ratio: 1.1 (normal) Right external carotid artery: Normal waveform. Peak velocity 91 cm/s. Right vertebral artery: Normal waveform. Antegrade flow. Peak velocity 39/10 cm/second. Left common carotid artery: Normal waveform. Peak velocity 92/15 cm/s. Left internal carotid artery: Normal waveform. Mild plaque at the origin. No visible luminal narrowing. Peak velocity 73/12 cm/s. Left ICA/CCA ratio: 0.8 (normal) Left external carotid artery: Normal waveform. Peak velocity 118 cm/s. Left vertebral artery: Normal waveform. Antegrade flow. Peak velocity 54/10 cm/s. Other findings: Right subclavian artery: Normal waveform. Peak velocity 261 cm/s. Left subclavian artery: Normal waveform. Peak velocity 134 cm/s. US/CV carotid duplex BI* [id number] IMPRESSION: 1. Less than 50% stenosis of the internal carotid artery origins bilaterally. 2. No sign of hemodynamically significant stenosis in the vertebral arteries. 3. Mildly elevated velocity in the right subclavian artery consistent with 50-69% stenosis. REFERENCES: SRU CRITERIA. The degree of internal carotid artery stenosis is based on criteria defined by the Society of Radiologists in Ultrasound (SRU). Normal is no stenosis. Mild is less than 50% stenosis. Moderate is 50-69% stenosis. Severe is greater than 69% stenosis to near occlusion. Near occlusion is a markedly narrowed lumen. Total occlusion is no detectable patent lumen. Titi Kebede, et al. Carotid Artery Stenosis: Hicks-Scale and Doppler US Diagnosis-Society of Radiologists in Ultrasound Consensus Conference. Radiology 2003; 229:340-346.
--- NOTE | 2025-02-14 11:28 | PM.DCS ---
Discharge Providers Date of Admission: 02/13/25 18:38 Date of Discharge: February 14, 2025 Attending Provider at Admission: Prashant Lewis MD Attending Provider at Discharge: Rosendo Gaona MD Diagnoses at Discharge Discharge Diagnosis 1. Benign essential hypertension with target blood pressure below 140/90: 2. Bradycardia: 3. Type 2 diabetes mellitus with peripheral neuropathy: 4. Near syncope: 5. Chest pain: Reason for Visit Reason for Visit: Dr lee ann [place] Brief History: Raymundo James Jr is a 75 year old male with a past medical history of atrial fibrillation on Eliquis, hypertension, type 2 diabetes mellitus, who presents to [facility] for chest pain and presyncopal symptoms Patient reports episodes for the last few weeks of feeling like he is going to pass out, denies ever passing out fully, no nausea, no vomiting, no headache, blurry vision, no neck pain he does not believe that it is positional related, no recent changes to his medications, no facial droop, no slurring of his words. The patient also reported atypical chest pain but no radiation and not associated with any any presyncopal episodes. History in the emergency room he felt an episode of chest pain stood up and went to the nursing desk felt weak and was lowering himself to the floor feeling he may have passed out. But upon further history and discussion he was able to communicate properly and his symptoms were atypical more or less going with weakness. No focal neurological deficit, diaphoresis nausea vomiting or any question chest pain or heaviness reported. Hospital Course Hospital Course In the hospital head CT was unremarkable for any acute stroke hip x-ray did not report any fracture. ED labs were reviewed and he was seen by the OT and PT that established his inpatient stability of gait and balance with the help of walker. Review of the previous retrospective documents by the logging worker in December mentioned patient had Holter and found to have atrial fibrillation currently on Eliquis. His heart rate is controlled. And he was having this kind of dizzy spells since more than a year which is likely related to multi factors including his diabetic neuropathy, peripheral vertigo and dizziness. Therefore he is also being referred to be seen by ENT as outpatient as mentioned in the documents of cardiology. Patient discharged after thorough counseling, referral to ENT has been provided and meclizine as needed. He was taking gabapentin 600 mg 3 times daily which could also be the reason of his dizziness. The dose has been reduced to 300 mg 3 times daily. Medication reconciled and cetirizine also held since it can also lead to significant dizziness. Patient given referral with a primary care physician to be followed within 1 week for his post discharge follow-up Physical Exam Narrative: General: Alert oriented x3, patient seen lying comfortably on the bed HEENT: Normocephalic, atraumatic, EOMI, breathing at room air normal Cardio: Regular rate rhythm, normal S1-S2, no murmurs rubs gallops, JVD bilateral Respiratory: Good bilateral air entry, no wheezes no rhonchi appreciated GI: Abdomen soft, nontender, nondistended, normoactive bowel sounds present all 4 quadrants, Neuro: Cranial nerves II to XII intact, strength 5/5, sensation 5/5, no gross neurological deficit, proprioception grossly intact of the lower limbs Behavior: Appropriate and cooperative Extremities: Bilateral scaling of feet up to ankles and some chronic skin changes up to mid shins likely due to neuropathy, no trace edema. Skin: As mentioned above Discharge Data Studies Completed and Pending Completed Studies During Hospitalization Category Date Time Status CT head wo con* [id number] Stat Cat Scan 02/13/25 18:31 Completed XR chest 1V portable [id number] Stat Exams 02/13/25 13:24 Completed XR hip RT 1V wo/w pel [id number] Routine Exams 02/13/25 21:54 Completed CV. echo wo/w contrast [id number] Routine Ultrasound 02/14/25 21:54 Completed Pending at discharge Category Date Time Status CV carotid duplex BI* [id number] Routine Ultrasound 02/14/25 08:50 Ordered Radiology Impressions Chest X-Ray 02/13/25 13:24 Impression: Atherosclerosis. Head CT 02/13/25 18:31 IMPRESSION: Mild atrophic changes without acute appearing intracranial abnormality. Mild calcification cavernous portions of the internal carotid arteries. Some hypertrophy of the nasal turbinates. Hip X-Ray 02/13/25 21:54 IMPRESSION: No acute findings. Laboratory Results WBC 7.00 10^3/uL (3.29-11.43) 02/14/25 04:56 RBC 4.54 10^6/uL (3.85-5.65) 02/14/25 04:56 Hgb 14.70 g/dL (11.27-16.99) 02/14/25 04:56 Hct 42.5 % (37-53) 02/14/25 04:56 MCV 93.6 fl (82-101) 02/14/25 04:56 MCH 32.4 pg (27-33) 02/14/25 04:56 MCHC 34.6 g/dL (30-55) 02/14/25 04:56 RDW 13.7 % (12.1-15.1) 02/14/25 04:56 Plt Count 224 10^3/cmm (157-399) 02/14/25 04:56 MPV 8.6 fL (7.4-10.4) 02/14/25 04:56 Neut % (Auto) 65.9 % 02/14/25 04:56 Lymph % (Auto) 20.6 % 02/14/25 04:56 [place] % (Auto) 8.4 % 02/14/25 04:56 Eos % (Auto) 4.4 % 02/14/25 04:56 Baso % (Auto) 0.3 % 02/14/25 04:56 Neut # (Auto) 4.61 10^3/uL (1.8-7.7) 02/14/25 04:56 Lymph # (Auto) 1.4 10^3/uL (0.8-4.8) 02/14/25 04:56 [place] # (Auto) 0.6 10^3/uL (0.2-0.9) 02/14/25 04:56 Eos # (Auto) 0.3 10^3/uL (0.0-0.8) 02/14/25 04:56 Baso # (Auto) 0.0 10^3/uL (0.0-0.1) 02/14/25 04:56 Nucleated RBC % (auto) 0 % 02/14/25 04:56 Nucleated RBCs # 0.0 /100WBC 02/14/25 04:56 PT 13.40 SECONDS (12.1-14.9) 02/13/25 13:45 INR 0.96 (0.8-1.2) 02/13/25 13:45 Sodium 138 mmol/L (136-145) 02/14/25 04:56 Potassium 3.8 mmol/L (3.5-5.1) 02/14/25 04:56 Chloride 103 mmol/L (98-107) 02/14/25 04:56 Carbon Dioxide 22 mmol/L (22-29) 02/14/25 04:56 Anion Gap 16.8 (5-19) 02/14/25 04:56 BUN 11 mg/dL (8-23) 02/14/25 04:56 Creatinine 0.7 mg/dL (0.7-1.2) 02/14/25 04:56 GFR Calculation Not Reportable 02/14/25 04:56 Glucose 98 mg/dL (65-115) 02/14/25 04:56 POC Glucose 113 mg/dL (70-110) H 02/14/25 11:04 Calculated Osmolality 285 mOsm/kg (285-295) 02/14/25 04:56 Calcium 8.9 mg/dL (8.5-10.5) 02/14/25 04:56 Total Bilirubin 1.0 mg/dL (0.15-1.2) 02/13/25 13:45 AST 20 U/L (0-40) 02/13/25 13:45 ALT 19 U/L (0-41) 02/13/25 13:45 Alkaline Phosphatase 73 U/L (40-130) 02/13/25 13:45 Troponin T Baseline 21 ng/L (0-15) H 02/13/25 13:45 Troponin T 120 Minute 19.89 ng/L (0-15) H 02/13/25 15:08 Delta Troponin T -1.11 ABS# (0-10) L 02/13/25 15:08 Troponin T Hi Sens 6Hr 18.03 ng/L (0-15) H 02/13/25 19:39 Troponin T Hi Sens 6Hr Delta -2.97 ng/L (0-12) L 02/13/25 19:39 NT-Pro-B Natriuret Pep 93 pg/mL (0-125) 02/13/25 19:39 Total Protein 6.7 g/dL (6.6-8.7) 02/13/25 13:45 Albumin 4.3 g/dL (3.5-5.2) 02/13/25 13:45 Globulin 2.4 g/dL (1.3-4.6) 02/13/25 13:45 TSH 1.41 uIU/mL (0.27-4.20) 02/13/25 13:45 Urine Color Yellow (Yellow) 02/14/25 01:20 Urine Appearance Clear (CLEAR) 02/14/25 01:20 Urine pH 5.5 (5-7) 02/14/25 01:20 Ur Specific [place] 1.011 (1.005-1.030) 02/14/25 01:20 Urine Protein Negative (Negative) 02/14/25 01:20 Urine Glucose (UA) 2+ (Normal) H 02/14/25 01:20 Urine Ketones 2+ (Negative) H 02/14/25 01:20 Urine Blood Negative (Negative) 02/14/25 01:20 Urine Nitrate Negative (Negative) 02/14/25 01:20 Urine Bilirubin Negative (Negative) 02/14/25 01:20 Urine Urobilinogen 1.0 mg/dL (Negative) 02/14/25 01:20 Ur Leukocyte Esterase Negative (Negative) 02/14/25 01:20 Urine RBC 0-2 /hpf (0-2) 02/14/25 01:20 Urine WBC 0-5 /hpf (0-5) 02/14/25 01:20 Ur Squamous Epith Cells 0-5 /hpf (0-5) 02/14/25 01:20 Amorphous Sediment Not Reportable 02/14/25 01:20 Urine Bacteria None seen /hpf (NONE) 02/14/25 01:20 Hyaline Casts 0-4 /lpf H 02/14/25 01:20 Vitals Last Vital Signs Temp 97.6 F 02/14/25 07:59 Pulse 55 L 02/14/25 07:59 Resp 16 02/14/25 07:59 BP 135/62 02/14/25 07:59 Pulse Ox 98 02/14/25 07:59 O2 Del Method Room Air 02/14/25 04:00 Discharge Plan Discharge Patient Disposition: Home Condition: Stable Prescriptions: New meclizine 12.5 mg tablet 12.5 mg PO DAILY PRN (Reason: dizziness) Qty: 30 0RF Continued buspirone 10 mg tablet 10 mg PO BID acetaminophen 650 mg tablet extended release 650 mg PO Q8H PRN (Reason: Pain) gemfibrozil 600 mg tablet 600 mg PO BID fluoxetine 20 mg capsule 20 mg PO BID Rx Instructions: administer in the morning and at noon/midday fluticasone propionate [Allergy Relief (fluticasone)] 50 mcg/actuation spray,suspension 1 spray INTRANASAL BID PRN (Reason: allergy symptoms) Rx Instructions: administer into each nostril finasteride [Proscar] 5 mg tablet 5 mg PO DAILY (DME) bilateral wrist splint/brace See Rx Instructions .Route .MEDSUPPLY Qty: 1 0RF Rx Instructions: As directed Eliquis 5 mg tablet 5 mg PO BID Qty: 90 3RF tramadol 50 mg tablet 50 mg PO TID PRN (Reason: pain) Qty: 10 0RF potassium chloride 20 mEq tablet extended release 10 meq PO DAILY Qty: 45 3RF Jardiance 10 mg Tablet 10 mg PO QAM cyanocobalamin (vitamin B-12) 100 mcg Tablet 100 mcg PO DAILY tamsulosin 0.4 mg Capsule 0.4 mg PO DAILY nystatin 100,000 unit/gram Cream 1 applic TOPICAL BID PRN (Reason: Skin Irritation) cholecalciferol (vitamin D3) [Vitamin D3] 125 mcg (5,000 unit) Tablet 125 mcg PO DAILY omega [id number] oil [Fish Oil] 1,000 (120-180) mg Capsule 2 cap PO BID Changed gabapentin 600 mg Tablet 300 mg PO TID 60 Days Qty: 90 0RF Discontinued cetirizine 10 mg tablet 10 mg PO DAILY diclofenac sodium 100 mg tablet extended release 24 hr 100 mg PO DAILY cefdinir 300 mg capsule 300 mg PO BID Qty: 10 0RF Referrals: John Holland MD [Referring, Otolaryngology (ENT)] - 4-7 days Referral Note: peripheral vertigo and dizziness evaluation Tyrese Pereira OT [Occupational Therapist, Occupational Therapy] - 4-7 days Referral Note: For balance and mobility stability Discharge Diet: Advance as tolerated and Usual diet Discharge Activity: Resume usual activity Patient Instructions: Opioid Safety, Patient Portal & Sarah Instructions Activity Restrictions/Additional Instructions: APPOINTMENT WITH CINDI BARRAGAN DO [id number] 21 AT 10:20 Discharge Attestations Time Spent in Discharge Care*: less than 30 min Specific Discharge Activities: educating patient, educating and/or supporting family/caregiver, discussing with pcp/other providers, discussing with case management associate/social workers/dc planners, documenting/other paperwork and evaluating patient/reviewing data Status at Discharge: Cognitive status at discharge: cognitively intact, Behavioral status at discharge: cooperative, Functional status at discharge: uses cane/walker, Overall status at discharge: patient is back to baseline Quality Metrics Clinical Quality Measures [ No reported AMI, CVA or VTE this stay] Coding Level of Care Code Acute Code for Chg Fwd Diagnoses Benign essential hypertension with target blood pressure below 140/90 I10 Bradycardia R00.1 Type 2 diabetes mellitus with peripheral neuropathy E11.42 Near syncope R55 Chest pain R07.9
--- NOTE | 2025-02-14 18:38 | PC.NURSE ---
Discharge Note Patient discharged to home via private vehicle accompanied by . Discharge instructions reviewed with patient and/or patient portal representative. Mobile pharmacy medications and/or prescriptions provided. Belongings/home medications returned.
--- NOTE | 2025-02-14 21:54 | USCV_ITS ---
Raymundo James Age: 75 Gender: M : 1950 Exam Date: 02/14/2025 00:15 Ordering Phys: Rosendo Gaona MD Technologist: [place]am [place] [facility] [place]ication: chest pain, History of atrial fibrillation, DM2, HTN BP: 137 / 60 HR: 45 Rhythm: Sinus Technical Quality: Adequate with [employer] MEASUREMENTS (Male / Female) Normal Values 2D ECHO LV Diastolic Diameter PLAX 4.1 cm 4.2 - 5.9 / 3.9 - 5.3 cm IVS Diastolic Thickness 1.7 cm 0.6 - 1.0 / 0.6 - 0.9 cm IVS Systolic Thickness 1.6 cm LVPW Diastolic Thickness 1.4 cm 0.6 - 1.0 / 0.6 - 0.9 cm LVPW Systolic Thickness 1.8 cm LVOT Diameter 2.2 cm LV Ejection Fraction 2D Teich 59.9 % LV Ejection Fraction MOD 4C 61.2 % LV Ejection Fraction MOD 2C 51.0 % LV Ejection Fraction 2C AL 50.3 % LA Diameter 4.2 cm Aorta at Sinotubular Diameter 3.4 cm IVC Diameter 1.4 cm M-MODE LA Ao Ratio MM 1.5 AV Cusp Separation MM 2.0 cm DOPPLER AV Peak Velocity 108.0 cm/s LVOT Peak Velocity 94.0 cm/s AV Area Cont Eq vti 3.3 cm squared AV Area Cont Eq pk 3.2 cm squared MV Peak Velocity 82.0 cm/s MV Area PHT 1.8 cm squared Mitral E to A Ratio 0.8 TV Peak E Velocity 35.0 cm/s PV Peak Velocity 80.0 cm/s FINDINGS Left Ventricle Normal left ventricular size, systolic function and wall thickness, with no regional wall motion abnormalities. Left ventricular ejection fraction is estimated at 60 %. Right Ventricle The right ventricle is normal in size and function. Right Atrium The right atrium is normal in size. Left Atrium The left atrium is normal in size. Mitral Valve Structurally normal mitral valve. No mitral valve stenosis. Trace mitral valve regurgitation. Aortic Valve Mild aortic valve calcification. No aortic valve stenosis. No aortic valve regurgitation. Tricuspid Valve Structurally normal tricuspid valve without significant stenosis or regurgitation. Pulmonary artery systolic pressure is normal. Pulmonic Valve Structurally normal pulmonic valve without significant stenosis. There is no pulmonic regurgitation. Pericardium Normal pericardium without effusion. Aorta Normal ascending aorta dimension. IVC The inferior vena cava appears normal. CONCLUSIONS Normal left ventricular size, systolic function and wall thickness, with no regional wall motion abnormalities. Left ventricular ejection fraction is estimated at 60 %. There is no pericardial effusion. No significant valve abnormalities. Right atrial pressure is around 5 mm of mercury. Ramses Muñoz MD (Electronically Signed) Final Date: 14 February 2025 10:44 S
== END 2025-02-14 18:40 | disposition home health service (06) ==
LOC: ER 18:33 → ER IP 18:39 → MEDSURG 20:17
PROVIDERS: Admitting Provider Student in an Organized Health Care Education/Training Program; Emergency Provider Emergency Medicine; Visit Provider Family Medicine
DX: R07.9 Chest pain, unspecified (principal); R00.1 Bradycardia, unspecified; R55 Syncope and collapse; I10 Essential (primary) hypertension; E11.42 Type 2 diabetes mellitus with diabetic polyneuropathy; Z79.01 Long term (current) use of anticoagulants; E66.01 Morbid (severe) obesity due to excess calories; Z68.41 Body mass index [BMI] 40.0-44.9, adult; I48.91 Unspecified atrial fibrillation; E78.5 Hyperlipidemia, unspecified; G47.30 Sleep apnea, unspecified; F43.10 Post-traumatic stress disorder, unspecified; I65.29 Occlusion and stenosis of unspecified carotid artery
CPT/HCPCS: 36415; 36416; 70450; 71045; 73501; 80048; 80053; 81001; 82962; 83880; 84443; 84484; 85025; 85610; 93005; 93880; 97110; 97116; 97161; 97165; 99285; C8929; G0378; J9999

== ENCOUNTER → 2025-05-02 13:50 | Outpatient (BNVA) | payer OTHER, SELFPAY | PROVIDERS: Visit Provider Podiatrist Foot & Ankle Surgery | DX: L60.3 Nail dystrophy (principal); E11.42 Type 2 diabetes mellitus with diabetic polyneuropathy; E11.621 Type 2 diabetes mellitus with foot ulcer; L97.522 Non-pressure chronic ulcer of other part of left foot with fat layer exposed | CPT/HCPCS: 11721; 99213 ==

== ENCOUNTER → 2025-05-14 09:54 | Outpatient (BNVA) | payer OTHER, SELFPAY | PROVIDERS: PCP Family Medicine; Visit Provider Internal Medicine Cardiovascular Disease | DX: I48.0 Paroxysmal atrial fibrillation (principal); R42 Dizziness and giddiness; R06.02 Shortness of breath; I10 Essential (primary) hypertension; R00.1 Bradycardia, unspecified; E78.5 Hyperlipidemia, unspecified; G47.33 Obstructive sleep apnea (adult) (pediatric); Z99.89 Dependence on other enabling machines and devices; Z79.01 Long term (current) use of anticoagulants | CPT/HCPCS: 99214 ==